=== PATIENT | female | born 1930 | race Caucasian/White ===

== ENCOUNTER 2016-08-23 10:21 | Inpatient (IN) | payer MEDICARE, MEDICAID ==
[~2016-08-23] VITALS: Ht 157.5 cm; Wt 49.5 kg
[~2016-08-23 10:21] MED LIST: AC325T PO; ACET-168 PO; ACHD5005 PO; ALBU2.5V52 INH; Acetaminophen PO; BISA5TAB20 PO; CEFTRIAXONE SOD IM; DCS100C PO; DONE10TA41 PO; DONE10TA5 PO; Diphenhydramine Hcl IV; FNT.05A2 IV; HYDR-3816 PO; HYDR118S10 PO; IPRA3AMP11 INH; LEVO125T6 PO; LEVO750T24 PO; LORA1TAB PO; LVT.088T PO; Levofloxacin PO; Lorazepam PO; MAGN-47 PO; MAGN400O7 PO; MUPI22OI2 TP; Metoclopramide Hcl IV; Multivitamins/Minerals Therap PO; Mupirocin TOP; Naloxone Hcl IV; Neomycin/Polymyxin/Bacitracin TOP; ONDA2VIA IV; PANT40TA PO; PEG250PW PO; PNT40TEC PO; SENN1TAB76 PO; Sodium Chloride IV; Tramadol Hcl PO; Warfarin Sod PO
--- OUTSIDE RECORDS SUMMARY | 2016-08-23 10:26 | XMS REPORT | Continuity of Care Document ---
Author Author [facility] Organization [facility] Address Unknown Phone Unavailable Care Team Providers Care Comic Book Writer Name Role Phone ZORA GUERRERO MD PCP Insurance Providers Payer Name Policy Number Subscriber Name Relationship [employer] Medicare [id number] Jesse Hernandez 19 Self / Same As Patient [facility] [id number] Jesse Hernandez 19 Self / Same As Patient [facility] [id number] Jesse Hernandez 19 Self / Same As Patient Advance Directives Directive Response Recorded Date/Time Advance Directives No 10/01/14 5:10pm Health Care Power of Life Skills Specialist Y Emy-daughter 10/01/14 5:10pm Organ Donor No 10/01/14 5:10pm Resuscitation Status DNR-Order Obtained 10/01/14 5:10pm Chief Complaint and Reason for Visit Chief Complaint LEUKOCYTOSIS Reason for Visit Bowel perforation Sepsis Problems Medical Problems Problem Onset Date Status Urinary tract infection Unknown Active Sepsis Unknown Active Bowel perforation Unknown Active Sepsis Unknown Active Medications Medication Dose Route Sig Days/Qty Instructions Order Date Discontinued Date Status Docusate Sodium 100 Mg PO TWICE A DAY 10/17/11 Active Donepezil Hcl 10 Mg PO BEDTIME 11/01/11 Active Acetaminophen/Hydrocodone Bitart 1 Each PO EVERY 6 HOURS PRN 12/20/11 Discontinued Levothyroxine Sodium (Levothroid) 1 Each PO DAILY 11/01/11 09/18/14 Discontinued Lorazepam (Ativan) 1 Each PO BEDTIME PRN 11/01/11 12/20/11 Discontinued Magnesium Hydroxide 30 Ml PO EVERY 6 HOURS PRN CONSTIPATION 11/01/11 Active Polyethylene Glycol 17 Gm PO BEDTIME 11/01/11 Active Levothyroxine Sodium 88 Mcg PO DAILY 09/18/14 Active Lorazepam 1 Mg PO BEDTIME PRN AGITATION 09/18/14 Active Acetaminophen 325 Mg PO EVERY 8HRS PRN PAIN 09/18/14 Active Hydrocodone Bit/Acetaminophen 1 Tab PO EVERY 6 HOURS PRN PAIN Active Albuterol Sulfate 2.5 Mg INH RT Q2HR FROM START TIME PRN SOA 10 Qty 10/01/14 Discontinued [Ceftriaxone Sod] 1,000 Mg IM DAILY 09/22/14 10/01/14 Discontinued [Levofloxacin] 750 Mg PO Q48H@11 10 Qty 09/22/14 10/01/14 Discontinued Albuterol Sulfate 2.5 Mg INH Q2H PRN SHORTNESS OF BREATH 10/01/14 Active Levofloxacin 750 Mg PO Every 48 Hours 10 DOSE THERAPY 10/01/14 Active Lorazepam 1 Mg PO BEDTIME PRN AGITATION 30 Qty 10/04/14 Active Social History Social History Problem Response Recorded Date/Time Alcohol Use Denies Use 10/01/2014 5:10pm Recreational Drug Use No 10/01/2014 5:10pm Recent Foreign Travel No 10/01/2014 5:10pm Recent Infectious Disease Exposure No 10/01/2014 5:10pm Smoking Status Former Smoker 10/01/2014 5:10pm Do you dip or chew tobacco? No 10/01/2014 5:10pm Query Response Start Date Stop Date Smoking Status Former Smoker Hospital Discharge Instructions No hospital discharge instructions. Plan of Care Discharge Date 10/18/14 5:25pm Disposition 30 STILL A PATIENT Instructions/Education Provided Acute Abdominal Pain (ED) Forms Provided PDI Surgical Prescriptions See Medications Section Referrals (Physical Medicine and Rehab) ZORA GUERRERO MD (Unspecified) 10/04/14 Address: [facility] [address] [place], [place] [id number] Reason(s) for Referral: 9:30 AM Additional Instructions/Education Follow up with Dr. Cain on October 26 at 3:00 pm Functional Status Query Response Date Recorded Patient Orientation Confused October 18, 2014 10:19am Comprehension Ability Unable to Comprehend October 18, 2014 7:57am Allergies, Adverse Reactions, Alerts Allergen Type Severity Reaction Status Last Updated No Known Drug Allergies Active 10/13/11 Immunizations Name Given Type Date of Pneumonia Vaccine 05/08/11 Historical Date of Influenza Vaccine 04/07/14 Historical Tetanus Booster (TDap) Unknown Historical influenza, split (incl. purified surface antigen) 09/22/14 Administered influenza, split (incl. purified surface antigen) 09/22/14 Administered Vital Signs Acute Vital Signs Vital Response Date/Time Temperature (Fahrenheit) 99.0 degrees F (97.6 - 99.5) Temperature (Calculated Celsius) 37.09145 degrees C (36.4 - 37.5) Temperature Source Temporal Pulse Rate (adult) 90 bpm (60 - 90) Respiratory Rate 24 bpm (12 - 24) O2 Sat by Pulse Oximetry 95 % (88 - 100) Blood Pressure 117/65 mm Hg Pain Pain Intensity 0 Height (Feet) 5 feet Height (Inches) 4.00 inches Height (Calculated Centimeters) 162.272929 cm Weight (Pounds) 108 pounds Weight (Ounces) 9.0 oz Weight (Calculated Grams) 80579.122 gm Weight (Calculated Kilograms) 49.429090 kilograms Calculated BMI 18.19 Results Laboratory Results Test Name Result Units Flags Reference Collection Date/Time Result Date/ Time Comments White Blood Count 9.0 10^3/uL 4.3-11.0 09/20/2014 4:20am 09/20/2014 4: 39am Red Blood Count 4.31 10^6/uL L 4.35-5.85 09/20/2014 4:20am 09/20/2014 4: 39am Hemoglobin 13.8 G/DL 11.5-16.0 09/20/2014 4:20am 09/20/2014 4:39am Hematocrit 42 % 35-52 09/20/2014 4:09/20/2014 4:39am Mean Corpuscular Volume 97 FL 80-99 09/20/2014 4:09/20/2014 4: 39am Mean Corpuscular Hemoglobin 32 PG 25-34 09/20/2014 4:09/20/2014 4: 39am Mean Corpuscular Hemoglobin Concent 33 G/DL 32-36 09/20/2014 4: 4:39am Red Cell Distribution Width 13.9 % 10.0-14.5 09/20/2014 4:2014 4:39am Platelet Count 204 10^3/uL 130-400 09/20/2014 4:09/20/2014 4:39am Mean Platelet Volume 9.4 FL 7.4-10.4 09/20/2014 4:09/20/2014 4: 39am Neutrophils (%) (Auto) 81 % H 42-75 09/20/2014 4:09/20/2014 4:39am Lymphocytes (%) (Auto) 8 % L 12-44 09/20/2014 4:09/20/2014 4:39am Monocytes (%) (Auto) 10 % 0-12 09/20/2014 4:09/20/2014 4:39am Eosinophils (%) (Auto) 0 % 0-10 09/20/2014 4:09/20/2014 4:39am Basophils (%) (Auto) 0 % 0-10 09/20/2014 4:09/20/2014 4:39am Neutrophils # (Auto) 7.3 X 10^3 1.8-7.8 09/20/2014 4:09/20/2014 4: 39am Lymphocytes # (Auto) 0.8 X 10^3 L 1.0-4.0 09/20/2014 4:09/20/2014 4: 39am Monocytes # (Auto) 0.9 X 10^3 0.0-1.0 09/20/2014 4:09/20/2014 4: 39am Eosinophils # (Auto) 0.0 10^3/uL 0.0-0.3 09/20/2014 4:09/20/2014 4 :39am Basophils # (Auto) 0.0 10^3/uL 0.0-0.1 09/20/2014 4:20am 09/20/2014 4: 39am Neutrophils % (Manual) 79 % 09/18/2014 12:20pm 09/18/2014 12:52pm Band Neutrophils 15 % 09/18/2014 12:20pm 09/18/2014 12:52pm Lymphocytes % (Manual) 1 % 09/18/2014 12:20pm 09/18/2014 12:52pm Monocytes % (Manual) 5 % 09/18/2014 12:20pm 09/18/2014 12:52pm Eosinophils % (Manual) 0 % 09/18/2014 12:20pm 09/18/2014 12:52pm Basophils % (Manual) 0 % 09/18/2014 12:20pm 09/18/2014 12:52pm Blood Morphology Comment NORMAL 09/18/2014 12:20pm 09/18/2014 12: 52pm Urine Color YELLOW 09/20/2014 1:03pm 09/20/2014 1:15pm Urine Clarity CLEAR 09/20/2014 1:03pm 09/20/2014 1:15pm Urine pH 7 5-9 09/20/2014 1:03pm 09/20/2014 1:15pm Urine Specific [place] 1.005 * 1.016-1.022 09/20/2014 1:03pm 2014 1:15pm Urine Protein NEGATIVE NEGATIVE 09/20/2014 1:03pm 09/20/2014 1:15pm Urine Glucose (UA) NEGATIVE NEGATIVE 09/20/2014 1:03pm 09/20/2014 1: 15pm Urine RBC (Auto) 3+ * NEGATIVE 09/20/2014 1:03pm 09/20/2014 1:15pm Urine Ketones NEGATIVE NEGATIVE 09/20/2014 1:03pm 09/20/2014 1:15pm Urine Nitrite NEGATIVE NEGATIVE 09/20/2014 1:03pm 09/20/2014 1:15pm Urine Bilirubin NEGATIVE NEGATIVE 09/20/2014 1:03pm 09/20/2014 1: 15pm Urine Urobilinogen NORMAL MG/DL NORMAL 09/20/2014 1:03pm 09/20/2014 1: 15pm Urine Leukocyte Esterase 1+ * NEGATIVE 09/20/2014 1:03pm 09/20/2014 1: 15pm Urine RBC 10-25 /HPF * 09/20/2014 1:03pm 09/20/2014 1:15pm Urine WBC 2-5 /HPF 09/20/2014 1:03pm 09/20/2014 1:15pm Urine Bacteria NONE /HPF 09/20/2014 1:03pm 09/20/2014 1:15pm Urine Squamous Epithelial Cells 0-2 /HPF 09/20/2014 1:03pm 2014 1:15pm Urine Crystals NONE /LPF 09/20/2014 1:03pm 09/20/2014 1:15pm Urine Casts NONE /LPF 09/20/2014 1:03pm 09/20/2014 1:15pm Urine Mucus NEGATIVE /LPF 09/20/2014 1:03pm 09/20/2014 1:15pm Urine Culture Indicated NO 09/20/2014 1:03pm 09/20/2014 1:15pm Sodium Level 143 MMOL/L 135-145 09/20/2014 4:20am 09/20/2014 5:15am Potassium Level 3.1 MMOL/L L 3.6-5.0 09/20/2014 4:20am 09/20/2014 5:15am Chloride Level 108 MMOL/L H 98-107 09/20/2014 4:20am 09/20/2014 5:15am Carbon Dioxide Level 25 MMOL/L 21-32 09/20/2014 4:20am 09/20/2014 5: 15am Blood Urea Nitrogen 15 MG/DL 7-18 09/20/2014 4:20am 09/20/2014 5:15am Creatinine 0.71 MG/DL 0.60-1.30 09/20/2014 4:20am 09/20/2014 5:15am BUN/Creatinine Ratio 21 09/20/2014 4:20am 09/20/2014 5:15am Estimat Glomerular Filtration Rate > 60 09/20/2014 4:20am 2014 5:15am GFR INTERPRETIVE DATA UNITS FOR ESTIMATED GFR (eGFR): mL/min/1.73 M2 REFERENCE RANGE FOR ESTIMATED GFR (eGFR) eGFR NORMAL eGFR >60 MODERATELY DECREASED eGFR 30-59 SEVERLY DECREASED eGFR 15-29 KIDNEY FAILURE <15 (OR DIALYSIS) Glucose Level 120 MG/DL H 70-105 09/20/2014 4:20am 09/20/2014 5:15am Glucometer 92 MG/DL 70-110 09/21/2014 3:43pm 09/21/2014 4:09pm Calcium Level 8.7 MG/DL 8.5-10.1 09/20/2014 4:20am 09/20/2014 5:15am Phosphorus Level 1.8 MG/DL L 2.3-4.7 09/19/2014 4:40am 09/19/2014 5:57am Magnesium Level 1.9 MG/DL 1.8-2.4 09/20/2014 4:20am 09/20/2014 6:15am Total Bilirubin 0.4 MG/DL 0.1-1.0 09/19/2014 1:16pm 09/19/2014 3:46pm Alkaline Phosphatase 64 U/L 40-136 09/19/2014 1:16pm 09/19/2014 3:46pm Aspartate Amino Transf (AST/SGOT) 23 U/L 5-34 09/19/2014 1:16pm 2014 3:46pm Alanine Aminotransferase (ALT/SGPT) 14 U/L 0-55 09/19/2014 1:16pm 09/19 3:46pm B-Type Natriuretic Peptide 130.9 PG/ML H <100.0 09/19/2014 3:22pm 2014 3:56pm Total Protein 6.0 G/DL L 6.4-8.2 09/19/2014 1:16pm 09/19/2014 3:46pm Albumin 3.4 G/DL 3.2-4.5 09/19/2014 1:16pm 09/19/2014 3:46pm Lactic Acid Level 1.8 MMOL/L 0.5-2.2 09/19/2014 4:40am 09/19/2014 5: 23am Thyroid Stimulating Hormone (TSH) 0.02 UIU/ML L 0.35-4.94 09/18/2014 12: 20pm 09/18/2014 1:09pm Free Thyroxine 1.48 NG/DL 0.70-1.48 09/18/2014 12:20pm 09/18/2014 2: 19pm Total Triiodothyronine 0.7 NG/ML 0.6-1.8 09/18/2014 12:20pm 09/21/2014 7:58am White Blood Count 7.4 10^3/uL 4.3-11.0 10/18/2014 4:54am 10/18/2014 5: 20am Red Blood Count 3.85 10^6/uL L 4.35-5.85 10/18/2014 4:54am 10/18/2014 5: 20am Hemoglobin 12.2 G/DL 11.5-16.0 10/18/2014 4:54am 10/18/2014 5:20am Hematocrit 36 % 35-52 10/18/2014 4:54am 10/18/2014 5:20am Mean Corpuscular Volume 93 FL 80-99 10/18/2014 4:54am 10/18/2014 5: 20am Mean Corpuscular Hemoglobin 32 PG 25-34 10/18/2014 4:54am 10/18/2014 5: 20am Mean Corpuscular Hemoglobin Concent 34 G/DL 32-36 10/18/2014 4:54am 5:20am Red Cell Distribution Width 15.7 % H 10.0-14.5 10/18/2014 4:54am 2014 5:20am Platelet Count 289 10^3/uL 130-400 10/18/2014 4:54am 10/18/2014 5:20am Mean Platelet Volume 8.7 FL 7.4-10.4 10/18/2014 4:54am 10/18/2014 5: 20am Neutrophils (%) (Auto) 82 % H 42-75 10/07/2014 10:00am 10/07/2014 10: 11am Lymphocytes (%) (Auto) 5 % L 12-44 10/07/2014 10:00am 10/07/2014 10:11am Monocytes (%) (Auto) 12 % 0-12 10/07/2014 10:00am 10/07/2014 10:11am Eosinophils (%) (Auto) 0 % 0-10 10/07/2014 10:00am 10/07/2014 10:11am Basophils (%) (Auto) 1 % 0-10 10/07/2014 10:00am 10/07/2014 10:11am Neutrophils # (Auto) 14.7 X 10^3 H 1.8-7.8 10/07/2014 10:00am 10/07/2014 10:11am Lymphocytes # (Auto) 0.9 X 10^3 L 1.0-4.0 10/07/2014 10:00am 10/07/2014 10:11am Monocytes # (Auto) 2.1 X 10^3 H 0.0-1.0 10/07/2014 10:00am 10/07/2014 10: 11am Eosinophils # (Auto) 0.1 10^3/uL 0.0-0.3 10/07/2014 10:00am 10/07/2014 10:11am Basophils # (Auto) 0.1 10^3/uL 0.0-0.1 10/07/2014 10:00am 10/07/2014 10 :11am Neutrophils % (Manual) 94 % 10/01/2014 2:40pm 10/01/2014 3:26pm Band Neutrophils 0 % 10/01/2014 2:40pm 10/01/2014 3:26pm Lymphocytes % (Manual) 3 % 10/01/2014 2:40pm 10/01/2014 3:26pm Monocytes % (Manual) 3 % 10/01/2014 2:40pm 10/01/2014 3:26pm Eosinophils % (Manual) 0 % 10/01/2014 2:40pm 10/01/2014 3:26pm Basophils % (Manual) 0 % 10/01/2014 2:40pm 10/01/2014 3:26pm Blood Morphology Comment NORMAL 10/01/2014 2:40pm 10/01/2014 3: 26pm Urine Color YELLOW 10/08/2014 5:10pm 10/08/2014 5:51pm Urine Clarity CLEAR 10/08/2014 5:10pm 10/08/2014 5:51pm Urine pH 6 5-9 10/08/2014 5:10pm 10/08/2014 5:51pm Urine Specific [place] 1.015 * 1.016-1.022 10/08/2014 5:10pm 2014 5:51pm Urine Protein NEGATIVE NEGATIVE 10/08/2014 5:10pm 10/08/2014 5:51pm Urine Glucose (UA) NEGATIVE NEGATIVE 10/08/2014 5:10pm 10/08/2014 5: 51pm Urine RBC (Auto) NEGATIVE NEGATIVE 10/08/2014 5:10pm 10/08/2014 5: 51pm Urine Ketones 3+ * NEGATIVE 10/08/2014 5:10pm 10/08/2014 5:51pm Urine Nitrite NEGATIVE NEGATIVE 10/08/2014 5:10pm 10/08/2014 5:51pm Urine Bilirubin NEGATIVE NEGATIVE 10/08/2014 5:10pm 10/08/2014 5: 51pm Urine Urobilinogen NORMAL MG/DL NORMAL 10/08/2014 5:10pm 10/08/2014 5: 51pm Urine Leukocyte Esterase 2+ * NEGATIVE 10/08/2014 5:10pm 10/08/2014 5: 51pm Urine RBC NONE /HPF 10/08/2014 5:10pm 10/08/2014 5:51pm Urine WBC 5-10 /HPF * 10/08/2014 5:10pm 10/08/2014 5:51pm Urine Bacteria NEGATIVE /HPF 10/08/2014 5:10pm 10/08/2014 5:51pm Urine Squamous Epithelial Cells 0-2 /HPF 10/08/2014 5:10pm 2014 5:51pm Urine Crystals NONE /LPF 10/08/2014 5:10pm 10/08/2014 5:51pm Urine Amorphous Sediment FEW ANNA URATES /LPF * 10/01/2014 5:30pm 10/01 5:52pm Urine Casts NONE /LPF 10/08/2014 5:10pm 10/08/2014 5:51pm Urine Coarse Granular Casts 2-5 /LPF * 10/01/2014 5:30pm 10/01/2014 5: 52pm Urine Mucus NEGATIVE /LPF 10/08/2014 5:10pm 10/08/2014 5:51pm Urine Yeast LARGE /HPF * 10/08/2014 5:10pm 10/08/2014 5:51pm Urine Culture Indicated YES 10/08/2014 5:10pm 10/08/2014 5:51pm Sodium Level 140 MMOL/L 135-145 10/18/2014 4:52am 10/18/2014 5:32am Potassium Level 3.7 MMOL/L 3.6-5.0 10/18/2014 4:52am 10/18/2014 5:32am Chloride Level 109 MMOL/L H 98-107 10/18/2014 4:52am 10/18/2014 5:32am Carbon Dioxide Level 20 MMOL/L L 21-32 10/18/2014 4:52am 10/18/2014 5: 32am Blood Urea Nitrogen 4 MG/DL L 7-18 10/18/2014 4:52am 10/18/2014 5:32am Creatinine 0.59 MG/DL L 0.60-1.30 10/18/2014 4:52am 10/18/2014 5:32am BUN/Creatinine Ratio 7 10/18/2014 4:52am 10/18/2014 5:32am Estimat Glomerular Filtration Rate > 60 10/18/2014 4:52am 2014 5:32am GFR INTERPRETIVE DATA UNITS FOR ESTIMATED GFR (eGFR): mL/min/1.73 M2 REFERENCE RANGE FOR ESTIMATED GFR (eGFR) eGFR NORMAL eGFR >60 MODERATELY DECREASED eGFR 30-59 SEVERLY DECREASED eGFR 15-29 KIDNEY FAILURE <15 (OR DIALYSIS) Glucose Level 86 MG/DL 70-105 10/18/2014 4:52am 10/18/2014 5:32am Glucometer 82 MG/DL 70-110 10/09/2014 4:53am 10/09/2014 5:00am Calcium Level 8.0 MG/DL L 8.5-10.1 10/18/2014 4:52am 10/18/2014 5:32am Total Bilirubin 0.3 MG/DL 0.1-1.0 10/12/2014 7:44am 10/12/2014 8:09am Alkaline Phosphatase 48 U/L 40-136 10/12/2014 7:44am 10/12/2014 8:09am Aspartate Amino Transf (AST/SGOT) 10 U/L 5-34 10/12/2014 7:44am 2014 8:09am Alanine Aminotransferase (ALT/SGPT) 6 U/L 0-55 10/12/2014 7:44am 2014 8:09am Total Protein 4.7 G/DL L 6.4-8.2 10/12/2014 7:44am 10/12/2014 8:09am Albumin 2.3 G/DL L 3.2-4.5 10/12/2014 7:44am 10/12/2014 8:09am Lactic Acid Level 1.3 MMOL/L 0.5-2.2 10/01/2014 4:33pm 10/01/2014 5: 00pm Microbiology Results Procedure Source Result Collection Date/Time Result Date/Time Blood Culture Peripheral, Not Otherwise Specified STAPH, COAG NEG ([employer]OTECTION SPECIALIST) 12:35pm 09/20/2014 3:46pm STAPH, COAG NEG (SOURCE [employer] PROTECTION SPECIALIST) 09/18/2014 12:35pm 09/20/2014 3:46pm Sputum Culture Sputum, Transtracheal Aspirate Normal dinesh 09/20/2014 1: 00am 09/21/2014 8:07am Normal dinesh 09/20/2014 1:00am 09/21/2014 8:07am Urine Culture Urine, Clean Catch YEAST SPECIES 10/08/2014 5:10pm 2014 10:31am ARACELI KEFYR 10/08/2014 5:10pm 10/11/2014 10:31am Procedures Procedure Status Date Provider(s) Diagnostic laparoscopy completed 10/01/14 CLINTON ARELLANO MD Tracing only of electrocardiogram completed 09/18/14 YANIV SIERRA MD Encounters Encounter Location Date/Time Discharged Inpatient Via [facility] 10/01/14 4:02pm Discharged Inpatient Via [facility] 09/18/14 2:00pm Recent Diagnosis Bowel perforation Sepsis
[2016-08-23] MEDS ORDERED: RT-ALBUTEROL/IPRATROPIUM 3 ML (DUONEB) VIAL ONE (10:52)
[2016-08-23] MEDS ORDERED: NS IV 1000 ML 1,000 ML IV ONE (10:53)
[2016-08-23] MEDS ORDERED: RT-ALBUTEROL/IPRATROPIUM 3 ML (DUONEB) VIAL INH ONE (11:00)
[2016-08-23 11:09] LABS: BASOPHILS % (AUTO) 0 % (0-10); EOSINOPHILS % (AUTO) 0 % (0-10); LYMPHOCYTES # (AUTO) 0.9 X 10^3 (1.0-4.0); LYMPHOCYTES % (AUTO) 3 % (12-44); MEAN CORPUSCULAR HEMOGLOBIN 33 PG (25-34); MEAN CORPUSCULAR HGB CONC 34 G/DL (32-36); MEAN CORPUSCULAR VOLUME 96 FL (80-99); MONOCYTES # (AUTO) 1.3 X 10^3 (0.0-1.0); MONOCYTES % (AUTO) 5 % (0-12); NEUTROPHILS % (AUTO) 91 % (42-75); PLATELET COUNT 405 10^3/uL (130-400); RED BLOOD COUNT 4.22 10^6/uL (4.35-5.85); RED CELL DISTRIBUTION WIDTH 14.4 % (10.0-14.5); WHITE BLOOD COUNT 26.3 10^3/uL (4.3-11.0)
[2016-08-23 11:28] LABS: INR 1.2 (0.8-1.4); PROTHROMBIN TIME PATIENT 14.5 SEC (12.2-14.7)
[2016-08-23 11:29] LABS: BAND NEUTROPHILS 8 %; BASOPHILS % (MANUAL) 0 %; EOSINOPHILS % (MANUAL) 0 %; LYMPHOCYTES % (MANUAL) 5 %; NEUTROPHILS % (MANUAL) 83 %
[2016-08-23 11:30] LABS: MYELOCYTES % 1 %
[2016-08-23 11:41] LABS: ALANINE AMINOTRANSFERASE 16 U/L (0-55); ALBUMIN 3.3 G/DL (3.2-4.5); ANION GAP 13 MMOL/L (5-14); ASPARTATE AMINO TRANSFERASE 16 U/L (5-34); BILIRUBIN,TOTAL 0.4 MG/DL (0.1-1.0); BLOOD UREA NITROGEN 23 MG/DL (7-18); BUN/CREATININE RATIO 28; CALCIUM 9.1 MG/DL (8.5-10.1); CARBON DIOXIDE 27 MMOL/L (21-32); CHLORIDE 102 MMOL/L (98-107); CREATININE SERUM 0.83 MG/DL (0.60-1.30); GFR ESTIMATED > 60; GLUCOSE 194 MG/DL (70-105); POTASSIUM 3.2 MMOL/L (3.6-5.0); SODIUM 142 MMOL/L (135-145); TOTAL PROTEIN 6.4 G/DL (6.4-8.2)
--- NOTE | 2016-08-23 12:03 | Diagnostic Imaging Report ---
INDICATION: Shortness of air. FINDINGS: Portable upright view of the chest demonstrates no change since 11/26/2014. A small nodule is again seen in the right lung base. Heart size and vascularity are normal. There are no pleural effusions. There is some calcification of the aorta. IMPRESSION: There are no acute findings. Dictated by: Dictated on workstation # [id number]
--- NOTE | 2016-08-23 12:05 | Diagnostic Imaging Report ---
PROCEDURE: CT head and CT cervical spine without contrast. TECHNIQUE: Multiple contiguous axial images were obtained through the brain and cervical spine without the use of intravenous contrast. Sagittal and coronal reformations through the cervical spine were then performed. INDICATION: Fell last night, now has altered level of consciousness, hematoma noted in the patient's right temporal region upon arrival. COMPARISON STUDY: CT scan from 11/26/2014. FINDINGS: Diffuse central and cortical atrophy appears stable. White matter disease within the maggie and periventricular regions has not appreciably changed. No mass effect, midline shift, hemorrhage, or extra-axial fluid collections are identified. There is a small air-fluid level in the right maxillary sinus. This measures about 15 Hounsfield units and is probably secondary to sinusitis. No fractures are present. The mastoid air cells are clear. Cervical spine: Diffuse degenerative changes of the cervical spine are again identified. 1-2 mm of retrolisthesis of C4 on C5, which is stable. The craniocervical junction appears normal. Mild emphysematous changes are present in the lung apices. The soft tissues demonstrate some calcification at the carotid bifurcations. Osteophytes are present at C4-5, C5-6, and C6-7. IMPRESSION: 1. 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 2. Right maxillary sinusitis. 3. Stable degenerative changes of the cervical spine with no acute findings. Dictated by: Dictated on workstation # [id number]
[2016-08-23] MEDS ORDERED: CATHETER FLUSH 10 ML SYR IV PRN ×2 (13:45→16:30)
[2016-08-23] MEDS ORDERED: IOHEXOL 350 MG/ML 100 ML (OMNIPAQUE 350) VIAL IV ONE (13:45)
[2016-08-23] MEDS ORDERED: NS 100 ML (IVPB) BAG IV ONE (13:45)
--- NOTE | 2016-08-23 13:59 | ED General ---
General Chief Complaint: Altered Mental Status Stated Complaint: BP/PULSE DROPPING Nursing Triage Note: Pt to ED via [facility] from [facility]. Facility reports pt fell last night and now has altered LOC and lost bowel and bladder function. Hematoma noted to pt's R mormon upon arrival. Pt A&O x3 but has delay in answering questions. Pt denies pain at this time. Moist cough also noted upon initial exam. Nursing Sepsis Screen: Possible Sepsis Risk Source of Information: Patient Exam Limitations: No Limitations History of Present Illness Time Seen by Provider: 10:25 Initial Comments This 86-year-old woman presents to the emergency room from the [facility] where she was found to have altered mental status, cough, and increased respirations. Lab work done yesterday noted a leukocytosis. She also had a fall last last night and has a contusion on her right forehead. She denies any pain or injury at time of presentation. She seems a little disoriented. There is notable cough and respiratory distress. She is afebrile. Allergies and Home Medications Allergies Coded Allergies: No Known Drug Allergies (Unverified , 10/13/11) Home Medications 1 EA TABLET 30Days 1 EA PO DAILY@0700 Prescribed by: VIN RAI on 12/01/14 0909 1 MG TAB 30Days 1 MG PO DAILY@1800 Prescribed by: VIN RAI on 12/01/14 0909 1 MG TAB #30 1 MG PO HS PRN PRN AGITATION Prescribed by: SHUN FELIX on 12/09/14 1553 15 GM OINT #1 0 GM TOP WEEK Prescribed by: SHUN FELIX on 12/09/14 1553 50 MG TAB #30 50 MG PO Q4H PRN PRN MILD PAIN Prescribed by: SHUN FELIX on 12/09/14 1553 Acetaminophen 500 Mg Tablet 500 MG PO Q8H (Reported) Docusate Sodium 100 Mg Cap 100 MG PO BID (Reported) Donepezil HCl 10 Mg Tablet 10 MG PO HS (Reported) Levothyroxine Sodium 88 Mcg Tab 88 MCG PO DAILY (Reported) Lorazepam 1 Mg Tab 1 MG PO HS PRN PRN AGITATION (Reported) Mupirocin 22 Gm Oint..gm. 22 GM TP DAILY (Reported) Pantoprazole Sodium 40 Mg Tablet.dr 40 MG PO DAILY (Reported) Constitutional: no symptoms reported EENTM: see HPI Respiratory: see HPI Cardiovascular: no symptoms reported Gastrointestinal: no symptoms reported Genitourinary: no symptoms reported Musculoskeletal: no symptoms reported Skin: see HPI Psychiatric/Neurological: See HPI Hematologic/Lymphatic: No Symptoms Reported Past Umpwnud-Belxpa-Vxwayw Hx Patient Social History Alcohol Use: Denies Use Recreational Drug Use: No Smoking Status: Unknown if Ever Smoked Recent Foreign Travel: No Contact w/Someone Who Travel: No Recent Infectious Disease Expo: No Recent Hopitalizations: Yes Immunizations Up To Date Tetanus Booster (TDap): Unknown Date of Pneumonia Vaccine: May 08, 2011 Date of Influenza Vaccine: Apr 07, 2014 Seasonal Allergies Seasonal Allergies: No Surgeries HX Surgeries: Yes (HIP) Surgeries: Abdominal, Hysterectomy, Orthopedic Respiratory Hx Respiratory Disorders: No Cardiovascular Hx Cardiac Disorders: No Neurological Hx Neurological Disorders: Yes Neurological Disorders: Dementia Reproductive System Hx Reproductive Disorders: No Genitourinary Hx Genitourinary Disorders: No Gastrointestinal Hx Gastrointestinal Disorders: Yes Gastrointestinal Disorders: Gastroesophageal Reflux, Chronic Constipation, Ulcer Musculoskeletal Hx Musculoskeletal Disorders: Yes (November 2014 left clavicle fracture) Musculoskeletal Disorders: Fractures Endocrine Hx Endocrine Disorders: Yes Endocrine Disorders: Hypothyroidsim HEENT HX ENT Disorders: No Cancer Hx Cancer: No Psychosocial Hx Psychiatric Problems: No Integumentary HX Skin/Integumentary Disorder: No Blood Transfusions Hx Blood Disorders: No Adverse Reaction to a Blood Tr: No Family Medical History Significant Family History: No Pertinent Family Hx Family Medial History: Hypertension 19 FATHER Myocardial infarction 19 FATHER Physical Exam-Suspected Sepsis Physical Exam Vital Signs Vital Sign - Last 12Hours 08/23/16 10:26 Temp 96.8 Pulse 105 Resp 26 B/P 131/69 Pulse Ox 93 O2 Delivery Room Air Capillary Refill : Less Than 3 Seconds Blood Pressure Mean: 89 General Appearance: WD/WN Mild Distress (respiratory) HEENT: PERRL/EOMI Normal ENT Inspection Pharynx Normal Other (ecchymosis/ contusion of the right forehead) Neck: Normal Inspection Non Tender Supple Respiratory: Lungs Clear Normal Breath Sounds No Accessory Muscle Use No Respiratory Distress Cardiovascular: No Edema No Murmur Tachycardia Gastrointestinal: Normal Bowel Sounds Non Tender Soft Extremity: Normal Inspection No Pedal Edema Neurologic/Psychiatric: Alert No Motor/Sensory Deficits Normal 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 Norm as Tested Other (disoriented, dementia at baseline) Skin: normal color warm/dry ecchymosis (contusion of the right forehead) Progress/Results/Core Measures Suspected Sepsis Recent Fever Within 48 Hours: No Infection Criteria Present: Suspected New Infection New/Unexplained Altered Menta: No Sepsis Screen: Possible Sepsis Risk Sepsis Diagnosis: SIRS Temperature:96.8 Pulse: 105 Respiratory Rate: 26 Laboratory Tests 08/23/16 10:55: White Blood Count 26.3H Blood Pressure 131 /69 Mean: 89 Laboratory Tests 08/23/16 10:55: Creatinine 0.83, INR Comment 1.2, Platelet Count 405H, Total Bilirubin 0.4 Results/Orders Lab Results Laboratory Tests Test 08/23/16 10:55 08/23/16 12:30 08/23/16 13:45 Range/Units Activated Partial Thromboplast Time 29 24-35 SEC Alanine Aminotransferase (ALT/SGPT) 16 0-55 U/L Albumin 3.3 3.2-4.5 G/DL Alkaline Phosphatase 115 40-136 U/L Anion Gap 13 5-14 MMOL/L Aspartate Amino Transf (AST/SGOT) 16 5-34 U/L BUN/Creatinine Ratio 28 Band Neutrophils 8 % Basophils # (Auto) 0.0 0.0-0.1 10^3/uL Basophils % (Manual) 0 % Basophils (%) (Auto) 0 0-10 % Blood Morphology Comment NORMAL Blood Urea Nitrogen 23 H 7-18 MG/DL Calcium Level 9.1 8.5-10.1 MG/DL Carbon Dioxide Level 27 21-32 MMOL/L Chloride Level 102 98-107 MMOL/L Clumped Platelets Creatinine 0.83 0.60-1.30 MG/DL D-Dimer 3.69 H 0.00-0.49 UG/ML Eosinophils # (Auto) 0.0 0.0-0.3 10^3/uL Eosinophils % (Manual) 0 % Eosinophils (%) (Auto) 0 0-10 % Estimat Glomerular Filtration Rate > 60 Glucose Level 194 H 70-105 MG/DL Hematocrit 41 35-52 % Hemoglobin 13.7 11.5-16.0 G/DL INR Comment 1.2 0.8-1.4 Lymphocytes # (Auto) 0.9 L 1.0-4.0 X 10^3 Lymphocytes % (Manual) 5 % Lymphocytes (%) (Auto) 3 L 12-44 % Mean Corpuscular Hemoglobin 33 25-34 PG Mean Corpuscular Hemoglobin Concent 34 32-36 G/DL Mean Corpuscular Volume 96 80-99 FL Mean Platelet Volume 9.0 7.4-10.4 FL Monocytes # (Auto) 1.3 H 0.0-1.0 X 10^3 Monocytes % (Manual) 3 % Monocytes (%) (Auto) 5 0-12 % Myelocytes % 1 % Neutrophils # (Auto) 24.0 H 1.8-7.8 X 10^3 Neutrophils % (Manual) 83 % Neutrophils (%) (Auto) 91 H 42-75 % Platelet Count 405 H 130-400 10^3/uL Potassium Level 3.2 L 3.6-5.0 MMOL/L Prothrombin Time 14.5 12.2-14.7 SEC Red Blood Count 4.22 L 4.35-5.85 10^6/uL Red Cell Distribution Width 14.4 10.0-14.5 % Sodium Level 142 135-145 MMOL/L Total Bilirubin 0.4 0.1-1.0 MG/DL Total Protein 6.4 6.4-8.2 G/DL White Blood Count 26.3 H 4.3-11.0 10^3/uL Lactic Acid Level 1.8 0.5-2.0 MMOL/L Urine Bacteria TRACE /HPF Urine Bilirubin NEGATIVE NEGATIVE Urine Casts NONE /LPF Urine Clarity CLEAR Urine Color YELLOW Urine Crystals NONE /LPF Urine Culture Indicated YES Urine Glucose (UA) NEGATIVE NEGATIVE Urine Ketones 1+ H NEGATIVE Urine Leukocyte Esterase 2+ H NEGATIVE Urine Mucus SMALL H /LPF Urine Nitrite NEGATIVE NEGATIVE Urine Protein 2+ H NEGATIVE Urine RBC RARE /HPF Urine RBC (Auto) 1+ H NEGATIVE Urine Specific [place] 1.020 1.016-1.022 Urine Squamous Epithelial Cells RARE /HPF Urine Urobilinogen 1 NORMAL MG/DL Urine WBC 10-25 H /HPF Urine Yeast MODERATE H /HPF Urine pH 5 5-9 Micro Results Microbiology 08/23/16 Influenza Types A,B Antigen (DWAYNE) - Final, Complete My Orders Orders-HELEN SOARES MD Ct Head/Cervical Spine Wo (08/23/16 10:52) Albuterol/Ipra Inhalation Soln (Duoneb I (08/23/16 11:00) Svn Sm Volume Nebulizer Rt-Rfs (08/23/16 10:52) Albuterol/Ipra Inhalation Soln (Duoneb I (08/23/16 10:52) Ns Iv 1000 Ml (Sodium Chloride 0.9%) (08/23/16 10:53) Lactic Acid Analyzer (08/23/16 10:53) Blood Culture (08/23/16 10:53) Sputum Culture (08/23/16 10:53) Protime With Inr (08/23/16 10:53) Partial Thromboplastin Time (08/23/16 10:53) O2 (08/23/16 10:53) Saline Lock/Iv-Start (08/23/16 10:53) Vital Signs Adult Sepsis Patie Q1HR (08/23/16 10:53) Remove Rings In Anticipation O (08/23/16 10:53) Influenza A And B Antigens (08/23/16 10:53) Fibrin Degradation Products (08/23/16 12:30) Ct Angio Chest W (08/23/16 13:31) Iohexol Injection (Omnipaque 350 Mg/Ml 1 (08/23/16 13:45) Sodium Chloride Flush (Catheter Flush Sy (08/23/16 13:45) Ns (Ivpb) (Sodium Chloride 0.9% Ivpb Bag (08/23/16 13:45) Ceftriaxone Injection (Rocephin Injectio (08/23/16 14:45) Lactated Ringers (Lr 1000 Ml Iv Solution (08/23/16 15:06) Medications Given in ED Current Medications Medications Dose Ordered Sig/Leticia Route Start Time Stop Time Status Last Admin Dose Admin Albuterol/ Ipratropium 3 ml 3 ml STK-MED ONCE .ROUTE 08/23/16 10:52 08/23/16 10:54 DC 08/23/16 10:56 3 ML Ceftriaxone Sodium/Sodium Chloride 50 ml @ 100 mls/hr ONCE ONCE IV 08/23/16 14:45 08/23/16 15:14 DC 08/23/16 15:07 100 MLS/HR Iohexol 100 ml ONCE ONCE IV 08/23/16 13:45 08/23/16 13:46 DC 08/23/16 14:05 100 ML Sodium Chloride 1,000 ml @ 0 mls/hr Q0M ONCE IV 08/23/16 10:53 08/23/16 10:55 DC 08/23/16 11:09 0 MLS/HR Sodium Chloride 100 ml 100 ml ONCE ONCE IV 08/23/16 13:45 08/23/16 13:46 DC 08/23/16 14:05 80 ML Vital Signs/I&O Vital Sign - Last 12Hours 08/23/16 10:26 Temp 96.8 Pulse 105 Resp 26 B/P 131/69 Pulse Ox 93 O2 Delivery Room Air Capillary Refill : Less Than 3 Seconds Blood Pressure Mean: 89 Progress Note #1: Time: 13:57 Progress Note Patient was initially suspected of having sepsis. However, no source of infection has been found. Chest x-ray was normal despite the respiratory distress. She became hypoxic despite DuoNeb treatment. Supplemental oxygen was applied. UA is still pending. Due to tachycardia, respiratory distress, and hypoxia, d-dimer was ordered. D-dimer was significantly elevated. CT angiogram of the chest was ordered and is pending. Progress Note #2: Time: 14:41 Progress Note Patient was found to have urinary tract infection after UA was obtained. Sepsis was no suspected. Rocephin was ordered. Progress Note #3: Time: 15:[address] angiogram was reviewed with Dr. Thomas. Motion artifact makes smaller vessels difficult to evaluate. Pulmonary embolism cannot be definitively ruled out. We elected to not treat with anticoagulation due to prior history of GI bleed and recent head trauma. His second liter of IV fluids has been ordered as she is still tachycardic. LR was selected due to the hypokalemia. Diagnostic Imaging Diagonstic Imaging: Xray Plain Films/CT/US/NM/MRI: chest Comments NAME: JESSE WILLIAMSON [facility] REC#: [id number] PT STATUS: REG ER : 1930 PHYSICIAN: MARY KAY SMITH [employer] SPECIALIST ADMIT DATE: 08/23/16/ER Draft Date of Exam:08/23/16 CHEST 1 VIEW, AP/PA ONLY INDICATION: Shortness of air. FINDINGS: Portable upright view of the chest demonstrates no change since 11/26/2014. A small nodule is again seen in the right lung base. Heart size and vascularity are normal. There are no pleural effusions. There is some calcification of the aorta. IMPRESSION: There are no acute findings. Dictated on workstation # [id number] Dict: 08/23/16 1152 Trans: 08/23/16 1202 [id number] Interpreted by: KIRBY ARANDA MD Diagonstic Imaging: CT Plain Films/CT/US/NM/MRI: c-spine, head Comments CT head and C-spine viewed by me. Report reviewed. See report below: NAME: JESSE WILLIAMSON [facility] REC#: [id number] PT STATUS: REG ER : 1930 PHYSICIAN: HELEN SOARES MD ADMIT DATE: 08/23/16/ER Draft Date of Exam:08/23/16 CT HEAD/CERVICAL SPINE WO PROCEDURE: CT head and CT cervical spine without contrast. TECHNIQUE: Multiple contiguous axial images were obtained through the brain and cervical spine without the use of intravenous contrast. Sagittal and coronal reformations through the cervical spine were then performed. INDICATION: Fell last night, now has altered level of consciousness, hematoma noted in the patient's right temporal region upon arrival. COMPARISON STUDY: CT scan from 11/26/2014. FINDINGS: Diffuse central and cortical atrophy appears stable. White matter disease within the maggie and periventricular regions has not appreciably changed. No mass effect, midline shift, hemorrhage, or extra-axial fluid collections are identified. There is a small air-fluid level in the right maxillary sinus. This measures about 15 Hounsfield units and is probably secondary to sinusitis. No fractures are present. The mastoid air cells are clear. Cervical spine: Diffuse degenerative changes of the cervical spine are again identified. 1-2 mm of retrolisthesis of C4 on C5, which is stable. The craniocervical junction appears normal. Mild emphysematous changes are present in the lung apices. The soft tissues demonstrate some calcification at the carotid bifurcations. Osteophytes are present at C4-5, C5-6, and C6-7. IMPRESSION: 1. 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 2. Right maxillary sinusitis. 3. Stable degenerative changes of the cervical spine with no acute findings. Dictated on workstation # [id number] Dict: 08/23/16 1152 Trans: 08/23/16 1204 [id number] Interpreted by: KIRBY ARANDA MD Electronically signed by: [facility] Imaging: CT Plain Films/CT/US/NM/MRI: chest Comments CT angiogram chest viewed by me and report reviewed. See report below: NAME: JESSE WILLIAMSON REC#: [id number] PT STATUS: REG ER : 1930 PHYSICIAN: HELEN SOARES MD ADMIT DATE: 08/23/16/ER Draft Date of Exam:08/23/16 CT ANGIO CHEST W PROCEDURE: CT angiography of the chest with contrast. TECHNIQUE: Multiple contiguous axial images were obtained through the chest after uneventful bolus administration of intravenous contrast. Reconstructed CTA MIP acquisitions were also performed. When compared to CT of 10/14/2014, multiple liver cysts were seen. FINDINGS: Please note that the patient could not follow instructions to hold her breath adequately during this exam resulting in respiratory motion artifact on this study. This could obscure a subtle abnormality particularly within a smaller segmental or subsegmental branch of the pulmonary arteries. The pulmonary arteries are well opacified with contrast. There is no filling defect within the central pulmonary arteries or the lobar arteries bilaterally. The visualized larger segmental branches appear patent. The thoracic aorta is normal in caliber. There is no mediastinal mass or significantly enlarged lymph node. The heart size is normal. No pericardial or pleural effusion. The lungs demonstrate emphysema changes. Minimal dependent groundglass opacities are probably related to atelectasis. Sections of the upper abdomen demonstrate hypodense lesions compatible with cysts in the liver up to 1.8 cm on 10/14/2014 exam. IMPRESSION: 1. The patient could not hold her breath adequately for the exam resulting in respiratory motion artifact. No central pulmonary embolism. The smaller segmental and the subsegmental branches are not well evaluated due to this artifact. 2. Emphysema and suggestion of mild pulmonary atelectasis. Dictated on workstation # [id number] Dict: 08/23/16 1427 Trans: 08/23/16 1441 [id number] Interpreted by: SANDRA THOMAS MD Departure Communication Time/Spoke to Admitting Phy: 15:11 Communication Case reviewed with Dr. Montesinos who agrees with admission for treatment of sepsis and urinary tract infection. We discussed the abnormal findings on the CT angiogram of the chest in conjunction with the elevated d-dimer. While there could possibly be a pulmonary embolism missed due to motion artifact, there would also be risk in anticoagulating due to prior history of GI bleed and recent head trauma. It was decided that anticoagulation should be avoided at this time. Patient's daughter who is the DPOA is in agreement with that. Impression Impression: Primary Impression: Sepsis Qualified Code: A41.9 - Sepsis, unspecified organism Additional Impressions: Urinary tract infection Qualified Code: N39.0 - Urinary tract infection, site not specified Respiratory distress Hypokalemia Disposition: ADMITTED INPATIENT Condition: Improved Decision to Admit Reason: Admit from ER (General) Decision to Admit/Date: Aug 23, 2016 Time/Decision to Admit Time: 15:00 Departure-Patient Inst. Referrals: ZORA GUERRERO MD (PCP/Family) Primary Care Physician HELEN SOARES MD Aug 23, 2016 13:59
[2016-08-23 14:01] LABS: BILIRUBIN,URINE NEGATIVE (NEGATIVE); KETONES,URINE 1+ (NEGATIVE); LEUKOCYTE ESTERASE ,URINE 2+ (NEGATIVE); NITRITE,URINE NEGATIVE (NEGATIVE); PH,URINE 5 (5-9); PROTEIN,URINE 2+ (NEGATIVE); UROBILINOGEN,URINE 1 MG/DL (NORMAL)
[2016-08-23 14:15] LABS: SQUAMOUS EPITHELIAL CELL,UR RARE /HPF; YEAST,URINE MODERATE /HPF
--- NOTE | 2016-08-23 14:42 | Diagnostic Imaging Report ---
PROCEDURE: CT angiography of the chest with contrast. TECHNIQUE: Multiple contiguous axial images were obtained through the chest after uneventful bolus administration of intravenous contrast. Reconstructed CTA MIP acquisitions were also performed. When compared to CT of 10/14/2014, multiple liver cysts were seen. FINDINGS: Please note that the patient could not follow instructions to hold her breath adequately during this exam resulting in respiratory motion artifact on this study. This could obscure a subtle abnormality particularly within a smaller segmental or subsegmental branch of the pulmonary arteries. The pulmonary arteries are well opacified with contrast. There is no filling defect within the central pulmonary arteries or the lobar arteries bilaterally. The visualized larger segmental branches appear patent. The thoracic aorta is normal in caliber. There is no mediastinal mass or significantly enlarged lymph node. The heart size is normal. No pericardial or pleural effusion. The lungs demonstrate emphysema changes. Minimal dependent groundglass opacities are probably related to atelectasis. Sections of the upper abdomen demonstrate hypodense lesions compatible with cysts in the liver up to 1.8 cm on 10/14/2014 exam. IMPRESSION: 1. The patient could not hold her breath adequately for the exam resulting in respiratory motion artifact. No central pulmonary embolism. The smaller segmental and the subsegmental branches are not well evaluated due to this artifact. 2. Emphysema and suggestion of mild pulmonary atelectasis. Dictated by: Dictated on workstation # [id number]
[2016-08-23] MEDS ORDERED: cefTRIAXone INJECTION 1,000 MG in NS (IVPB) 50 ML IV ONE (14:45)
[2016-08-23] MEDS ORDERED: LACTATED RINGERS 1,000 ML IV ONE (15:06)
[2016-08-23 16:30] VITALS: BP 140/97
[2016-08-23] MEDS ORDERED: NS W/KCL 20 MEQ/L 1,000 ML IV SCH (16:30)
[2016-08-23] MEDS ORDERED: LEVO88TA54 PO (16:39)
[2016-08-23] MEDS ORDERED: MULT1TAB69 PO (16:39)
[2016-08-23] MEDS ORDERED: ALBU2.5V4 IH (16:39)
[2016-08-23] MEDS ORDERED: OMEP20CA12 PO (16:39)
[2016-08-23] MEDS ORDERED: DONE10TA41 PO (16:39)
[2016-08-23] MEDS ORDERED: NYST15CR TP (16:41)
[2016-08-23] MEDS ORDERED: NYSTATIN CREAM (MYCOSTATIN) 30 GM TUBE TP PRN (17:15)
[2016-08-23] MEDS ORDERED: RT-ALBUTEROL SULF 2.5 MG/3 ML PRE-MIX VIAL IH PRN (17:15)
[2016-08-23 17:30] VITALS: BP 148/86
[2016-08-23] MEDS ORDERED: ACETAMINOPHEN 500 MG TAB (TYLENOL) PO PRN (17:30)
[2016-08-23] MEDS ORDERED: ONDANSETRON 4 MG/2 ML (SDV) Z0FRAN IVP PRN (17:30)
[2016-08-23] MEDS ORDERED: fentaNYL INJECTION 100 MCG/2 ML AMP IVP PRN (17:30)
[2016-08-23] MEDS: NS W/KCL 20 MEQ/L 1,000 ML IV SCH (18:03)
[2016-08-23] MEDS: ACETAMINOPHEN 500 MG TAB (TYLENOL) PO SCH (18:19)
[2016-08-23 18:20] VITALS: BP 140/97
[2016-08-23 18:30] VITALS: BP 154/73
[2016-08-23 19:30] VITALS: BP 143/69
[2016-08-23] MEDS ORDERED: RT-ALBUTEROL SULF 2.5 MG/3 ML PRE-MIX VIAL INH PRN (20:15)
[2016-08-23] MEDS: DOCUSATE SODIUM 100 MG (COLACE) CAP PO SCH (21:28)
[2016-08-23] MEDS: DONEPEZIL 10 MG (ARICEPT) TAB PO SCH (21:28)
[2016-08-23] MEDS ORDERED: LORazepam INJ 2 MG/ML (ATIVAN) VIAL IVP PRN (22:00)
[2016-08-24 00:50] VITALS: BP 159/80
[2016-08-24] MEDS: ACETAMINOPHEN 500 MG TAB (TYLENOL) PO SCH ×3 (01:49→17:22)
[2016-08-24] MEDS: NS W/KCL 20 MEQ/L 1,000 ML IV SCH ×3 (04:00→16:41)
[2016-08-24 06:33] LABS: BASOPHILS % (AUTO) 0 % (0-10); EOSINOPHILS % (AUTO) 0 % (0-10); LYMPHOCYTES # (AUTO) 1.4 X 10^3 (1.0-4.0); LYMPHOCYTES % (AUTO) 5 % (12-44); MEAN CORPUSCULAR HEMOGLOBIN 33 PG (25-34); MEAN CORPUSCULAR HGB CONC 34 G/DL (32-36); MEAN CORPUSCULAR VOLUME 97 FL (80-99); MEAN PLATELET VOLUME 9.4 FL (7.4-10.4); MONOCYTES # (AUTO) 2.3 X 10^3 (0.0-1.0); MONOCYTES % (AUTO) 7 % (0-12); NEUTROPHILS # (AUTO) 27.5 X 10^3 (1.8-7.8); NEUTROPHILS % (AUTO) 88 % (42-75); PLATELET COUNT 362 10^3/uL (130-400); RED BLOOD COUNT 3.57 10^6/uL (4.35-5.85); RED CELL DISTRIBUTION WIDTH 14.6 % (10.0-14.5)
[2016-08-24] MEDS: MULTIVIT W/MINERALS TAB (THERAGRAN M) PO SCH (06:42)
[2016-08-24] MEDS: PANTOPRAZOLE 20 MG TABLET (PROTONIX) PO SCH (06:42)
[2016-08-24 06:47] LABS: WHITE BLOOD COUNT 31.2 10^3/uL (4.3-11.0)
[2016-08-24 07:10] LABS: BAND NEUTROPHILS 12 %; BASOPHILS % (MANUAL) 0 %; EOSINOPHILS % (MANUAL) 0 %; LYMPHOCYTES % (MANUAL) 9 %; NEUTROPHILS % (MANUAL) 73 %
[2016-08-24 07:16] LABS: ALANINE AMINOTRANSFERASE 14 U/L (0-55); ALBUMIN 2.5 G/DL (3.2-4.5); ANION GAP 11 MMOL/L (5-14); ASPARTATE AMINO TRANSFERASE 14 U/L (5-34); BILIRUBIN,TOTAL 0.4 MG/DL (0.1-1.0); BLOOD UREA NITROGEN 13 MG/DL (7-18); BUN/CREATININE RATIO 23; CALCIUM 7.7 MG/DL (8.5-10.1); CARBON DIOXIDE 21 MMOL/L (21-32); CHLORIDE 110 MMOL/L (98-107); CREATININE SERUM 0.57 MG/DL (0.60-1.30); GFR ESTIMATED > 60; GLUCOSE 88 MG/DL (70-105); POTASSIUM 3.4 MMOL/L (3.6-5.0); SODIUM 142 MMOL/L (135-145); TOTAL PROTEIN 4.9 G/DL (6.4-8.2)
[2016-08-24 07:56] VITALS: BP 157/69
[2016-08-24] MEDS: cefTRIAXone INJECTION 1,000 MG in NS (IVPB) 50 ML IV SCH (08:39)
[2016-08-24] MEDS: LEVOTHYROXINE 88 MCG (LEVOTHORID) TAB PO SCH (08:51)
[2016-08-24] MEDS: DOCUSATE SODIUM 100 MG (COLACE) CAP PO SCH ×2 (08:52→20:13)
[2016-08-24] MEDS ORDERED: OMEPRAZOLE 20 MG (PriLOSEC) CAP NON-FORMULARY PO SCH (09:00)
--- NOTE | 2016-08-24 09:31 | History & Physical-Hospitalist ---
HPI History of Present Illness: HPI/Chief Complaint this is a 86-year-old white female resident of [facility]. Evidently she had recently been well but then had an episode of syncope where she fell striking her right head.she was brought to the emergency room where she was found to have a urinary tract infection and a leukocytosis. In addition she had an elevated d-dimer but CT chest showed no evidence of a large pulmonary embolus. It was an inadequate study however for small vessel disease. At the time of my interview this morning the patient is without complaint and says nothing hurts. On exam however it does appear that she has some left lower quadrant tenderness her white count has gone up to 31,000 with bands Source: penitentiary records, old records Exam Limitations: clinical condition Date Seen 08/24/16 Attending Physician Tsering Montesinos Floyd R MD Referring Physician Date of Admission Aug 23, 2016 at 3:25 pm Home Medications & Allergies Home Medications Reviewed patient Home Medication Reconciliation Form Allergies Coded Allergies: No Known Drug Allergies (Unverified , 10/13/11) Past Wzekzin-Vxvwoi-Cpmcyz Hx Patient Social History Marrital Status: single Employed/Student: retired Alcohol Use: Denies Use Recreational Drug Use: No Smoking Status: Unknown if Ever Smoked Physical Abuse Screen: No Sexual Abuse: No Recent Foreign Travel: No Contact w/other who traveled: No Recent Hopitalizations: Yes Recent Infectious Disease Expo: No Immunizations Up To Date Tetanus Booster (TDap): Unknown Date of Pneumonia Vaccine: May 08, 2011 Date of Influenza Vaccine: Jul 25, 2016 Seasonal Allergies Seasonal Allergies: No Surgeries HX Surgeries: Yes (HIP) Surgeries: Abdominal, Hysterectomy, Orthopedic (left hip fracture) Respiratory Hx Respiratory Disorders: Yes Respiratory Disorders: Emphysema Cardiovascular Hx Cardiovascular Disorders: No Neurological Hx Neurological Disorders: Yes Neurological Disorders: Dementia Reproductive System Hx Reproductive Disorders: No Genitourinary Hx Genitourinary Disorders: No Gastrointestinal Hx Gastrointestinal Disorders: Yes Gastrointestinal Disorders: Gastroesophageal Reflux, Chronic Constipation, Ulcer Musculoskeletal Hx Musculoskeletal Disorders: Yes (November 2014 left clavicle fracture) Musculoskeletal Disorders: Fractures Endocrine Hx Endocrine Disorders: Yes Endocrine Disorders: Hypothyroidsim HEENT HX ENT Disorders: No Cancer Hx Cancer: No Psychosocial Hx Psychiatric Problems: No Integumentary HX Skin/Integumentary Disorder: No Blood Transfusions Hx Blood Disorders: No Adverse Reaction to a Blood Tr: No Family Medical History Significant Family History: No Pertinent Family Hx Family Hx: Hypertension 19 FATHER Myocardial infarction 19 FATHER Review of Systems Constitutional: see HPI Physical Exam Physical Exam Vital Signs Vital Sign - Last 12Hours 08/23/16 08/23/16 10:26 11:15 Temp 96.8 Pulse 105 Resp 26 B/P 131/69 Pulse Ox 93 O2 Delivery Room Air O2 Flow Rate 3 Capillary Refill : Less Than 3 Seconds General Appearance: No Apparent Distress Thin HEENT: Other (ecchymosis right confucianism area) Neck: Supple Respiratory: Lungs Clear Normal Breath Sounds Cardiovascular: Regular Rate, Rhythm No Gallop Systolic Murmur Gastrointestinal: Normal Bowel Sounds Soft Tenderness (left lower quadrant) Extremity: Non Tender No Calf Tenderness No Pedal Edema Neurologic/Psychiatric: Alert Disoriented x3 Skin: Normal Color Warm/Dry Results Results/Procedures Lab Laboratory Tests 08/23/16 10:55 08/24/16 05:24 Assessment/Plan Admission Diagnosis 1. sepsis- with leukocytosis tachycardia and low-grade fever-has received 2 L of IV fluids in the emergency room 2. Urinary tract infection as possible source-culture is negative however-on Rocephin 3. Left lower quadrant pain. We'll obtain a CT abdomen pelvis for further evaluation 4. hypothyroidism replaced-check a TSH 5. Elevated d-dimer CT chest negative, hip fracture-within the last year, will obtain venous Doppler. 6. Dementia-patient is a DO NOT RESUSCITATE 7. Syncope possibly secondary to sepsis 8. Clinical Quality Measures DVT/VTE Risk/Contraindication: Risk Factor Score Per Nursin RFS Level Per Nursing on Admit: 4+=Very High DENNYS COLLAZO MD Aug 24, 2016 9:31 am
[2016-08-24] MEDS ORDERED: metroNIDAZOLE 500 MG (FLAGYL) TAB PO SCH (11:00)
[2016-08-24 12:00] VITALS: BP 134/80
--- NOTE | 2016-08-24 12:17 | Diagnostic Imaging Report ---
INDICATION: Dyspnea, elevated d-dimer, recent hip fracture. COMPARISON: None. TECHNIQUE: The bilateral lower extremity deep venous system was interrogated from the common femoral vein through the popliteal vein. These images were assessed for grayscale appearance, color and spectral Doppler blood flow, compression, and augmentation. FINDINGS: There is no evidence of intraluminal filling defect. Normal compression and augmentation is noted throughout. Soft tissues are unremarkable. IMPRESSION: 1. No sonographic evidence of deep venous thrombosis in the bilateral lower extremities. Dictated by: Dictated on workstation # [id number]
[2016-08-24] MEDS ORDERED: IOHEXOL 350 MG/ML 100 ML (OMNIPAQUE 350) VIAL IV ONE (12:45)
[2016-08-24] MEDS ORDERED: NS 100 ML (IVPB) BAG IV ONE (12:45)
[2016-08-24] MEDS: CHOLESTYRAMINE 4 GM (QUESTRAN LITE, PREVALITE) PKT PO SCH ×2 (12:47→20:13)
[2016-08-24] MEDS: metroNIDAZOLE 500 MG (FLAGYL) TAB PO SCH ×2 (12:47→20:13)
--- NOTE | 2016-08-24 14:38 | Diagnostic Imaging Report ---
PROCEDURE: CT abdomen and pelvis with and without contrast. TECHNIQUE: Precontrast acquisitions were acquired through the abdomen and pelvis. Multiple contiguous axial images were obtained through the abdomen and pelvis after the administration of intravenous contrast. INDICATION: Left lower quadrant pain, leukocytosis. FINDINGS: There is a large rim-enhancing complex pelvic fluid collection, slightly eccentric to the right, presumptively abscess. Its maximal anteroposterior dimension is 11.6 cm with maximal transverse thickness of 6.7 cm. It is at least 8 cm cephalocaudal. Caudally, it is just to the right of the rectosigmoidal junction and superiorly is slightly right of midline at the level of the anterosuperior iliac spine. Some increased density and infiltration throughout the abdominopelvic mesentery and peritonitis could not be excluded. The small and large bowel fonseca show some mucosal hyperemia with hyperenhancement and mild wall thickening. There is trace free intraperitoneal fluid. A left adnexal cyst, thin-walled, is stable from prior. Previous right adnexal cyst cannot be identified. Structure believed to be the normal appendix is visualized and unremarkable. There is no evidence of free air at this exam. Kidneys are unobstructed. The adrenals are negative. Subcentimeter low-density foci scattered throughout the spleen are unchanged, too small to be characterized. Multiple hepatic cysts appeared unchanged. Pancreas is nonfocal and nonacute. The celiac, superior mesenteric, and inferior mesenteric arteries as well as those vessels' primary branches are all widely patent. There are tiny dependent pleural effusions showing no evidence for loculation. The osseous structures are nonacute. IMPRESSION: 1. Rim-enhancing complex gas-fluid collection in the pelvis, presumed abscess. Peritoneal infiltration and omental density raise the question of diffuse peritonitis, correlate clinically. No other loculated collection. No free air. Abnormal appearance of the hyperenhancing mucosa throughout the small and large bowel with mild wall thickening. This is a diffuse inflammatory process without obvious focal abnormality. No air within the urinary bladder lumen. Unobstructed urinary tracts. No biliary dilatation. Hepatic cysts are stable. Low-density micronodules in the spleen are unchanged, etiology indeterminate. 2. The pelvic collection would be accessible to CT-guided percutaneous drainage but would likely require a transgluteal approach. Dictated by: Dictated on workstation # [id number]
[2016-08-24 16:00] VITALS: BP 153/82
[2016-08-24 20:00] VITALS: BP 146/74
[2016-08-24] MEDS: DONEPEZIL 10 MG (ARICEPT) TAB PO SCH (20:13)
[2016-08-25] VITALS: BP 176/95
[2016-08-25] MEDS: ACETAMINOPHEN 500 MG TAB (TYLENOL) PO SCH ×3 (00:55→17:27)
[2016-08-25] MEDS: NS W/KCL 20 MEQ/L 1,000 ML IV SCH ×2 (02:42→14:23)
[2016-08-25 04:00] VITALS: BP 127/64
[2016-08-25 04:39] LABS: BASOPHILS # (AUTO) 0.1 10^3/uL (0.0-0.1); BASOPHILS % (AUTO) 0 % (0-10); EOSINOPHILS % (AUTO) 0 % (0-10); LYMPHOCYTES # (AUTO) 1.5 X 10^3 (1.0-4.0); LYMPHOCYTES % (AUTO) 6 % (12-44); MEAN CORPUSCULAR HEMOGLOBIN 32 PG (25-34); MEAN CORPUSCULAR HGB CONC 33 G/DL (32-36); MEAN CORPUSCULAR VOLUME 98 FL (80-99); MEAN PLATELET VOLUME 8.7 FL (7.4-10.4); MONOCYTES # (AUTO) 1.6 X 10^3 (0.0-1.0); MONOCYTES % (AUTO) 6 % (0-12); NEUTROPHILS % (AUTO) 88 % (42-75); PLATELET COUNT 389 10^3/uL (130-400); RED BLOOD COUNT 3.69 10^6/uL (4.35-5.85); RED CELL DISTRIBUTION WIDTH 14.7 % (10.0-14.5); WHITE BLOOD COUNT 26.1 10^3/uL (4.3-11.0)
[2016-08-25 05:02] LABS: ALANINE AMINOTRANSFERASE 13 U/L (0-55); ALBUMIN 2.7 G/DL (3.2-4.5); ANION GAP 12 MMOL/L (5-14); ASPARTATE AMINO TRANSFERASE 10 U/L (5-34); BILIRUBIN,TOTAL 0.4 MG/DL (0.1-1.0); BLOOD UREA NITROGEN 13 MG/DL (7-18); BUN/CREATININE RATIO 22; CALCIUM 7.9 MG/DL (8.5-10.1); CARBON DIOXIDE 17 MMOL/L (21-32); CHLORIDE 114 MMOL/L (98-107); CREATININE SERUM 0.58 MG/DL (0.60-1.30); GFR ESTIMATED > 60; GLUCOSE 79 MG/DL (70-105); POTASSIUM 3.9 MMOL/L (3.6-5.0); SODIUM 143 MMOL/L (135-145); TOTAL PROTEIN 4.9 G/DL (6.4-8.2)
[2016-08-25] MEDS: MULTIVIT W/MINERALS TAB (THERAGRAN M) PO SCH (06:03)
[2016-08-25] MEDS: PANTOPRAZOLE 20 MG TABLET (PROTONIX) PO SCH (06:03)
[2016-08-25 08:00] VITALS: BP 188/78
[2016-08-25] MEDS: DOCUSATE SODIUM 100 MG (COLACE) CAP PO SCH ×2 (08:37→20:03)
[2016-08-25] MEDS: cefTRIAXone INJECTION 1,000 MG in NS (IVPB) 50 ML IV SCH (08:37)
[2016-08-25] MEDS: metroNIDAZOLE 500 MG (FLAGYL) TAB PO SCH ×3 (08:37→20:03)
[2016-08-25] MEDS: LEVOTHYROXINE 88 MCG (LEVOTHORID) TAB PO SCH (08:37)
[2016-08-25] MEDS ORDERED: cefTRIAXone INJECTION 1,000 MG in NS (IVPB) 50 ML IV SCH (09:00)
[2016-08-25] MEDS: CHOLESTYRAMINE 4 GM (QUESTRAN LITE, PREVALITE) PKT PO SCH ×3 (11:07→20:03)
--- NOTE | 2016-08-25 11:08 | Progress Note-Hospitalist ---
Subjective HPI/CC On Admission this is a 86-year-old white female resident of [facility]. Evidently she had recently been well but then had an episode of syncope where she fell striking her right head.she was brought to the emergency room where she was found to have a urinary tract infection and a leukocytosis. In addition she had an elevated d-dimer but CT chest showed no evidence of a large pulmonary embolus. It was an inadequate study however for small vessel disease. At the time of my interview this morning the patient is without complaint and says nothing hurts. On exam however it does appear that she has some left lower quadrant tenderness her white count has gone up to 31,000 with bands Date Seen 08/25/16 Subjective/Events-last exam patient has a low-grade temperature. She is awake and alert but denies having any complaints, CT reveals a right enhancing pelvic mass suspicious for an abscess. White count remains elevated without any other source of infection Review of Systems Pulmonary: Cough (is noted this morning) Objective Exam Vital Signs Vital Sign - Last 12Hours 08/23/16 08/23/16 10:26 11:15 Temp 96.8 Pulse 105 Resp 26 B/P 131/69 Pulse Ox 93 O2 Delivery Room Air O2 Flow Rate 3 Capillary Refill : Less Than 3 Seconds General Appearance: Chronically ill HEENT: Normal ENT Inspection Neck: Supple Respiratory: No Accessory Muscle Use Decreased Breath Sounds Cardiovascular: Regular Rate, Rhythm Systolic Murmur Tachycardia Gastrointestinal: Tenderness (hypogastric area) Results/Procedures Lab Laboratory Tests 08/25/16 04:25 Assessment/Plan Assessment and Plan Assess & Plan/Chief Complaint 1. sepsis- with leukocytosis tachycardia and low-grade fever-has received 2 L of IV fluids in the emergency room-etiology most likely pelvic abscess-on Rocephin and Flagyl 2. Urinary tract infection as possible source-culture is negative however-on Rocephin 3. hypogastric abdominal pain. CT shows possible abscess-surgical consultation 4. hypothyroidism replaced-check a TSH 5. Elevated d-dimer CT chest negative, hip fracture-within the last year, venous Doppler is negative 6. Dementia-patient is a DO NOT RESUSCITATE 7. Syncope possibly secondary to sepsis 8. possible fluid overload-Will recheck chest x-ray and decrease IV fluids DENNYS COLLAZO MD Aug 25, 2016 11:08
[2016-08-25 12:00] VITALS: BP 175/90
--- NOTE | 2016-08-25 14:42 | Consultation ---
History of Present Illness History of Present Illness Patient Consulted On(kelsy/time) 08/25/16 14:35 Date of Admission History of Present Illness Surgery is asked to consult regarding abdominal abscess. HPI per medicine: this is a 86-year-old white female resident of [facility]. Evidently she had recently been well but then had an episode of syncope where she fell striking her right head.she was brought to the emergency room where she was found to have a urinary tract infection and a leukocytosis. In addition she had an elevated d-dimer but CT chest showed no evidence of a large pulmonary embolus. It was an inadequate study however for small vessel disease. At the time of my interview this morning the patient is without complaint and says nothing hurts. On exam however it does appear that she has some left lower quadrant tenderness her white count has gone up to 31,000 with bands Today pt denies abdominal pain, she denies nausea or vomiting. Allergies and Home Medications Allergies Coded Allergies: No Known Drug Allergies (Unverified , 10/13/11) Home Medications Acetaminophen 500 Mg Tablet 500 MG PO Q8H (Reported) Albuterol Sulfate 2.5 Mg/3 Ml Vial.neb 3 ML IH Q8H PRN PRN SHORTNESS OF BREATH ( Reported) Docusate Sodium 100 Mg Cap 100 MG PO BID (Reported) Donepezil HCl 10 Mg Tablet 10 MG PO HS (Reported) Levothyroxine Sodium 88 Mcg Tablet 88 MCG PO DAILY@1000 (Reported) Multivitamin 1 Each Tablet 1 TAB PO DAILY (Reported) Nystatin 15 Gm Cream..g. TP TID PRN PRN RASH (Reported) Omeprazole 20 Mg Capsule.dr 20 MG PO DAILY (Reported) Past Cztvzvp-Ceodpi-Guxuvs Hx Patient Social History Alcohol Use: Denies Use Recreational Drug Use: No Smoking Status: Unknown if Ever Smoked Recent Foreign Travel: No Contact w/Someone Who Travel: No Recent Infectious Disease Expo: No Recent Hopitalizations: Yes Physical Abuse Screen: No Sexual Abuse: No Immunizations Up To Date Tetanus Booster (TDap): Unknown Date of Pneumonia Vaccine: May 08, 2011 Date of Influenza Vaccine: Jul 25, 2016 Seasonal Allergies Seasonal Allergies: No Surgeries HX Surgeries: Yes (HIP) Surgeries: Abdominal, Hysterectomy, Orthopedic (left hip fracture) Respiratory Hx Respiratory Disorders: Yes Cardiovascular Hx Cardiac Disorders: No Neurological Hx Neurological Disorders: Yes Neurological Disorders: Dementia Reproductive System Hx Reproductive Disorders: No Genitourinary Hx Genitourinary Disorders: No Gastrointestinal Hx Gastrointestinal Disorders: Yes Gastrointestinal Disorders: Gastroesophageal Reflux, Chronic Constipation, Ulcer Musculoskeletal Hx Musculoskeletal Disorders: Yes (November 2014 left clavicle fracture) Musculoskeletal Disorders: Fractures Endocrine Hx Endocrine Disorders: Yes Endocrine Disorders: Hypothyroidsim HEENT HX ENT Disorders: No Cancer Hx Cancer: No Psychosocial Hx Psychiatric Problems: No Integumentary HX Skin/Integumentary Disorder: No Blood Transfusions Hx Blood Disorders: No Adverse Reaction to a Blood Tr: No Family Medical History Significant Family History: No Pertinent Family Hx, Hypertension Family Medial History: Hypertension 19 FATHER Myocardial infarction 19 FATHER Review of Systems-General ROS-Unable to Obtain: pt unable to answer, secondary to dementia Physical Exam-General Problems Physical Exam Vital Signs Vital Sign - Last 12Hours 08/23/16 08/23/16 10:26 11:15 Temp 96.8 Pulse 105 Resp 26 B/P 131/69 Pulse Ox 93 O2 Delivery Room Air O2 Flow Rate 3 Capillary Refill : Less Than 3 Seconds General Appearance: no apparent distress thin Eyes: Bilateral Eye EOMI, Bilateral Eye PERRL HEENT: pharynx normalNo scleral icterus (R), No scleral icterus (L) Neck: non-tender supple Respiratory: normal breath sounds no respiratory distress accessory muscle use Cardiovascular: no edema tachycardia Gastrointestinal: no organomegaly abnormal bowel sounds (hypoactive) distended Back: no CVA tenderness no vertebral tenderness Extremities: no pedal edema no calf tenderness Skin: normal color warm/dry Lymphatic: no adenopathy (neck, axilla or groin) Data Review Labs Laboratory Tests 08/25/16 04:25: Alanine Aminotransferase (ALT/SGPT) 13, Albumin 2.7L, Alkaline Phosphatase 90, Anion Gap 12, Aspartate Amino Transf (AST/SGOT) 10, BUN/Creatinine Ratio 22, Basophils # (Auto) 0.1, Basophils (%) (Auto) 0, Blood Urea Nitrogen 13, Calcium Level 7.9L, Carbon Dioxide Level 17L, Chloride Level 114H, Creatinine 0.58L, Eosinophils # (Auto) 0.0, Eosinophils (%) (Auto) 0, Estimat Glomerular Filtration Rate > 60, Glucose Level 79, Hematocrit 36, Hemoglobin 11.8, Lymphocytes # (Auto) 1.5, Lymphocytes (%) (Auto) 6L, Mean Corpuscular Hemoglobin 32, Mean Corpuscular Hemoglobin Concent 33, Mean Corpuscular Volume 98, Mean Platelet Volume 8.7, Monocytes # (Auto) 1.6H, Monocytes (%) (Auto) 6, Neutrophils # (Auto) 23.0H, Neutrophils (%) (Auto) 88H, Platelet Count 389, Potassium Level 3.9, Red Blood Count 3.69L, Red Cell Distribution Width 14.7H, Sodium Level 143, Total Bilirubin 0.4, Total Protein 4.9L, White Blood Count 26.1H Microbiology 08/23/16 Blood Culture - Preliminary, Resulted No growth 08/24/16 C. difficile GDH Antigen & Toxins - Final, Complete 08/23/16 Influenza Types A,B Antigen (DWAYNE) - Final, Complete 08/23/16 Urine Culture - Final, Complete Yeast Species Assessment/Plan Assessment/Plan Assessment/Plan Abd/Pelvic abscess - unknown etiology, per radiology it appears contained, no free air. Pt is a very fragile 86 and not a good surgical candidate; therefore , will try to get IR to place a drain. It should be accessible through gluteal approach. Pt doesn't really want a major surgery. Continue IV ABX, pain control. UTI - on abx Hypothyroid - levothroid Dementia Clinical Quality Measures DVT/VTE Risk/Contraindication: Risk Factor Score Per Nursin RFS Level Per Nursing on Admit: 4+=Very High SHUN GARCIA DO Aug 25, 2016 14:42
--- NOTE | 2016-08-25 15:45 | Diagnostic Imaging Report ---
INDICATION: Cough. Shortness of breath. Comparison with 08/23/2016. FINDINGS: Bilateral apical interstitial lung disease is demonstrated. No consolidated infiltrates have developed. Lower lungs are clear. No evidence of pleural effusions or pericardial effusions. The heart is not enlarged. No evidence of pulmonary edema. IMPRESSION: Bilateral apical interstitial lung disease with no significant change when compared with previous exam. Dictated by: Dictated on workstation # [id number]
[2016-08-25 16:00] VITALS: BP 185/91
[2016-08-25 20:00] VITALS: BP 136/83
[2016-08-25] MEDS: DONEPEZIL 10 MG (ARICEPT) TAB PO SCH (20:02)
[2016-08-26] VITALS: BP 170/94
[2016-08-26] MEDS: ACETAMINOPHEN 500 MG TAB (TYLENOL) PO SCH ×3 (01:47→16:29)
[2016-08-26 04:00] VITALS: BP 165/75
[2016-08-26 05:07] LABS: INR 1.4 (0.8-1.4); PROTHROMBIN TIME PATIENT 16.9 SEC (12.2-14.7)
[2016-08-26] MEDS: MULTIVIT W/MINERALS TAB (THERAGRAN M) PO SCH (05:36)
[2016-08-26] MEDS: PANTOPRAZOLE 20 MG TABLET (PROTONIX) PO SCH (05:36)
[2016-08-26] MEDS: NS W/KCL 20 MEQ/L 1,000 ML IV SCH (05:36)
[2016-08-26 05:51] LABS: BASOPHILS # (AUTO) 0.1 10^3/uL (0.0-0.1); BASOPHILS % (AUTO) 0 % (0-10); EOSINOPHILS # (AUTO) 0.1 10^3/uL (0.0-0.3); EOSINOPHILS % (AUTO) 0 % (0-10); LYMPHOCYTES # (AUTO) 0.8 X 10^3 (1.0-4.0); LYMPHOCYTES % (AUTO) 4 % (12-44); MEAN CORPUSCULAR HEMOGLOBIN 33 PG (25-34); MEAN CORPUSCULAR HGB CONC 34 G/DL (32-36); MEAN CORPUSCULAR VOLUME 97 FL (80-99); MEAN PLATELET VOLUME 9.2 FL (7.4-10.4); MONOCYTES # (AUTO) 1.6 X 10^3 (0.0-1.0); MONOCYTES % (AUTO) 7 % (0-12); NEUTROPHILS # (AUTO) 19.1 X 10^3 (1.8-7.8); NEUTROPHILS % (AUTO) 88 % (42-75); PLATELET COUNT 407 10^3/uL (130-400); RED BLOOD COUNT 3.59 10^6/uL (4.35-5.85); RED CELL DISTRIBUTION WIDTH 14.7 % (10.0-14.5); WHITE BLOOD COUNT 21.7 10^3/uL (4.3-11.0)
[2016-08-26 06:08] LABS: ALANINE AMINOTRANSFERASE 13 U/L (0-55); ALBUMIN 2.5 G/DL (3.2-4.5); ANION GAP 12 MMOL/L (5-14); ASPARTATE AMINO TRANSFERASE 16 U/L (5-34); BILIRUBIN,TOTAL 0.4 MG/DL (0.1-1.0); BLOOD UREA NITROGEN 10 MG/DL (7-18); BUN/CREATININE RATIO 18; CARBON DIOXIDE 18 MMOL/L (21-32); CHLORIDE 110 MMOL/L (98-107); CREATININE SERUM 0.55 MG/DL (0.60-1.30); GFR ESTIMATED > 60; GLUCOSE 85 MG/DL (70-105); POTASSIUM 3.6 MMOL/L (3.6-5.0); SODIUM 140 MMOL/L (135-145); TOTAL PROTEIN 5.1 G/DL (6.4-8.2)
[2016-08-26 08:18] VITALS: BP 157/73
[2016-08-26] MEDS: metroNIDAZOLE 500 MG (FLAGYL) TAB PO SCH ×3 (09:21→20:21)
[2016-08-26] MEDS: cefTRIAXone INJECTION 1,000 MG in NS (IVPB) 50 ML IV SCH (09:21)
[2016-08-26] MEDS: DOCUSATE SODIUM 100 MG (COLACE) CAP PO SCH ×2 (09:21→20:21)
[2016-08-26] MEDS: LEVOTHYROXINE 88 MCG (LEVOTHORID) TAB PO SCH (09:21)
[2016-08-26] MEDS: CHOLESTYRAMINE 4 GM (QUESTRAN LITE, PREVALITE) PKT PO SCH (09:22)
--- NOTE | 2016-08-26 11:36 | Progress Note-Hospitalist ---
Subjective HPI/CC On Admission this is a 86-year-old white female resident of [facility]. Evidently she had recently been well but then had an episode of syncope where she fell striking her right head.she was brought to the emergency room where she was found to have a urinary tract infection and a leukocytosis. In addition she had an elevated d-dimer but CT chest showed no evidence of a large pulmonary embolus. It was an inadequate study however for small vessel disease. At the time of my interview this morning the patient is without complaint and says nothing hurts. On exam however it does appear that she has some left lower quadrant tenderness her white count has gone up to 31,000 with bands Date Seen 08/26/16 Subjective/Events-last exam patient is without complaint. CT has shown a right pelvic mass. Dr. Alvarado is seen the patient in consultation. Since his most likely secondary to an abscess. It is accessible by CT-guided needle biopsy and drainage. Dr. Govea called today and said that this would be accomplished tomorrow Review of Systems Pulmonary: Dyspnea Objective Exam Vital Signs Vital Sign - Last 12Hours 08/23/16 08/23/16 10:26 11:15 Temp 96.8 Pulse 105 Resp 26 B/P 131/69 Pulse Ox 93 O2 Delivery Room Air O2 Flow Rate 3 Capillary Refill : Less Than 3 Seconds General Appearance: Chronically ill HEENT: Normal ENT Inspection Other (poor dentition) Neck: Supple Respiratory: Lungs Clear No Accessory Muscle Use Decreased Breath Sounds Cardiovascular: Regular Rate, Rhythm No Gallop Systolic Murmur Gastrointestinal: Non Tender Soft Results/Procedures Lab Laboratory Tests 08/26/16 04:30 Assessment/Plan Assessment and Plan Assess & Plan/Chief Complaint 1. sepsis- with leukocytosis tachycardia and low-grade fever-has received 2 L of IV fluids in the emergency room-etiology most likely pelvic abscess-on Rocephin and Snsych-OB-evyxwg drainage scheduled for tomorrow 2. Urinary tract infection as possible source-culture is negative however-on Rocephin 3. hypogastric abdominal pain. CT shows possible abscess-surgical consultation 4. hypothyroidism replaced-check a TSH 5. Elevated d-dimer CT chest negative, hip fracture-within the last year, venous Doppler is [id number] is most likely some reactive secondary to abscess 6. Dementia-patient is a DO NOT RESUSCITATE 7. Syncope possibly secondary to sepsis 8. possible fluid overload- chest x-ray shows no acute process DENNYS COLLAZO MD Aug 26, 2016 11:36
[2016-08-26 12:00] VITALS: BP 166/81
[2016-08-26 16:52] VITALS: BP 179/85
--- NOTE | 2016-08-26 18:11 | Progress Note ---
Subjective Subjective/Events-last exam Pt seen and examined, no significant changes from yesterday. No abdominal pain , no N/V. Review of Systems General: Chills Fatigue Pulmonary: No Dyspnea, No Cough Cardiovascular: No: Chest Pain, Palpitations Gastrointestinal: No: Abdominal Pain, Nausea, Vomiting Objective Exam Vital Signs Date Time Temp Pulse Resp B/P Pulse Ox O2 Delivery O2 Flow Rate FiO2 08/26/16 16:52 99.8 95 18 179/85 95 Nasal Cannula 3.00 08/26/16 12:00 98.2 109 18 166/81 94 Nasal Cannula 3.00 08/26/16 09:00 Nasal Cannula 3.00 08/26/16 08:18 98.3 102 16 157/73 94 Nasal Cannula 3.00 08/26/16 08:16 93 3.00 08/26/16 08:13 93 08/26/16 04:00 97.8 87 18 165/75 95 Nasal Cannula 3.00 08/26/16 00:00 97.7 99 20 170/94 94 Nasal Cannula 3.00 08/25/16 21:00 Nasal Cannula 3.00 08/25/16 20:00 99.0 105 20 136/83 94 Nasal Cannula 3.00 I & O 08/26/16 07:00 Intake Total 2420 ml Balance 2420 ml Capillary Refill : Less Than 3 Seconds General Appearance: Chronically ill Mild Distress HEENT: PERRL/EOMI Pharynx Normal Other (poor dentition) Neck: Non Tender Supple Respiratory: Lungs Clear No Accessory Muscle Use Decreased Breath Sounds Cardiovascular: Regular Rate, Rhythm No Gallop Systolic Murmur Gastrointestinal: no organomegaly abnormal bowel sounds (hypoactive) distended Extremity: Non Tender No Calf Tenderness No Pedal Edema Neurologic/Psychiatric: Alert Disoriented x3 Skin: Normal Color Warm/Dry Results Lab Laboratory Tests 08/26/16 04:30: Alanine Aminotransferase (ALT/SGPT) 13, Albumin 2.5L, Alkaline Phosphatase 94, Anion Gap 12, Aspartate Amino Transf (AST/SGOT) 16, BUN/Creatinine Ratio 18, Basophils # (Auto) 0.1, Basophils (%) (Auto) 0, Blood Urea Nitrogen 10, Calcium Level 8.0L, Carbon Dioxide Level 18L, Chloride Level 110H, Creatinine 0.55L, Eosinophils # (Auto) 0.1, Eosinophils (%) (Auto) 0, Estimat Glomerular Filtration Rate > 60, Glucose Level 85, Hematocrit 35, Hemoglobin 11.7, INR Comment 1.4, Lymphocytes # (Auto) 0.8L, Lymphocytes (%) (Auto) 4L, Mean Corpuscular Hemoglobin 33, Mean Corpuscular Hemoglobin Concent 34, Mean Corpuscular Volume 97, Mean Platelet Volume 9.2, Monocytes # (Auto) 1.6H, Monocytes (%) (Auto) 7, Neutrophils # (Auto) 19.1H, Neutrophils (%) (Auto) 88H, Platelet Count 407H, Potassium Level 3.6, Prothrombin Time 16.9H, Red Blood Count 3.59L, Red Cell Distribution Width 14.7H, Sodium Level 140, Total Bilirubin 0.4, Total Protein 5.1L, White Blood Count 21.7H Microbiology 08/23/16 Blood Culture - Preliminary, Resulted No growth 08/24/16 C. difficile GDH Antigen & Toxins - Final, Complete 08/23/16 Influenza Types A,B Antigen (DWAYNE) - Final, Complete 08/23/16 Urine Culture - Final, Complete Yeast Species Assessment/Plan Assessment/Plan Assessment/Plan Abd/Pelvic abscess - unknown etiology, per radiology it appears contained, no free air. Pt is a very fragile 86 and not a good surgical candidate. Spoke with IR; plan is to try and place a drain tomorrow. It should be accessible through gluteal approach. Pt and family don't really want a major surgery. Continue IV ABX, pain control. UTI - on abx Hypothyroid - levothroid Dementia Clinical Quality Measures DVT/VTE Risk/Contraindication: Risk Factor Score Per Nursin RFS Level Per Nursing on Admit: 4+=Very High SHUN GARCIA DO Aug 26, 2016 18:11
[2016-08-26 19:55] VITALS: BP 164/80
[2016-08-26] MEDS: DONEPEZIL 10 MG (ARICEPT) TAB PO SCH (20:21)
[2016-08-27 00:46] VITALS: BP 162/80
[2016-08-27] MEDS: ACETAMINOPHEN 500 MG TAB (TYLENOL) PO SCH ×4 (00:57→19:29)
[2016-08-27 04:19] VITALS: BP 157/74
[2016-08-27] MEDS: MULTIVIT W/MINERALS TAB (THERAGRAN M) PO SCH (06:40)
[2016-08-27] MEDS: PANTOPRAZOLE 20 MG TABLET (PROTONIX) PO SCH (06:40)
[2016-08-27 07:50] VITALS: BP 163/74
[2016-08-27] MEDS: metroNIDAZOLE 500 MG (FLAGYL) TAB PO SCH ×3 (08:00→19:53)
[2016-08-27] MEDS: cefTRIAXone INJECTION 1,000 MG in NS (IVPB) 50 ML IV SCH (08:21)
[2016-08-27] MEDS: DOCUSATE SODIUM 100 MG (COLACE) CAP PO SCH ×2 (08:22→21:16)
[2016-08-27] MEDS ORDERED: LIDOCAINE 1% INJ 20 ML (XYLOCAINE) VIAL ONE (08:32)
[2016-08-27] MEDS ORDERED: MIDAZOLAM 2 MG/2 ML (VERSED) VIAL ONE (08:50)
--- NOTE | 2016-08-27 09:47 | Progress Note-Hospitalist ---
Subjective HPI/CC On Admission this is a 86-year-old white female resident of [facility]. Evidently she had recently been well but then had an episode of syncope where she fell striking her right head.she was brought to the emergency room where she was found to have a urinary tract infection and a leukocytosis. In addition she had an elevated d-dimer but CT chest showed no evidence of a large pulmonary embolus. It was an inadequate study however for small vessel disease. At the time of my interview this morning the patient is without complaint and says nothing hurts. On exam however it does appear that she has some left lower quadrant tenderness her white count has gone up to 31,000 with bands Date Seen 08/27/16 Subjective/Events-last exam patient doing well going to have a CT-guided drain placed today for pelvic abscess. Review of Systems Gastrointestinal: : Diarrhea Objective Exam Vital Signs Vital Sign - Last 12Hours 08/23/16 08/23/16 10:26 11:15 Temp 96.8 Pulse 105 Resp 26 B/P 131/69 Pulse Ox 93 O2 Delivery Room Air O2 Flow Rate 3 Capillary Refill : Less Than 3 Seconds General Appearance: WD/WN Respiratory: Lungs Clear Cardiovascular: Regular Rate, Rhythm Gastrointestinal: Non Tender Soft Assessment/Plan Assessment and Plan Assess & Plan/Chief Complaint 1. sepsis- with leukocytosis tachycardia and low-grade fever-has received 2 L of IV fluids in the emergency room-etiology most likely pelvic abscess-on Rocephin and [id number]-[id number] drainage scheduled for today 2. Urinary tract infection as possible source-culture is negative however-on Rocephin 3. hypogastric abdominal pain. CT shows possible abscess-surgical consultation 4. hypothyroidism replaced-check a TSH 5. Elevated d-dimer CT chest negative, hip fracture-within the last year, venous Doppler is [id number] is most likely some reactive secondary to abscess 6. Dementia-patient is a DO NOT RESUSCITATE 7. Syncope possibly secondary to sepsis 8. possible fluid overload- chest x-ray shows no acute process Will need swing bed evaluation probably tomorrow for continued IV antibiotics DENNYS COLLAZO MD Aug 27, 2016 9:47 am
[2016-08-27] MEDS: LEVOTHYROXINE 88 MCG (LEVOTHORID) TAB PO SCH (10:32)
--- NOTE | 2016-08-27 10:49 | Diagnostic Imaging Report ---
INDICATION: Pelvic abscess. Technique and findings: Patient is placed on the table in the prone position. Conscious sedation was performed with fentanyl under constant nursing supervision from approximately 10:00 until 10:30. A preliminary CT scan was obtained for localization purposes. The patents skin was prepped and draped utilizing maximal sterile barrier technique. Using an AccuStick introducer system a needle was advanced into the abscess under CT guidance. An 018 wire was advanced into the collection. This was exchanged for the AccuStick introducer and subsequently an 035 wire. An 8 Slovak drainage catheter was then advanced over the wire in the pelvis. Approximately 150 cc of purulent fluid was evacuated and sent to laboratory for culture and sensitivity. The catheter was left to suction drainage. Patient tolerated the procedure well and left the department in stable condition. IMPRESSION: Successful CT-guided abscess drainage as described. Dictated by: Dictated on workstation # [id number]
[2016-08-27] MEDS ORDERED: LIDOCAINE 1% INJ 20 ML (XYLOCAINE) VIAL INJ ONE (11:45)
[2016-08-27] MEDS ORDERED: fentaNYL INJECTION 100 MCG/2 ML AMP IVP PRN (11:45)
[2016-08-27 12:40] VITALS: BP 133/73
--- NOTE | 2016-08-27 13:17 | Progress Note ---
Subjective Subjective/Events-last exam Pt seen and examined, pt looks about the same. She had drain placed by IR. She has no new complaints. Review of Systems General: Chills Fatigue Pulmonary: No Dyspnea, No Cough Cardiovascular: No: Chest Pain Gastrointestinal: No: Abdominal Pain, Nausea, Vomiting Objective Exam Vital Signs Date Time Temp Pulse Resp B/P Pulse Ox O2 Delivery O2 Flow Rate FiO2 08/27/16 09:00 Nasal Cannula 2.00 08/27/16 08:23 96 2.50 08/27/16 07:50 99.0 81 22 163/74 96 Nasal Cannula 3.00 08/27/16 04:19 99.3 101 18 157/74 98 Nasal Cannula 3.00 08/27/16 00:46 97.9 101 18 162/80 96 Nasal Cannula 3.00 08/26/16 21:00 Nasal Cannula 3.00 08/26/16 19:55 98.8 97 18 164/80 98 Nasal Cannula 3.00 08/26/16 19:00 96 3.00 08/26/16 16:52 99.8 95 18 179/85 95 Nasal Cannula 3.00 I & O 08/27/16 06:59 Intake Total 930 ml Output Total 300 ml Balance 630 ml Capillary Refill : Less Than 3 Seconds General Appearance: WD/WN HEENT: PERRL/EOMI Pharynx Normal Other (poor dentition) Neck: Non Tender Supple Respiratory: Lungs Clear Cardiovascular: Regular Rate, Rhythm Gastrointestinal: no organomegaly abnormal bowel sounds (hypoactive) distended Extremity: Non Tender No Calf Tenderness No Pedal Edema Neurologic/Psychiatric: Alert Disoriented x3 Skin: Normal Color Warm/Dry Results Lab Microbiology 08/23/16 Blood Culture - Preliminary, Resulted No growth 08/24/16 C. difficile GDH Antigen & Toxins - Final, Complete 08/23/16 Influenza Types A,B Antigen (DWAYNE) - Final, Complete 08/23/16 Urine Culture - Final, Complete Yeast Species Assessment/Plan Assessment/Plan Assessment/Plan Abd/Pelvic abscess - S/P IR drainage. Pt is a very fragile 86 and not a good surgical candidate. Continue IV ABX, pain control. UTI - on abx Hypothyroid - levothroid Dementia Plan is to send pt to swing bed, avoid surgery; pt and family don't want it. I will sign off and reconsult if needed. Clinical Quality Measures DVT/VTE Risk/Contraindication: Risk Factor Score Per Nursin RFS Level Per Nursing on Admit: 4+=Very High SHUN GARCIA DO Aug 27, 2016 13:17
[2016-08-27 16:43] VITALS: BP 156/86
[2016-08-27 20:07] VITALS: BP 159/78
[2016-08-27] MEDS: DONEPEZIL 10 MG (ARICEPT) TAB PO SCH (21:16)
[2016-08-28] VITALS: BP 164/82
[2016-08-28] MEDS: ACETAMINOPHEN 500 MG TAB (TYLENOL) PO SCH ×2 (02:00→09:13)
[2016-08-28 04:25] VITALS: BP 143/73
[2016-08-28] MEDS: MULTIVIT W/MINERALS TAB (THERAGRAN M) PO SCH (06:28)
[2016-08-28] MEDS: PANTOPRAZOLE 20 MG TABLET (PROTONIX) PO SCH (06:28)
[2016-08-28 08:00] VITALS: BP 186/85
[2016-08-28] MEDS: DOCUSATE SODIUM 100 MG (COLACE) CAP PO SCH (09:00)
[2016-08-28] MEDS: metroNIDAZOLE 500 MG (FLAGYL) TAB PO SCH (09:12)
[2016-08-28] MEDS: cefTRIAXone INJECTION 1,000 MG in NS (IVPB) 50 ML IV SCH (09:12)
[2016-08-28] MEDS: LEVOTHYROXINE 88 MCG (LEVOTHORID) TAB PO SCH (09:14)
--- NOTE | 2016-08-28 20:25 | Discharge Summary-Hospitalist ---
Diagnosis/Chief Complaint Date of Admission Aug 23, 2016 at 15:25 Date of Discharge Aug 28, 2016 at 10:14 Discharge Date: Aug 28, 2016 Admission Diagnosis 1. sepsis- with leukocytosis tachycardia and low-grade fever-has received 2 L of IV fluids in the emergency room 2. Urinary tract infection as possible source-culture is negative however-on Rocephin 3. Left lower quadrant pain. We'll obtain a CT abdomen pelvis for further evaluation 4. hypothyroidism replaced-check a TSH 5. Elevated d-dimer CT chest negative, hip fracture-within the last year, will obtain venous Doppler. 6. Dementia-patient is a DO NOT RESUSCITATE 7. Syncope possibly secondary to sepsis 8. Discharge Diagnosis 1. Pelvic abscess secondary to Klebsiella pneumonia with secondary sepsis severe. 2. List additional diagnosis aspirate admission diagnosis Reason Hospital Visit/Course this is a 86-year-old white female resident of [facility]. Evidently she had recently been well but then had an episode of syncope where she fell striking her right head.she was brought to the emergency room where she was found to have a urinary tract infection and a leukocytosis. In addition she had an elevated d-dimer but CT chest showed no evidence of a large pulmonary embolus. It was an inadequate study however for small vessel disease. At the time of my interview this morning the patient is without complaint and says nothing hurts. On exam however it does appear that she has some left lower quadrant tenderness her white count has gone up to 31,000 with bands. she was admitted to the hospital and started on broad-spectrum antibiotics. CT scan of the abdomen and pelvis did reveal a pelvic abscess. This was drained via interventional radiology. She was too frail to be deemed a surgical candidate but did respond favorably to drainage and antibiotics. She was discharged to swing bed status to continue antibiotic therapy with plans to discharge back to detention care after a minimum of 7 days of adequate IV antibiotic coverage. Aerobic organisms were recovered as well as Klebsiella pneumonia noted in greatest numbers which was pansensitive to all the usual antibiotics. Discharge Summary Discharge Physical Examination Allergies: Coded Allergies: No Known Drug Allergies (Unverified , 10/13/11) Vitals & I&Os Vital Signs Date Time Temp Pulse Resp B/P Pulse Ox O2 Delivery O2 Flow Rate FiO2 08/28/16 08:00 98.1 87 20 186/85 94 Nasal Cannula 1.00 Hospital Course Labs (last 24 hrs) Microbiology 08/23/16 Blood Culture - Final, Complete No growth 08/24/16 C. difficile GDH Antigen & Toxins - Final, Complete 08/23/16 Influenza Types A,B Antigen (DWAYNE) - Final, Complete 08/23/16 Urine Culture - Final, Complete Yeast Species 08/27/16 Gram Stain - Final, Resulted 08/27/16 Anaerobic Culture - Preliminary, Resulted Prob Anaerobic Gram Neg Yaw 08/27/16 Surgical Culture - Preliminary, Resulted Strep Anginosus Klebsiella Pneumoniae 08/27/16 Fungal Culture, Resulted Pending Discharge Home Medications: Active Scripts Active Reported Nystatin 15 Gm Cream..g. TP TID PRN Multivitamins (Multivitamin) 1 Each Tablet 1 Tab PO DAILY Donepezil HCl 10 Mg Tablet 10 Mg PO HS Levothyroxine Sodium 88 Mcg Tablet 88 Mcg PO DAILY@1000 Albuterol Sulfate 2.5 Mg/3 Ml Vial.neb 3 Ml IH Q8H PRN Omeprazole 20 Mg Capsule.dr 20 Mg PO DAILY Acetaminophen Extra Strength (Acetaminophen) 500 Mg Tablet 500 Mg PO Q8H Colace Capsule (Docusate Sodium) 100 Mg Cap 100 Mg PO BID Instructions to patient/family Please see electonic discharge instructions given to patient. Clinical Quality Measures DVT/VTE Risk/Contraindication: Risk Factor Score Per Nursin RFS Level Per Nursing on Admit: 4+=Very High MACK LEAL MD Aug 28, 2016 20:25
--- NOTE | 2016-08-30 13:41 | Physician Query-General Query ---
Physician Query-General Query to Physician: [facility] SOP Coding Query [facility] Exhibit D1 Introducing New Diagnosis Template The medical record reflects the following clinical scenario: History/Risk factors: Sepsis with pelvic abscess Clinical Findings: Per CT abd/pelvis-Peritoneal infiltration and omental density raise the question of diffuse peritonitis. WBCs-26.3, Bands 8, pulse 105 and resp 26. Treatment: Drainage of pelvic abscess by interventional radiology and IV Ceftriaxone Sodium/Sodium Chloride 50ml@100mls/hr Q24 hrs. Question: What condition best reflects the above clinical scenario? Please document a response in the Progress notes or Discharge Sum 1. Sepsis, pelvic abscess with female acute pelvic peritonitis. 2. Sepsis with pelvic abscess without female acute pelvic peritonitis. 3. Other , with explanation of the clinical findings 4. Clinically undetermined, no explanation for the clinical findings In responding to this query, please exercise your independent professional judgment. The purpose of this communication is to more accurately reflect the complexity of your patients condition. The fact that a question is asked does not imply that any particular answer is desired or expected. Thank you for your timely response to this clarification. THIS PHYSICIAN QUERY FORM IS A PERMANENT PART OF THE MEDICAL RECORD PHYSICIAN RESPONSE: Based on the clinical findings in the record, please respond to the query above on this document as an addendum. Possible, probable, or questionable diagnosis can be coded for INPATIENTS ONLY. Physician Response: Physician Response would code #1. If you have questions please contact: Manager Money:Therese Wilson [facility],CCDS Ext:[phone] Thank you for your time and cooperation. Clinical Energy Derivatives Trader/Manager Money This is a permanent part of the medical record THERESE WILSON Aug 30, 2016 13:41 MACK LEAL MD Aug 31, 2016 09:26
== END 2016-08-28 10:14 | disposition swing bed (61) | DRG 871 ==
LOC: EDUNIT# 10:21 → ER 10:22 → 4TH 15:25
PROVIDERS: ADMIT Internal Medicine; ATTEND Internal Medicine
PROC: 0W9J30Z Drainage of Pelvic Cavity with Drainage Device, Percutaneous Approach (ICD-10-PCS; principal; 2016-08-27)
DX: A41.89 Other specified sepsis (principal); N73.3 Female acute pelvic peritonitis; B96.1 Klebsiella pneumoniae [K. pneumoniae] as the cause of diseases classified elsewhere; N39.0 Urinary tract infection, site not specified; S00.83XA Contusion of other part of head, initial encounter; E03.9 Hypothyroidism, unspecified; J43.9 Emphysema, unspecified; Z66 Do not resuscitate; F03.90 Unspecified dementia, unspecified severity, without behavioral disturbance, psychotic disturbance, mood disturbance, and anxiety; I73.9 Peripheral vascular disease, unspecified; E87.70 Fluid overload, unspecified; R09.02 Hypoxemia; E87.6 Hypokalemia; R79.1 Abnormal coagulation profile; K21.9 Gastro-esophageal reflux disease without esophagitis; Z87.11 Personal history of peptic ulcer disease; W19.XXXA Unspecified fall, initial encounter; Y92.129 Unspecified place in nursing home as the place of occurrence of the external cause
CPT/HCPCS: 36415; 51701; 70450; 71010; 71275; 72125; 74178; 80053; 81000; 83605; 84443; 85007; 85025; 85027; 85379; 85610; 85730; 87040; 87070; 87075; 87077; 87088; 87101; 87186; 87205; 87324; 87449; 87804; 93970; 94640; 94664; 94760; 96361; 96365

== ENCOUNTER 2016-08-27 09:10 | Inpatient (IN) | payer MEDICARE, MEDICAID ==
[~2016-08-27] VITALS: Ht 157.5 cm; Wt 49.5 kg
[~2016-08-27 09:10] MED LIST changes: +ALBU2.5V4 IH; +LEVO88TA54 PO; +MULT1TAB69 PO; +NYST15CR TP; +OMEP20CA12 PO
[2016-08-28] MEDS ORDERED: ONDANSETRON 4 MG/2 ML (SDV) Z0FRAN IVP PRN (10:30)
[2016-08-28] MEDS ORDERED: LORazepam INJ 2 MG/ML (ATIVAN) VIAL IVP PRN (10:30)
[2016-08-28] MEDS ORDERED: ACETAMINOPHEN 500 MG TAB (TYLENOL) PO PRN (10:30)
[2016-08-28] MEDS ORDERED: fentaNYL INJECTION 100 MCG/2 ML AMP IVP PRN (10:30)
[2016-08-28] MEDS ORDERED: NYSTATIN CREAM (MYCOSTATIN) 30 GM TUBE TP PRN (10:30)
[2016-08-28] MEDS ORDERED: RT-ALBUTEROL SULF 2.5 MG/3 ML PRE-MIX VIAL INH PRN (10:30)
[2016-08-28] MEDS ORDERED: ACETAMINOPHEN 500 MG TAB (TYLENOL) PO SCH (11:04)
[2016-08-28 12:00] VITALS: BP 169/79
[2016-08-28] MEDS: metroNIDAZOLE 500 MG (FLAGYL) TAB PO SCH ×2 (12:25→19:57)
--- OUTSIDE RECORDS SUMMARY | 2016-08-28 13:30 | XMS REPORT | Continuity of Care Document ---
Author Author [facility] Organization [facility] Address Unknown Phone Unavailable Care Team Providers Care Steel Loader Name Role Phone ZORA GUERRERO MD PCP Insurance Providers Payer Name Policy Number Subscriber Name Relationship [employer] [id number] Jesse Hernandez 18 Self / Same As Patient [facility] [id number] Jesse Hernandez 18 Self / Same As Patient [facility] [id number] Jesse Hernandez 18 Self / Same As Patient Advance Directives Directive Response Recorded Date/Time Advance Directives No 10/01/14 5:10pm Health Care Power of Staff [employer] Officer Y Emy-daughter 10/01/14 5:10pm Organ Donor No [...] Rehab) ZORA GUERRERO MD (Unspecified) 10/04/14 Address: [facility] [address] [place], [place] [id number] Reason(s) for Referral: 9:30 AM Additional Instructions/Education [...] F (97.6 - 99.5) Temperature (Calculated Celsius) 37.68242 degrees C (36.4 - 37.5) Temperature Source Temporal Pulse Rate (adult) 90 bpm (60 - 90) Respiratory Rate 24 bpm (12 - 24) O2 Sat by Pulse Oximetry 95 % (88 - 100) Blood Pressure 117/65 mm Hg Pain Pain Intensity 0 Height (Feet) 5 feet Height (Inches) 4.00 inches Height (Calculated Centimeters) 162.235992 cm Weight (Pounds) 108 pounds Weight (Ounces) 9.0 oz Weight (Calculated Grams) 37913.122 gm Weight (Calculated Kilograms) 49.539471 kilograms Calculated BMI 18.19 Results Laboratory Results [...] 5-9 09/20/2014 1:03pm 09/20/2014 1:15pm Urine Specific Clarence 1.005 * 1.016-1.022 09/20/2014 1:03pm 2014 1:15pm [...] 5-9 10/08/2014 5:10pm 10/08/2014 5:51pm Urine Specific Clarence 1.015 * 1.016-1.022 10/08/2014 5:10pm 2014 5:51pm [...] Peripheral, Not Otherwise Specified STAPH, COAG NEG (CAR VARNISHER) 12:35pm 09/20/2014 3:46pm STAPH, COAG NEG (CAR VARNISHER) 09/18/2014 12:35pm 09/20/2014 3:46pm Sputum Culture Sputum, [...] Encounters Encounter Location Date/Time Discharged Inpatient Via [facility] 10/01/14 4:02pm Discharged Inpatient [facility] 09/18/14 2:00pm Recent Diagnosis Bowel perforation Sepsis
[2016-08-28] MEDS: ACETAMINOPHEN 500 MG TAB (TYLENOL) PO SCH (16:24)
[2016-08-28 18:12] VITALS: BP 161/82
[2016-08-28] MEDS: DONEPEZIL 10 MG (ARICEPT) TAB PO SCH (21:30)
[2016-08-28] MEDS: DOCUSATE SODIUM 100 MG (COLACE) CAP PO SCH (21:30)
[2016-08-29] MEDS: ACETAMINOPHEN 500 MG TAB (TYLENOL) PO SCH ×3 (01:05→16:56)
[2016-08-29 06:00] VITALS: BP 164/80
[2016-08-29] MEDS: MULTIVIT W/MINERALS TAB (THERAGRAN M) PO SCH (06:06)
[2016-08-29] MEDS: PANTOPRAZOLE 20 MG TABLET (PROTONIX) PO SCH (06:07)
[2016-08-29 08:10] VITALS: BP 166/83
[2016-08-29] MEDS: DOCUSATE SODIUM 100 MG (COLACE) CAP PO SCH ×2 (08:43→20:07)
[2016-08-29] MEDS: metroNIDAZOLE 500 MG (FLAGYL) TAB PO SCH ×3 (08:43→20:07)
[2016-08-29] MEDS: cefTRIAXone INJECTION 1,000 MG in NS (IVPB) 50 ML IV SCH (08:44)
[2016-08-29] MEDS: LEVOTHYROXINE 88 MCG (LEVOTHORID) TAB PO SCH (10:08)
[2016-08-29 12:00] VITALS: BP 168/81
[2016-08-29 17:45] VITALS: BP 167/95
[2016-08-29] MEDS: DONEPEZIL 10 MG (ARICEPT) TAB PO SCH (20:07)
[2016-08-30] MEDS: ACETAMINOPHEN 500 MG TAB (TYLENOL) PO SCH ×3 (01:00→17:25)
[2016-08-30 06:00] VITALS: BP 169/90
[2016-08-30] MEDS: MULTIVIT W/MINERALS TAB (THERAGRAN M) PO SCH (06:03)
[2016-08-30] MEDS: PANTOPRAZOLE 20 MG TABLET (PROTONIX) PO SCH (06:03)
[2016-08-30] MEDS: cefTRIAXone INJECTION 1,000 MG in NS (IVPB) 50 ML IV SCH (09:04)
[2016-08-30] MEDS: metroNIDAZOLE 500 MG (FLAGYL) TAB PO SCH ×3 (09:04→20:11)
[2016-08-30] MEDS: DOCUSATE SODIUM 100 MG (COLACE) CAP PO SCH ×2 (09:04→20:11)
[2016-08-30] MEDS: LEVOTHYROXINE 88 MCG (LEVOTHORID) TAB PO SCH (12:01)
--- NOTE | 2016-08-30 14:39 | Physical Therapy Evaluation ---
PT Evaluation-General Medical Diagnosis Admission Date Aug 28, 2016 at 10:45 Medical Diagnosis: UTI Onset Date: Aug 24, 2016 Therapy Diagnosis Therapy Diagnosis: debility/weakness Height/Weight Height (Feet): 5 Height (Inches): 2.00 Weight (Pounds): 109 Weight (Ounces): 0.8 Precautions Precautions/Isolations: Fall Prevention, Standard Precautions Referral Physician: Yamel Reason for Referral: Evaluation/Treatment Medical History Pertinent Medical History: Dementia, GERD, Hypothroidism Additional Medical History syncope with fall Current History SWB Reviewed History: Yes Social History Home: Jail Prior/Core FIM Prior Level of Function Functional [place] Measure 0=Not Assessed/NA 4=Minimal Assistance 1=Total Assistance 5=Supervision or Setup 2=Maximal Assistance 6=Modified [place] 3=Moderate Assistance 7=Complete Trinity Bed Mobility: 6 Transfers (B,C,W/C) (FIM): 6 Gait: 6 PT Evaluation-Current Subjective Agrees to PT. Pain Numeric Pain Scale: 0-No Pain Location: No Pain Reported Objective Patient Orientation: Confused Problem Solving: Poor Attachments: Drains ROM/Strength ROM Lower Extremities bilateral LE WFL Strenght Lower Extremities bilateral LE WFL Integumentary/Posture Integumentary refer to nursing notes Bowel Incontinence: No Bladder Incontinence: No Posture slightly kyphotic Neuromuscular (Tone, Coordination, Reflexes) slightly diminished coordination Sensory Vision: Functional Hearing: Functional Sensation Right Lower Extremit: Intact Sensation Left Lower Extremity: Intact Transfers Functional [place] Measure 0=Not Assessed/NA 4=Minimal Assistance 1=Total Assistance 5=Supervision or Setup 2=Maximal Assistance 6=Modified [place] 3=Moderate Assistance 7=Complete Trinity Transfers (B, C, W/C) (FIM): 4 Scootin Rollin Supine to/from Sit: 4 Sit to/from Stand: 5 Sit to Lying (QC): 4 Lying to Sitting/Side of Bed(Q: 4 Sit to Stand (QC): 5 Chair/Nrl-yv-Iyeum Xfer(QC): 5 Gait Does the Patient Walk?: Yes Mode of Locomotion: Walk Anticipated Mode of Locomotion: Walk Gait (FIM): 4 Distance (FIM): 3=150 ft Distance: 350' Walk 50 ft with 2 Turns(QC): 4 Walk 150 ft (QC): 4 Gait Level of Assist: 4 Gait Persons Needed: 1 Gait Assistive Device: FWW Comments/Gait Description CGA for safety Balance Sitting Static: Normal Sitting Dynamic: Normal Standing Static: Fair Standing Dynamic: Fair Treatment Gait training with FWW CGA x 350'. Patient ambulates independently PLOF at [place]. Patient required skilled verbal instruction for FWW use and proper body alignment. Assessment/Needs 86 y.o. female, will benefit from short term skilled PT to address functional mobility to return safely to [place] at maximum LOF. Rehab Potential: Good PT Longterm Goals Longterm Goals PT Longterm Goals Time Frame: Sep 07, 2016 Transfers (B,C,W/C) (FIM): 5 Sit to Lying (QC): 5 Lying-Sitting on Side/Bed(QC): 5 Sit to Stand (QC): 5 Rollin Chair/Xbz-vw-Ivrrj Xfer(QC): 5 Does the Patient Walk: Yes Gait (FIM): 5 Gait distance (FIM): 3=150 ft Walk 50ft with 2 Turns (QC): 5 Walk 150 ft (QC): 5 Gait Level of Assist: 5 Gait Assistive Device: FWW PT Plan Problem List Problem List: Activity Tolerance Treatment/Plan Treatment Plan: Continue Plan of Care Treatment Plan: Bed Mobility, Education, Functional Activity Jolie, Functional Strength, Gait, Safety, Therapeutic Exercise, Transfers Treatment Duration: Sep 07, 2016 # of days/week 6 Visits Per Week: 6 Minutes/Day (M-F): 15-30 Minutes/Day (Sat/[place]): PRN Safety Risks/Education Patient Education: Gait Training Teaching Recipient: Patient Teaching Methods: Demonstration, Discussion Response to Teaching: Verbalize Understanding, Return Demonstration, Reinforcement Needed Discharge Recommendations Therapy D/C Recommendations: Jail Placement, Assisted (TCU/NH) Time/GCodes Time In: 1300 Time Out: 1325 Total Billed Treatment Time: 25 Total Billed Treatment 1 visit EVLowC 10 min GT 15 min FRANCIS SHERMAN PT Aug 30, 2016 14:39
--- NOTE | 2016-08-30 15:21 | Occupational Therapy Eval ---
OT Evaluation-General/PLF Medical Diagnosis Admission Date Aug 28, 2016 at 10:45 Medical Diagnosis: UTI, sepsis Onset Date: Aug 24, 2016 Therapy Diagnosis Therapy Diagnosis: weakness, decr self care Height/Weight Height (Feet): 5 Height (Inches): 2.00 Weight (Pounds): 109 Weight (Ounces): 0.8 Precautions Precautions/Isolations: Fall Prevention, Standard Precautions Safety Interventions: Bed Exit Alarm Referral Physician: Yamel Referral Reason: Evaluation/Treatment Medical History Pertinent Medical History: Dementia, GERD, Hypothroidism Additional Medical History Chronic constipation, ulcer, L clavicular fx 2014, emphysema, L hip fx (was on IRF) Current History Fell at [place], contusion on forehead. Had abscess drained R pelvic area Reviewed History: Yes Social History Home: Alf ([facility] side) ADL-Prior Level of Function ADL PLOF Comments Pt reported that she was able to manage all of her basic ADLs prior to fall. PT eval indicated that she ambulated independently at facility. OT Current Status Subjective Pt seen in room, up in recliner, asleep but easily awakened. Very lethargic. reported no pain Appearance Awake but lethargic Mental Status/Objective Attachments: Drains, IV Current Hand Dominance: Right Upper Extremity ROM Grossly WFL Upper Extremity Strength Grossly 3+/5 bilat ADL-Treatment ADL-Current Pt was able to get a drink of water but unable to tell OT about other ADL activities. Functional [place] Measure 0=Not Assessed/NA 4=Minimal Assistance 1=Total Assistance 5=Supervision or Setup 2=Maximal Assistance 6=Modified [place] 3=Moderate Assistance 7=Complete IndependenceIRFPAI Quality Coding Scale 6 Independent with activity with or without an assistive device 5 Patient requires set up or clean up by helper. Patient completes activity by themselves 4 Supervision or touching assist (CGA). [place] provide cues , steadying assist 3 The helper provides less than half the effort to complete the activity 2 The helper provides more than half the effort to complete the activity 1 Dependent. The helper does all the effort to complete an activity 7 Patient refused to complete or attempt activity 9 The patient did not perform the activity before the current illness or injury 88 Not attempted due to Medical conditions or safety concerns Education OT Patient Education: Rehab process Teaching Recipient: Patient Teaching Methods: Discussion Response to Teaching: Verbalize Understanding OT Short Term Goals Short Term Goals Time Frame: Sep 06, 2016 Toileting(FIM): 5 Toilet/Commode Transfer(FIM): 5 1=Demonstrate adherence to instructed precautions during ADL tasks. 2=Patient will verbalize/demonstrate understanding of assistive devices/ modifications for ADL. 3=Patient will improve strength/tolerance for activity to enable patient to perform ADL's. OT Long-Term Goals Long-Term Goals Time Frame: Sep 13, 2016 Eating (FIM): 6 Eating (QC): 6 Groomin Oral Hygiene (QC): 6 Bathing(FIM): 5 Upper Body Dressing(FIM): 5 Lower Body Dressing(FIM): 5 Toileting(FIM): 5 Toileting Hygiene (QC): 5 Toilet/Commode Transfer(FIM): 6 Toilet/Commode Transfer (QC): 6 Shower Transfer(FIM): 5 Additional Goals: 2-Verbalize Understanding, 3-ImproveStrength/Jolie 1=Demonstrate adherence to instructed precautions during ADL tasks. 2=Patient will verbalize/demonstrate understanding of assistive devices/ modifications for ADL. 3=Patient will improve strength/tolerance for activity to enable patient to perform ADL's. OT Education/Plan Problem List/Assessment Assessment: Decreased Activ Tolerance, Decreased Safety Aware, Decreased UE Strength, Dependent Transfers, Impaired Funct Balance, Impaired Self-Care Skills Pt would benefit from skilled OT to increase her independence in basic self care to allow her to safely return to her home at [facility] after fall and hospitalization Discharge Recommendations Plan/Recommendations: Continue POC Treatment Plan/Plan of Care Treatment,Training & Education: Yes Patient would benefit from OT for education, treatment and training to promote independence in ADL's, mobility, safety and/or upper extremity function for ADL' s. Plan of Care: ADL Retraining, Functional Mobility, UE Funct Exercise/Act, UE Neuromus Re-Ed/Coord Treatment Duration: Sep 13, 2016 # of days/week 5 Visits Per Week: 5 Agreement: Yes Rehab Potential: Good Time/GCodes Start Time: 15:00 Stop Time: 15:15 Total Time Billed (hr/min): 15 Billed Treatment Time visit, eval moderate complexity 15 minutes KATIE SOLIMAN OT Aug 30, 2016 15:21
[2016-08-30 18:00] VITALS: BP 162/76
[2016-08-30] MEDS: DONEPEZIL 10 MG (ARICEPT) TAB PO SCH (20:11)
[2016-08-31] MEDS: ACETAMINOPHEN 500 MG TAB (TYLENOL) PO SCH ×2 (02:20→07:19)
[2016-08-31] MEDS: PANTOPRAZOLE 20 MG TABLET (PROTONIX) PO SCH (05:51)
[2016-08-31] MEDS: MULTIVIT W/MINERALS TAB (THERAGRAN M) PO SCH (05:51)
[2016-08-31 05:56] VITALS: BP 173/90
[2016-08-31] MEDS: metroNIDAZOLE 500 MG (FLAGYL) TAB PO SCH (07:19)
[2016-08-31] MEDS: DOCUSATE SODIUM 100 MG (COLACE) CAP PO SCH (07:19)
[2016-08-31] MEDS: LEVOTHYROXINE 88 MCG (LEVOTHORID) TAB PO SCH (07:19)
[2016-08-31] MEDS: cefTRIAXone INJECTION 1,000 MG in NS (IVPB) 50 ML IV SCH (07:20)
[2016-08-31 07:38] VITALS: BP 145/75
--- NOTE | 2016-08-31 09:17 | Physical Therapy Daily Note ---
PT Daily Note-Current Subjective Patient agrees to PT. Pain Numeric Pain Scale: 0-No Pain Location: No Pain Reported Appearance incontinent BM requiring dependent assist to cleanse and change clothing. Mental Status Patient Orientation: Confused Attachments: Oxygen Transfers Functional [place] Measure 0=Not Assessed/NA 4=Minimal Assistance 1=Total Assistance 5=Supervision or Setup 2=Maximal Assistance 6=Modified [place] 3=Moderate Assistance 7=Complete IndependenceIRFPAI Quality Coding Scale 6 Independent with activity with or without an assistive device 5 Patient requires set up or clean up by helper. Patient completes activity by themselves 4 Supervision or touching assist (CGA). [place] provide cues , steadying assist 3 The helper provides less than half the effort to complete the activity 2 The helper provides more than half the effort to complete the activity 1 Dependent. The helper does all the effort to complete an activity 7 Patient refused to complete or attempt activity 9 The patient did not perform the activity before the current illness or injury 88 Not attempted due to Medical conditions or safety concerns Transfers (B, C, W/C) (FIM): 5 Scootin Sit to/from Stand: 5 Sit to Stand (QC): 5 Gait Training Does the Patient Walk?: Yes Gait (FIM): 5 Distance (FIM): 3=150 ft Distance: 275' Walk 50 ft with 2 Turns(QC): 5 Walk 150 ft (QC): 5 Gait Level of Assist: 5 Gait Persons Needed: 1 Gait Assistive Device: FWW kyphotic posture; skilled verbal instruction for body placement in FWW Exercises Seated Therapy Exercises: Ankle pumps, Long arc quads Seated Reps: 25 (x 2 sets) Assessment Patient tolerated treatment well and is up in recliner with chair alarm activated and call light in hand. PT Supervisor Coffee Goals Fdc Goals PT Fdc Goals Time Frame: Sep 07, 2016 Transfers (B,C,W/C) (FIM): 5 Sit to Lying (QC): 5 Lying-Sitting on Side/Bed(QC): 5 Sit to Stand (QC): 5 Rollin Chair/Fei-gn-Iyooy Xfer(QC): 5 Does the Patient Walk: Yes Gait (FIM): 5 Gait distance (FIM): 3=150 ft Walk 50ft with 2 Turns (QC): 5 Walk 150 ft (QC): 5 Gait Level of Assist: 5 Gait Assistive Device: FWW PT Plan Treatment/Plan Treatment Plan: Continue Plan of Care Treatment Plan: Bed Mobility, Education, Functional Activity Jolie, Functional Strength, Gait, Safety, Therapeutic Exercise, Transfers Treatment Duration: Sep 07, 2016 Visits Per Week: 6 Minutes/Day (M-F): 15-30 Minutes/Day (Sat/[place]): PRN Time/GCodes Time In: 846 Time Out: 909 Total Billed Treatment Time: 23 Total Billed Treatment 1 visit FA 15 min GT 8 min FRANCIS SHERMAN PT Aug 31, 2016 09:17
--- NOTE | 2016-08-31 10:50 | Discharge Summary-Hospitalist ---
Diagnosis/Chief Complaint Date of Admission Aug 28, 2016 at 10:45 Date of Discharge Admission Diagnosis 1. sepsis- with leukocytosis tachycardia and low-grade fever-has received 2 L of IV fluids in the emergency room-etiology due to pelvic abscess-s/p Rocephin and Flagyl- s/p CT-guided drainage 2. Urinary tract infection as possible source-culture is negative however-on Rocephin 3. hypogastric abdominal pain. CT shows possible abscess-surgical consultation 4. hypothyroidism replaced-check a TSH 5. Elevated d-dimer CT chest negative, hip fracture-within the last year, venous Doppler is [id number] is most likely some reactive secondary to abscess 6. Dementia-patient is a DO NOT RESUSCITATE 7. Syncope possibly secondary to sepsis Discharge Diagnosis 1. sepsis- with leukocytosis tachycardia and low-grade fever-has received 2 L of IV fluids in the emergency room-etiology due to pelvic abscess-s/p Rocephin and Flagyl- s/p CT-guided drainage 2. Urinary tract infection as possible source-culture is negative however-on Rocephin 3. hypogastric abdominal pain. CT shows possible abscess-surgical consultation 4. hypothyroidism replaced-check a TSH 5. Elevated d-dimer CT chest negative, hip fracture-within the last year, venous Doppler is [id number] is most likely some reactive secondary to abscess 6. Dementia-patient is a DO NOT RESUSCITATE 7. Syncope possibly secondary to sepsis Reason Hospital Visit/Course Notes fro 08/31/2016: Patient interview: Pt feels better and is ready for DC. Physical exam stable. no fever vital signs stable, pleasant, oriented times around 1 but poor recall due to dementia Regular rate and rhythm, clear to auscultation bilaterally Plan: DC to NH on skilled. Scribed by Carlos Taylor under the direct supervision of Dr. Montesinos. Discharge Summary Discharge Physical Examination Allergies: Coded Allergies: No Known Drug Allergies (Unverified , 10/13/11) Vitals & I&Os Vital Signs Date Time Temp Pulse Resp B/P Pulse Ox O2 Delivery O2 Flow Rate FiO2 08/31/16 07:46 95 1.00 08/31/16 05:56 98.2 87 18 173/90 Nasal Cannula Discharge Home Medications: Active Scripts Active Hydrocodon -Acetaminophen 5-325 (Hydrocodone/Acetaminophen) 1 Each Tablet 1 Each PO Q4H PRN Reported Nystatin 15 Gm Cream..g. TP TID PRN Multivitamins (Multivitamin) 1 Each Tablet 1 Tab PO DAILY Donepezil HCl 10 Mg Tablet 10 Mg PO HS Levothyroxine Sodium 88 Mcg Tablet 88 Mcg PO DAILY@1000 Albuterol Sulfate 2.5 Mg/3 Ml Vial.neb 3 Ml IH Q8H PRN Omeprazole 20 Mg Capsule.dr 20 Mg PO DAILY Acetaminophen Extra Strength (Acetaminophen) 500 Mg Tablet 500 Mg PO Q8H Colace Capsule (Docusate Sodium) 100 Mg Cap 100 Mg PO BID Instructions to patient/family Please see electonic discharge instructions given to patient. HINA MONTESINOS DO Aug 31, 2016 10:50
--- NOTE | 2016-08-31 11:37 | Occupational Ther Daily Note ---
OT Current Status-Daily Note Subjective Pt seen in room, up in recliner, agreeable to OT. No pain mentioned Appearance Alert, cooperative Mental Status/Objective Functional [place] Measure 0=Not Assessed/NA 4=Minimal Assistance 1=Total Assistance 5=Supervision or Setup 2=Maximal Assistance 6=Modified [place] 3=Moderate Assistance 7=Complete [place] Attachments: Drains, Oxygen ADL-Treatment Functional [place] Measure 0=Not Assessed/NA 4=Minimal Assistance 1=Total Assistance 5=Supervision or Setup 2=Maximal Assistance 6=Modified [place] 3=Moderate Assistance 7=Complete IndependenceIRFPAI Quality Coding Scale 6 Independent with activity with or without an assistive device 5 Patient requires set up or clean up by helper. Patient completes activity by themselves 4 Supervision or touching assist (CGA). [place] provide cues , steadying assist 3 The helper provides less than half the effort to complete the activity 2 The helper provides more than half the effort to complete the activity 1 Dependent. The helper does all the effort to complete an activity 7 Patient refused to complete or attempt activity 9 The patient did not perform the activity before the current illness or injury 88 Not attempted due to Medical conditions or safety concerns Eating (FIM): 5 (Pt was able to get a drink by herself. per nursing, she feeds herself with setup but doesn't eat much) Eating (QC): 5 (setup) Grooming (FIM): 5 (Brushed teeth, combed hair with setup, initiation cues) Oral Hygiene (QC): 5 (Brushed teeth, combed hair with setup, initiation cues) Upper Body (FIM): 5 (Pt donned shirt with setup.) Lower Body Dressing (FIM): 3 (Pt needed help getting pants over R foot and pulling pants up over hips. She could pull them up to thighs. Stood SBA, FWW to pull pants up.) Toileting (FIM): 1 (Per PT, pt was incontinent of stool and required total care to clean up. She is not able to get pants up over her hips or manage hygiene. She usually needs initiation cues from nursing) Toileting Hygiene (QC): 1 (Per PT, pt was incontinent of stool and required total care to clean up. She is not able to get pants up over her hips or manage hygiene. She usually needs initiation cues from nursing) Transfers (B, C, W/C) (FIM): 4 (SBA/CGA, cues for hand placement for safety. FWW) Toilet/Commode Transfer (FIM): 4 (Per PT, SBA/CGA with FWW to transfer on/off BSC) Toilet Transfer (QC): 4 (Per PT, SBA/CGA with FWW to transfer on/off BSC) Pt left up in recliner, all needs met. Education OT Patient Education: Modified ADL techniques, Purpose of tx/functional activities, Safety issues OT Short Term Goals Short Term Goals Time Frame: Sep 06, 2016 Toileting(FIM): 5 Toilet/Commode Transfer(FIM): 5 1=Demonstrate adherence to instructed precautions during ADL tasks. 2=Patient will verbalize/demonstrate understanding of assistive devices/ modifications for ADL. 3=Patient will improve strength/tolerance for activity to enable patient to perform ADL's. OT Master Dyer Goals Master Dyer Goals Time Frame: Sep 13, 2016 Eating (FIM): 6 Eating (QC): 6 Groomin Oral Hygiene (QC): 6 Bathing(FIM): 5 Upper Body Dressing(FIM): 5 Lower Body Dressing(FIM): 5 Toileting(FIM): 5 Toileting Hygiene (QC): 5 Toilet/Commode Transfer(FIM): 6 Toilet/Commode Transfer (QC): 6 Shower Transfer(FIM): 5 Additional Goals: 2-Verbalize Understanding, 3-ImproveStrength/Jolie 1=Demonstrate adherence to instructed precautions during ADL tasks. 2=Patient will verbalize/demonstrate understanding of assistive devices/ modifications for ADL. 3=Patient will improve strength/tolerance for activity to enable patient to perform ADL's. OT Education/Plan Problem List/Assessment Pt would benefit from skilled OT to increase her independence in basic self care to allow her to safely return to her home at [facility] after fall and hospitalization Discharge Recommendations Plan/Recommendations: Continue POC (may DC to skilled today) Treatment Plan/Plan of Care Patient would benefit from OT for education, treatment and training to promote independence in ADL's, mobility, safety and/or upper extremity function for ADL' s. Plan of Care: ADL Retraining, Functional Mobility, UE Funct Exercise/Act, UE Neuromus Re-Ed/Coord Treatment Duration: Sep 13, 2016 Visits Per Week: 5 Agreement: Yes Rehab Potential: Good Time/GCodes Start Time: 09:35 Stop Time: 10:00 Total Time Billed (hr/min): 25 Billed Treatment Time visit, 25 minutes ADL KATIE SOLIMAN OT Aug 31, 2016 11:37
--- NOTE | 2016-08-31 11:40 | Therapy Team Discharge Summary ---
Therapy Discharge Summary Discharge Recommendations Date of Discharge Therapy D/C Recommendations: Intermediate Placement, Detention (TCU/[place]) Physical Therapy Patient seen x 2 sessions to address functional mobility. Gait training with FWW CGA x 350'. Patient ambulates independently PLOF at [place]. Patient required skilled verbal instruction for FWW use and proper body alignment. Patient is CGA with transfers and ambulation for safety concerns. Patient continues to be confused secondary to dementia and is unaware of safety concerns. PT to follow at [place]. PT Home Support Worker Goals Mcfp Goals PT Mcfp Goals Time Frame: Sep 07, 2016 Transfers (B,C,W/C) (FIM): 5 Sit to Lying (QC): 5 Lying-Sitting on Side/Bed(QC): 5 Sit to Stand (QC): 5 Rollin Chair/Kwx-bg-Ilwvo Xfer(QC): 5 Does the Patient Walk: Yes Gait (FIM): 5 Gait distance (FIM): 3=150 ft Walk 50ft with 2 Turns (QC): 5 Walk 150 ft (QC): 5 Gait Level of Assist: 5 Gait Assistive Device: FWW OT Home Support Worker Goals Home Support Worker Goals Time Frame: Sep 13, 2016 Eating (FIM): 6 Eating (QC): 6 Groomin Oral Hygiene (QC): 6 Bathing(FIM): 5 Upper Body Dressing(FIM): 5 Lower Body Dressing(FIM): 5 Toileting(FIM): 5 Toileting Hygiene (QC): 5 Toilet/Commode Transfer(FIM): 6 Toilet/Commode Transfer (QC): 6 Shower Transfer(FIM): 5 Additional Goals: 2-Verbalize Understanding, 3-ImproveStrength/Jolie 1=Demonstrate adherence to instructed precautions during ADL tasks. 2=Patient will verbalize/demonstrate understanding of assistive devices/ modifications for ADL. 3=Patient will improve strength/tolerance for activity to enable patient to perform ADL's. FRANCIS SHERMAN PT Aug 31, 2016 11:40
[2016-08-31] MEDS ORDERED: HYDR-3812 PO (11:42)
--- NOTE | 2016-08-31 11:44 | Discharge Inst-Skilled Nursing ---
Discharge Inst-Skilled NF Chief Complaint Notes fro 08/31/2016: Patient interview: Pt feels better and is ready for DC. Physical exam stable. Plan: DC to NH on skilled. Scribed by Carlos Taylor under the direct supervision of Dr. Montesinos. Patient Instructions Patient Problems: intra-abdominal abscess status post drainage by interventional radiology with drain placement and discontinuation Dementia COPD oxygen dependent Goal: regain independent ADLs Consult/Follow Up/Orders Follow Up Appt.: Dr. Cespedes in 2 weeks Skilled NF Admit to: Via [facility] ([facility]) I certify that [facility] services are required to be given on an inpatient basis because of the above named patient's need for senior living care on a continuing basis for the conditions(s) for which he/she was receiving inpatient hospital services prior to his/her transfer to the [facility]. Snf Facility Order: Nursing Services, [place] Installation Helper-Evaluate & Treat, Physical Therapy-Evaluate & Treat Discharge Diet: No Restrictions Daily Activity as Tolerated: Yes New & Resume Previous Orders New Medications: Hydrocodone/Acetaminophen (Hydrocodon -Acetaminophen 5-325) 1 Each Tablet 1 EACH PO Q4H PRN PAIN #10 TAB Continued Medications: Acetaminophen (Acetaminophen Extra Strength) 500 Mg Tablet 500 MG PO Q8H TAB Albuterol Sulfate (Albuterol Sulfate) 2.5 Mg/3 Ml Vial.neb 3 ML IH Q8H PRN SHORTNESS OF BREATH Docusate Sodium (Colace Capsule) 100 Mg Cap 100 MG PO BID Donepezil HCl (Donepezil HCl) 10 Mg Tablet 10 MG PO HS Levothyroxine Sodium (Levothyroxine Sodium) 88 Mcg Tablet 88 MCG PO DAILY@1000 Multivitamin (Multivitamins) 1 Each Tablet 1 TAB PO DAILY TAB Nystatin (Nystatin) 15 Gm Cream..g. TP TID PRN RASH Omeprazole (Omeprazole) 20 Mg Capsule. 20 MG PO DAILY Tsering Montesinos Aug 31, 2016 11:42 TSERING MONTESINOS DO Aug 31, 2016 11:44
--- NOTE | 2016-08-31 13:41 | Therapy Team Discharge Summary ---
Therapy Discharge Summary Discharge Recommendations Date of Discharge August 31, 2016 Therapy D/C Recommendations: Longterm Placement, Shelter (TCU/NH) Occupational Therapy Pt was seen for skilled OT to increase her independence in basic self care to allow her to safely return to her home at [facility]. Pt required setup for eating, grooming, upper body dressing, CGA for toilet transfers, mod assist lower body dressing and was dependant for toileting including pants up and down and hygiene. Pt used FWW for balance. pt seen only one time for tx so admission and discharge status same. See tx plan for goals met. DC OT. PT Flat Folder Goals Half-Way Goals PT Half-Way Goals Time Frame: Sep 07, 2016 Transfers (B,C,W/C) (FIM): 5 Sit to Lying (QC): 5 Lying-Sitting on Side/Bed(QC): 5 Sit to Stand (QC): 5 Rollin Chair/Hdz-of-Gaibh Xfer(QC): 5 Does the Patient Walk: Yes Gait (FIM): 5 Gait distance (FIM): 3=150 ft Walk 50ft with 2 Turns (QC): 5 Walk 150 ft (QC): 5 Gait Level of Assist: 5 Gait Assistive Device: FWW OT Half-Way Goals Half-Way Goals Time Frame: Sep 13, 2016 Eating (FIM): 6 (not met 2-24-17) Eating (QC): 6 (not met 2-24-17) Groomin (not met 2-24-17) Oral Hygiene (QC): 6 (not met 2-24-17) Bathing(FIM): 5 (not met 2-24-17) Upper Body Dressing(FIM): 5 (met 2-24-17) Lower Body Dressing(FIM): 5 (not met 2-24-17) Toileting(FIM): 5 (not met 2-24-17) Toileting Hygiene (QC): 5 (not met 2-24-17) Toilet/Commode Transfer(FIM): 6 (not met 2-24-17) Toilet/Commode Transfer (QC): 6 (not met 2-24-17) Shower Transfer(FIM): 5 (not met 2-24-17) Additional Goals: 2-Verbalize Understanding, 3-ImproveStrength/Jolie 1=Demonstrate adherence to instructed precautions during ADL tasks. 2=Patient will verbalize/demonstrate understanding of assistive devices/ modifications for ADL. 3=Patient will improve strength/tolerance for activity to enable patient to perform ADL's. KATIE SOLIMAN OT Aug 31, 2016 13:41
[2016-08-31 14:00] VITALS: BP 158/88
== END 2016-08-31 14:00 | DRG 871 ==
LOC: 4TH 08-28 10:45
PROVIDERS: ADMIT Internal Medicine; ATTEND Internal Medicine
DX: A41.9 Sepsis, unspecified organism (principal); N73.3 Female acute pelvic peritonitis; N39.0 Urinary tract infection, site not specified; E03.9 Hypothyroidism, unspecified; J43.9 Emphysema, unspecified; Z66 Do not resuscitate; F03.90 Unspecified dementia, unspecified severity, without behavioral disturbance, psychotic disturbance, mood disturbance, and anxiety; I73.9 Peripheral vascular disease, unspecified; K21.9 Gastro-esophageal reflux disease without esophagitis; Z87.11 Personal history of peptic ulcer disease
CPT/HCPCS: 94760

== ENCOUNTER → 2017-04-21 | Outpatient (CLI) | payer MEDICARE, MEDICAID ==
[~2017-04-21] MED LIST changes: +HYDR-3812 PO
[2017-04-22 08:48] LABS: BILIRUBIN,URINE NEGATIVE (NEGATIVE); KETONES,URINE NEGATIVE (NEGATIVE); LEUKOCYTE ESTERASE ,URINE 3+ (NEGATIVE); NITRITE,URINE NEGATIVE (NEGATIVE); PH,URINE 5 (5-9); PROTEIN,URINE 2+ (NEGATIVE); UROBILINOGEN,URINE NORMAL (NORMAL)
[2017-04-22 08:58] LABS: CALCIUM OXALATE CRYSTALS,UR MODERATE /LPF; WBC,URINE 50-100 /HPF
== END ==
LOC: CVS 18:40
PROVIDERS: ATTEND Family Medicine
DX: R32 Unspecified urinary incontinence (principal); R82.99 Other abnormal findings in urine
CPT/HCPCS: 87088

== ENCOUNTER 2017-04-30 20:43 | Emergency (ER) | payer MEDICARE, MEDICAID ==
[~2017-04-30] VITALS: Ht 157.5 cm; Wt 49.5 kg
--- NOTE | 2017-04-30 21:00 | ED Head Injury ---
General Chief Complaint: Trauma-Non Activation Stated Complaint: FELL/HIT HEAD Source: patient Exam Limitations: no limitations History of Present Illness Time seen by provider: 20:58 Initial Comments Brought to ER by her daughter with reports of fall and head injury. Patient fell while going to the bathroom without using her walker as she is supposed to do. She struck the left side of her forehead where there is a hematoma. Uncertain as to whether or not there was a loss of consciousness. She is acting her normal now. She is demented per baseline. Occurred: just prior to arrival Severity: mild Location: frontal Loss of Consciousness: unsure Allergies and Home Medications Allergies Coded Allergies: No Known Drug Allergies (Unverified , 10/13/11) Home Medications Acetaminophen 500 Mg Tablet, 500 MG PO Q8H, (Reported) Albuterol Sulfate 2.5 Mg/3 Ml Vial.neb, 3 ML IH Q8H PRN for SHORTNESS OF BREATH, (Reported) Docusate Sodium 100 Mg Cap, 100 MG PO BID, (Reported) Donepezil HCl 10 Mg Tablet, 10 MG PO HS, (Reported) Hydrocodone/Acetaminophen 1 Each Tablet, 1 EACH PO Q4H PRN for PAIN, #10 Prescribed by: HINA LEE on 08/31/16 1142 Levothyroxine Sodium 88 Mcg Tablet, 88 MCG PO DAILY@1000, (Reported) Multivitamin 1 Each Tablet, 1 TAB PO DAILY, (Reported) Nystatin 15 Gm Cream..g., TP TID PRN for RASH, (Reported) Omeprazole 20 Mg Capsule.dr, 20 MG PO DAILY, (Reported) Constitutional: see HPI Eyes: No Symptoms Reported Ears, Nose, Mouth, Throat: no symptoms reported Respiratory: no symptoms reported Cardiovascular: no symptoms reported Genitourinary: no symptoms reported Musculoskeletal: no symptoms reported Skin: no symptoms reported Past Nsivhxb-Spdlku-Naxsye Hx Patient Social History Recent Foreign Travel: No Contact w/Someone Who Travel: No Recent Hopitalizations: Yes Immunizations Up To Date Tetanus Booster (TDap): Unknown Date of Pneumonia Vaccine: May 08, 2011 Date of Influenza Vaccine: Jul 25, 2016 Seasonal Allergies Seasonal Allergies: No Surgeries History of Surgeries: Yes (HIP) Surgeries: Abdominal, Hysterectomy, Orthopedic Respiratory History of Respiratory Disorde: No Cardiovascular History of Cardiac Disorders: No Neurological History of Neurological Disord: Yes Neurological Disorders: Dementia Reproductive System Hx Reproductive Disorders: No Gastrointestinal History of Gastrointestinal Di: Yes Gastrointestinal Disorders: Gastroesophageal Reflux, Chronic Constipation, Ulcer Musculoskeletal History of Musculoskeletal Dis: Yes (November 2014 left clavicle fracture) Musculoskeletal Disorders: Fractures Endocrine History of Endocrine Disorders: Yes Endocrine Disorders: Hypothyroidsim Cancer History of Cancer: No Psychosocial History of Psychiatric Problem: No Integumentary History of Skin or Integumenta: No Blood Transfusions History of Blood Disorders: No Adverse Reaction to a Blood Tr: No Family Medical History Significant Family History: No Pertinent Family Hx, Hypertension Family Medial History: Hypertension 19 FATHER Myocardial infarction 19 FATHER Physical Exam Vital Signs Vital Sign - Last 12Hours 04/30/17 20:45 Temp 97.8 Pulse 93 Resp 20 B/P (MAP) 128/69 Pulse Ox 93 O2 Delivery Room Air Capillary Refill : General Appearance: WD/WN, no apparent distress HEENT: PERRL/EOMI, normal ENT inspection Neck: non-tender, full range of motion Respiratory: no respiratory distress, no accessory muscle use Gastrointestinal: non tender, soft Psychiatric: alert, oriented x 3 Crainal Nerves: normal hearing, normal speech Skin: normal color, warm/dry Paloma Coma Score Best Eye Response: (4) Open Spontaneously Best Verbal Response: (5) Oriented Best Motor Response: (6) Obeys Commands [place] Total: 15 Progress/Results/Core Measures Results/Orders My Orders Orders - MARY KAY SMITH APRN Ct Head/Cervical Spine Wo (04/30/17 20:57) Vital Signs/I&O Vital Sign - Last 12Hours 04/30/17 20:45 Temp 97.8 Pulse 93 Resp 20 B/P (MAP) 128/69 Pulse Ox 93 O2 Delivery Room Air Departure Communication (Admissions) Progress Notes NAME: JESSE WILLIAMSON [facility] REC#: [id number] PT STATUS: REG ER : 1930 PHYSICIAN: MARY KAY SMITH APRN ADMIT DATE: 04/30/17/ER Draft Date of Exam:04/30/17 CT HEAD/CERVICAL SPINE WO PROCEDURE: CT head and CT cervical spine without contrast. TECHNIQUE: Multiple contiguous axial images were obtained through the brain and cervical spine without the use of intravenous contrast. Sagittal and coronal reformations through the cervical spine were then performed. INDICATION: Fell, hit side of the forehead on sink EXAMINATION: CT of the brain and cervical spine from 04/30/17 COMPARISONS: 08/23/16 FINDINGS: Brain: There is no hemorrhage or infarct. No mass, mass effect or midline shift is seen there is no hydrocephalus. Chronic ischemic changes seen in a periventricular distribution similar to previous imaging. Atrophy also noted. The osseous structures appear stable from previous imaging. No acute sinus disease appreciated. There appears to be a hematoma along the scalp in the left frontal region with no underlying acute fracture appreciated. IMPRESSION: 1. Chronic changes described with no acute intracranial process noted. CT cervical spine: Within the lung apices scarring is noted with calcifications on the left also seen chronic in appearance. There is motion artifact which somewhat limits evaluation for small nondisplaced fractures. No significant fractures are appreciated. Diffuse multilevel facet hypertrophy is seen. No significant subluxations appreciated. Multilevel intervertebral disc space narrowing is noted. The prevertebral soft tissues demonstrate no evidence for acute abnormalities. IMPRESSION: 1. Degenerative findings throughout the cervical spine with no acute fractures appreciated, however, examination is limited due to motion artifact. Dictated on workstation # [id number] Dict: 04/30/174 Trans: 04/30/17 2153 MAURY [id number] Interpreted by: DEBI PINEDO MD Electronically signed by: Impression Impression: Primary Impression: Closed head injury Disposition: 01 HOME, SELF-CARE Condition: Stable Departure-Patient Inst. Decision time for Depature: 21:55 Referrals: ZORA GUERRERO MD (PCP/Family) Primary Care Physician Patient Instructions: Contusion (DC) Add. Discharge Instructions: 1. Return to ER for any confusion, complaints of severe headaches, other concerns 2. Follow-up with her doctor as needed All discharge instructions reviewed with patient and/or family. Voiced understanding. MARY KAY SMITH APRN Apr 30, 2017 21:00
--- NOTE | 2017-04-30 21:53 | Diagnostic Imaging Report ---
PROCEDURE: CT head and CT cervical spine without contrast. TECHNIQUE: Multiple contiguous axial images were obtained through the brain and cervical spine without the use of intravenous contrast. Sagittal and coronal reformations through the cervical spine were then performed. INDICATION: Fell, hit side of the forehead on sink EXAMINATION: CT of the brain and cervical spine from 04/30/17 COMPARISONS: 08/23/16 FINDINGS: Brain: There is no hemorrhage or infarct. No mass, mass effect or midline shift is seen there is no hydrocephalus. Chronic ischemic changes seen in a periventricular distribution similar to previous imaging. Atrophy also noted. The osseous structures appear stable from previous imaging. No acute sinus disease appreciated. There appears to be a hematoma along the scalp in the left frontal region with no underlying acute fracture appreciated. IMPRESSION: 1. Chronic changes described with no acute intracranial process noted. CT cervical spine: Within the lung apices scarring is noted with calcifications on the left also seen chronic in appearance. There is motion artifact which somewhat limits evaluation for small nondisplaced fractures. No significant fractures are appreciated. Diffuse multilevel facet hypertrophy is seen. No significant subluxations appreciated. Multilevel intervertebral disc space narrowing is noted. The prevertebral soft tissues demonstrate no evidence for acute abnormalities. IMPRESSION: 1. Degenerative findings throughout the cervical spine with no acute fractures appreciated, however, examination is limited due to motion artifact. Dictated by: Dictated on workstation # [id number]
[2017-04-30 21:56] VITALS: BP 128/69
[2017-05-01] MEDS ORDERED: ALB0.5V IH ×4 (12:43→15:05)
[2017-05-01] MEDS ORDERED: PRD20T PO (12:43)
[2017-05-01] MEDS ORDERED: SULF1TAB35 PO (12:43)
== END 2017-04-30 21:56 | disposition home or self-care (01) ==
LOC: EDUNIT# 20:43 → ER 20:46
DX: S09.90XA Unspecified injury of head, initial encounter (principal); F03.90 Unspecified dementia, unspecified severity, without behavioral disturbance, psychotic disturbance, mood disturbance, and anxiety; E03.9 Hypothyroidism, unspecified; K21.9 Gastro-esophageal reflux disease without esophagitis; Z87.19 Personal history of other diseases of the digestive system; Z82.49 Family history of ischemic heart disease and other diseases of the circulatory system; Z90.710 Acquired absence of both cervix and uterus; W01.10XA Fall on same level from slipping, tripping and stumbling with subsequent striking against unspecified object, initial encounter; Y92.002 Bathroom of unspecified non-institutional (private) residence as the place of occurrence of the external cause
CPT/HCPCS: 70450; 72125; 99282

== ENCOUNTER 2017-05-01 09:49 | Emergency (ER) | payer MEDICARE, MEDICAID ==
[~2017-05-01] VITALS: Ht 167.6 cm; Wt 68.0 kg
[2017-05-01] MEDS ORDERED: NS IV 500 ML 500 ML IV ONE (10:12)
[2017-05-01] MEDS ORDERED: RT-ALBUTEROL SULF 2.5 MG/3 ML PRE-MIX VIAL INH STA (10:12)
[2017-05-01] MEDS ORDERED: RT-ALBUTEROL/IPRATROPIUM 3 ML (DUONEB) VIAL INH ONE (10:15)
--- NOTE | 2017-05-01 10:19 | ED Respiratory ---
General Chief Complaint: Respiratory Problems Stated Complaint: WHEEZING Source: patient, caregiver Exam Limitations: clinical condition (dementia) History of Present Illness Time seen by provider: 10:06 Initial Comments Patient is a poor historian given her dementia but is comfortable by caregiver from the shelter who reports that yesterday she had a fall and was brought to the ER and worked up but then today was having audible wheezing which is new but she's not sure exactly when it started. The caregivers unaware of any past medical history but says the daughter/power of packaging tech has been called by the shelter. She is not sure if the daughter will be coming to the ER or not. Says the patient does not smoke but is largely independent walks around on her own and does not require much help from the caregivers. Patient denies pain but says she is short of breath. She does not use oxygen at home. She denies nausea fevers or chills. Spoke with the daughter, DP away after she showed up and she says that the patient has been like this for the last 3 or 4 days and she has been stressing to staff at the shelter that she needs more breathing treatments but does not feel that the breathing treatments are being given since there were only written as when necessary. Patient does not seem to have a history of COPD per the daughter however she does have an order for albuterol updrafts. The daughter denies any history of smoking. Allergies and Home Medications Allergies Coded Allergies: No Known Drug Allergies (Unverified , 10/13/11) Home Medications Acetaminophen 500 Mg Tablet, 500 MG PO Q8H, (Reported) Albuterol Sulfate 2.5 Mg/3 Ml Vial.neb, 3 ML IH Q8H PRN for SHORTNESS OF BREATH, (Reported) Docusate Sodium 100 Mg Cap, 100 MG PO BID, (Reported) Donepezil HCl 10 Mg Tablet, 10 MG PO HS, (Reported) Hydrocodone/Acetaminophen 1 Each Tablet, 1 EACH PO Q4H PRN for PAIN, #10 Prescribed by: HINA LEE on 08/31/16 1142 Levothyroxine Sodium 88 Mcg Tablet, 88 MCG PO DAILY@1000, (Reported) Multivitamin 1 Each Tablet, 1 TAB PO DAILY, (Reported) Nystatin 15 Gm Cream..g., TP TID PRN for RASH, (Reported) Omeprazole 20 Mg Capsule.dr, 20 MG PO DAILY, (Reported) Constitutional: see HPI (patient unable to give a meaningful review of systems due to her dementia.) Past Wtkxlzx-Apipbf-Tyyemo Hx Patient Social History Alcohol Use: Denies Use Recreational Drug Use: No Smoking Status: Never a Smoker 2nd Hand Smoke Exposure: No Recent Foreign Travel: No Contact w/Someone Who Travel: No Recent Hopitalizations: No Physical Abuse: No Sexual Abuse: No Immunizations Up To Date Tetanus Booster (TDap): Unknown Date of Pneumonia Vaccine: May 08, 2011 Date of Influenza Vaccine: Jul 25, 2016 Seasonal Allergies Seasonal Allergies: No Surgeries History of Surgeries: Yes (HIP) Surgeries: Abdominal, Hysterectomy, Orthopedic Respiratory History of Respiratory Disorde: No Cardiovascular History of Cardiac Disorders: No Neurological History of Neurological Disord: Yes Neurological Disorders: Dementia Reproductive System Hx Reproductive Disorders: No Genitourinary History of Genitourinary Disor: No Gastrointestinal History of Gastrointestinal Di: Yes Gastrointestinal Disorders: Gastroesophageal Reflux, Chronic Constipation, Ulcer Musculoskeletal History of Musculoskeletal Dis: Yes (November 2014 left clavicle fracture) Musculoskeletal Disorders: Fractures Endocrine History of Endocrine Disorders: Yes Endocrine Disorders: Hypothyroidsim HEENT History of HEENT Disorders: No Cancer History of Cancer: No Psychosocial History of Psychiatric Problem: No Suicide Risk Score: 0 Integumentary History of Skin or Integumenta: No Blood Transfusions History of Blood Disorders: No Adverse Reaction to a Blood Tr: No Family Medical History Significant Family History: No Pertinent Family Hx, Hypertension Family Medial History: Hypertension 19 FATHER Myocardial infarction 19 FATHER Physical Exam Vital Signs Vital Sign - Last 12Hours 05/01/17 10:05 Temp 99.5 Pulse 88 Resp 18 B/P (MAP) 154/81 Pulse Ox 99 O2 Delivery Nasal Cannula O2 Flow Rate 2.00 Capillary Refill : General Appearance: WD/WN, no apparent distress Eyes: Right Eye Normal Inspection, Bilateral Eye PERRL, Bilateral Eye EOMI, Bilateral Eye Other (large ecchymosis surrounding the orbit of the left eye) HEENT: PERRL/EOMI, TMs normal, pharynx normal Neck: non-tender, normal inspection Respiratory: chest non-tender, no accessory muscle use, wheezing (audible without stethoscope bilateral) Cardiovascular: normal peripheral pulses, regular rate, rhythm, no edema, other (trace bilateral lower extremity edema) Gastrointestinal: normal bowel sounds, non tender, soft Extremities: normal range of motion, normal capillary refill Neurologic/Psychiatric: alert, normal mood/affect, other (oriented to self) Skin: normal color, warm/dry, other (ecchymosis on left forehead) Focused Exam Evaluation Lactate Level Laboratory Tests 05/01/17 10:30: Lactic Acid Level 0.92 Lactic Acid Level Laboratory Tests Test 05/01/17 10:30 Lactic Acid Level 0.92 MMOL/L (0.50-2.00) Progress/Results/Core Measures Results/Orders Lab Results Laboratory Tests Test 05/01/17 10:30 05/01/17 12:15 Range/Units White Blood Count 9.0 4.3-11.0 10^3/uL Red Blood Count 4.11 L 4.35-5.85 10^6/uL Hemoglobin 13.4 11.5-16.0 G/DL Hematocrit 40 35-52 % Mean Corpuscular Volume 98 80-99 FL Mean Corpuscular Hemoglobin 33 25-34 PG Mean Corpuscular Hemoglobin Concent 33 32-36 G/DL Red Cell Distribution Width 14.4 10.0-14.5 % Platelet Count 249 130-400 10^3/uL Mean Platelet Volume 9.2 7.4-10.4 FL Neutrophils (%) (Auto) 72 42-75 % Lymphocytes (%) (Auto) 8 L 12-44 % Monocytes (%) (Auto) 17 H 0-12 % Eosinophils (%) (Auto) 2 0-10 % Basophils (%) (Auto) 0 0-10 % Neutrophils # (Auto) 6.5 1.8-7.8 X 10^3 Lymphocytes # (Auto) 0.7 L 1.0-4.0 X 10^3 Monocytes # (Auto) 1.6 H 0.0-1.0 X 10^3 Eosinophils # (Auto) 0.2 0.0-0.3 10^3/uL Basophils # (Auto) 0.0 0.0-0.1 10^3/uL Neutrophils % (Manual) 77 % Lymphocytes % (Manual) 4 % Monocytes % (Manual) 19 % Blood Morphology Comment NORMAL Prothrombin Time 13.8 12.2-14.7 SEC INR Comment 1.1 0.8-1.4 Activated Partial Thromboplast Time 28 24-35 SEC Sodium Level 138 135-145 MMOL/L Potassium Level 4.5 3.6-5.0 MMOL/L Chloride Level 103 98-107 MMOL/L Carbon Dioxide Level 27 21-32 MMOL/L Anion Gap 8 5-14 MMOL/L Blood Urea Nitrogen 16 7-18 MG/DL Creatinine 0.89 0.60-1.30 MG/DL Estimat Glomerular Filtration Rate 60 BUN/Creatinine Ratio 18 Glucose Level 81 70-105 MG/DL Lactic Acid Level 0.92 0.50-2.00 MMOL/L Calcium Level 9.1 8.5-10.1 MG/DL Magnesium Level 2.1 1.8-2.4 MG/DL Total Bilirubin 0.4 0.1-1.0 MG/DL Aspartate Amino Transf (AST/SGOT) 24 5-34 U/L Alanine Aminotransferase (ALT/SGPT) 16 0-55 U/L Alkaline Phosphatase 91 40-136 U/L C-Reactive Protein High Sensitivity 4.72 H 0.00-0.50 MG/DL B-Type Natriuretic Peptide 99.8 <100.0 PG/ML Total Protein 6.9 6.4-8.2 GM/DL Albumin 3.7 3.2-4.5 GM/DL My Orders Orders - EUGENE BARDALES BNP (05/01/17 10:12) Hs C Reactive Protein (05/01/17 10:12) Magnesium (05/01/17 10:12) Chest Pa/Lat (2 View) (05/01/17 10:12) Albuterol Pre-Mix Nebs (Rt) (Proventil P (05/01/17 10:12) Albuterol/Ipra Inhalation Soln (Duoneb I (05/01/17 10:15) Cbc With Automated Diff (05/01/17 10:12) Comprehensive Metabolic Panel (05/01/17 10:12) Lactic Acid Analyzer (05/01/17 10:12) Blood Culture (05/01/17 10:12) Sputum Culture (05/01/17 10:12) Ua Culture If Indicated (05/01/17 10:12) Protime With Inr (05/01/17 10:12) Partial Thromboplastin Time (05/01/17 10:12) O2 (05/01/17 10:12) Saline Lock/Iv-Start (05/01/17 10:12) Vital Signs Adult Sepsis Patie Q1HR (05/01/17 10:12) Remove Rings In Anticipation O (05/01/17 10:12) Saline Lock/Iv-Start (05/01/17 10:12) Ns Iv 500 Ml (Sodium Chloride 0.9%) (05/01/17 10:12) Svn Sm Volume Nebulizer Rt-Rfs (05/01/17 10:12) Manual Differential (05/01/17 10:30) Medications Given in ED Current Medications Medications Dose Ordered Sig/Leticia Route Start Time Stop Time Status Last Admin Dose Admin Albuterol/ Ipratropium 3 ml ONCE ONCE INH 05/01/17 10:15 05/01/17 10:17 DC 05/01/17 10:24 3 ML Sodium Chloride 500 ml @ 0 mls/hr Q0M ONCE IV 05/01/17 10:12 05/01/17 10:17 DC 05/01/17 10:45 500 MLS/HR Vital Signs/I&O Vital Sign - Last 12Hours 05/01/17 05/01/17 05/01/17 10:05 10:05 10:27 Temp 99.5 Pulse 88 Resp 18 B/P (MAP) 154/81 Pulse Ox 99 99 100 O2 Delivery Nasal Cannula Nasal Cannula Nasal Cannula O2 Flow Rate 2.00 2.00 2.00 Progress Note : Time: 12:46 Progress Note Patient's wheezing is now much improved after treatment with albuterol. Audible bilateral but mild and on expiration. Still exhibiting no evidence of acute process per distress or bilateral admissions recruiter he muscle use. Diagnostic Imaging Diagonstic Imaging: Xray Plain Films/CT/US/NM/MRI: chest (2v) [facility] [place] [place] NAME: JESSE WILLIAMSON [facility] REC#: [id number] PT STATUS: REG ER : 1930 PHYSICIAN: EUGENE BARDALES MD ADMIT DATE: 05/01/17/ER Draft Date of Exam:05/01/17 CHEST PA/LAT (2 VIEW) PA and lateral views of the chest. INDICATION: Wheezing. Fall. FINDINGS: The lungs are hyperinflated. The interstitial markings appear prominent on chronic basis with no focal airspace consolidation. The heart size is at the upper limits of normal. No effusion or pneumothorax. The mediastinum and niraj appear unremarkable. IMPRESSION: COPD. Dictated on workstation # [id number] Dict: 05/01/17 1106 Trans: 05/01/17 1110 [facility] [id number] Interpreted by: SANDRA ADAMS MD Electronically signed by: Reviewed: Reviewed by Me Departure Impression Impression: Primary Impression: Bronchitis Additional Impression: UTI (urinary tract infection) Qualified Codes: N30.01 - Acute cystitis with hematuria Disposition: HOME, SELF-CARE Condition: Improved Departure-Patient Inst. Referrals: ZORA GUERRERO MD (PCP/Family) Primary Care Physician Patient Instructions: Acute Bronchitis, Adult (DC) Add. Discharge Instructions: Start the prednisone one tablet by mouth twice a day for the next 5 days. Use the albuterol [id number] for the next week every 6 hours and every 4 hours if needed for shortness of breath or wheezing. If you have worsening symptoms such as fever nausea and vomiting or inability to tolerate medications you should return to your primary care physician for further evaluation and management. All discharge instructions reviewed with patient and/or family. Voiced understanding. Scripts Sulfamethoxazole/Trimethoprim (Bactrim Ds Tablet) 1 Each Tablet 1 EACH PO BID for 5 Days, #10 TAB 0 Refills Prov: EUGENE BARDALES 05/01/17 Albuterol Sulfate (Albuterol Sulfate) 2.5 Mg/0.5 Ml Vial.neb 2.5 MG IH Q6H for 7 Days, #28 EACH 0 Refills Prov: EUGENE BARDALES 05/01/17 Albuterol Sulfate (Albuterol Sulfate) 2.5 Mg/0.5 Ml Vial.neb 2.5 MG IH Q4H Y for SHORTNESS OF BREATH for 14 Days, #20 EACH 0 Refills Prov: EUGENE BARDALES 05/01/17 Prednisone (Prednisone) 20 Mg Tab 20 MG PO BID for 5 Days, #10 TAB 0 Refills Prov: EUGENE BARDALES 05/01/17 Copy Copies To 1: ZORA GUERRERO MD, TITUS J May 01, 2017 10:19
[2017-05-01 10:44] LABS: BASOPHILS % (AUTO) 0 % (0-10); EOSINOPHILS # (AUTO) 0.2 10^3/uL (0.0-0.3); EOSINOPHILS % (AUTO) 2 % (0-10); LYMPHOCYTES # (AUTO) 0.7 X 10^3 (1.0-4.0); LYMPHOCYTES % (AUTO) 8 % (12-44); MEAN CORPUSCULAR HEMOGLOBIN 33 PG (25-34); MEAN CORPUSCULAR HGB CONC 33 G/DL (32-36); MEAN CORPUSCULAR VOLUME 98 FL (80-99); MEAN PLATELET VOLUME 9.2 FL (7.4-10.4); MONOCYTES # (AUTO) 1.6 X 10^3 (0.0-1.0); MONOCYTES % (AUTO) 17 % (0-12); NEUTROPHILS # (AUTO) 6.5 X 10^3 (1.8-7.8); NEUTROPHILS % (AUTO) 72 % (42-75); PLATELET COUNT 249 10^3/uL (130-400); RED BLOOD COUNT 4.11 10^6/uL (4.35-5.85); RED CELL DISTRIBUTION WIDTH 14.4 % (10.0-14.5)
[2017-05-01 10:58] LABS: INR 1.1 (0.8-1.4); PROTHROMBIN TIME PATIENT 13.8 SEC (12.2-14.7)
[2017-05-01 10:59] LABS: LYMPHOCYTES % (MANUAL) 4 %; NEUTROPHILS % (MANUAL) 77 %
[2017-05-01 11:05] LABS: ALBUMIN 3.7 GM/DL (3.2-4.5); BILIRUBIN,TOTAL 0.4 MG/DL (0.1-1.0); CALCIUM 9.1 MG/DL (8.5-10.1); CREATININE SERUM 0.89 MG/DL (0.60-1.30); MAGNESIUM 2.1 MG/DL (1.8-2.4); POTASSIUM 4.5 MMOL/L (3.6-5.0); TOTAL PROTEIN 6.9 GM/DL (6.4-8.2); hs C REACTIVE PROTEIN 4.72 MG/DL (0.00-0.50)
--- NOTE | 2017-05-01 11:11 | Diagnostic Imaging Report ---
PA and lateral views of the chest. INDICATION: Wheezing. Fall. FINDINGS: The lungs are hyperinflated. The interstitial markings appear prominent on chronic basis with no focal airspace consolidation. The heart size is at the upper limits of normal. No effusion or pneumothorax. The mediastinum and niraj appear unremarkable. IMPRESSION: COPD. Dictated by: Dictated on workstation # [id number]
[2017-05-01 12:28] LABS: BILIRUBIN,URINE NEGATIVE (NEGATIVE); KETONES,URINE 2+ (NEGATIVE); LEUKOCYTE ESTERASE ,URINE 3+ (NEGATIVE); NITRITE,URINE NEGATIVE (NEGATIVE); PH,URINE 6 (5-9); PROTEIN,URINE 1+ (NEGATIVE); UROBILINOGEN,URINE NORMAL (NORMAL)
[2017-05-01 12:37] LABS: SQUAMOUS EPITHELIAL CELL,UR 0-2 /HPF; WBC,URINE >100 /HPF
[2017-05-01] MEDS ORDERED: PRD20T PO (12:43)
[2017-05-01] MEDS ORDERED: ALB0.5V IH ×4 (12:43→15:05)
[2017-05-01] MEDS ORDERED: SULF1TAB35 PO (12:43)
[2017-05-01] MEDS ORDERED: TRIM/SULFAMETH 160/800 (SEPTRA DS) TAB PO ONE (13:00)
[2017-05-01 13:01] VITALS: BP 164/84
== END 2017-05-01 13:00 | disposition home or self-care (01) ==
LOC: EDUNIT# 09:49 → ER 09:50
DX: J42 Unspecified chronic bronchitis (principal); N39.0 Urinary tract infection, site not specified; F03.90 Unspecified dementia, unspecified severity, without behavioral disturbance, psychotic disturbance, mood disturbance, and anxiety; K21.9 Gastro-esophageal reflux disease without esophagitis; E03.9 Hypothyroidism, unspecified; Z82.49 Family history of ischemic heart disease and other diseases of the circulatory system; Z87.19 Personal history of other diseases of the digestive system; Z90.710 Acquired absence of both cervix and uterus
CPT/HCPCS: 36415; 71020; 80053; 81000; 83605; 83735; 83880; 85007; 85027; 85610; 85730; 86141; 87040; 87088; 94640; 96360

== ENCOUNTER 2017-05-08 09:09 | Emergency (ER) | payer MEDICARE, MEDICAID ==
[~2017-05-08] VITALS: Ht 167.6 cm; Wt 68.1 kg
[~2017-05-08 09:09] MED LIST changes: +ALB0.5V IH; +PRD20T PO; +SULF1TAB35 PO
--- NOTE | 2017-05-08 12:25 | Diagnostic Imaging Report ---
AP view of the pelvis and 2 views of the left hip. INDICATION: Fall. FINDINGS: Bilateral hip replacement is seen in good alignment. No acute fracture is seen. There is osteopenia. The SI joints demonstrate minimal degenerative change. IMPRESSION: Osteopenia. Bilateral hip replacement in good alignment. Dictated by: Dictated on workstation # [id number]
--- NOTE | 2017-05-08 13:36 | ED Fall/Injury ---
General Chief Complaint: Trauma-Non Activation Stated Complaint: FALL Nursing Triage Note: Pt to ED via wheelchair from [facility]. Facility staff report that pt fell last night around 1800. Pt has been c/o L hip and L hand pain today. Bruising noted to L hand. Staff reports pt can usually assist w/ transfers and is fairly independent but reports pt has been unable to bear weight on hip today. Bruising noted to L side of face that staff reports is from a fall on 05/01. Staff reports mental status is normal for pt. Source: patient Exam Limitations: no limitations History of Present Illness Time seen by provider: 11:47 Initial Comments This 87-year-old resident of [facility] presents with staff for evaluation of left hip pain after having a fall today. She has older bruising on the left hand and face from a prior fall. Patient is rather happy and denies any pain on interview but does state tenderness over the left hip when examined. Neither she nor the staff member with her are good historians. Staff reports that her mental status today is at baseline. Location Injury Occurred: [facility] Occurred: this morning Allergies and Home Medications Allergies Coded Allergies: No Known Drug Allergies (Unverified , 10/13/11) Home Medications Acetaminophen 500 Mg Tablet, 500 MG PO Q8H, (Reported) Albuterol Sulfate 2.5 Mg/3 Ml Vial.neb, 3 ML IH Q8H PRN for SHORTNESS OF BREATH, (Reported) Albuterol Sulfate 2.5 Mg/0.5 Ml Vial.neb, 2.5 MG IH Q4H PRN for SHORTNESS OF BREATH for 14 Days, #20 Ref 0 Prescribed by: EUGENE BARDALES on 05/01/17 1505 Albuterol Sulfate 2.5 Mg/0.5 Ml Vial.neb, 2.5 MG IH Q6H for 7 Days, #28 Ref 0 Prescribed by: EUGENE BARDALES on 05/01/17 1505 Docusate Sodium 100 Mg Cap, 100 MG PO BID, (Reported) Donepezil HCl 10 Mg Tablet, 10 MG PO HS, (Reported) Levothyroxine Sodium 88 Mcg Tablet, 88 MCG PO DAILY@1000, (Reported) Multivitamin 1 Each Tablet, 1 TAB PO DAILY, (Reported) Nystatin 15 Gm Cream..g., TP TID PRN for RASH, (Reported) Omeprazole 20 Mg Capsule.dr 20 MG PO DAILY, (Reported) Prednisone 20 Mg Tab, 20 MG PO BID for 5 Days, #10 Ref 0 Prescribed by: EUGENE BARDALES on 05/01/17 1243 Sulfamethoxazole/Trimethoprim 1 Each Tablet, 1 EACH PO BID for 5 Days, #10 Ref 0 Prescribed by: EUGENE BARDALES on 05/01/17 1243 Constitutional: no symptoms reported Eyes: No Symptoms Reported Ears, Nose, Mouth, Throat: no symptoms reported Respiratory: no symptoms reported Cardiovascular: no symptoms reported Gastrointestinal: no symptoms reported Genitourinary: no symptoms reported Musculoskeletal: see HPI Skin: see HPI Psychiatric/Neurological: Other (Dementia) Past Rijmjfb-Jitwfz-Rpicdu Hx Patient Social History 2nd Hand Smoke Exposure: No Recent Foreign Travel: No Contact w/Someone Who Travel: No Recent Infectious Disease Expo: No Recent Hopitalizations: No Immunizations Up To Date Tetanus Booster (TDap): Unknown Date of Pneumonia Vaccine: May 08, 2011 Date of Influenza Vaccine: Jul 25, 2016 Seasonal Allergies Seasonal Allergies: No Surgeries History of Surgeries: Yes (HIP) Surgeries: Abdominal, Hysterectomy, Joint Replacement, Orthopedic Respiratory History of Respiratory Disorde: No Cardiovascular History of Cardiac Disorders: No Neurological History of Neurological Disord: Yes Neurological Disorders: Dementia Reproductive System Hx Reproductive Disorders: No Genitourinary History of Genitourinary Disor: No Gastrointestinal History of Gastrointestinal Di: Yes Gastrointestinal Disorders: Gastroesophageal Reflux, Chronic Constipation, Ulcer Musculoskeletal History of Musculoskeletal Dis: Yes (November 2014 left clavicle fracture) Musculoskeletal Disorders: Fractures Endocrine History of Endocrine Disorders: Yes Endocrine Disorders: Hypothyroidsim HEENT History of HEENT Disorders: No Cancer History of Cancer: No Psychosocial History of Psychiatric Problem: No Integumentary History of Skin or Integumenta: No Blood Transfusions History of Blood Disorders: No Adverse Reaction to a Blood Tr: No Family Medical History Significant Family History: No Pertinent Family Hx, Hypertension Family Medial History: Hypertension 19 FATHER Myocardial infarction 19 FATHER Physical Exam Vital Signs Vital Sign - Last 12Hours 05/08/17 09:26 Temp 98.3 Pulse 102 Resp 20 B/P (MAP) 121/61 Pulse Ox 92 O2 Delivery Room Air Capillary Refill : Less Than 3 Seconds General Appearance: WD/WN, no apparent distress HEENT: PERRL/EOMI, normal ENT inspection, other (Ecchymosis over the left side of the face) Neck: non-tender, supple, normal inspection Cardiovascular: regular rate, rhythm, no edema, no murmur Respiratory: lungs clear, normal breath sounds, no respiratory distress, no accessory muscle use Gastrointestinal: normal bowel sounds, non tender, soft Extremities: normal range of motion, non-tender, normal inspection, no pedal edema, other (No pain with rotation, flexion, or extension of the hips bilaterally. Tenderness over the left lateral hip with palpation. 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, no motor/sensory deficits, alert, normal mood/affect, other (Dementia is stated at baseline) Skin: normal color, warm/dry, ecchymosis (Left face and left hand) Paloma Coma Score Best Eye Response: (4) Open Spontaneously Best Verbal Response: (5) Oriented Best Motor Response: (6) Obeys Commands [place] Total: 15 Progress/Results/Core Measures Results/Orders My Orders Orders - HELEN SOARES MD Pelvis With Left Hip 2-3 Views (05/08/17 11:51) Vital Signs/I&O Vital Sign - Last 12Hours 05/08/17 05/08/17 09:26 13:42 Temp 98.3 Pulse 102 72 Resp 20 18 B/P (MAP) 121/61 Pulse Ox 92 98 O2 Delivery Room Air Blood Pressure Mean: 81 Progress Note : Progress Note No fracture was found on pelvis and hip x-ray. Patient's urine specimen was terminated with stool. I advised that she have a specimen collected at the longterm because she has had multiple falls recently. Diagnostic Imaging Diagonstic Imaging: Xray Plain Films/CT/US/NM/MRI: pelvis, hip Comments NAME: JESSE WILLIAMSON [facility] REC#: [id number] PT STATUS: DEP ER : 1930 PHYSICIAN: HELEN SOARES MD ADMIT DATE: 05/08/17/ER Signed Date of Exam: 05/08/17 PELVIS WITH LEFT HIP 2-3 VIEWS AP view of the pelvis and 2 views of the left hip. INDICATION: Fall. FINDINGS: Bilateral hip replacement is seen in good alignment. No acute fracture is seen. There is osteopenia. The SI joints demonstrate minimal degenerative change. IMPRESSION: Osteopenia. Bilateral hip replacement in good alignment. Dictated by: Dictated on workstation # [id number] Dict: 05/08/17 1218 Trans: 05/08/17 1350 Interpreted by: SANDRA ADAMS MD Electronically signed by: SANDRA ADAMS MD 05/08/17 1350 Departure Impression Impression: Primary Impression: Left hip pain Additional Impression: Fall on same level Qualified Codes: W18.30XA - Fall on same level, unspecified, initial encounter Disposition: HOME, SELF-CARE Condition: Stable Departure-Patient Inst. Decision time for Depature: 13:35 Referrals: ZORA GUERRERO MD (PCP/Family) Primary Care Physician Patient Instructions: Hip Pain Add. Discharge Instructions: You may give Tylenol and/or ibuprofen for pain. Please have a clean catch urine obtained at the longterm. Contact primary care provider within any further problems or concerns. All discharge instructions reviewed with patient and/or family. Voiced understanding. HELEN SOARES MD May 08, 2017 13:36
[2017-05-08 13:42] VITALS: BP 120/71
== END 2017-05-08 13:42 | disposition home or self-care (01) ==
LOC: EDUNIT# 09:09 → ER 09:11
DX: M25.552 Pain in left hip (principal); K21.9 Gastro-esophageal reflux disease without esophagitis; F03.90 Unspecified dementia, unspecified severity, without behavioral disturbance, psychotic disturbance, mood disturbance, and anxiety; E03.9 Hypothyroidism, unspecified; Z82.49 Family history of ischemic heart disease and other diseases of the circulatory system; Z87.19 Personal history of other diseases of the digestive system; Z90.710 Acquired absence of both cervix and uterus; W19.XXXA Unspecified fall, initial encounter
CPT/HCPCS: 99282

== ENCOUNTER 2017-07-26 19:32 | Inpatient (IN) | payer MEDICARE, MEDICAID ==
[~2017-07-26] VITALS: Ht 154.9 cm; Wt 51.3 kg
[~2017-07-26 19:32] MED LIST changes: -HYDR-3812 PO
[2017-07-26] MEDS ORDERED: NS IV 1000 ML 1,000 ML IV ONE (19:49)
[2017-07-26] MEDS ORDERED: MULT-19 PO (19:52)
[2017-07-26] MEDS ORDERED: FAMO20TA5 PO (19:52)
[2017-07-26 19:56] LABS: BASOPHILS % (AUTO) 0 % (0-10); EOSINOPHILS % (AUTO) 0 % (0-10); HEMATOCRIT 43 % (35-52); HEMOGLOBIN 14.4 G/DL (11.5-16.0); LYMPHOCYTES # (AUTO) 0.6 X 10^3 (1.0-4.0); LYMPHOCYTES % (AUTO) 4 % (12-44); MEAN CORPUSCULAR HEMOGLOBIN 32 PG (25-34); MEAN CORPUSCULAR HGB CONC 34 G/DL (32-36); MEAN CORPUSCULAR VOLUME 95 FL (80-99); MEAN PLATELET VOLUME 9.2 FL (7.4-10.4); MONOCYTES # (AUTO) 1.6 X 10^3 (0.0-1.0); MONOCYTES % (AUTO) 12 % (0-12); NEUTROPHILS # (AUTO) 10.8 X 10^3 (1.8-7.8); NEUTROPHILS % (AUTO) 83 % (42-75); PLATELET COUNT 284 10^3/uL (130-400); RED BLOOD COUNT 4.47 10^6/uL (4.35-5.85)
--- NOTE | 2017-07-26 19:58 | ED General ---
General Chief Complaint: Cough/Cold/Flu Symptoms Stated Complaint: RESPIRATORY DISTRESS Nursing Triage Note: fever, cough, weakness. low spo2 Nursing Sepsis Screen: Possible Sepsis Risk Source of Information: Patient Exam Limitations: No Limitations History of Present Illness Date Seen by Provider: Jul 26, 2017 Time Seen by Provider: 19:40 Initial Comments Here with report of fever, cough, weakness, breathing problems and O2 saturations that were lower at the residential. Apparently fever was up to 102 at the residential and she did receive Tylenol 650 mg by mouth. Sent over for evaluation. Recently had influenza B and just completed Tamiflu treatment. Patient doesn't talk very much but does follow commands well. Arrives on 4 L via nasal cannula with O2 sat of 98 percent. Timing/Duration: 4-6 Hours Severity: Moderate Associated Systoms: Cough, Fever/Chills, No Nausea/Vomiting, Shortness of Air, Weakness Allergies and Home Medications Allergies Coded Allergies: No Known Drug Allergies (Unverified , 10/13/11) Home Medications Acetaminophen 500 Mg Tablet, 500 MG PO Q8H, (Reported) Albuterol Sulfate 2.5 Mg/3 Ml Vial.neb, 3 ML IH Q8H PRN for SHORTNESS OF BREATH, (Reported) Albuterol Sulfate 2.5 Mg/0.5 Ml Vial.neb, 2.5 MG IH Q4H PRN for SHORTNESS OF BREATH for 14 Days, #20 Ref 0 Prescribed by: EUGENE BARDALES on 05/01/17 1505 Albuterol Sulfate 2.5 Mg/0.5 Ml Vial.neb, 2.5 MG IH Q6H for 7 Days, #28 Ref 0 Prescribed by: EUGENE BARDALES on 05/01/17 1505 Docusate Sodium 100 Mg Cap, 100 MG PO BID, (Reported) Donepezil HCl 10 Mg Tablet, 10 MG PO HS, (Reported) Famotidine 20 Mg Tablet, (Reported) Levothyroxine Sodium 88 Mcg Tablet, 88 MCG PO DAILY@1000, (Reported) Multivitamin with Folic Acid 400 Mcg Tablet, (Reported) Constitutional: see HPI, chills, fever Respiratory: cough, short of breath Other Unable to complete review of systems as patient is not answering questions. She does follow commands. Past Epkbzdw-Ccykrp-Juefwu Hx Patient Social History Alcohol Use: Denies Use Recreational Drug Use: No Smoking Status: Never a Smoker 2nd Hand Smoke Exposure: No Recent Foreign Travel: No Contact w/Someone Who Travel: No Recent Infectious Disease Expo: No Recent Hopitalizations: No Immunizations Up To Date Tetanus Booster (TDap): Unknown Date of Pneumonia Vaccine: May 08, 2011 Date of Influenza Vaccine: Jul 25, 2016 Seasonal Allergies Seasonal Allergies: No Surgeries History of Surgeries: Yes (HIP) Surgeries: Abdominal, Hysterectomy, Joint Replacement, Orthopedic Respiratory History of Respiratory Disorde: No Cardiovascular History of Cardiac Disorders: No Neurological History of Neurological Disord: Yes Neurological Disorders: Dementia Reproductive System Hx Reproductive Disorders: No Genitourinary History of Genitourinary Disor: No Gastrointestinal History of Gastrointestinal Di: Yes Gastrointestinal Disorders: Gastroesophageal Reflux, Chronic Constipation, Ulcer Musculoskeletal History of Musculoskeletal Dis: Yes (November 2014 left clavicle fracture) Musculoskeletal Disorders: Fractures Endocrine History of Endocrine Disorders: Yes Endocrine Disorders: Hypothyroidsim HEENT History of HEENT Disorders: No Cancer History of Cancer: No Psychosocial History of Psychiatric Problem: No Integumentary History of Skin or Integumenta: No Blood Transfusions History of Blood Disorders: No Adverse Reaction to a Blood Tr: No Reviewed Nursing Assessment Reviewed/Agree w Nursing PMH: Yes Family Medical History Significant Family History: No Pertinent Family Hx, Hypertension Family Medial History: Hypertension 19 FATHER Myocardial infarction 19 FATHER Physical Exam-Suspected Sepsis Physical Exam Vital Signs Vital Sign - Last 12Hours Capillary Refill : Less Than 3 Seconds Blood Pressure Mean: 123 General Appearance: No Apparent Distress, WD/WN HEENT: PERRL/EOMI, TMs Normal Neck: Non Tender, Supple Respiratory: No Respiratory Distress, Crackles (few bi-basilar), Wheezing (few trace) Cardiovascular: No Murmur, Tachycardia Gastrointestinal: Non Tender, Soft Back: Normal Inspection, No CVA Tenderness, No Vertebral Tenderness Extremity: Normal Range of Motion, Non Tender, No Calf Tenderness Neurologic/Psychiatric: Alert, Other (weak-appearing but does follow commands. Does not really answer questions.) Skin: normal color, warm/dry Focused Exam Evaluation Lactate Level Laboratory Tests 07/26/17 19:40: Lactic Acid Level 1.17 Lactic Acid Level Progress/Results/Core Measures Suspected Sepsis Recent Fever Within 48 Hours: Yes Infection Criteria Present: Documented Infection New/Unexplained Altered Menta: No Sepsis Screen: Possible Sepsis Risk Sepsis Diagnosis: SIRS Temperature:100.9 Pulse: 108 Respiratory Rate: 22 Laboratory Tests 07/26/17 19:40: White Blood Count 13.0H 07/27/17 05:39: White Blood Count 10.2 Blood Pressure 177 /97 Mean: 123 Laboratory Tests 07/26/17 19:40: Lactic Acid Level 1.17 Laboratory Tests 07/26/17 19:40: Creatinine 0.70, INR Comment 1.0, Platelet Count 284, Total Bilirubin 0.6 07/27/17 05:39: Creatinine 0.70, Platelet Count 258, Total Bilirubin 0.6 Results/Orders Lab Results Laboratory Tests Test 07/26/17 19:40 07/27/17 05:39 Range/Units White Blood Count 13.0 H 10.2 4.3-11.0 10^3/uL Red Blood Count 4.47 3.88 L 4.35-5.85 10^6/uL Hemoglobin 14.4 12.6 11.5-16.0 G/DL Hematocrit 43 38 35-52 % Mean Corpuscular Volume 95 97 80-99 FL Mean Corpuscular Hemoglobin 32 33 25-34 PG Mean Corpuscular Hemoglobin Concent 34 34 32-36 G/DL Red Cell Distribution Width 14.0 14.0 10.0-14.5 % Platelet Count 284 258 130-400 10^3/uL Mean Platelet Volume 9.2 9.4 7.4-10.4 FL Neutrophils (%) (Auto) 83 H 76 H 42-75 % Lymphocytes (%) (Auto) 4 L 11 L 12-44 % Monocytes (%) (Auto) 12 13 H 0-12 % Eosinophils (%) (Auto) 0 0 0-10 % Basophils (%) (Auto) 0 0 0-10 % Neutrophils # (Auto) 10.8 H 7.7 1.8-7.8 X 10^3 Lymphocytes # (Auto) 0.6 L 1.1 1.0-4.0 X 10^3 Monocytes # (Auto) 1.6 H 1.4 H 0.0-1.0 X 10^3 Eosinophils # (Auto) 0.0 0.0 0.0-0.3 10^3/uL Basophils # (Auto) 0.0 0.0 0.0-0.1 10^3/uL Neutrophils % (Manual) 74 % Lymphocytes % (Manual) 6 % Monocytes % (Manual) 14 % Eosinophils % (Manual) 0 % Basophils % (Manual) 0 % Band Neutrophils 6 % Blood Morphology Comment NORMAL Prothrombin Time 13.6 12.2-14.7 SEC INR Comment 1.0 0.8-1.4 Activated Partial Thromboplast Time 28 24-35 SEC Sodium Level 140 141 135-145 MMOL/L Potassium Level 4.2 3.2 L 3.6-5.0 MMOL/L Chloride Level 103 105 98-107 MMOL/L Carbon Dioxide Level 23 26 21-32 MMOL/L Anion Gap 14 10 5-14 MMOL/L Blood Urea Nitrogen 22 H 16 7-18 MG/DL Creatinine 0.70 0.70 0.60-1.30 MG/DL Estimat Glomerular Filtration Rate > 60 > 60 BUN/Creatinine Ratio 31 23 Glucose Level 122 H 95 70-105 MG/DL Lactic Acid Level 1.17 0.50-2.00 MMOL/L Calcium Level 9.3 8.2 L 8.5-10.1 MG/DL Total Bilirubin 0.6 0.6 0.1-1.0 MG/DL Aspartate Amino Transf (AST/SGOT) 24 14 5-34 U/L Alanine Aminotransferase (ALT/SGPT) 22 14 0-55 U/L Alkaline Phosphatase 101 73 40-136 U/L Total Protein 7.2 5.6 L 6.4-8.2 GM/DL Albumin 3.7 3.0 L 3.2-4.5 GM/DL Micro Results Microbiology 07/26/17 Influenza Types A,B Antigen (DWAYNE) - Final, Complete My Orders Orders - YANIV SIERRA MD Cbc With Automated Diff (07/26/17 19:49) Comprehensive Metabolic Panel (07/26/17 19:49) Lactic Acid Analyzer (07/26/17 19:49) Blood Culture (07/26/17 19:49) Sputum Culture (07/26/17 19:49) Ua Culture If Indicated (07/26/17 19:49) Protime With Inr (07/26/17 19:49) Partial Thromboplastin Time (07/26/17 19:49) Chest 1 View, Ap/Pa Only (07/26/17 19:49) O2 (07/26/17 19:49) Saline Lock/Iv-Start (07/26/17 19:49) Vital Signs Adult Sepsis Patie Q1H (07/26/17 19:49) Remove Rings In Anticipation O (07/26/17 19:49) Ns Iv 1000 Ml (Sodium Chloride 0.9%) (07/26/17 19:49) Influenza A And B Antigens (07/26/17 19:59) Manual Differential (07/26/17 19:40) Piperacillin Sodium/Tazobactam (Zosyn Vi (07/26/17 21:30) D5w 50 Ml Ivpb Solution (Dextrose 5% Jesse (07/26/17 21:37) Medications Given in ED Current Medications Medications Dose Ordered Sig/Leticia Route Start Time Stop Time Status Last Admin Dose Admin Piperacillin Sod/ Tazobactam Sod 4.5 gm ONCE ONCE IV 07/26/17 21:30 07/26/17 21:31 DC 07/26/17 21:53 4.5 GM Sodium Chloride 1,000 ml @ 0 mls/hr Q0M ONCE IV 07/26/17 19:49 07/26/17 19:51 DC 07/26/17 19:55 0 MLS/HR Vital Signs/I&O Vital Sign - Last 12Hours 07/26/17 07/26/17 07/26/17 07/26/17 19:35 19:35 19:40 22:01 Temp 100.9 97.9 Pulse 108 112 Resp 22 26 B/P (MAP) 177/97 (123) Pulse Ox 99 99 92 O2 Delivery Nasal Cannula Nasal Cannula Nasal Cannula Nasal Cannula O2 Flow Rate 4.00 4.00 4.00 4.00 07/26/17 07/26/17 07/27/17 07/27/17 22:20 23:58 00:00 01:08 Temp 99.5 Pulse 100 107 Resp 20 B/P (MAP) 174/91 (118) Pulse Ox 96 97 96 O2 Delivery Nasal Cannula Nasal Cannula Nasal Cannula O2 Flow Rate 3.00 3.00 3.00 07/27/17 04:00 Temp 98.0 Pulse 106 Resp 20 B/P (MAP) 130/84 (99) Pulse Ox 93 O2 Delivery Nasal Cannula O2 Flow Rate 3.00 Intake and Output 07/27/17 00:00 Intake Total 1000 ml Balance 1000 ml Capillary Refill : Less Than 3 Seconds Blood Pressure Mean: 123 Progress Note : Progress Note Seen and evaluated. IV, labs, blood cultures, lactic acid, influenza screen, chest x-ray and UA ordered. Patient has received Tylenol. Normal saline 1 L bolus. Monitor patient. 2129: I have discussed the case with Dr. Suarez and she accepts patient for admission, inpatient status. Patient has bilateral upper lobe pneumonia after influenza and is requiring oxygen which she is not typically on. She will required increased respiratory therapy treatments and this should be done in the hospital and at the residential. Patient and family agree with plan. Admit, inpatient status. Zosyn 4.5 g IV initiated and we will initiate vancomycin as well. MRSA screen will be ordered for the floor. Diagnostic Imaging Diagonstic Imaging: Xray Plain Films/CT/US/NM/MRI: chest Comments VIA [facility], [facility]. [place], [place] NAME: JESSE WILLIAMSON [facility] REC#: [id number] PT STATUS: REG ER : 1930 PHYSICIAN: YANIV SIERRA MD ADMIT DATE: 07/26/17/ER Draft Date of Exam:07/26/17 CHEST 1 VIEW, AP/PA ONLY INDICATION: Cough. COMPARISON: 05/01/2017. TECHNIQUE: Single view of the chest was obtained. FINDINGS: Increased heterogeneous opacities in the bilateral upper lobes. No pleural effusion or pneumothorax. Heart is normal in size. Normal pulmonary vasculature. IMPRESSION: Increased heterogeneous opacities of the upper lobes could relate to infectious process superimposed on emphysema. Dictated on workstation # [id number] Dict: 07/26/172009 Trans: 07/26/172012 [id number] Interpreted by: NENITA TERRELL MD Electronically signed by: Departure Communication (Admissions) Time/Spoke to Admitting Phy: 21:30 Impression Impression: Primary Impression: Pneumonia of both upper lobes Qualified Codes: J18.9 - Pneumonia, unspecified organism Additional Impression: Hypoxia Disposition: 09 ADMITTED INPATIENT Condition: Stable Admissions Decision to Admit Reason: Admit from ER (General) Decision to Admit/Date: Jul 26, 2017 Time/Decision to Admit Time: 21:30 Departure-Patient Inst. Referrals: ZORA GUERRERO MD (PCP/Family) Primary Care Physician YANIV SIERRA MD Jul 26, 2017 19:58
[2017-07-26 20:03] LABS: PROTHROMBIN TIME PATIENT 13.6 SEC (12.2-14.7)
--- OUTSIDE RECORDS SUMMARY | 2017-07-26 20:04 | XMS REPORT | Continuity of Care Document ---
Author Author [facility] Organization [facility] Address Unknown Phone Unavailable Allergies Active Description Code Type Severity Reaction Onset Reported/Identified Relationship to Patient Clinical Status Yes No Known Drug Allergies [id number] Drug Allergy Unknown N/A 10/13/2011 Medications There is no data. 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 11/01/2011 Ot 294.20 DEMENTIA, UNSPECIFIED, WITHOUT BEHAVIORA 11/01/2011 Ot 455.3 EXT HEMORRHOID W/O COMPL 11/01/2011 Ot 553.3 DIAPHRAGMATIC HERNIA 11/01/2011 Ot 562.10 DIVERTICULOSIS COLON (W/O MENT OF HEMORR 11/01/2011 Ot 564.00 UNSPEC CONSTIPATION 11/01/2011 Ot 786.09 RESPIRATORY ABNORM NEC 11/01/2011 Ot V15.82 HISTORY OF TOBACCO USE 11/01/2011 Ot V43.64 HIP JOINT REPLACEMENT STATUS 11/01/2011 Ot V54.13 AFTERCARE HEALING TRAUMATIC FX HIP 11/01/2011 Ot V54.81 AFTERCARE FOLLOWING JOINT REPLACEMENT 11/01/2011 Ot V57.1 PHYSICAL THERAPY NEC 11/01/2011 Ot V57.21 ENCOUNTER FOR OCCUPATIONAL THERAPY 12/20/2011 Ot 924.01 CONTUSION OF HIP 12/20/2011 Ot 959.6 HIP THIGH INJURY NOS 12/20/2011 Ot E000.8 OTHER EXTERNAL CAUSE STATUS 12/20/2011 Ot E849.0 ACCIDENT IN HOME 12/20/2011 Ot E885.9 FALL FROM SLIPPING, TRIPPING, OR STUMBLI 09/22/2014 Ot 038.9 SEPTICEMIA NOS 09/22/2014 Ot 244.9 HYPOTHYROIDISM NOS 09/22/2014 Ot 276.50 VOLUME DEPLETION, UNSPECIFIED 09/22/2014 Ot 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 09/22/2014 Ot 331.0 ALZHEIMER'S DISEASE 09/22/2014 Ot 564.00 UNSPEC CONSTIPATION 09/22/2014 Ot 599.0 URIN TRACT INFECTION NOS 09/22/2014 Ot 787.91 DIARRHEA 09/22/2014 Ot 995.91 SEPSIS 09/22/2014 Ot V15.82 HISTORY OF TOBACCO USE 10/02/2014 Ot 285.9 10/05/2014 EILEEN TOMPKINS, CLINTON S Ot 038.9 10/05/2014 EILEEN TOMPKINS, CLINTON S Ot 244.9 10/05/2014 EILEEN TOMPKINS, CLINTON S Ot 250.00 10/05/2014 EILEEN TOMPKINS, CLINTON S Ot 401.9 10/05/2014 EILEEN TOMPKINS, CLINTON S Ot 532.50 10/05/2014 EILEEN TOMPKINS, CLINTON S Ot 599.0 10/05/2014 EILEEN TOMPKINS, CLINTON S Ot 799.4 10/05/2014 EILEEN TOMPKINS, CLINTON S Ot 995.91 10/05/2014 EILEEN TOMPKINS, CLINTON S Ot V15.82 10/05/2014 EILEEN TOMPKINS, CLINTON S Ot V58.67 10/05/2014 EILEEN TOMPKINS, CLINTON S Ot 038.9 10/05/2014 EILEEN TOMPKINS, CLINTON S Ot 244.9 10/05/2014 EILEEN TOMPKINS, CLINTON S Ot 250.00 10/05/2014 EILEEN TOMPKINS, CLINTON S Ot 401.9 10/05/2014 EILEEN TOMPKINS, CLINTON S Ot 532.50 10/05/2014 EILEEN TOMPKINS, CLINTON S Ot 599.0 10/05/2014 EILEEN TOMPKINS, CLINTON S Ot 799.4 10/05/2014 EILEEN TOMPKINS, CLINTON S Ot 995.91 10/05/2014 EILEEN TOMPKINS, CLINTON S Ot V15.82 10/05/2014 EILEEN TOMPKINS, CLINTON S Ot V58.67 10/05/2014 EILEEN TOMPKINS, CLINTON S Ot 038.9 10/05/2014 EILEEN TOMPKINS, CLINTON S Ot 244.9 10/05/2014 EILEEN TOMPKINS, CLINTON S Ot 250.00 10/05/2014 EILEEN TOMPKINS, CLINTON S Ot 401.9 10/05/2014 EILEEN TOMPKINS, CLINTON S Ot 532.50 10/05/2014 EILEEN TOMPKINS, CLINTON S Ot 599.0 10/05/2014 EILEEN TOMPKINS, CLINTON S Ot 799.4 10/05/2014 EILEEN TOMPKINS, CLINTON S Ot 995.91 10/05/2014 EILEEN TOMPKINS, CLINTON S Ot V15.82 10/05/2014 EILEEN TOMPKINS, CLINTON S Ot V58.67 10/06/2014 EILEEN TOMPKINS, CLINTON S Ot 038.9 10/06/2014 EILEEN TOMPKINS, CLINTON S Ot 244.9 10/06/2014 EILEEN TOMPKINS, CLINTON S Ot 250.00 10/06/2014 EILEEN TOMPKINS, CLINTON S Ot 401.9 10/06/2014 EILEEN TOMPKINS, CLINTON S Ot 532.50 10/06/2014 EILEEN TOMPKINS, CLINTON S Ot 599.0 10/06/2014 EILEEN TOMPKINS, CLINTON S Ot 799.4 10/06/2014 EILEEN TOMPKINS, CLINTON S Ot 995.91 10/06/2014 EILEEN TOMPKINS, CLINTON S Ot V15.82 10/06/2014 EILEEN TOMPKINS, CLINTON S Ot V58.67 10/07/2014 EILEEN TOMPKINS, CLINTON S Ot 038.9 10/07/2014 EILEEN TOMPKINS, CLINTON S Ot 244.9 10/07/2014 EILEEN TOMPKINS, CLINTON S Ot 250.00 10/07/2014 EILEEN TOMPKINS, CLINTON S Ot 401.9 10/07/2014 EILEEN TOMPKINS, CLINTON S Ot 532.50 10/07/2014 EILEEN TOMPKINS, CLINTON S Ot 599.0 10/07/2014 EILEEN TOMPKINS, CLINTON S Ot 799.4 10/07/2014 EILEEN TOMPKINS, CLINTON S Ot 995.91 10/07/2014 EILEEN TOMPKINS, CLINTON S Ot V15.82 10/07/2014 EILEEN TOMPKINS, CLINTON S Ot V58.67 10/07/2014 EILEEN TOMPKINS, CLINTON S Ot 038.9 10/07/2014 EILEEN TOMPKINS, CLINTON S Ot 244.9 10/07/2014 EILEEN TOMPKINS, CLINTON S Ot 250.00 10/07/2014 EILEEN TOMPKINS, CLINTON S Ot 401.9 10/07/2014 EILEEN TOMPKINS, CLINTON S Ot 532.50 10/07/2014 EILEEN TOMPKINS, CLINTON S Ot 599.0 10/07/2014 EILEEN TOMPKINS, CLINTON S Ot 799.4 10/07/2014 EILEEN TOMPKINS, CLINTON S Ot 995.91 10/07/2014 EILEEN TOMPKINS, CLINTON S Ot V15.82 10/07/2014 EILEEN TOMPKINS, CLINTON S Ot V58.67 10/08/2014 EILEEN TOMPKINS, CLINTON S Ot 038.9 10/08/2014 EILEEN TOMPKINS, CLINTON S Ot 244.9 10/08/2014 EILEEN TOMPKINS, CLINTON S Ot 250.00 10/08/2014 EILEEN TOMPKINS, CLINTON S Ot 401.9 10/08/2014 EILEEN TOMPKINS, CLINTON S Ot 532.50 10/08/2014 EILEEN TOMPKINS, CLINTON S Ot 599.0 10/08/2014 EILEEN TOMPKINS, CLINTON S Ot 799.4 10/08/2014 EILEEN TOMPKINS, CLINTON S Ot 995.91 10/08/2014 EILEEN TOMPKINS, CLINTON S Ot V15.82 10/08/2014 EILEEN TOMPKINS, CLINTON S Ot V58.67 10/09/2014 EILEEN TOMPKINS, CLINTON S Ot 038.9 10/09/2014 EILEEN TOMPKINS, CLINTON S Ot 244.9 10/09/2014 EILEEN TOMPKINS, CLINTON S Ot 250.00 10/09/2014 EILEEN TOMPKINS, CLINTON S Ot 401.9 10/09/2014 EILEEN TOMPKINS, CLINTON S Ot 532.50 10/09/2014 EILEEN TOMPKINS, CLINTON S Ot 599.0 10/09/2014 EILEEN TOMPKINS, CLINTON S Ot 799.4 10/09/2014 EILEEN TOMPKINS, CLINTON S Ot 995.91 10/09/2014 EILEEN TOMPKINS, CLINTON S Ot V15.82 10/09/2014 EILEEN TOMPKINS, CLINTON S Ot V58.67 10/10/2014 EILEEN TOMPKINS, CLINTON S Ot 038.9 10/10/2014 EILEEN TOMPKINS, CLINTON S Ot 244.9 10/10/2014 EILEEN TOMPKINS, CLINTON S Ot 250.00 10/10/2014 EILEEN TOMPKINS, CLNITON S Ot 401.9 10/10/2014 EILEEN TOMPKINS, CLINTON S Ot 532.50 10/10/2014 EILEEN TOMPKINS, CLINTON S Ot 599.0 10/10/2014 EILEEN TOMPKINS, CLINTON S Ot 799.4 10/10/2014 EILEEN TOMPKINS, CLINTON S Ot 995.91 10/10/2014 EILEEN TOMPKINS, CLINTON S Ot V15.82 10/10/2014 EILEEN TOMPKINS, CLINTON S Ot V58.67 10/11/2014 EILEEN TOMPKINS, CLINTON S Ot 038.9 10/11/2014 EILEEN TOMPKINS, CLINTON S Ot 244.9 10/11/2014 EILEEN TOMPKINS, CLINTON S Ot 250.00 10/11/2014 EILEEN TOMPKINS, CLINTON S Ot 401.9 10/11/2014 EILEEN TOMPKINS, CLINTON S Ot 532.50 10/11/2014 EILEEN TOMPKINS, CLINTON S Ot 599.0 10/11/2014 EILEEN TOMPKINS, CLINTON S Ot 799.4 10/11/2014 EILEEN TOMPKINS, CLINTON S Ot 995.91 10/11/2014 EILEEN TOMPKINS, CLINTON S Ot V15.82 10/11/2014 EILEEN TOMPKINS, CLINTON S Ot V58.67 10/12/2014 EILEEN TOMPKINS, CLINTON S Ot 038.9 10/12/2014 EILEEN TOMPKINS, CLINTON S Ot 244.9 10/12/2014 EILEEN TOMPKINS, CLINTON S Ot 250.00 10/12/2014 EILEEN TOMPKINS, CLINTON S Ot 401.9 10/12/2014 EILEEN TOMPKINS, CLINTON S Ot 532.50 10/12/2014 EILEEN TOMPKINS, CLINTON S Ot 599.0 10/12/2014 EILEEN TOMPKINS, CLINTON S Ot 799.4 10/12/2014 EILEEN TOMPKINS, CLINTON S Ot 995.91 10/12/2014 EILEEN TOMPKINS, CLINTON S Ot V15.82 10/12/2014 EILEEN TOMPKINS, CLINTON S Ot V58.67 10/13/2014 EILEEN TOMPKINS, CLINTON S Ot 038.9 10/13/2014 EILEEN TOMPKINS, CLINTON S Ot 244.9 10/13/2014 EILEEN TOMPKINS, CLINTON S Ot 250.00 10/13/2014 EILEEN TOMPKINS, CLINTON S Ot 401.9 10/13/2014 EILEEN TOMPKINS, CLINTON S Ot 532.50 10/13/2014 EILEEN TOMPKINS, CLINTON S Ot 599.0 10/13/2014 EILEEN TOMPKINS, CLINTON S Ot 799.4 10/13/2014 EILEEN TOMPKINS, CLINTON S Ot 995.91 10/13/2014 EILEEN TOMPKINS, CLINTON S Ot V15.82 10/13/2014 EILEEN TOMPKINS, CLINTON S Ot V58.67 10/14/2014 EILEEN TOMPKINS, CLINTON S Ot 038.9 10/14/2014 EILEEN TOMPKINS, CLINTON S Ot 244.9 10/14/2014 EILEEN TOMPKINS, CLINTON S Ot 250.00 10/14/2014 EILEEN TOMPKINS, CLINTON S Ot 401.9 10/14/2014 EILEEN TOMPKINS, CLINTON S Ot 532.50 10/14/2014 EILEEN TOMPKINS, CLINTON S Ot 599.0 10/14/2014 EILEEN TOMPKINS, CLINTON S Ot 799.4 10/14/2014 EILEEN TOMPKINS, CLINTON S Ot 995.91 10/14/2014 EILEEN TOMPKINS, CLINTON S Ot V15.82 10/14/2014 EILEEN TOMPKINS, CLINTON S Ot V58.67 10/14/2014 EILEEN TOMPKINS, CLINTON S Ot 038.9 10/14/2014 EILEEN TOMPKINS, CLINTON S Ot 244.9 10/14/2014 EILEEN TOMPKINS, CLINTON S Ot 250.00 10/14/2014 EILEEN TOMPKINS, CLINTON S Ot 401.9 10/14/2014 EILEEN TOMPKINS, CLINTON S Ot 532.50 10/14/2014 EILEEN TOMPKINS, CLINTON S Ot 599.0 10/14/2014 EILEEN TOMPKINS, CLINTON S Ot 799.4 10/14/2014 EILEEN TOMPKINS, CLINTON S Ot 995.91 10/14/2014 EILEEN TOMPKINS, CLINTON S Ot V15.82 10/14/2014 EILEEN TOMPKINS, CLINTON S Ot V58.67 10/15/2014 EILEEN TOMPKINS, CLINTON S Ot 038.9 10/15/2014 EILEEN TOMPKINS, CLINTON S Ot 244.9 10/15/2014 EIELEN TOMPKINS, CLINTON S Ot 250.00 10/15/2014 EILEEN TOMPKINS, CLINTON S Ot 401.9 10/15/2014 EILEEN TOMPKINS, CLINTON S Ot 532.50 10/15/2014 EILEEN TOMPKINS, CLINTON S Ot 599.0 10/15/2014 EILEEN TOMPKINS, CLINTON S Ot 799.4 10/15/2014 EILEEN TOMPKINS, CLINTON S Ot 995.91 10/15/2014 EILEEN TOMPKINS, CLINTON S Ot V15.82 10/15/2014 EILEEN TOMPKINS, CLINTON S Ot V58.67 10/16/2014 EILEEN TOMPKINS, CLINTON S Ot 038.9 10/16/2014 EILEEN TOMPKINS, CLINTON S Ot 244.9 10/16/2014 EILEEN TOMPKINS, CLINTON S Ot 250.00 10/16/2014 EILEEN TOMPKINS, CLINTON S Ot 401.9 10/16/2014 EILEEN TOMPKINS, CLINTON S Ot 532.50 10/16/2014 EILEEN TOMPKINS, CLINTON S Ot 599.0 10/16/2014 EILEEN TOMPKINS, CLINTON S Ot 799.4 10/16/2014 EILEEN TOMPKINS, CLINTON S Ot 995.91 10/16/2014 EILEEN TOMPKINS, CLINTON S Ot V15.82 10/16/2014 EILEEN TOMPKINS, CLINTON S Ot V58.67 10/17/2014 EILEEN TOMPKINS, CLINTON S Ot 038.9 10/17/2014 EILEEN TOMPKINS, CLINTON S Ot 244.9 10/17/2014 EILEEN TOMPKINS, CLINTON S Ot 250.00 10/17/2014 EILEEN TOMPKINS, CLINTON S Ot 401.9 10/17/2014 EILEEN TOMPKINS, CLINTON S Ot 532.50 10/17/2014 EILEEN TOMPKINS, CLINTON S Ot 599.0 10/17/2014 EILEEN TOMPKINS, CLINTON S Ot 799.4 10/17/2014 EILEEN TOMPKINS, CLINTON S Ot 995.91 10/17/2014 EILEEN TOMPKINS, CLINTON S Ot V15.82 10/17/2014 EILEEN TOMPKINS, CLINTON S Ot V58.67 10/18/2014 EILEEN TOMPKINS, CLINTON Jennings Ot 038.9 10/18/2014 EILEEN TOMPKINS, CLINTON Jennings Ot 244.9 10/18/2014 EILEEN TOMPKINS, CLINTON S Ot 250.00 10/18/2014 EILEEN TOMPKINS, CLINTON S Ot 401.9 10/18/2014 EILEEN TOMPKINS, CLINTON Jennings Ot 532.50 10/18/2014 EILEEN TOMPKINS, CLINTON Jennings Ot 599.0 10/18/2014 EILEEN TOMPKINS, CLINTON Jennings Ot 799.4 10/18/2014 EILEEN TOMPKINS, CLINTON Jennings Ot 995.91 10/18/2014 EILEEN TOMPKINS, CLINTON Jennings Ot V15.82 10/18/2014 EILEEN TOMPKINS, CLINTON Jennings Ot V58.67 10/18/2014 EILEEN TOMPKINS, CILNTON Jennings Ot 038.9 SEPTICEMIA NOS 10/18/2014 EILEEN TOMPKINS, CLINTON Jennings Ot 244.9 HYPOTHYROIDISM NOS 10/18/2014 EILEEN TOMPKINS, CLINTON Jennings Ot 250.00 DIAB REUBEN WO COMPL, TYPE II OR UNSPEC TY 10/18/2014 EILEEN TOMPKINS, CLINTON S Ot 276.51 DEHYDRATION 10/18/2014 EILEEN TOMPKINS, CLINTON Jennings Ot 276.8 HYPOPOTASSEMIA 10/18/2014 EILEEN TOMPKINS, CLINTON Jennings Ot 288.60 10/18/2014 EILEEN TOMPKINS, CLINTON Jennings Ot 294.20 DEMENTIA, UNSPECIFIED, WITHOUT BEHAVIORA 10/18/2014 EILEEN TOMPKINS, CLINTON Jennings Ot 401.9 HYPERTENSION NOS 10/18/2014 EILEEN TOMPKINS, CLINTON Jennings Ot 532.50 CHR DUODEN ULCER W PERF 10/18/2014 CLINTON ARELLANO MD Ot 567.9 PERITONITIS NOS 10/18/2014 EILEEN TOMPKINS, CLINTON Jennings Ot 599.0 URIN TRACT INFECTION NOS 10/18/2014 CLINTON ARELLANO MD Ot 782.3 EDEMA 10/18/2014 EILEEN TOMPKINS, CLINTON Jennings Ot 788.99 OTHER SYMPTOMS INVOLVING URINARY SYSTEM 10/18/2014 EILEEN TOMPKINS, CLINTON Jennings Ot 799.4 CACHEXIA 10/18/2014 EILEEN TOMPKINS, CLINTON Jennings Ot 995.91 SEPSIS 10/18/2014 EILEEN TOMPKINS, CLINTON Jennings Ot V15.82 HISTORY OF TOBACCO USE 10/18/2014 EILEEN TOMPKINS, CLINTON Jennings Ot V58.67 LONG-TERM (CURRENT) USE OF INSULIN 10/29/2014 ANGIE PRADO Ot 294.20 DEMENTIA, UNSPECIFIED, WITHOUT BEHAVIORA 10/29/2014 ANGIE PRADO Ot 810.03 FX CLAVICL, ACROM END-CL 10/29/2014 ANGIE PRADO Ot 920 CONTUSION FACE/SCALP/NCK 10/29/2014 ANGIE PRADO Ot 923.09 CONTUSION SHOULDER ARM 10/29/2014 ANGIE PRADO Ot E849.7 ACCID IN RESIDENT INSTIT 10/29/2014 ANGIE PRADO Ot E888.9 FALL NOS 11/05/2014 ANGIE PRADO Ot 294.20 11/05/2014 ANGIE PRADO Ot 810.03 11/05/2014 ANGIE PRADO Ot 920 11/05/2014 ANGIE PRADO Ot 923.09 11/05/2014 ANGIE PRADO Ot E849.7 11/05/2014 ANGIE PRADO Ot E888.9 11/05/2014 ANGIE PRADO Ot 294.20 11/05/2014 ANGIE PRADO Ot 810.03 11/05/2014 ANGIE PRADO Ot 920 11/05/2014 ANGIE PRADO Ot 923.09 11/05/2014 ANGIE PRADO Ot E849.7 11/05/2014 ANGIE PRADO Ot E888.9 11/05/2014 ANGIE PRADO Ot 294.20 11/05/2014 ANGIE PRADO Ot 810.03 11/05/2014 ANGIE PRADO Ot 920 11/05/2014 ANGIE PRADO Ot 923.09 11/05/2014 ANGIE PRADO Ot E849.7 11/05/2014 ANGIE PRADO Ot E888.9 11/26/2014 Ot 285.9 12/01/2014 JARRELL DAY MD Ot 244.9 HYPOTHYROIDISM NOS 12/01/2014 JARRELL DAY MD Ot 276.8 HYPOPOTASSEMIA 12/01/2014 JARRELL DAY MD Ot 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 12/01/2014 JARRELL DAY MD Ot 300.00 ANXIETY STATE NOS 12/01/2014 JARRELL DAY MD Ot 331.0 ALZHEIMER'S DISEASE 12/01/2014 JARRELL DAY MD Ot 493.90 ASTHMA, UNSPECIFIED 12/01/2014 JARRELL DAY MD Ot 564.00 UNSPEC CONSTIPATION 12/01/2014 JARRELL DAY MD Ot 799.4 CACHEXIA 12/01/2014 JARRELL DAY MD Ot 810.00 FX CLAVICLE NOS-CLOSED 12/01/2014 JARRELL DAY MD Ot 820.09 FX FEMUR INTRCAPS NEC-CL 12/01/2014 JARRELL DAY MD Ot 820.8 12/01/2014 JARRELL DAY MD Ot 834.01 DISLOC METACARPOPHALN-CL 12/01/2014 JARRELL DAY MD Ot 920 CONTUSION FACE/SCALP/NCK 12/01/2014 JARRELL DAY MD Ot 923.00 CONTUSION SHOULDER REG 12/01/2014 JARRELL DAY MD Ot 923.20 CONTUSION OF HAND(S) 12/01/2014 JARRELL DAY MD Ot E849.7 ACCID IN RESIDENT INSTIT 12/01/2014 JARRELL DAY MD Ot E888.9 FALL NOS 12/01/2014 JARRELL DAY MD Ot V12.71 PERSONAL HISTORY OF PEPTIC ULCER DISEASE 12/06/2014 ISIDRO TOMPKINS, SHUN Jarquin Ot 244.9 12/06/2014 SHUN FELIX MD Ot 294.20 12/06/2014 ISIDRO TOMPKINS, SHUN Jarquin Ot 493.90 12/06/2014 ISIDRO TOMPKINS, SHUN Jarquin Ot 530.81 12/06/2014 ISIDRO TOMPKINS, SHUN Jarquin Ot 564.00 12/06/2014 ISIDRO TOMPKINS, SHUN E Ot V13.02 12/06/2014 SHUN FELIX MD Ot V43.64 12/06/2014 SHUN FELIX MD Ot V46.2 12/06/2014 ISIDRO TOMPKINS, SHUN E Ot V54.19 12/06/2014 FELIX MD, SHUN E Ot V54.81 12/06/2014 ISIDRO TOMPKINS, SHUN E Ot V54.89 12/06/2014 ISIDRO TOMPKINS, SHUN E Ot V57.89 12/13/2014 ISIDRO TOMPKINS, SHUN E Ot 244.9 12/13/2014 ISIDRO TOMPKINS, SHUN E Ot 294.20 12/13/2014 ISIDRO TOMPKINS, SHUN E Ot 493.90 12/13/2014 ISIDRO TOMPKINS, SHUN E Ot 530.81 12/13/2014 ISIDRO TOMPKINS, SHUN E Ot 564.00 12/13/2014 SIIDRO TOMPKINS SHUN E Ot V13.02 12/13/2014 ISIDRO TOMPKINS SHUN E Ot V43.64 12/13/2014 ISIDRO TOMPKINS SHUN E Ot V46.2 12/13/2014 ISIDRO TOMPKINS SHUN E Ot V54.19 12/13/2014 ISIDRO TOMPKINS SHUN E Ot V54.81 12/13/2014 ISIDRO TOMPKINS SHUN E Ot V54.89 12/13/2014 ISIDRO TOMPKINS SHUN E Ot V57.89 12/13/2014 ISIDRO TOMPKINS, SHUN E Ot 244.9 HYPOTHYROIDISM NOS 12/13/2014 ISIDRO TOMPKINS, SHUN E Ot 273.8 DIS PLAS PROTEIN MET NEC 12/13/2014 ISIDRO TOPMKINS SHUN E Ot 285.9 ANEMIA NOS 12/13/2014 ISIDRO TOMPKINS, SHUN E Ot 294.20 DEMENTIA, UNSPECIFIED, WITHOUT BEHAVIORA 12/13/2014 ISIDRO TOMPKINS, SHUN E Ot 493.90 ASTHMA, UNSPECIFIED 12/13/2014 ISIDRO TOMPKINS, SHUN E Ot 530.81 ESOPHAGEAL REFLUX 12/13/2014 ISIDRO TOMPKINS, SHUN E Ot 564.00 UNSPEC CONSTIPATION 12/13/2014 ISIDRO TOMPKINS, SHUN E Ot 707.09 PRESSURE ULCER, OTHER SITE 12/13/2014 ISIDRO TOMPKINS, SHUN E Ot 707.20 PRESSURE ULCER, UNSPECIFIED STAGE 12/13/2014 ISIDRO TOMPKINS, SHUN E Ot V13.02 PERSONAL HISTORY, URINARY (TRACT) INFECT 12/13/2014 ISIDRO TOMPKINS SHUN E Ot V43.64 HIP JOINT REPLACEMENT STATUS 12/13/2014 ISIDRO TOMPKINS SHUN E Ot V46.2 SUPPLEMENTAL OXYGEN 12/13/2014 ISIDRO TOMPKINS SHUN E Ot V54.19 AFTERCARE HEALING TRAUMATIC FX OTHER BON 12/13/2014 ISIDRO TOMPKINS SHUN E Ot V54.81 AFTERCARE FOLLOWING JOINT REPLACEMENT 12/13/2014 ISIDRO TOMPKINS, SHUN Jarquin Ot V54.89 OTHER ORTHOPEDIC AFTERCARE 12/13/2014 ISIDRO TOMPKINS, SHUN Jarquin Ot V57.89 REHABILITATION PROC NEC 12/13/2014 ISIDRO TOMPKINS, SHUN Jarquin Ot V58.61 ANTICOAGULANTS,LT,CURRENT USE 08/27/2016 JESUS ELLIOTT HINA Ot A41.9 SEPSIS, UNSPECIFIED ORGANISM 08/27/2016 JESUS ELLIOTT HINA Ot E03.9 HYPOTHYROIDISM, UNSPECIFIED 08/27/2016 JESUS ELLIOTT HINA Ot E87.6 HYPOKALEMIA 08/27/2016 JESUS ELLIOTT HINA Ot E87.70 FLUID OVERLOAD, UNSPECIFIED 08/27/2016 JESUS ELLIOTT HINA Ot F03.90 UNSPECIFIED DEMENTIA WITHOUT BEHAVIORAL 08/27/2016 JESUS ELLIOTT HINA Ot I73.9 PERIPHERAL VASCULAR DISEASE, UNSPECIFIED 08/27/2016 JESUS ELLIOTT HINA Ot J43.9 EMPHYSEMA, UNSPECIFIED 08/27/2016 JESUS ELLIOTT HINA Ot K21.9 GASTRO-ESOPHAGEAL REFLUX DISEASE WITHOUT 08/27/2016 JESUS ELLIOTT HINA Ot N39.0 URINARY TRACT INFECTION, SITE NOT SPECIF 08/27/2016 JESUS ELLIOTT HINA Ot 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, UNSP 08/27/2016 JESUS ELLIOTT HINA Ot R09.02 HYPOXEMIA 08/27/2016 JESUS ELLIOTT HINA Ot S00.83XA CONTUSION OF OTHER PART OF HEAD, INITIAL 08/27/2016 JESUS ELLIOTT HINA Ot W19.XXXA UNSPECIFIED FALL, INITIAL ENCOUNTER 08/27/2016 JESUS ELLIOTT HINA Ot Y92.[address] [facility] PLACE IN SENIOR CARE PLACE 08/27/2016 JESUS ELLIOTT HINA Ot Z66 DO NOT RESUSCITATE 08/27/2016 JESUS ELLIOTT HINA Ot Z87.11 PERSONAL HISTORY OF PEPTIC ULCER DISEASE 08/27/2016 Ot 285.9 ANEMIA NOS 08/27/2016 JESUS ELLIOTT HINA Ot A41.9 SEPSIS, UNSPECIFIED ORGANISM 08/27/2016 JESUS ELLIOTT HINA Ot E03.9 HYPOTHYROIDISM, UNSPECIFIED 08/27/2016 JESUS ELLIOTT HINA Ot E87.6 HYPOKALEMIA 08/27/2016 JESUS ELLIOTT HINA Ot E87.70 FLUID OVERLOAD, UNSPECIFIED 08/27/2016 LEE DO HINA Ot F03.90 UNSPECIFIED DEMENTIA WITHOUT BEHAVIORAL 08/27/2016 JESUS ELLIOTT HINA Ot I73.9 PERIPHERAL VASCULAR DISEASE, UNSPECIFIED 08/27/2016 JESUS ELLIOTT HINA Ot J43.9 EMPHYSEMA, UNSPECIFIED 08/27/2016 JESUS ELLIOTT HINA Ot K21.9 GASTRO-ESOPHAGEAL REFLUX DISEASE WITHOUT 08/27/2016 JESUS DO HINA Ot N39.0 URINARY TRACT INFECTION, SITE NOT SPECIF 08/27/2016 JESUS ELLIOTT HINA Ot 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, UNSP 08/27/2016 JESUS ELLIOTT HINA Ot R09.02 HYPOXEMIA 08/27/2016 JESUS ELLIOTT HINA Ot S00.83XA CONTUSION OF OTHER PART OF HEAD, INITIAL 08/27/2016 JESUS ELLIOTT HINA Ot W19.XXXA UNSPECIFIED FALL, INITIAL ENCOUNTER 08/27/2016 ILEANA LEE DOI Ot Y92.[address] IN SENIOR CARE PLACE 08/27/2016 JESUS ELLIOTT HINA Ot Z66 DO NOT RESUSCITATE 08/27/2016 JESUS ELLIOTT HINA Ot Z87.11 PERSONAL HISTORY OF PEPTIC ULCER DISEASE 08/28/2016 JESUS ELLIOTT HINA Ot A41.89 OTHER SPECIFIED SEPSIS 08/28/2016 JESUS ELLIOTT HINA Ot B96.1 KLEBSIELLA PNEUMONIAE THE CAUSE OF DI 08/28/2016 ILEANA LEE DOI Ot E03.9 HYPOTHYROIDISM, UNSPECIFIED 08/28/2016 JESUS ELLIOTT HINA Ot E87.6 HYPOKALEMIA 08/28/2016 ILEANA LEE DOI Ot E87.70 FLUID OVERLOAD, UNSPECIFIED 08/28/2016 JESUS ELLIOTT HINA Ot F03.90 UNSPECIFIED DEMENTIA WITHOUT BEHAVIORAL 08/28/2016 JESUS ELLIOTT HINA Ot I73.9 PERIPHERAL VASCULAR DISEASE, UNSPECIFIED 08/28/2016 JESUS ELLIOTT HINA Ot J43.9 EMPHYSEMA, UNSPECIFIED 08/28/2016 JESUS ELLIOTT HINA Ot K21.9 GASTRO-ESOPHAGEAL REFLUX DISEASE WITHOUT 08/28/2016 JESUS DO HINA Ot N39.0 URINARY TRACT INFECTION, SITE NOT SPECIF 08/28/2016 JESUS ELLIOTT HINA Ot N73.3 FEMALE ACUTE PELVIC PERITONITIS 08/28/2016 HINA LEE DO Ot 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, UNSP 08/28/2016 HINA LEE DO Ot R09.02 HYPOXEMIA 08/28/2016 HINA LEE DO Ot R79.1 ABNORMAL COAGULATION PROFILE 08/28/2016 HINA LEE DO Ot S00.83XA CONTUSION OF OTHER PART OF HEAD, INITIAL 08/28/2016 HINA LEE DO Ot W19.XXXA UNSPECIFIED FALL, INITIAL ENCOUNTER 08/28/2016 ILEANA LEE DOI Ot Y92.[address] IN SENIOR CARE PLACE 08/28/2016 ILEANA LEE DOI Ot Z66 DO NOT RESUSCITATE 08/28/2016 ILEANA LEE DOI Ot Z87.11 PERSONAL HISTORY OF PEPTIC ULCER DISEASE 08/31/2016 HINA LEE DO Ot A41.9 SEPSIS, UNSPECIFIED ORGANISM 08/31/2016 ILEANA LEE DOI Ot B96.1 KLEBSIELLA PNEUMONIAE THE CAUSE OF DI 08/31/2016 HINA LEE DO Ot E03.9 HYPOTHYROIDISM, UNSPECIFIED 08/31/2016 ILEANA LEE DOI Ot F03.90 UNSPECIFIED DEMENTIA WITHOUT BEHAVIORAL 08/31/2016 ILEANA LEE DOI Ot I73.9 PERIPHERAL VASCULAR DISEASE, UNSPECIFIED 08/31/2016 ILEANA LEE DOI Ot J43.9 EMPHYSEMA, UNSPECIFIED 08/31/2016 ILEANA LEE DOI Ot K21.9 GASTRO-ESOPHAGEAL REFLUX DISEASE WITHOUT 08/31/2016 ILEANA LEE DOI Ot K65.1 PERITONEAL ABSCESS 08/31/2016 HINA LEE DO Ot N39.0 URINARY TRACT INFECTION, SITE NOT SPECIF 08/31/2016 HINA LEE DO Ot N73.3 FEMALE ACUTE PELVIC PERITONITIS 08/31/2016 HINA LEE DO Ot S00.83XD CONTUSION OF OTHER PART OF HEAD, SUBSEQU 08/31/2016 HINA LEE DO Ot W19.XXXD UNSPECIFIED FALL, SUBSEQUENT ENCOUNTER 08/31/2016 ILEANA LEE DOI Ot Y92.[address] IN SENIOR CARE PLACE 08/31/2016 JESUS ELLIOTT HINA Ot Z66 DO NOT RESUSCITATE 08/31/2016 ILEANA LEE DOI Ot Z87.11 PERSONAL HISTORY OF PEPTIC ULCER DISEASE 04/22/2017 CESAR TOMPKINS, ZORA R Ot R32 UNSPECIFIED URINARY INCONTINENCE 04/22/2017 MALENA GUERRERO MDYD R Ot R82.99 OTHER ABNORMAL FINDINGS IN URINE 04/26/2017 MALENA GUERRERO MDYD R Ot R32 UNSPECIFIED URINARY INCONTINENCE 04/26/2017 MALENA GUERRERO MDYD R Ot R82.99 OTHER ABNORMAL FINDINGS IN URINE 04/30/2017 MARY KAY SMITH APRN Ot E03.9 HYPOTHYROIDISM, UNSPECIFIED 04/30/2017 MARY KAY SMITH APRN Ot F03.90 UNSPECIFIED DEMENTIA WITHOUT BEHAVIORAL 04/30/2017 MARY KAY SMITH APRN Ot K21.9 GASTRO-ESOPHAGEAL REFLUX DISEASE WITHOUT 04/30/2017 MARY KAY SMITH APRN Ot S09.90XA UNSPECIFIED INJURY OF HEAD, INITIAL ENCO 04/30/2017 MARY KAY SMITH APRN Ot W01.10XA FALL SAME LEV FROM SLIP/TRIP W STRIKE AG 04/30/2017 MARY KAY SMITH APRN Ot Y92.002 BATHRM OF [facility] NON-INSTITUT RESDNCE SNGL 04/30/2017 MARY KAY SMITH APRN Ot Z82.49 FAMILY HX OF ISCHEM HEART DIS AND OTH DI 04/30/2017 MARY KAY SMITH APRN Ot Z87.19 PERSONAL HISTORY OF OTHER DISEASES OF 04/30/2017 MARY KAY SMITH APRN Ot Z90.710 ACQUIRED ABSENCE OF BOTH CERVIX AND UTER 05/01/2017 EUGENE BARDALES MD Ot E03.9 HYPOTHYROIDISM, UNSPECIFIED 05/01/2017 EUGENE BARDALES MD Ot F03.90 UNSPECIFIED DEMENTIA WITHOUT BEHAVIORAL 05/01/2017 EUGENE BARDALES MD, Ot J42 UNSPECIFIED CHRONIC BRONCHITIS 05/01/2017 EUGENE BARDALES MD Ot K21.9 GASTRO-ESOPHAGEAL REFLUX DISEASE WITHOUT 05/01/2017 EUGENE BARDALES MD Ot N39.0 URINARY TRACT INFECTION, SITE NOT SPECIF 05/01/2017 EUGENE BARDALES MD Ot R06.2 WHEEZING 05/01/2017 EUGENE BARDALES MD Ot Z82.49 FAMILY HX OF ISCHEM HEART DIS AND OTH DI 05/01/2017 EUGENE BARDALES MD Ot Z87.19 PERSONAL HISTORY OF OTHER DISEASES OF 05/01/2017 EUGENE BARDALES MD Ot Z90.710 ACQUIRED ABSENCE OF BOTH CERVIX AND UTER 05/08/2017 HELEN SOARES MD, Ot E03.9 HYPOTHYROIDISM, UNSPECIFIED 05/08/2017 HELEN SOARES MD, Ot F03.90 UNSPECIFIED DEMENTIA WITHOUT BEHAVIORAL 05/08/2017 HELEN SOARES MD, Ot K21.9 GASTRO-ESOPHAGEAL REFLUX DISEASE WITHOUT 05/08/2017 HELEN SOARES MD, Ot M25.552 PAIN IN LEFT HIP 05/08/2017 HELEN SOARES MD, Ot W19.XXXA UNSPECIFIED FALL, INITIAL ENCOUNTER 05/08/2017 HELEN SOARES MD, Ot Z82.49 FAMILY HX OF ISCHEM HEART DIS AND OTH DI 05/08/2017 HELEN SOARES MD, Ot Z87.19 PERSONAL HISTORY OF OTHER DISEASES OF TH 05/08/2017 HELEN SOARES MD, Ot Z90.710 ACQUIRED ABSENCE OF BOTH CERVIX AND UTER 05/15/2017 ZORA GUERRERO MD Ot R32 UNSPECIFIED URINARY INCONTINENCE 05/15/2017 ZORA GUERRERO MD Ot R82.99 OTHER ABNORMAL FINDINGS IN URINE 05/22/2017 ZORA GUERRERO MD Ot R32 UNSPECIFIED URINARY INCONTINENCE 05/22/2017 ZORA GUERRERO MD Ot R82.99 OTHER ABNORMAL FINDINGS IN URINE Procedures Code Description Performed By Performed On 81.52 PARTIAL HIP REPLACEMENT 10/15/2011 45.13 OTHER ENDOSCOPY OF SM INTEST 10/26/2011 45.23 COLONOSCOPY 10/26/2011 44.42 SUTURE DUODEN ULCER SITE 10/01/2014 79.74 CL REDUC DISLOC-HAND/FNG 11/26/2014 81.52 PARTIAL HIP REPLACEMENT 11/26/2014 [id number] DRAINAGE OF PELVIC CAVITY WITH DRAIN DEV 08/27/2016 Results Test Result Range Complete blood count (CBC) with automated white blood cell (WBC) differential - 08/23/16 10:55 Blood leukocytes automated count (number/volume) 26.3 10*3/uL 4.3-11.0 Blood erythrocytes automated count (number/volume) 4.22 10*6/uL 4.35-5.85 Venous blood hemoglobin measurement (mass/volume) 13.7 g/dL 11.5-16.0 Blood hematocrit (volume fraction) 41 % 35-52 Automated erythrocyte mean corpuscular volume 96 [fo_us] 80-99 Automated erythrocyte mean corpuscular hemoglobin (mass per erythrocyte) 33 pg 25-34 Automated erythrocyte mean corpuscular hemoglobin concentration measurement ( mass/volume) 34 g/dL 32-36 Automated erythrocyte distribution width ratio 14.4 % 10.0-14.5 Automated blood platelet count (count/volume) 405 10*3/uL 130-400 Automated blood platelet mean volume measurement 9.0 [foz_us] 7.4-10.4 Automated blood neutrophils/100 leukocytes 91 % 42-75 Automated blood lymphocytes/100 leukocytes 3 % 12-44 Blood monocytes/100 leukocytes 5 % 0-12 Automated blood eosinophils/100 leukocytes 0 % 0-10 Automated blood basophils/100 leukocytes 0 % 0-10 Blood neutrophils automated count (number/volume) 24.0 10*3 1.8-7.8 Blood lymphocytes automated count (number/volume) 0.9 10*3 1.0-4.0 Blood monocytes automated count (number/volume) 1.3 10*3 0.0-1.0 Automated eosinophil count 0.0 10*3/uL 0.0-0.3 Automated blood basophil count (count/volume) 0.0 10*3/uL 0.0-0.1 Influenza virus A and B antigen detection - 08/23/16 10:55 FLU RESULT NEGATIVE FOR INFLUENZA A AND B ANTIGENS BY [place] [facility] [place] Blood manual differential performed detection - 08/23/16 10:55 Blood monocytes/100 leukocytes 3 % NR Manual blood segmented neutrophils/100 leukocytes 83 % NRG Blood band neutrophils/100 leukocytes 8 % NRG Manual blood lymphocytes/100 leukocytes 5 % NRG Manual eosinophils/100 leukocytes in nose 0 % NRG Manual blood basophils/100 leukocytes 0 % NR Blood erythrocyte morphology finding identification NORMAL NR Manual blood myelocytes/100 leukocytes 1 % NRG PT panel in platelet poor plasma by coagulation assay - 08/23/16 10:55 Prothrombin time (PT) in platelet poor plasma by coagulation assay 14.5 s 12.2-14.7 INR in platelet poor plasma or blood by coagulation assay 1.2 0.8-1.4 Activated partial thromboplastin time (aPTT) in platelet poor plasma bycoagulation assay - 08/23/16 10:55 Activated partial thromboplastin time (aPTT) in platelet poor plasma bycoagulation assay 29 s 24-35 Comprehensive metabolic panel - 08/23/16 10:55 Serum or plasma sodium measurement (moles/volume) 142 mmol/L 135-145 Serum or plasma potassium measurement (moles/volume) 3.2 mmol/L 3.6-5.0 Serum or plasma chloride measurement (moles/volume) 102 mmol/L 98-107 Carbon dioxide 27 mmol/L 21-32 Serum or plasma anion gap determination (moles/volume) 13 mmol/L 5-14 Serum or plasma urea nitrogen measurement (mass/volume) 23 mg/dL 7-18 Serum or plasma creatinine measurement (mass/volume) 0.83 mg/dL 0.60-1.30 Serum or plasma urea nitrogen/creatinine mass ratio 28 NRG Serum or plasma creatinine measurement with calculation of estimated glomerular filtration rate > NRG Serum or plasma glucose measurement (mass/volume) 194 mg/dL 70-105 Serum or plasma calcium measurement (mass/volume) 9.1 mg/dL 8.5-10.1 Serum or plasma total bilirubin measurement (mass/volume) 0.4 mg/dL 0.1-1.0 Serum or plasma alkaline phosphatase measurement (enzymatic activity/volume) 115 U/L 40-136 Serum or plasma aspartate aminotransferase measurement (enzymatic activity/ volume) 16 U/L 5-34 Serum or plasma alanine aminotransferase measurement (enzymatic activity/volume ) 16 U/L 0-55 Serum or plasma protein measurement (mass/volume) 6.4 g/dL 6.4-8.2 Serum or plasma albumin measurement (mass/volume) 3.3 g/dL 3.2-4.5 Fibrin D-dimer FEU measurement in platelet poor plasma (mass/volume) - 10:55 Fibrin D-dimer FEU measurement in platelet poor plasma (mass/volume) 3.69 ug/mL 0.00-0.49 Bacterial blood culture - 08/23/16 10:55 Bacterial blood culture NG NRG Bacterial blood culture - 08/23/16 11:14 Bacterial blood culture NG NRG Blood lactic acid measurement (moles/volume) - 08/23/16 12:30 Blood lactic acid measurement (moles/volume) 1.8 mmol/L 0.5-2.0 Complete urinalysis with reflex to culture - 08/23/16 13:45 Urine color determination YELLOW NRG Urine clarity determination CLEAR NRG Urine pH measurement by test strip 5 5-9 Specific gravity of urine by test strip 1.020 1.016- 1.022 Urine protein assay by test strip, semi-quantitative 2+ NEGATIVE Urine glucose detection by automated test strip NEGATIVE NEGATIVE Erythrocytes detection in urine sediment by light microscopy 1+ NEGATIVE Urine ketones detection by automated test strip 1+ NEGATIVE Urine nitrite detection by test strip NEGATIVE NEGATIVE Urine total bilirubin detection by test strip NEGATIVE NEGATIVE Urine urobilinogen measurement by automated test strip (mass/volume) 1 mg/dL NORMAL Urine leukocyte esterase detection by dipstick 2+ NEGATIVE Automated urine sediment erythrocyte count by microscopy (number/high power field) RARE NRG Automated urine sediment leukocyte count by microscopy (number/high power field ) [HPF] NRG Bacteria detection in urine sediment by light microscopy TRACE NRG Squamous epithelial cells detection in urine sediment by light microscopy RARE NRG Crystals detection in urine sediment by light microscopy NONE NRG Casts detection in urine sediment by light microscopy NONE NRG Mucus detection in urine sediment by light microscopy SMALL NRG Complete urinalysis with reflex to culture YES NRG Yeast detection in urine sediment by light microscopy MODERATE NRG Bacterial urine culture - 08/23/16 13:45 Bacterial urine culture [id number] NRG COLONY COUNT 10,000/ML - 100,000/ML NRG FTX;REPORTABLE NO FURTHER STUDIES UNLESS REQUESTED NRG Complete blood count (CBC) with automated white blood cell (WBC) differential - 08/24/16 05:24 Blood leukocytes automated count (number/volume) 31.2 10*3/uL 4.3-11.0 Blood erythrocytes automated count (number/volume) 3.57 10*6/uL 4.35-5.85 Venous blood hemoglobin measurement (mass/volume) 11.6 g/dL 11.5-16.0 Blood hematocrit (volume fraction) 35 % 35-52 Automated erythrocyte mean corpuscular volume 97 [foz_us] 80-99 Automated erythrocyte mean corpuscular hemoglobin (mass per erythrocyte) 33 pg 25-34 Automated erythrocyte mean corpuscular hemoglobin concentration measurement ( mass/volume) 34 g/dL 32-36 Automated erythrocyte distribution width ratio 14.6 % 10.0-14.5 Automated blood platelet count (count/volume) 362 10*3/uL 130-400 Automated blood platelet mean volume measurement 9.4 [foz_us] 7.4-10.4 Automated blood neutrophils/100 leukocytes 88 % 42-75 Automated blood lymphocytes/100 leukocytes 5 % 12-44 Blood monocytes/100 leukocytes 7 % 0-12 Automated blood eosinophils/100 leukocytes 0 % 0-10 Automated blood basophils/100 leukocytes 0 % 0-10 Blood neutrophils automated count (number/volume) 27.5 10*3 1.8-7.8 Blood lymphocytes automated count (number/volume) 1.4 10*3 1.0-4.0 Blood monocytes automated count (number/volume) 2.3 10*3 0.0-1.0 Automated eosinophil count 0.0 10*3/uL 0.0-0.3 Automated blood basophil count (count/volume) 0.0 10*3/uL 0.0-0.1 Blood manual differential performed detection - 08/24/16 05:24 Blood monocytes/100 leukocytes 6 % NRG Manual blood segmented neutrophils/100 leukocytes 73 % NRG Blood band neutrophils/100 leukocytes 12 % NRG Manual blood lymphocytes/100 leukocytes 9 % NRG Manual eosinophils/100 leukocytes in nose 0 % NRG Manual blood basophils/100 leukocytes 0 % NRG Blood erythrocyte morphology finding identification NORMAL [facility] [place] Comprehensive metabolic panel - 08/24/16 05:24 Serum or plasma sodium measurement (moles/volume) 142 mmol/L 135-145 Serum or plasma potassium measurement (moles/volume) 3.4 mmol/L 3.6-5.0 Serum or plasma chloride measurement (moles/volume) 110 mmol/L 98-107 Carbon dioxide 21 mmol/L 21-32 Serum or plasma anion gap determination (moles/volume) 11 mmol/L 5-14 Serum or plasma urea nitrogen measurement (mass/volume) 13 mg/dL 7-18 Serum or plasma creatinine measurement (mass/volume) 0.57 mg/dL 0.60-1.30 Serum or plasma urea nitrogen/creatinine mass ratio 23 NRG Serum or plasma creatinine measurement with calculation of estimated glomerular filtration rate > NRG Serum or plasma glucose measurement (mass/volume) 88 mg/dL 70-105 Serum or plasma calcium measurement (mass/volume) 7.7 mg/dL 8.5-10.1 Serum or plasma total bilirubin measurement (mass/volume) 0.4 mg/dL 0.1-1.0 Serum or plasma alkaline phosphatase measurement (enzymatic activity/volume) 111 U/L 40-136 Serum or plasma aspartate aminotransferase measurement (enzymatic activity/ volume) 14 U/L 5-34 Serum or plasma alanine aminotransferase measurement (enzymatic activity/volume ) 14 U/L 0-55 Serum or plasma protein measurement (mass/volume) 4.9 g/dL 6.4-8.2 Serum or plasma albumin measurement (mass/volume) 2.5 g/dL 3.2-4.5 THYROID STIMULATING HORMONE - 08/24/16 05:24 THYROID STIMULATING HORMONE 1.59 u[iU]/mL 0.35-4.94 C DIFFICILE AG + TOXIN A/B. - 08/24/16 11:20 RESULTS NEGATIVE FOR ANTIGEN AND TOXIN A/B NRG Complete blood count (CBC) with automated white blood cell (WBC) differential - 08/25/16 04:25 Blood leukocytes automated count (number/volume) 26.1 10*3/uL 4.3-11.0 Blood erythrocytes automated count (number/volume) 3.69 10*6/uL 4.35-5.85 Venous blood hemoglobin measurement (mass/volume) 11.8 g/dL 11.5-16.0 Blood hematocrit (volume fraction) 36 % 35-52 Automated erythrocyte mean corpuscular volume 98 [foz_us] 80-99 Automated erythrocyte mean corpuscular hemoglobin (mass per erythrocyte) 32 pg 25-34 Automated erythrocyte mean corpuscular hemoglobin concentration measurement ( mass/volume) 33 g/dL 32-36 Automated erythrocyte distribution width ratio 14.7 % 10.0-14.5 Automated blood platelet count (count/volume) 389 10*3/uL 130-400 Automated blood platelet mean volume measurement 8.7 [foz_us] 7.4-10.4 Automated blood neutrophils/100 leukocytes 88 % 42-75 Automated blood lymphocytes/100 leukocytes 6 % 12-44 Blood monocytes/100 leukocytes 6 % 0-12 Automated blood eosinophils/100 leukocytes 0 % 0-10 Automated blood basophils/100 leukocytes 0 % 0-10 Blood neutrophils automated count (number/volume) 23.0 10*3 1.8-7.8 Blood lymphocytes automated count (number/volume) 1.5 10*3 1.0-4.0 Blood monocytes automated count (number/volume) 1.6 10*3 0.0-1.0 Automated eosinophil count 0.0 10*3/uL 0.0-0.3 Automated blood basophil count (count/volume) 0.1 10*3/uL 0.0-0.1 Comprehensive metabolic panel - 08/25/16 04:25 Serum or plasma sodium measurement (moles/volume) 143 mmol/L 135-145 Serum or plasma potassium measurement (moles/volume) 3.9 mmol/L 3.6-5.0 Serum or plasma chloride measurement (moles/volume) 114 mmol/L 98-107 Carbon dioxide 17 mmol/L 21-32 Serum or plasma anion gap determination (moles/volume) 12 mmol/L 5-14 Serum or plasma urea nitrogen measurement (mass/volume) 13 mg/dL 7-18 Serum or plasma creatinine measurement (mass/volume) 0.58 mg/dL 0.60-1.30 Serum or plasma urea nitrogen/creatinine mass ratio 22 NRG Serum or plasma creatinine measurement with calculation of estimated glomerular filtration rate > NRG Serum or plasma glucose measurement (mass/volume) 79 mg/dL 70-105 Serum or plasma calcium measurement (mass/volume) 7.9 mg/dL 8.5-10.1 Serum or plasma total bilirubin measurement (mass/volume) 0.4 mg/dL 0.1-1.0 Serum or plasma alkaline phosphatase measurement (enzymatic activity/volume) 90 U/L 40-136 Serum or plasma aspartate aminotransferase measurement (enzymatic activity/ volume) 10 U/L 5-34 Serum or plasma alanine aminotransferase measurement (enzymatic activity/volume ) 13 U/L 0-55 Serum or plasma protein measurement (mass/volume) 4.9 g/dL 6.4-8.2 Serum or plasma albumin measurement (mass/volume) 2.7 g/dL 3.2-4.5 PT panel in platelet poor plasma by coagulation assay - 08/26/16 04:30 Prothrombin time (PT) in platelet poor plasma by coagulation assay 16.9 s 12.2-14.7 INR in platelet poor plasma or blood by coagulation assay 1.4 0.8-1.4 Complete blood count (CBC) with automated white blood cell (WBC) differential - 08/26/16 04:30 Blood leukocytes automated count (number/volume) 21.7 10*3/uL 4.3-11.0 Blood erythrocytes automated count (number/volume) 3.59 10*6/uL 4.35-5.85 Venous blood hemoglobin measurement (mass/volume) 11.7 g/dL 11.5-16.0 Blood hematocrit (volume fraction) 35 % 35-52 Automated erythrocyte mean corpuscular volume 97 [foz_us] 80-99 Automated erythrocyte mean corpuscular hemoglobin (mass per erythrocyte) 33 pg 25-34 Automated erythrocyte mean corpuscular hemoglobin concentration measurement ( mass/volume) 34 g/dL 32-36 Automated erythrocyte distribution width ratio 14.7 % 10.0-14.5 Automated blood platelet count (count/volume) 407 10*3/uL 130-400 Automated blood platelet mean volume measurement 9.2 [foz_us] 7.4-10.4 Automated blood neutrophils/100 leukocytes 88 % 42-75 Automated blood lymphocytes/100 leukocytes 4 % 12-44 Blood monocytes/100 leukocytes 7 % 0-12 Automated blood eosinophils/100 leukocytes 0 % 0-10 Automated blood basophils/100 leukocytes 0 % 0-10 Blood neutrophils automated count (number/volume) 19.1 10*3 1.8-7.8 Blood lymphocytes automated count (number/volume) 0.8 10*3 1.0-4.0 Blood monocytes automated count (number/volume) 1.6 10*3 0.0-1.0 Automated eosinophil count 0.1 10*3/uL 0.0-0.3 Automated blood basophil count (count/volume) 0.1 10*3/uL 0.0-0.1 Comprehensive metabolic panel - 08/26/16 04:30 Serum or plasma sodium measurement (moles/volume) 140 mmol/L 135-145 Serum or plasma potassium measurement (moles/volume) 3.6 mmol/L 3.6-5.0 Serum or plasma chloride measurement (moles/volume) 110 mmol/L 98-107 Carbon dioxide 18 mmol/L 21-32 Serum or plasma anion gap determination (moles/volume) 12 mmol/L 5-14 Serum or plasma urea nitrogen measurement (mass/volume) 10 mg/dL 7-18 Serum or plasma creatinine measurement (mass/volume) 0.55 mg/dL 0.60-1.30 Serum or plasma urea nitrogen/creatinine mass ratio 18 NRG Serum or plasma creatinine measurement with calculation of estimated glomerular filtration rate > NRG Serum or plasma glucose measurement (mass/volume) 85 mg/dL 70-105 Serum or plasma calcium measurement (mass/volume) 8.0 mg/dL 8.5-10.1 Serum or plasma total bilirubin measurement (mass/volume) 0.4 mg/dL 0.1-1.0 Serum or plasma alkaline phosphatase measurement (enzymatic activity/volume) 94 U/L 40-136 Serum or plasma aspartate aminotransferase measurement (enzymatic activity/ volume) 16 U/L 5-34 Serum or plasma alanine aminotransferase measurement (enzymatic activity/volume ) 13 U/L 0-55 Serum or plasma protein measurement (mass/volume) 5.1 g/dL 6.4-8.2 Serum or plasma albumin measurement (mass/volume) 2.5 g/dL 3.2-4.5 Bacteria identification in isolate by anaerobe culture - 08/27/16 10:15 QUANTITY OF GROWTH Abundant Growth NRG Bacteria identification in isolate by anaerobe culture [id number] NR Gram stain microscopy - 08/27/16 10:15 GRAM STAIN RESULT MODERATE # GRAM NEGATIVE RODS NRG Bacteria identification in wound by culture - 08/27/16 10:15 Bacteria identification in wound by culture [id number] NR FREE TEXT EXTERNAL SENSITIVITY REPORTED 08/28/16 18:30 NRG QUANTITY OF GROWTH Scant Growth NR Bacterial susceptibility panel - 08/27/16 10:15 Gentamicin susceptibility test by minimum inhibitory concentration < = NRG Trimethoprim/sulfamethoxazole susceptibility test by minimum inhibitoryconcentration <= NRG Ampicillin susceptibility test by minimum inhibitory concentration > = NRG Tobramycin susceptibility test by minimum inhibitory concentration < = NRG Cefazolin susceptibility test by minimum inhibitory concentration < = NRG Ceftriaxone susceptibility test by minimum inhibitory concentration <= NRG Ampicillin/sulbactam susceptibility test by minimum inhibitory concentration 16 NRG Piperacillin/tazobactam susceptibility test by minimum inhibitory concentration 8 NRG Ciprofloxacin susceptibility test by minimum inhibitory concentration <= NRG Meropenem susceptibility test by minimum inhibitory concentration < = NRG Aztreonam susceptibility test by minimum inhibitory concentration < = NRG Extended spectrum beta lactamase (ESBL) producing bacteria susceptibility test by minimum inhibitory concentration - [facility] [place] Fungus culture - 08/27/16 10:15 FUNGUS REPORT NO FUNGUS GROWTH OBSERVED NRG Bacterial urine culture - 04/21/17 18:40 Bacterial urine culture [id number] NRG COLONY COUNT <10,000 NRG MRSA AGAR MRSA isolated (Screening test for MRSA is positive) NRG FTX;REPORTABLE SENSITIVITY REPORTED 04/23/17 15:35 NRG FREE TEXT ENTRY 3 MIXED GRAM POSITIVE LILLI <10,000/ML NRG Complete urinalysis with reflex to culture - 04/21/17 18:40 Urine color determination YELLOW NRG Urine clarity determination SLIGHTLY CLOUDY NRG Urine pH measurement by test strip 5 5-9 Specific gravity of urine by test strip 1.025 1.016- 1.022 Urine protein assay by test strip, semi-quantitative 2+ NEGATIVE Urine glucose detection by automated test strip NEGATIVE NEGATIVE Erythrocytes detection in urine sediment by light microscopy 1+ NEGATIVE Urine ketones detection by automated test strip NEGATIVE NEGATIVE Urine nitrite detection by test strip NEGATIVE NEGATIVE Urine total bilirubin detection by test strip NEGATIVE NEGATIVE Urine urobilinogen measurement by automated test strip (mass/volume) NORMAL NORMAL Urine leukocyte esterase detection by dipstick 3+ NEGATIVE Automated urine sediment erythrocyte count by microscopy (number/high power field) RARE NRG Automated urine sediment leukocyte count by microscopy (number/high power field ) [HPF] NRG Bacteria detection in urine sediment by light microscopy FEW NRG Squamous epithelial cells detection in urine sediment by light microscopy 2-5 NRG Crystals detection in urine sediment by light microscopy PRESENT NRG Casts detection in urine sediment by light microscopy NONE NRG Mucus detection in urine sediment by light microscopy SMALL NRG Complete urinalysis with reflex to culture NO NRG Calcium oxalate crystals detection in urine sediment by light microscopy MODERATE NRG Bacterial susceptibility panel - 04/21/17 18:40 Oxacillin susceptibility test by minimum inhibitory concentration > = NRG Gentamicin susceptibility test by minimum inhibitory concentration < = NRG Trimethoprim/sulfamethoxazole susceptibility test by minimum inhibitoryconcentration <= NRG Vancomycin susceptibility test by minimum inhibitory concentration 1 NRG Levofloxacin susceptibility test by minimum inhibitory concentration >= NRG Rifampin susceptibility test by minimum inhibitory concentration <= NRG Tetracycline susceptibility test by minimum inhibitory concentration <= NRG Ciprofloxacin susceptibility test by minimum inhibitory concentration R NR Bacterial susceptibility panel - 04/21/17 18:40 Gentamicin susceptibility test by minimum inhibitory concentration > = NRG Trimethoprim/sulfamethoxazole susceptibility test by minimum inhibitoryconcentration >= NRG Ampicillin susceptibility test by minimum inhibitory concentration > = NRG Tobramycin susceptibility test by minimum inhibitory concentration 8 NRG Cefazolin susceptibility test by minimum inhibitory concentration S NRG Ceftriaxone susceptibility test by minimum inhibitory concentration S NRG Ampicillin/sulbactam susceptibility test by minimum inhibitory concentration 16 NRG Piperacillin/tazobactam susceptibility test by minimum inhibitory concentration <= NRG Ciprofloxacin susceptibility test by minimum inhibitory concentration >= NRG Meropenem susceptibility test by minimum inhibitory concentration < = NRG Nitrofurantoin susceptibility test by minimum inhibitory concentration 128 NRG Aztreonam susceptibility test by minimum inhibitory concentration S NRG Complete urinalysis with reflex to culture - 04/22/17 18:40 Urine color determination YELLOW NRG Urine clarity determination SLIGHTLY CLOUDY NRG Urine pH measurement by test strip 5 5-9 Specific gravity of urine by test strip 1.025 1.016- 1.022 Urine protein assay by test strip, semi-quantitative 2+ NEGATIVE Urine glucose detection by automated test strip NEGATIVE NEGATIVE Erythrocytes detection in urine sediment by light microscopy 1+ NEGATIVE Urine ketones detection by automated test strip NEGATIVE NEGATIVE Urine nitrite detection by test strip NEGATIVE NEGATIVE Urine total bilirubin detection by test strip NEGATIVE NEGATIVE Urine urobilinogen measurement by automated test strip (mass/volume) NORMAL NORMAL Urine leukocyte esterase detection by dipstick 3+ NEGATIVE Automated urine sediment erythrocyte count by microscopy (number/high power field) RARE NRG Automated urine sediment leukocyte count by microscopy (number/high power field ) [HPF] NRG Bacteria detection in urine sediment by light microscopy FEW NRG Squamous epithelial cells detection in urine sediment by light microscopy 2-5 NRG Crystals detection in urine sediment by light microscopy PRESENT NRG Casts detection in urine sediment by light microscopy NONE NRG Mucus detection in urine sediment by light microscopy SMALL NRG Complete urinalysis with reflex to culture NO NRG Calcium oxalate crystals detection in urine sediment by light microscopy MODERATE NRG Complete blood count (CBC) with automated white blood cell (WBC) differential - 05/01/17 10:30 Blood leukocytes automated count (number/volume) 9.0 10*3/uL 4.3-11.0 Blood erythrocytes automated count (number/volume) 4.11 10*6/uL 4.35-5.85 Venous blood hemoglobin measurement (mass/volume) 13.4 g/dL 11.5-16.0 Blood hematocrit (volume fraction) 40 % 35-52 Automated erythrocyte mean corpuscular volume 98 [foz_us] 80-99 Automated erythrocyte mean corpuscular hemoglobin (mass per erythrocyte) 33 pg 25-34 Automated erythrocyte mean corpuscular hemoglobin concentration measurement ( mass/volume) 33 g/dL 32-36 Automated erythrocyte distribution width ratio 14.4 % 10.0-14.5 Automated blood platelet count (count/volume) 249 10*3/uL 130-400 Automated blood platelet mean volume measurement 9.2 [foz_us] 7.4-10.4 Automated blood neutrophils/100 leukocytes 72 % 42-75 Automated blood lymphocytes/100 leukocytes 8 % 12-44 Blood monocytes/100 leukocytes 17 % 0-12 Automated blood eosinophils/100 leukocytes 2 % 0-10 Automated blood basophils/100 leukocytes 0 % 0-10 Blood neutrophils automated count (number/volume) 6.5 10*3 1.8-7.8 Blood lymphocytes automated count (number/volume) 0.7 10*3 1.0-4.0 Blood monocytes automated count (number/volume) 1.6 10*3 0.0-1.0 Automated eosinophil count 0.2 10*3/uL 0.0-0.3 Automated blood basophil count (count/volume) 0.0 10*3/uL 0.0-0.1 Blood lactic acid measurement (moles/volume) - 05/01/17 10:30 Blood lactic acid measurement (moles/volume) 0.92 mmol/L 0.50-2.00 Blood manual differential performed detection - 05/01/17 10:30 Blood monocytes/100 leukocytes 19 % NRG Manual blood segmented neutrophils/100 leukocytes 77 % NRG Manual blood lymphocytes/100 leukocytes 4 % NRG Blood erythrocyte morphology finding identification NORMAL NR PT panel in platelet poor plasma by coagulation assay - 05/01/17 10:30 Prothrombin time (PT) in platelet poor plasma by coagulation assay 13.8 s 12.2-14.7 INR in platelet poor plasma or blood by coagulation assay 1.1 0.8-1.4 Activated partial thromboplastin time (aPTT) in platelet poor plasma bycoagulation assay - 05/01/17 10:30 Activated partial thromboplastin time (aPTT) in platelet poor plasma bycoagulation assay 28 s 24-35 Comprehensive metabolic panel - 05/01/17 10:30 Serum or plasma sodium measurement (moles/volume) 138 mmol/L 135-145 Serum or plasma potassium measurement (moles/volume) 4.5 mmol/L 3.6-5.0 Serum or plasma chloride measurement (moles/volume) 103 mmol/L 98-107 Carbon dioxide 27 mmol/L 21-32 Serum or plasma anion gap determination (moles/volume) 8 mmol/L 5-14 Serum or plasma urea nitrogen measurement (mass/volume) 16 mg/dL 7-18 Serum or plasma creatinine measurement (mass/volume) 0.89 mg/dL 0.60-1.30 Serum or plasma urea nitrogen/creatinine mass ratio 18 NRG Serum or plasma creatinine measurement with calculation of estimated glomerular filtration rate 60 NRG Serum or plasma glucose measurement (mass/volume) 81 mg/dL 70-105 Serum or plasma calcium measurement (mass/volume) 9.1 mg/dL 8.5-10.1 Serum or plasma total bilirubin measurement (mass/volume) 0.4 mg/dL 0.1-1.0 Serum or plasma alkaline phosphatase measurement (enzymatic activity/volume) 91 U/L 40-136 Serum or plasma aspartate aminotransferase measurement (enzymatic activity/ volume) 24 U/L 5-34 Serum or plasma alanine aminotransferase measurement (enzymatic activity/volume ) 16 U/L 0-55 Serum or plasma protein measurement (mass/volume) 6.9 g/dL 6.4-8.2 Serum or plasma albumin measurement (mass/volume) 3.7 g/dL 3.2-4.5 Magnesium - 05/01/17 10:30 Magnesium 2.1 mg/dL 1.8-2.4 Serum or plasma C reactive protein measurement (mass/volume) - 05/01/17 10:30 Serum or plasma C reactive protein measurement (mass/volume) 4.72 mg /dL 0.00-0.50 Serum or plasma lithium measurement (moles/volume) - 05/01/17 10:30 BNP level 99.8 pg/mL <100.0 Bacterial blood culture - 05/01/17 10:30 Bacterial blood culture NG NRG Bacterial blood culture - 05/01/17 10:40 Bacterial blood culture NG NRG Complete urinalysis with reflex to culture - 05/01/17 12:15 Urine color determination YELLOW NRG Urine clarity determination CLEAR NRG Urine pH measurement by test strip 6 5-9 Specific gravity of urine by test strip 1.020 1.016- 1.022 Urine protein assay by test strip, semi-quantitative 1+ NEGATIVE Urine glucose detection by automated test strip NEGATIVE NEGATIVE Erythrocytes detection in urine sediment by light microscopy 1+ NEGATIVE Urine ketones detection by automated test strip 2+ NEGATIVE Urine nitrite detection by test strip NEGATIVE NEGATIVE Urine total bilirubin detection by test strip NEGATIVE NEGATIVE Urine urobilinogen measurement by automated test strip (mass/volume) NORMAL NORMAL Urine leukocyte esterase detection by dipstick 3+ NEGATIVE Automated urine sediment erythrocyte count by microscopy (number/high power field) [HPF] NRG Automated urine sediment leukocyte count by microscopy (number/high power field ) > [HPF] NRG Bacteria detection in urine sediment by light microscopy FEW NRG Squamous epithelial cells detection in urine sediment by light microscopy 0-2 NRG Crystals detection in urine sediment by light microscopy NONE NRG Casts detection in urine sediment by light microscopy NONE NRG Mucus detection in urine sediment by light microscopy SMALL NRG Complete urinalysis with reflex to culture YES NRG Bacterial urine culture - 05/01/17 12:15 URINE CULTURE RESULTS <10,000/ML NRG Complete blood count (CBC) with automated white blood cell (WBC) differential - 07/26/17 19:40 Blood leukocytes automated count (number/volume) 13.0 10*3/uL 4.3-11.0 Blood erythrocytes automated count (number/volume) 4.47 10*6/uL 4.35-5.85 Venous blood hemoglobin measurement (mass/volume) 14.4 g/dL 11.5-16.0 Blood hematocrit (volume fraction) 43 % 35-52 Automated erythrocyte mean corpuscular volume 95 [foz_us] 80-99 Automated erythrocyte mean corpuscular hemoglobin (mass per erythrocyte) 32 pg 25-34 Automated erythrocyte mean corpuscular hemoglobin concentration measurement ( mass/volume) 34 g/dL 32-36 Automated erythrocyte distribution width ratio 14.0 % 10.0-14.5 Automated blood platelet count (count/volume) 284 10*3/uL 130-400 Automated blood platelet mean volume measurement 9.2 [foz_us] 7.4-10.4 Automated blood neutrophils/100 leukocytes 83 % 42-75 Automated blood lymphocytes/100 leukocytes 4 % 12-44 Blood monocytes/100 leukocytes 12 % 0-12 Automated blood eosinophils/100 leukocytes 0 % 0-10 Automated blood basophils/100 leukocytes 0 % 0-10 Blood neutrophils automated count (number/volume) 10.8 10*3 1.8-7.8 Blood lymphocytes automated count (number/volume) 0.6 10*3 1.0-4.0 Blood monocytes automated count (number/volume) 1.6 10*3 0.0-1.0 Automated eosinophil count 0.0 10*3/uL 0.0-0.3 Automated blood basophil count (count/volume) 0.0 10*3/uL 0.0-0.1 Encounters ACCT No. Visit Date/Time Discharge Status Pt. Type Provider Facility Loc./Unit Complaint [id number] 05/08/2017 09:11:00 05/08/2017 13:42:00 DIS Emergency FANY TOMPKINS, HELEN Ochoa [facility] ER FALL [id number] 05/01/2017 09:50:00 05/01/2017 13:00:00 DIS Emergency EUGENE BARDALES MD [facility] ER WHEEZING [id number] 04/30/2017 20:46:00 04/30/2017 21:56:00 DIS Emergency MARY KAY SMITH APRN [facility] ER FELL/HIT HEAD [id number] 04/21/2017 18:40:00 04/21/2017 23:59:59 CLS Outpatient CSEAR TOMPKINS, ZORA R [facility] CVS [id number] 08/28/2016 10:45:00 08/31/2016 14:00:00 DIS Inpatient HINA LEE DO [facility] 4TH SWB [id number] 08/23/2016 15:25:00 08/28/2016 10:14:00 DIS Inpatient HINA LEE DO [facility] 4TH SEPSIS,UTI,RESP DISTRESS, HYPOKALEMIA [id number] 12/01/2014 09:48:00 12/13/2014 16:55:00 DIS Inpatient ISIDRO TOMPKINS, SHUN Jarquin [facility] IRF L HIP FX [id number] 11/26/2014 10:23:00 12/01/2014 09:47:00 DIS Inpatient SHAY TOMPKINS, JARRELL Kaplan [facility] SURGICAL L HIP FX L CLAVICLE FX L THUMB DISLOCATION FALL [id number] 10/29/2014 11:06:00 10/29/2014 13:20:00 DIS Emergency ANGIE PRADO [facility] ER FALL RIGHT ARM/CHEEK PAIN [id number] 10/01/2014 16:02:00 10/18/2014 17:25:00 DIS Inpatient EILEEN TOMPKINS, CLINTON Jennings [facility] SURGICAL LEUKOCYTOSIS [id number] 07/26/2017 19:33:00 ACT Emergency YANIV SIERRA MD [facility] ER RESPIRATORY DISTRESS [id number] 10/02/2014 00:26:00 Document Registration [id number] 10/02/2014 00:26:00 Document Registration [id number] 12/20/2011 18:21:00 Document Registration [id number] 10/18/2011 11:10:00 Document Registration [id number] 10/13/2011 09:15:00 Document Registration
[2017-07-26 20:10] LABS: ALANINE AMINOTRANSFERASE 22 U/L (0-55); ALBUMIN 3.7 GM/DL (3.2-4.5); ALKALINE PHOSPHATASE 101 U/L (40-136); BILIRUBIN,TOTAL 0.6 MG/DL (0.1-1.0); BUN/CREATININE RATIO 31; CALCIUM 9.3 MG/DL (8.5-10.1); CARBON DIOXIDE 23 MMOL/L (21-32); CHLORIDE 103 MMOL/L (98-107); GFR ESTIMATED > 60; GLUCOSE 122 MG/DL (70-105); POTASSIUM 4.2 MMOL/L (3.6-5.0); SODIUM 140 MMOL/L (135-145); TOTAL PROTEIN 7.2 GM/DL (6.4-8.2)
--- NOTE | 2017-07-26 20:13 | Diagnostic Imaging Report ---
INDICATION: Cough. COMPARISON: 05/01/2017. TECHNIQUE: Single view of the chest was obtained. FINDINGS: Increased heterogeneous opacities in the bilateral upper lobes. No pleural effusion or pneumothorax. Heart is normal in size. Normal pulmonary vasculature. IMPRESSION: Increased heterogeneous opacities of the upper lobes could relate to infectious process superimposed on emphysema. Dictated by: Dictated on workstation # [id number]
[2017-07-26 20:18] LABS: BAND NEUTROPHILS 6 %; BASOPHILS % (MANUAL) 0 %; EOSINOPHILS % (MANUAL) 0 %; LYMPHOCYTES % (MANUAL) 6 %; MONOCYTES % (MANUAL) 14 %; NEUTROPHILS % (MANUAL) 74 %; RBC MORPH NORMAL
[2017-07-26] MEDS ORDERED: PIPERACILLIN/TAZO 4.5 GM VIAL (ZOSYN) IV ONE (21:30)
[2017-07-26] MEDS ORDERED: D5W 50 ML IVPB SOLUTION 50 ML IV ONE (21:37)
--- OUTSIDE RECORDS SUMMARY | 2017-07-26 21:59 | XMS REPORT | Continuity of Care Document ---
Author Author [facility] Organization [facility] [address] Address Unknown Phone Unavailable Allergies Active Description Code Type Severity Reaction Onset Reported/Identified Relationship to Patient Clinical Status Yes No Known Drug Allergies [id number] Drug Allergy Unknown N/A 10/13/2011 Medications There [...] TOMPKINS, CLINTON S Ot 599.0 10/05/2014 EILEEN TMOPKINS, CLINTON S Ot 799.4 10/05/2014 EILEEN TOMPKINS, CLINTON S Ot 995.91 10/05/2014 EILEEN TOMPKINS, CLINTON S Ot V15.82 10/05/2014 EILEEN TOMPKINS, CLINTON S Ot V58.67 10/05/2014 EILEEN TOMPKINS, CLINTON S Ot 038.9 10/05/2014 ELIEEN TOMPKINS, CLINTON S Ot 244.9 10/05/2014 EILEEN [...] CLINTON S Ot 250.00 10/10/2014 EILEEN TOMPKINS, CLINTON S Ot 401.9 10/10/2014 EILEEN TOMPKINS, CLINTON [...] TOMPKINS, CLINTON S Ot 599.0 10/14/2014 EILEEN TOPMKINS, CLINTON S Ot 799.4 10/14/2014 EILEEN TOMPKINS, [...] EILEEN TOMPKINS, CLINTON S Ot 244.9 10/15/2014 EILEEN TOMPKINS, CLINTON S Ot 250.00 10/15/2014 EILEEN [...] CLINTON Jennings Ot V58.67 10/18/2014 EILEEN TOMPKINS, CLINTON Jennings Ot 038.9 SEPTICEMIA NOS 10/18/2014 EILEEN [...] ANGIE PRADO Ot E888.9 FALL NOS 11/05/2014 ANIGE PRADO Ot 294.20 11/05/2014 ANGIE PRADO Ot [...] MD Ot 300.00 ANXIETY STATE NOS 12/01/2014 JRARELL DAY MD Ot 331.0 ALZHEIMER'S DISEASE 12/01/2014 [...] SHUN E Ot V57.89 12/13/2014 ISIDRO TOMPKINS, SHNU E Ot 244.9 12/13/2014 ISIDRO TOMPKINS, SHUN E Ot 294.20 12/13/2014 ISIDRO TOMPKINS, SHUN E Ot 493.90 12/13/2014 ISIDRO TOMPKINS, SHUN E Ot 530.81 12/13/2014 ISIDRO TOMPKINS, SHUN E Ot 564.00 12/13/2014 ISIDRO TOMPKINS SHUN E Ot V13.02 12/13/2014 ISIDRO [...] DIS PLAS PROTEIN MET NEC 12/13/2014 ISIDRO TOMPKINS SHUN E Ot 285.9 ANEMIA NOS 12/13/2014 [...] ENCOUNTER 08/27/2016 JESUS ELLIOTT HINA Ot Y92.129 [facility] PLACE IN LONG TERM PLACE 08/27/2016 JESUS ELLIOTT HINA Ot Z66 [...] LEE DOI Ot Y92.[address] IN LONG TERM PLACE 08/27/2016 JESUS ELLIOTT HINA Ot Z66 [...] UNSPECIFIED DEMENTIA WITHOUT BEHAVIORAL 08/28/2016 JESUS ELLIOTT IHNA Ot I73.9 PERIPHERAL VASCULAR DISEASE, UNSPECIFIED 08/28/2016 [...] LEE DOI Ot Y92.[address] IN LONG TERM PLACE 08/28/2016 ILEANA LEE DOI Ot Z66 DO NOT RESUSCITATE 08/28/2016 ILEANA LEE DOI Ot Z87.11 PERSONAL HISTORY OF PEPTIC ULCER DISEASE 08/31/2016 HINA LEE DO Ot A41.9 SEPSIS, UNSPECIFIED ORGANISM 08/31/2016 ILEANA LEE DOI Ot B96.1 KLEBSIELLA PNEUMONIAE THE CAUSE OF DI 08/31/2016 HNIA LEE DO Ot E03.9 HYPOTHYROIDISM, UNSPECIFIED 08/31/2016 [...] LEE DOI Ot Y92.[address] IN LONG TERM PLACE 08/31/2016 JESUS ELLIOTT HINA Ot Z66 [...] KAY SMITH APRN Ot Y92.002 BATHRM OF [facility] NON-INSTITUT RESDNCE SNGL 04/30/2017 MARY KAY SMITH [...] DISLOC-HAND/FNG 11/26/2014 81.52 PARTIAL HIP REPLACEMENT 11/26/2014 [id number] DRAINAGE OF PELVIC CAVITY WITH DRAIN DEV [...] INFLUENZA A AND B ANTIGENS BY IA BANNER Blood manual differential performed detection - 08/23/16 [...] culture - 08/23/16 13:45 Bacterial urine culture [id number] NRG COLONY COUNT 10,000/ML - 100,000/ML NRG [...] NRG Blood erythrocyte morphology finding identification NORMAL BANNER Comprehensive metabolic panel - 08/24/16 05:24 Serum [...] Bacteria identification in isolate by anaerobe culture [id number] NR Gram stain microscopy - 08/27/16 10:15 GRAM STAIN RESULT MODERATE # GRAM NEGATIVE RODS NRG Bacteria identification in wound by culture - 08/27/16 10:15 Bacteria identification in wound by culture [id number] NR FREE TEXT EXTERNAL SENSITIVITY REPORTED 08/28/16 [...] susceptibility test by minimum inhibitory concentration - BANNER Fungus culture - 08/27/16 10:15 FUNGUS REPORT NO FUNGUS GROWTH OBSERVED NRG Bacterial urine culture - 04/21/17 18:40 Bacterial urine culture [id number] NRG COLONY COUNT <10,000 NRG MRSA AGAR [...] 0.0-0.1 Blood lactic acid measurement (moles/volume) - 07/26/17 19:40 Blood lactic acid measurement (moles/volume) 1.17 mmol/L 0.50-2.00 Comprehensive metabolic panel - 07/26/17 19:40 Serum or plasma sodium measurement (moles/volume) 140 mmol/L 135-145 Serum or plasma potassium measurement (moles/volume) 4.2 mmol/L 3.6-5.0 Serum or plasma chloride measurement (moles/volume) 103 mmol/L 98-107 Carbon dioxide 23 mmol/L 21-32 Serum or plasma anion gap determination (moles/volume) 14 mmol/L 5-14 Serum or plasma urea nitrogen measurement (mass/volume) 22 mg/dL 7-18 Serum or plasma creatinine measurement (mass/volume) 0.70 mg/dL 0.60-1.30 Serum or plasma urea nitrogen/creatinine mass ratio 31 NRG Serum or plasma creatinine measurement with calculation of estimated glomerular filtration rate > NRG Serum or plasma glucose measurement (mass/volume) 122 mg/dL 70-105 Serum or plasma calcium measurement (mass/volume) 9.3 mg/dL 8.5-10.1 Serum or plasma total bilirubin measurement (mass/volume) 0.6 mg/dL 0.1-1.0 Serum or plasma alkaline phosphatase measurement (enzymatic activity/volume) 101 U/L 40-136 Serum or plasma aspartate aminotransferase measurement (enzymatic activity/ volume) 24 U/L 5-34 Serum or plasma alanine aminotransferase measurement (enzymatic activity/volume ) 22 U/L 0-55 Serum or plasma protein measurement (mass/volume) 7.2 g/dL 6.4-8.2 Serum or plasma albumin measurement (mass/volume) 3.7 g/dL 3.2-4.5 PT panel in platelet poor plasma by coagulation assay - 07/26/17 19:40 Prothrombin time (PT) in platelet poor plasma by coagulation assay 13.6 s 12.2-14.7 INR in platelet poor plasma or blood by coagulation assay 1.0 0.8-1.4 Activated partial thromboplastin time (aPTT) in platelet poor plasma bycoagulation assay - 07/26/17 19:40 Activated partial thromboplastin time (aPTT) in platelet poor plasma bycoagulation assay 28 s 24-35 Blood manual differential performed detection - 07/26/17 19:40 Blood monocytes/100 leukocytes 14 % NRG Manual blood segmented neutrophils/100 leukocytes 74 % NRG Blood band neutrophils/100 leukocytes 6 % NRG Manual blood lymphocytes/100 leukocytes 6 % NRG Manual eosinophils/100 leukocytes in nose 0 % NRG Manual blood basophils/100 leukocytes 0 % NRG Blood erythrocyte morphology finding identification NORMAL NRG Influenza virus A and B antigen detection - 07/26/17 19:44 CALL POSITIVES (F1 HELP) SUKHDEV NRG FLU RESULT POSITIVE FOR INFLUENZA B ANTIGEN, NEG FOR A ANTIGEN, BY IA NRG Encounters ACCT No. Visit Date/Time Discharge Status Pt. Type Provider Facility Loc./Unit Complaint [id number] 05/08/2017 09:11:00 05/08/2017 13:42:00 DIS Emergency FANY TOMPKINS, HELEN Ochoa [facility] ER FALL [id number] 05/01/2017 09:50:00 05/01/2017 13:00:00 DIS Emergency EUGENE BARDALES MD [facility] ER WHEEZING [id number] 04/30/2017 20:46:00 04/30/2017 21:56:00 DIS Emergency MARY KAY SMITH APRN [facility] [address] ER FELL/HIT HEAD [id number] 04/21/2017 18:40:00 04/21/2017 23:59:59 CLS Outpatient CESAR TOMPKINS, ZORA Perkins [facility] CVS [id number] 08/28/2016 10:45:00 08/31/2016 14:00:00 DIS Inpatient HINA LEE DO [facility] [address] 4TH SWB [id number] 08/23/2016 15:25:00 08/28/2016 10:14:00 DIS Inpatient ILEANA LEE DOI [facility] 4TH SEPSIS,UTI,RESP DISTRESS, HYPOKALEMIA [id number] 12/01/2014 09:48:00 12/13/2014 16:55:00 DIS Inpatient ISIDRO TOMPKINS, SHUN Jarquin [facility] [address] IRF L HIP FX [id number] 11/26/2014 10:23:00 12/01/2014 09:47:00 DIS Inpatient SHAY TOMPKINS, JARRELL Kaplan [facility] SURGICAL L HIP FX L CLAVICLE FX L THUMB DISLOCATION FALL [id number] 10/29/2014 11:06:00 10/29/2014 13:20:00 DIS Emergency SUSAN FISCHER, ANGIE Aguero [facility] ER FALL RIGHT ARM/CHEEK PAIN [id number] 10/01/2014 16:02:00 10/18/2014 17:25:00 DIS Inpatient EILEEN TOMPKINS, CLINTON Jennings [facility] SURGICAL LEUKOCYTOSIS [id number] 07/26/2017 21:30:00 ACT Inpatient MADDY TOMPKINS, DEVON Liu [facility] 4TH BILAT UPPER LOBE PNA [id number] 10/02/2014 00:26:00 Document Registration [id number] 10/02/2014 00:26:00 Document Registration [id number] 12/20/2011 18:21:00 Document Registration [id number] 10/18/2011 11:10:00 Document Registration [id number] 10/13/2011 09:15:00 Document Registration
[2017-07-26] MEDS ORDERED: ACETAMINOPHEN 325 MG TABLET/CAPLET (TYLENOL) PO PRN (22:30)
[2017-07-26] MEDS ORDERED: CATHETER FLUSH 10 ML SYR IV PRN (22:30)
[2017-07-26] MEDS ORDERED: VANCOMYCIN 1 GM/NS 250 ML IVPB IV ONE ×2 (22:30)
[2017-07-26] MEDS: NS IV 1000 ML 1,000 ML IV SCH (22:55)
[2017-07-26 23:58] VITALS: BP 177/97
[2017-07-27] VITALS: BP_SYST 101; BP_SYST 174; BP_DIAS 63; BP_DIAS 91
[2017-07-27] MEDS ORDERED: RT-ALBUTEROL/IPRATROPIUM 3 ML (DUONEB) VIAL INH PRN (00:15)
[2017-07-27] MEDS: RT-ALBUTEROL/IPRATROPIUM 3 ML (DUONEB) VIAL INH SCH ×4 (01:08→20:24)
[2017-07-27] MEDS: CATHETER FLUSH 10 ML SYR IV SCH ×3 (03:32→22:08)
[2017-07-27] MEDS: PIPERACILLIN/TAZOBACTAM 4.5 GM/D5W 100 ML IVPB IV SCH ×6 (03:37→19:32)
[2017-07-27 04:00] VITALS: BP 130/84
[2017-07-27 06:20] LABS: BASOPHILS % (AUTO) 0 % (0-10); EOSINOPHILS % (AUTO) 0 % (0-10); HEMATOCRIT 38 % (35-52); HEMOGLOBIN 12.6 G/DL (11.5-16.0); LYMPHOCYTES # (AUTO) 1.1 X 10^3 (1.0-4.0); LYMPHOCYTES % (AUTO) 11 % (12-44); MEAN CORPUSCULAR HEMOGLOBIN 33 PG (25-34); MEAN CORPUSCULAR HGB CONC 34 G/DL (32-36); MEAN CORPUSCULAR VOLUME 97 FL (80-99); MEAN PLATELET VOLUME 9.4 FL (7.4-10.4); MONOCYTES # (AUTO) 1.4 X 10^3 (0.0-1.0); MONOCYTES % (AUTO) 13 % (0-12); NEUTROPHILS # (AUTO) 7.7 X 10^3 (1.8-7.8); NEUTROPHILS % (AUTO) 76 % (42-75); PLATELET COUNT 258 10^3/uL (130-400); RED BLOOD COUNT 3.88 10^6/uL (4.35-5.85); WHITE BLOOD COUNT 10.2 10^3/uL (4.3-11.0)
[2017-07-27 06:40] LABS: ALANINE AMINOTRANSFERASE 14 U/L (0-55); ALKALINE PHOSPHATASE 73 U/L (40-136); BILIRUBIN,TOTAL 0.6 MG/DL (0.1-1.0); BUN/CREATININE RATIO 23; CALCIUM 8.2 MG/DL (8.5-10.1); CARBON DIOXIDE 26 MMOL/L (21-32); CHLORIDE 105 MMOL/L (98-107); GFR ESTIMATED > 60; GLUCOSE 95 MG/DL (70-105); POTASSIUM 3.2 MMOL/L (3.6-5.0); SODIUM 141 MMOL/L (135-145); TOTAL PROTEIN 5.6 GM/DL (6.4-8.2)
[2017-07-27 08:00] VITALS: BP 129/74
[2017-07-27 12:00] VITALS: BP 149/82
--- NOTE | 2017-07-27 15:20 | History & Physical-Hospitalist ---
HPI History of Present Illness: HPI/Chief Complaint Pt is an 87yoCf with a PMH of dementia who presented to the ER with CC of fever , cough, and decreased O2 sats from the NH. She was recently treated for Flu B and completed Tamiflu but developed a fever of 102 following this course. She is unable to provide any details due to her dementia. She was able to tell me only her name on interview. She does denies most complaints though I am unsure if this is an accurate representation of her symptomatology. Source: RN/MD Exam Limitations: clinical condition Date Seen 07/27/17 Time Seen by Provider: 10:00 Attending Physician Devon Suarez MD PCP Rajan Cespedes MD Referring Physician Date of Admission Jul 26, 2017 at 21:30 Home Medications & Allergies Home Medications Reviewed patient Home Medication Reconciliation Form Allergies Allergies Coded Allergies No Known Drug Allergies (Unverified10/13/11) Past Nyvwqjw-Bqdjgg-Diozga Hx Patient Social History Alcohol Use: Denies Use Recreational Drug Use: No Smoking Status: Never a Smoker 2nd Hand Smoke Exposure: No Physical Abuse Screen: No Sexual Abuse: No Recent Foreign Travel: No Contact w/other who traveled: No Recent Hopitalizations: No Recent Infectious Disease Expo: No Immunizations Up To Date Tetanus Booster (TDap): Unknown Date of Pneumonia Vaccine: May 08, 2011 Date of Influenza Vaccine: May 22, 2017 Seasonal Allergies Seasonal Allergies: No Surgeries Yes (HIP) Abdominal, Hysterectomy, Joint Replacement, Orthopedic Respiratory No Emphysema Cardiovascular No Neurological Yes Dementia Reproductive System Hx Reproductive Disorders: No Genitourinary No Gastrointestinal Yes Gastroesophageal Reflux, Chronic Constipation, Ulcer Musculoskeletal Yes (November 2014 left clavicle fracture) Fractures Endocrine History of Endocrine Disorders: Yes Endocrine Disorders: Hypothyroidsim HEENT History of HEENT Disorders: No Cancer No Psychosocial History of Psychiatric Problem: No Integumentary History of Skin or Integumenta: No Blood Transfusions History of Blood Disorders: No Adverse Reaction to a Blood Tr: No Reviewed Nursing Assessment Reviewed/Agree w Nursing PMH: Yes Family Medical History Significant Family History: No Pertinent Family Hx, Hypertension Family Hx: Hypertension 19 FATHER Myocardial infarction 19 FATHER Review of Systems ROS-Unable to Obtain: dementia- very limited Constitutional: No chills, No fever Respiratory: cough, No short of breath Cardiovascular: No chest pain, No palpitations Gastrointestinal: No abdominal pain Physical Exam Physical Exam Vital Signs Vital Sign - Last 12Hours Capillary Refill : Less Than 3 Seconds General Appearance: No Apparent Distress, WD/WN HEENT: PERRL/EOMI, Moist Mucous Membranes Neck: Non Tender, Supple Respiratory: No Respiratory Distress, Rales (bases) Cardiovascular: Regular Rate, Rhythm, No Murmur Gastrointestinal: Normal Bowel Sounds, Non Tender, Soft Extremity: Normal Capillary Refill, No Calf Tenderness, No Pedal Edema Neurologic/Psychiatric: Alert, Other (oriented to self only) Skin: Normal Color, Warm/Dry Results Results/Procedures Lab Laboratory Tests 07/26/17 19:40 07/27/17 05:39 Radiology Date of Exam:07/26/17 CHEST 1 VIEW, AP/PA ONLY INDICATION: Cough. COMPARISON: 05/01/2017. TECHNIQUE: Single view of the chest was obtained. FINDINGS: Increased heterogeneous opacities in the bilateral upper lobes. No pleural effusion or pneumothorax. Heart is normal in size. Normal pulmonary vasculature. IMPRESSION: Increased heterogeneous opacities of the upper lobes could relate to infectious process superimposed on emphysema. Dictated on workstation # [id number] Assessment/Plan Admission Diagnosis bilateral upper pneumonia post influenza Diagnosis/Problems Diagnosis/Problems (1) Pneumonia of both upper lobes Status: Acute Assessment & Plan: Continue Vanc and Zosyn Post influenza MAT Protocol Titrate O2 MRSA screen in place- will DC Vanc if negative Qualifiers: Qualified Codes: J18.9 - Pneumonia, unspecified organism (2) Sepsis Status: Resolved Assessment & Plan: On arrival but now resolved Continue Abx as above No lactic acidosis, hypotension, end organ involvement (3) Dementia Assessment & Plan: Pleasantly confused Reorient as needed bed alarm on (4) Hypothyroidism Assessment & Plan: Resume synthroid Clinical Quality Measures DVT/VTE Risk/Contraindication: Risk Factor Score Per Nursin RFS Level Per Nursing on Admit: 4+=Very High DEVON SUAREZ MD Jul 27, 2017 15:20
[2017-07-27 16:42] VITALS: BP 158/73
[2017-07-27] MEDS: NS IV 1000 ML 1,000 ML IV SCH (19:08)
[2017-07-27 20:51] VITALS: BP 149/72
[2017-07-27] MEDS ORDERED: VANCOMYCIN 750 MG/NS 250 ML IVPB IV SCH ×2 (23:00)
[2017-07-28 00:32] VITALS: BP 150/69
[2017-07-28] MEDS: RT-ALBUTEROL/IPRATROPIUM 3 ML (DUONEB) VIAL INH SCH ×4 (02:42→18:23)
[2017-07-28] MEDS: CATHETER FLUSH 10 ML SYR IV SCH ×3 (03:05→20:12)
[2017-07-28] MEDS: PIPERACILLIN/TAZOBACTAM 4.5 GM/D5W 100 ML IVPB IV SCH ×6 (03:19→18:30)
[2017-07-28 03:58] VITALS: BP 147/79
[2017-07-28 08:53] VITALS: BP 143/76
[2017-07-28] MEDS: LEVOTHYROXINE 88 MCG (LEVOTHORID) TAB PO SCH (09:40)
[2017-07-28] MEDS ORDERED: DOCU100C37 PO (11:28)
[2017-07-28] MEDS ORDERED: MENT71OI TP (11:28)
[2017-07-28] MEDS ORDERED: ACET-93 PO (11:28)
[2017-07-28] MEDS ORDERED: ALB0.5V IH (11:28)
[2017-07-28 12:00] VITALS: BP 176/79
--- NOTE | 2017-07-28 12:50 | Progress Note-Hospitalist ---
Subjective HPI/CC On Admission Date Seen by Provider: Jul 28, 2017 Time Seen by Provider: 12:20 Pt is an 87yoCf with a PMH of dementia who presented to the ER with CC of fever , cough, and decreased O2 sats from the NH. She was recently treated for Flu B and completed Tamiflu but developed a fever of 102 following this course. She is unable to provide any details due to her dementia. She was able to tell me only her name on interview. She does denies most complaints though I am unsure if this is an accurate representation of her symptomatology. Subjective/Events-last exam Pt reports doing well. No complaints (though likely confounded by dementia). Objective Exam Vital Signs Vital Sign - Last 12Hours Capillary Refill : Less Than 3 Seconds General Appearance: No Apparent Distress, WD/WN, Thin Neck: Supple Respiratory: Lungs Clear, No Accessory Muscle Use, No Respiratory Distress Cardiovascular: Regular Rate, Rhythm, Systolic Murmur Gastrointestinal: Non Tender, Soft Extremity: No Pedal Edema Neurologic/Psychiatric: Alert, Other (oriented only to self) Assessment/Plan Assessment and Plan Assess & Plan/Chief Complaint HCAP Diagnosis/Problems Diagnosis/Problems (1) Pneumonia of both upper lobes Status: Acute Assessment & Plan: Continue Zosyn\ MRSA screen negative so DC-ed Vanc Post influenza MAT Protocol Titrate O2 Qualifiers: Qualified Codes: J18.9 - Pneumonia, unspecified organism (2) Sepsis Status: Resolved Assessment & Plan: On arrival but now resolved Continue Abx as above No lactic acidosis, hypotension, end organ involvement (3) Dementia Assessment & Plan: Pleasantly confused Reorient as needed bed alarm on (4) Hypothyroidism Assessment & Plan: Continue home Synthroid (5) Hypokalemia Status: Acute Assessment & Plan: Recheck pending from today DEVON CASTAÑEDA MD Jul 28, 2017 12:50
[2017-07-28 13:41] LABS: BUN/CREATININE RATIO 14; CALCIUM 8.3 MG/DL (8.5-10.1); CARBON DIOXIDE 27 MMOL/L (21-32); CHLORIDE 104 MMOL/L (98-107); CREATININE SERUM 0.66 MG/DL (0.60-1.30); GFR ESTIMATED > 60; GLUCOSE 96 MG/DL (70-105); POTASSIUM 3.1 MMOL/L (3.6-5.0); SODIUM 143 MMOL/L (135-145)
[2017-07-28] MEDS ORDERED: KCL 20 MEQ TAB (K-DUR) PO NR (15:15)
[2017-07-28 16:47] VITALS: BP 158/70
[2017-07-28 20:27] VITALS: BP 169/86
[2017-07-29] VITALS: BP 166/90
[2017-07-29] MEDS: RT-ALBUTEROL/IPRATROPIUM 3 ML (DUONEB) VIAL INH SCH ×2 (02:14→09:19)
[2017-07-29] MEDS: PIPERACILLIN/TAZOBACTAM 4.5 GM/D5W 100 ML IVPB IV SCH ×4 (03:56→11:28)
[2017-07-29 04:18] VITALS: BP 162/78
[2017-07-29] MEDS: CATHETER FLUSH 10 ML SYR IV SCH (05:56)
[2017-07-29 06:47] LABS: BASOPHILS % (AUTO) 0 % (0-10); EOSINOPHILS # (AUTO) 0.1 10^3/uL (0.0-0.3); EOSINOPHILS % (AUTO) 1 % (0-10); HEMATOCRIT 39 % (35-52); HEMOGLOBIN 13.5 G/DL (11.5-16.0); LYMPHOCYTES # (AUTO) 0.7 X 10^3 (1.0-4.0); LYMPHOCYTES % (AUTO) 12 % (12-44); MEAN CORPUSCULAR HEMOGLOBIN 32 PG (25-34); MEAN CORPUSCULAR HGB CONC 34 G/DL (32-36); MEAN CORPUSCULAR VOLUME 94 FL (80-99); MEAN PLATELET VOLUME 9.5 FL (7.4-10.4); MONOCYTES # (AUTO) 1.2 X 10^3 (0.0-1.0); MONOCYTES % (AUTO) 20 % (0-12); NEUTROPHILS # (AUTO) 3.9 X 10^3 (1.8-7.8); NEUTROPHILS % (AUTO) 66 % (42-75); PLATELET COUNT 260 10^3/uL (130-400); RED BLOOD COUNT 4.18 10^6/uL (4.35-5.85); RED CELL DISTRIBUTION WIDTH 13.8 % (10.0-14.5); WHITE BLOOD COUNT 5.9 10^3/uL (4.3-11.0)
[2017-07-29 07:22] LABS: BUN/CREATININE RATIO 8; CALCIUM 8.6 MG/DL (8.5-10.1); CARBON DIOXIDE 24 MMOL/L (21-32); CHLORIDE 102 MMOL/L (98-107); CREATININE SERUM 0.63 MG/DL (0.60-1.30); GFR ESTIMATED > 60; GLUCOSE 92 MG/DL (70-105); SODIUM 138 MMOL/L (135-145)
[2017-07-29 07:31] VITALS: BP 132/71
[2017-07-29 07:43] LABS: BAND NEUTROPHILS 2 %; EOSINOPHILS % (MANUAL) 1 %; LYMPHOCYTES % (MANUAL) 13 %; MONOCYTES % (MANUAL) 21 %; NEUTROPHILS % (MANUAL) 63 %
[2017-07-29 07:44] LABS: RBC MORPH NORMAL
[2017-07-29] MEDS ORDERED: KCL 20 MEQ TAB (K-DUR) PO NR (09:30)
[2017-07-29] MEDS: LEVOTHYROXINE 88 MCG (LEVOTHORID) TAB PO SCH (09:39)
[2017-07-29] MEDS ORDERED: L.AC1CAP6 PO (09:52)
[2017-07-29] MEDS ORDERED: AMOX-358 PO (09:52)
--- NOTE | 2017-07-29 11:03 | Discharge Inst-Skilled Nursing ---
Discharge Inst-Skilled NF Consult/Follow Up/Orders Skilled NF Admit to: [facility] Certification (SNF) I certify that SNF services are required to be given on an inpatient basis because of the above named patient's need for [place] [facility] care on a continuing basis for the conditions(s) for which he/she was receiving inpatient hospital services prior to his/her transfer to the SNF. 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
--- NOTE | 2017-07-29 16:08 | Discharge Summary-Hospitalist ---
Diagnosis/Chief Complaint Date of Admission Jul 26, 2017 at 21:30 Date of Discharge Jul 29, 2017 at 14:08 Admission Diagnosis bilateral upper pneumonia post influenza Discharge Diagnosis HCAP (1) Pneumonia of both upper lobes Status: Acute Assessment & Plan: Transitioned to Augmentin for discharge Post influenza (2) Sepsis Status: Resolved Assessment & Plan: On arrival but now resolved Continue Abx as above No lactic acidosis, hypotension, end organ involvement (3) Dementia Assessment & Plan: Pleasantly confused Reorient as needed bed alarm on (4) Hypothyroidism Assessment & Plan: Continue home Synthroid (5) Hypokalemia Status: Acute Assessment & Plan: Replaced Discharge Summary Discharge Physical Examination Allergies: Coded Allergies: No Known Drug Allergies (Unverified , 10/13/11) Vitals & I&Os Vital Signs Date Time Temp Pulse Resp B/P (MAP) Pulse Ox O2 Delivery O2 Flow Rate FiO2 07/29/17 09:19 88 Room Air 07/29/17 09:00 2.00 07/29/17 07:31 99.7 105 18 132/71 (91) Hospital Course Pt is an 87yoCF with recent influenza illness who presented to the Er with CC of AMS and cough. She was found to have bilateral upper pneumonia and met sepsis criteria on admission. Sepsis quickly resolved and she responded well to antibiotics. She was ready [facility] and daughter was updated on status. She was transitioned to oral antibiotics to complete at [facility]. She underwent home O2 evaluation and necessitated 2lpm at rest. Labs (last 24 hrs) Laboratory Tests 07/29/17 05:35: White Blood Count 5.9, Red Blood Count 4.18L, Hemoglobin 13.5, Hematocrit 39, Mean Corpuscular Volume 94, Mean Corpuscular Hemoglobin 32, Mean Corpuscular Hemoglobin Concent 34, Red Cell Distribution Width 13.8, Platelet Count 260, Mean Platelet Volume 9.5, Neutrophils (%) (Auto) 66, Lymphocytes (%) (Auto) 12, Monocytes (%) (Auto) 20H, Eosinophils (%) (Auto) 1, Basophils (%) (Auto) 0, Neutrophils # (Auto) 3.9, Lymphocytes # (Auto) 0.7L, Monocytes # (Auto) 1.2H, Eosinophils # (Auto) 0.1, Basophils # (Auto) 0.0, Neutrophils % (Manual) 63, Lymphocytes % (Manual) 13, Monocytes % (Manual) 21, Eosinophils % (Manual) 1, Band Neutrophils 2, Blood Morphology Comment NORMAL, Sodium Level 138, Potassium Level 3.0L, Chloride Level 102, Carbon Dioxide Level 24, Anion Gap 12 , Blood Urea Nitrogen 5L, Creatinine 0.63, Estimat Glomerular Filtration Rate > 60, BUN/Creatinine Ratio 8, Glucose Level 92, Calcium Level 8.6, Magnesium Level 1.7L Microbiology 07/26/17 Blood Culture - Preliminary, Resulted No growth 07/26/17 MRSA Screen - Final, Complete MRSA not isolated Discharge Home Medications: Active Scripts Active Probiotic (L.acidoph & Paracasei,B.lactis) 1 Each Capsule 1 Each PO TIDWM 7 Days Augmentin 875-125 Tablet (Amoxicillin/Potassium Clav) 1 Each Tablet 1 Each PO BID 3 Days Reported Calmoseptine Ointment (Menthol/Lanolin/Calamine/Znox) 71 Gm Oint TP PRN PRN Albuterol Sulfate 2.5 Mg/0.5 Ml Vial.neb 2.5 Mg IH Q4H PRN Acetaminophen 500 Mg Tablet 500 Mg PO TID NOT TO EXCEED 3GM/24 HOURS Docusate Sodium 100 Mg Capsule 100 Mg PO BID Famotidine 20 Mg Tablet 20 Mg PO HS Thera Tablet (Multivitamin with Folic Acid) 400 Mcg Tablet 400 Mcg PO DAILY Donepezil HCl 10 Mg Tablet 10 Mg PO DAILY Levothyroxine Sodium 88 Mcg Tablet 88 Mcg PO 0900 Instructions to patient/family Please see electronic discharge instructions given to patient. Clinical Quality Measures DVT/VTE Risk/Contraindication: Risk Factor Score Per Nursin RFS Level Per Nursing on Admit: 4+=Very High Copy Copies To 1: ZORA GUERRERO MD Problem Qualifiers (1) Pneumonia of both upper lobes: Pneumonia type: due to unspecified organism Qualified Codes: J18.9 - Pneumonia, unspecified organism DEVON CASTAÑEDA MD Jul 29, 2017 16:07
== END 2017-07-29 14:08 | DRG 871 ==
LOC: EDUNIT# 19:32 → ER 19:33 → 4TH 21:30
PROVIDERS: ADMIT Family Medicine; ATTEND Family Medicine
DX: A41.9 Sepsis, unspecified organism (principal); J18.9 Pneumonia, unspecified organism; J43.9 Emphysema, unspecified; R06.03 Acute respiratory distress; R09.02 Hypoxemia; Z66 Do not resuscitate; E03.9 Hypothyroidism, unspecified; F03.90 Unspecified dementia, unspecified severity, without behavioral disturbance, psychotic disturbance, mood disturbance, and anxiety; E87.6 Hypokalemia; K21.9 Gastro-esophageal reflux disease without esophagitis; K59.09 Other constipation; Z86.19 Personal history of other infectious and parasitic diseases; Z87.11 Personal history of peptic ulcer disease
CPT/HCPCS: 36415; 71045; 80048; 80053; 83605; 83735; 85007; 85025; 85027; 85610; 85730; 87040; 87081; 87804; 94640; 94664; 94760; 94761; 96361; 96374

== ENCOUNTER 2018-04-05 23:37 | Emergency (ER) | payer MEDICARE, MEDICAID ==
[~2018-04-05] VITALS: Ht 154.9 cm; Wt 51.3 kg
[~2018-04-05 23:37] MED LIST changes: +ACET-93 PO; +AMOX-358 PO; +DOCU100C37 PO; +FAMO20TA5 PO; +L.AC1CAP6 PO; +MENT71OI TP; +MULT-19 PO
--- OUTSIDE RECORDS SUMMARY | 2018-04-05 23:46 | XMS REPORT | Continuity of Care Document ---
Author Author [facility] Organization [facility] Address Unknown Phone Unavailable Allergies Active Description Code Type Severity Reaction Onset Reported/Identified Relationship to Patient Clinical Status Yes No Known Drug Allergies [id number] Drug Allergy Unknown N/A 10/13/2011 Medications There [...] TOMPKINS, CLINTON S Ot 244.9 10/05/2014 EILEEN TMOPKINS, CLINTON S Ot 250.00 10/05/2014 EILEEN TOMPKINS, [...] EILEEN TOMPKINS, CLINTON S Ot 250.00 10/06/2014 IELEEN TOMPKINS, CLINTON S Ot 401.9 10/06/2014 EILEEN TOMPKINS, CLINTON S Ot 532.50 10/06/2014 EILEEN TOMPKINS, CLINTON S Ot 599.0 10/06/2014 ELIEEN TOMPKINS, CLINTON S Ot 799.4 10/06/2014 EILEEN [...] CLINTON S Ot 250.00 10/13/2014 EILEEN TOMPKINS, CILNTON S Ot 401.9 10/13/2014 EILEEN TOMPKINS, CLINTON [...] DAY MD Ot 276.8 HYPOPOTASSEMIA 12/01/2014 JARRELL ADY MD Ot 294.10 DEMENTIA IN CONDITIONS W/O [...] 12/01/2014 JARRELL DAY MD Ot 820.8 12/01/2014 JARERLL DAY MD Ot 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 PLACE IN HALF-WAY PLACE 08/27/2016 JESUS ELLIOTT HINA Ot Z66 [...] LEE DOI Ot Y92.[address] IN HALF-WAY PLACE 08/27/2016 JESUS ELLIOTT HINA Ot Z66 [...] LEE DOI Ot Y92.[address] IN HALF-WAY PLACE 08/28/2016 ILEANA LEE DOI Ot Z66 [...] LEE DOI Ot Y92.[address] IN HALF-WAY PLACE 08/31/2016 JESUS ELLIOTT HINA Ot Z66 [...] KAY SMITH APRN Ot Y92.[address] [facility] NON-INSTITUT RESDNCE SNGL 04/30/2017 MARY KAY SMITH APRN Ot Z82.49 FAMILY HX OF ISCHEM HEART DIS AND OTH DI 04/30/2017 MAR YKAY SMITH APRN Ot Z87.19 PERSONAL HISTORY OF [...] ABSENCE OF BOTH CERVIX AND UTER 05/08/2017 FANY TOMPKINS, HELEN Ochoa Ot E03.9 HYPOTHYROIDISM, UNSPECIFIED 05/08/2017 HELEN SOARES MD, Ot F03.90 UNSPECIFIED DEMENTIA WITHOUT BEHAVIORAL 05/08/2017 HELEN SOARES MD Ot K21.9 GASTRO-ESOPHAGEAL REFLUX DISEASE WITHOUT 05/08/2017 HELEN SOARES MD Ot M25.552 PAIN IN LEFT HIP 05/08/2017 HELEN SOARES MD Ot W19.XXXA UNSPECIFIED FALL, INITIAL ENCOUNTER 05/08/2017 HELEN SOARES MD, Ot Z82.49 FAMILY HX OF ISCHEM HEART DIS AND OTH DI 05/08/2017 HELEN SOARES MD, Ot Z87.19 PERSONAL HISTORY OF OTHER DISEASES OF TH 05/08/2017 HELEN SOARES MD, Ot Z90.710 ACQUIRED ABSENCE OF BOTH CERVIX AND UTER 05/15/2017 ZORA GUERRERO MD R Ot R32 UNSPECIFIED URINARY INCONTINENCE 05/15/2017 ZORA GUERRERO MD R Ot R82.99 OTHER ABNORMAL FINDINGS IN URINE 05/22/2017 ZORA GUERRERO MD R Ot R32 UNSPECIFIED URINARY INCONTINENCE 05/22/2017 CESAR TOMPKINS ZORA R Ot R82.99 OTHER ABNORMAL FINDINGS IN URINE 07/29/2017 DEVON CASTAÑEDA MD Ot A41.9 SEPSIS, UNSPECIFIED ORGANISM 07/29/2017 DEVON CASTAÑEDA MD, Ot E03.9 HYPOTHYROIDISM, UNSPECIFIED 07/29/2017 DEVON CASTAÑEDA MD Ot E87.6 HYPOKALEMIA 07/29/2017 DEVON CASTAÑEDA MD Ot F03.90 UNSPECIFIED DEMENTIA WITHOUT BEHAVIORAL 07/29/2017 DEVON CASTAÑEDA MD, Ot J18.9 PNEUMONIA, UNSPECIFIED ORGANISM 07/29/2017 DEVON CASTAÑEDA MD, Ot J43.9 EMPHYSEMA, UNSPECIFIED 07/29/2017 DEVON CASTAÑEDA MD, Ot K21.9 GASTRO-ESOPHAGEAL REFLUX DISEASE WITHOUT 07/29/2017 DEVON CASTAÑEDA MD, Ot K59.09 OTHER CONSTIPATION 07/29/2017 DEVON CASTAÑEDA MD, Ot R06.03 ACUTE RESPIRATORY DISTRESS 07/29/2017 MADDY TOMPKINS, DEVON Liu Ot R09.02 HYPOXEMIA 07/29/2017 MADDY TOMPKINS, DEVON Liu Ot Z66 DO NOT RESUSCITATE 07/29/2017 MADDY TOMPKINS, DEVON Liu Ot Z86.19 PERSONAL HISTORY OF OTHER INFECTIOUS AND 07/29/2017 MADDY TOMPKINS, DEVON Liu Ot Z87.11 PERSONAL HISTORY OF PEPTIC ULCER DISEASE 09/16/2017 Ot 285.9 ANEMIA NOS 09/16/2017 CESAR TOMPKINS, ZORA R Ot R32 UNSPECIFIED URINARY INCONTINENCE 09/16/2017 CESAR TOMPKINS, ZORA R Ot R82.99 OTHER ABNORMAL FINDINGS IN URINE 09/17/2017 MARY KAY SMITH APRN Ot E03.9 HYPOTHYROIDISM, UNSPECIFIED 09/17/2017 MARY KAY SMITH APRN Ot F03.90 UNSPECIFIED DEMENTIA WITHOUT BEHAVIORAL 09/17/2017 MARY KAY SMITH APRN Ot K21.9 GASTRO-ESOPHAGEAL REFLUX DISEASE WITHOUT 09/17/2017 MARY KAY SMITH APRN Ot S09.90XA UNSPECIFIED INJURY OF HEAD, INITIAL ENCO 09/17/2017 MARY KAY SMITH APRN Ot W01.10XA FALL SAME LEV FROM SLIP/TRIP W STRIKE AG 09/17/2017 MARY KAY SMITH APRN Ot Y92.002 [facility] SNGL 09/17/2017 MARY KAY SMITH APRN Ot Z82.49 FAMILY HX OF ISCHEM HEART DIS AND OTH DI 09/17/2017 MARY KAY SMITH APRN Ot Z87.19 PERSONAL HISTORY OF OTHER DISEASES OF 09/17/2017 MARY KAY SMITH APRN Ot Z90.710 ACQUIRED ABSENCE OF BOTH CERVIX AND UTER 11/06/2017 MARY KAY SMITH APRN Ot E03.9 HYPOTHYROIDISM, UNSPECIFIED 11/06/2017 MARY KAY SMITH APRN Ot F03.90 UNSPECIFIED DEMENTIA WITHOUT BEHAVIORAL 11/06/2017 MARY KAY SMITH APRN Ot K21.9 GASTRO-ESOPHAGEAL REFLUX DISEASE WITHOUT 11/06/2017 MARY KAY SMITH APRN Ot S09.90XA UNSPECIFIED INJURY OF HEAD, INITIAL ENCO 11/06/2017 MARY KAY SMITH APRN Ot W01.10XA FALL SAME LEV FROM SLIP/TRIP W STRIKE AG 11/06/2017 MARY KAY SMITH APRN Ot Y92.[address] [facility] NON-INSTITUT RESDNCE SNGL 11/06/2017 MARY KAY SMITH APRN Ot Z82.49 FAMILY HX OF ISCHEM HEART DIS AND OTH DI 11/06/2017 MARY KAY SMITH APRN Ot Z87.19 PERSONAL HISTORY OF OTHER DISEASES OF 11/06/2017 MARY KAY SMITH APRN Ot Z90.710 ACQUIRED ABSENCE OF BOTH CERVIX AND UTER Procedures Code Description Performed By Performed On 81.52 PARTIAL HIP REPLACEMENT 10/15/2011 45.13 OTHER ENDOSCOPY OF INTEST 10/26/2011 45.23 COLONOSCOPY 10/26/2011 44.42 SUTURE DUODEN ULCER SITE 10/01/2014 79.74 CL REDUC DISLOC-HAND/FNG 11/26/2014 81.52 PARTIAL HIP REPLACEMENT 11/26/2014 [id number] DRAINAGE OF PELVIC CAVITY WITH DRAIN DEV 08/27/2016 Results Test Result Range Complete blood count (CBC) with automated white blood cell (WBC) differential - 08/23/16 10:55 Blood leukocytes automated count (number/volume) 26.3 10*3/uL 4.3-11.0 Blood erythrocytes automated count (number/volume) 4.22 10*6/uL 4.35-5.85 Venous blood hemoglobin measurement (mass/volume) 13.7 g/dL 11.5-16.0 Blood hematocrit (volume fraction) 41 % 35-52 Automated erythrocyte mean corpuscular volume 96 [foz_us] 80-99 Automated erythrocyte mean corpuscular hemoglobin [...] INFLUENZA A AND B ANTIGENS BY IA NRG Blood manual differential performed detection - 08/23/16 10:55 Blood monocytes/100 leukocytes 3 % NRG Manual blood segmented neutrophils/100 leukocytes 83 % NRG Blood band neutrophils/100 leukocytes 8 % NRG Manual blood lymphocytes/100 leukocytes 5 % NRG Manual eosinophils/100 leukocytes in nose 0 % NRG Manual blood basophils/100 leukocytes 0 % NRG Blood erythrocyte morphology finding identification NORMAL NRG Manual blood myelocytes/100 leukocytes 1 % NRG [...] culture - 08/23/16 13:45 Bacterial urine culture [id number] NRG COLONY COUNT 10,000/ML - 100,000/ML NRG [...] 08/24/16 05:24 Blood monocytes/100 leukocytes 6 % NR Manual blood segmented neutrophils/100 leukocytes 73 % NR Blood band neutrophils/100 leukocytes 12 % NR Manual blood lymphocytes/100 leukocytes 9 % NRG Manual eosinophils/100 leukocytes in nose 0 % NR Manual blood basophils/100 leukocytes 0 % NR Blood erythrocyte morphology finding identification NORMAL [facility] Comprehensive metabolic panel - 08/24/16 05:24 Serum [...] RESULTS NEGATIVE FOR ANTIGEN AND TOXIN A/B [facility] Complete blood count (CBC) with automated white [...] 08/27/16 10:15 QUANTITY OF GROWTH Abundant Growth [facility] Bacteria identification in isolate by anaerobe culture [id number] [facility] Gram stain microscopy - 08/27/16 10:15 GRAM STAIN RESULT MODERATE # GRAM NEGATIVE RODS NRG Bacteria identification in wound by culture - 08/27/16 10:15 Bacteria identification in wound by culture [id number] NR FREE TEXT EXTERNAL SENSITIVITY REPORTED 08/28/16 [...] susceptibility test by minimum inhibitory concentration - [facility] Fungus culture - 08/27/16 10:15 FUNGUS REPORT NO FUNGUS GROWTH OBSERVED NRG Bacterial urine culture - 04/21/17 18:40 Bacterial urine culture [id number] NRG COLONY COUNT <10,000 NR MRSA AGAR MRSA isolated (Screening test for MRSA is positive) [facility] FTX;REPORTABLE SENSITIVITY REPORTED 04/23/17 15:35 NR FREE TEXT ENTRY 3 MIXED GRAM POSITIVE LILLI <10,000/ML NRG Complete urinalysis with reflex to culture - 04/21/17 18:40 Urine color determination YELLOW NRG Urine clarity determination SLIGHTLY CLOUDY NR Urine pH measurement by test strip 5 [...] susceptibility test by minimum inhibitory concentration R NRG Bacterial susceptibility panel - 04/21/17 18:40 Gentamicin [...] Blood erythrocyte morphology finding identification NORMAL NRG PT panel in platelet poor plasma [...] 07/26/17 19:40 Blood monocytes/100 leukocytes 14 % NR Manual blood segmented neutrophils/100 leukocytes 74 % NRG Blood band neutrophils/100 leukocytes 6 % NR Manual blood lymphocytes/100 leukocytes 6 % NR Manual eosinophils/100 leukocytes in nose 0 % NR Manual blood basophils/100 leukocytes 0 % [facility] Blood erythrocyte morphology finding identification NORMAL [facility] Bacterial blood culture - 07/26/17 19:40 Bacterial blood culture NG [facility] Influenza virus A and B antigen detection - 07/26/17 19:44 CALL POSITIVES (F1 HELP) SUKHDEV [facility] FLU RESULT POSITIVE FOR INFLUENZA B ANTIGEN, NEG FOR A ANTIGEN, BY IA [facility] Bacterial blood culture - 07/26/17 20:09 Bacterial blood culture NG [facility] Methicillin resistant Staphylococcus aureus (MRSA) screening culture - 22:25 Methicillin resistant Staphylococcus aureus (MRSA) screening culture NEG [facility] Complete blood count (CBC) with automated white blood cell (WBC) differential - 07/27/17 05:39 Blood leukocytes automated count (number/volume) 10.2 10*3/uL 4.3-11.0 Blood erythrocytes automated count (number/volume) 3.88 10*6/uL 4.35-5.85 Venous blood hemoglobin measurement (mass/volume) 12.6 g/dL 11.5-16.0 Blood hematocrit (volume fraction) 38 % 35-52 Automated erythrocyte mean corpuscular volume 97 [foz_us] 80-99 Automated erythrocyte mean corpuscular hemoglobin (mass per erythrocyte) 33 pg 25-34 Automated erythrocyte mean corpuscular hemoglobin concentration measurement ( mass/volume) 34 g/dL 32-36 Automated erythrocyte distribution width ratio 14.0 % 10.0-14.5 Automated blood platelet count (count/volume) 258 10*3/uL 130-400 Automated blood platelet mean volume measurement 9.4 [foz_us] 7.4-10.4 Automated blood neutrophils/100 leukocytes 76 % 42-75 Automated blood lymphocytes/100 leukocytes 11 % 12-44 Blood monocytes/100 leukocytes 13 % 0-12 Automated blood eosinophils/100 leukocytes 0 % 0-10 Automated blood basophils/100 leukocytes 0 % 0-10 Blood neutrophils automated count (number/volume) 7.7 10*3 1.8-7.8 Blood lymphocytes automated count (number/volume) 1.1 10*3 1.0-4.0 Blood monocytes automated count (number/volume) 1.4 10*3 0.0-1.0 Automated eosinophil count 0.0 10*3/uL 0.0-0.3 Automated blood basophil count (count/volume) 0.0 10*3/uL 0.0-0.1 Comprehensive metabolic panel - 07/27/17 05:39 Serum or plasma sodium measurement (moles/volume) 141 mmol/L 135-145 Serum or plasma potassium measurement (moles/volume) 3.2 mmol/L 3.6-5.0 Serum or plasma chloride measurement (moles/volume) 105 mmol/L 98-107 Carbon dioxide 26 mmol/L 21-32 Serum or plasma anion gap determination (moles/volume) 10 mmol/L 5-14 Serum or plasma urea nitrogen measurement (mass/volume) 16 mg/dL 7-18 Serum or plasma creatinine measurement (mass/volume) 0.70 mg/dL 0.60-1.30 Serum or plasma urea nitrogen/creatinine mass ratio 23 NRG Serum or plasma creatinine measurement with calculation of estimated glomerular filtration rate > NRG Serum or plasma glucose measurement (mass/volume) 95 mg/dL 70-105 Serum or plasma calcium measurement (mass/volume) 8.2 mg/dL 8.5-10.1 Serum or plasma total bilirubin measurement (mass/volume) 0.6 mg/dL 0.1-1.0 Serum or plasma alkaline phosphatase measurement (enzymatic activity/volume) 73 U/L 40-136 Serum or plasma aspartate aminotransferase measurement (enzymatic activity/ volume) 14 U/L 5-34 Serum or plasma alanine aminotransferase measurement (enzymatic activity/volume ) 14 U/L 0-55 Serum or plasma protein measurement (mass/volume) 5.6 g/dL 6.4-8.2 Serum or plasma albumin measurement (mass/volume) 3.0 g/dL 3.2-4.5 Whole blood basic metabolic panel - 07/28/17 13:11 Serum or plasma sodium measurement (moles/volume) 143 mmol/L 135-145 Serum or plasma potassium measurement (moles/volume) 3.1 mmol/L 3.6-5.0 Serum or plasma chloride measurement (moles/volume) 104 mmol/L 98-107 Carbon dioxide 27 mmol/L -32 Serum or plasma anion gap determination (moles/volume) 12 mmol/L 5-14 Serum or plasma urea nitrogen measurement (mass/volume) 9 mg/dL 7-18 Serum or plasma creatinine measurement (mass/volume) 0.66 mg/dL 0.60-1.30 Serum or plasma urea nitrogen/creatinine mass ratio 14 NRG Serum or plasma creatinine measurement with calculation of estimated glomerular filtration rate > NRG Serum or plasma glucose measurement (mass/volume) 96 mg/dL 70-105 Serum or plasma calcium measurement (mass/volume) 8.3 mg/dL 8.5-10.1 Complete blood count (CBC) with automated white blood cell (WBC) differential - 07/29/17 05:35 Blood leukocytes automated count (number/volume) 5.9 10*3/uL 4.3-11.0 Blood erythrocytes automated count (number/volume) 4.18 10*6/uL 4.35-5.85 Venous blood hemoglobin measurement (mass/volume) 13.5 g/dL 11.5-16.0 Blood hematocrit (volume fraction) 39 % 35-52 Automated erythrocyte mean corpuscular volume 94 [foz_us] 80-99 Automated erythrocyte mean corpuscular hemoglobin (mass per erythrocyte) 32 pg 25-34 Automated erythrocyte mean corpuscular hemoglobin concentration measurement ( mass/volume) 34 g/dL 32-36 Automated erythrocyte distribution width ratio 13.8 % 10.0-14.5 Automated blood platelet count (count/volume) 260 10*3/uL 130-400 Automated blood platelet mean volume measurement 9.5 [foz_us] 7.4-10.4 Automated blood neutrophils/100 leukocytes 66 % 42-75 Automated blood lymphocytes/100 leukocytes 12 % 12-44 Blood monocytes/100 leukocytes 20 % 0-12 Automated blood eosinophils/100 leukocytes 1 % 0-10 Automated blood basophils/100 leukocytes 0 % 0-10 Blood neutrophils automated count (number/volume) 3.9 10*3 1.8-7.8 Blood lymphocytes automated count (number/volume) 0.7 10*3 1.0-4.0 Blood monocytes automated count (number/volume) 1.2 10*3 0.0-1.0 Automated eosinophil count 0.1 10*3/uL 0.0-0.3 Automated blood basophil count (count/volume) 0.0 10*3/uL 0.0-0.1 Whole blood basic metabolic panel - 07/29/17 05:35 Serum or plasma sodium measurement (moles/volume) 138 mmol/L 135-145 Serum or plasma potassium measurement (moles/volume) 3.0 mmol/L 3.6-5.0 Serum or plasma chloride measurement (moles/volume) 102 mmol/L 98-107 Carbon dioxide 24 mmol/L 21-32 Serum or plasma anion gap determination (moles/volume) 12 mmol/L 5-14 Serum or plasma urea nitrogen measurement (mass/volume) 5 mg/dL 7-18 Serum or plasma creatinine measurement (mass/volume) 0.63 mg/dL 0.60-1.30 Serum or plasma urea nitrogen/creatinine mass ratio 8 NRG Serum or plasma creatinine measurement with calculation of estimated glomerular filtration rate > NRG Serum or plasma glucose measurement (mass/volume) 92 mg/dL 70-105 Serum or plasma calcium measurement (mass/volume) 8.6 mg/dL 8.5-10.1 Blood manual differential performed detection - 07/29/17 05:35 Blood monocytes/100 leukocytes 21 % NRG Manual blood segmented neutrophils/100 leukocytes 63 % NRG Blood band neutrophils/100 leukocytes 2 % NRG Manual blood lymphocytes/100 leukocytes 13 % NRG Manual eosinophils/100 leukocytes in nose 1 % NRG Blood erythrocyte morphology finding identification NORMAL NRG Magnesium - 07/29/17 05:35 Magnesium 1.7 mg/dL 1.8-2.4 Encounters ACCT No. Visit Date/Time Discharge Status Pt. Type Provider Facility Loc./Unit Complaint [id number] 07/26/2017 21:30:00 07/29/2017 14:08:00 DIS Inpatient MADDY TOMPKINS, DEVON Liu [facility] [address] BILAT UPPER LOBE PNA [id number] 05/08/2017 09:11:00 05/08/2017 13:42:00 DIS Emergency FANY TOMPKINS, HELEN Ochoa [facility] ER FALL [id number] 05/01/2017 09:50:00 05/01/2017 13:00:00 DIS Emergency CATIA TOMPKINS, EUGENE Louis [facility] ER WHEEZING [id number] 04/30/2017 20:46:00 04/30/2017 21:56:00 DIS Outpatient MARY KAY SMITH APRN [facility] ER FELL/HIT HEAD [id number] 04/21/2017 18:40:00 04/21/2017 23:59:59 CLS Outpatient CESAR TOMPKINS, ZORA Perkins [facility] CVS [id number] 08/28/2016 10:45:00 08/31/2016 14:00:00 DIS Inpatient HINA LEE DO [facility] 4TH SWB [id number] 08/23/2016 15:25:00 08/28/2016 10:14:00 DIS Inpatient HINA LEE DO [facility] 4TH SEPSIS,UTI,RESP DISTRESS, HYPOKALEMIA [id number] 12/01/2014 09:48:00 12/13/2014 16:55:00 DIS Inpatient ISIDRO TOMPKINS, SHUN Jarquin [facility] IRF L HIP FX [id number] 11/26/2014 10:23:00 12/01/2014 09:47:00 DIS Inpatient JARRELL DAY MD [facility] SURGICAL L HIP FX L CLAVICLE FX L THUMB DISLOCATION FALL [id number] 10/29/2014 11:06:00 10/29/2014 13:20:00 DIS Emergency ANGIE PRADO [facility] ER FALL RIGHT ARM/CHEEK PAIN [id number] 10/01/2014 16:02:00 10/18/2014 17:25:00 DIS Inpatient EILEEN TOMPKINS, CLINTON Jennings [facility] SURGICAL LEUKOCYTOSIS [id number] 10/02/2014 00:26:00 Document Registration [id number] 10/02/2014 00:26:00 Document Registration [id number] 12/20/2011 18:21:00 Document Registration [id number] 10/18/2011 11:10:00 Document Registration [id number] 10/13/2011 09:15:00 Document Registration [id number] 12/23/2017 09:50:03 12/23/2017 23:59:59 CLS Outpatient [id number] 11/26/2014 06:19:28 ACT Document Registration
--- NOTE | 2018-04-06 00:50 | ED Fall/Injury ---
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 ) History of Present Illness Date Seen by Provider: Apr 05, 2018 Time Seen by Provider: 23:40 Initial Comments PT ARRIVES VIA EMS FROM [facility] PT HAD UNWITNESSED FALL AT [facility]--WAS FOUND AROUND 1900 TONIGHT HAS HAD LEFT KNEE SWELLING AND BRUISING SINCE THEN NO OTHER APPARENT INJURIES PT HAS HISTORY OF FREQUENT FALLS MENTATION IS BASELINE, PER EMS, PER [facility] STAFF. PT IS SMILING, AND DOES NOT APPEAR TO BE IN ANY DISCOMFORT. EMS REPORT THAT PT WAS ABLE TO PUT SOME WEIGHT ON IT TO TRANSFER NO OTHER INFORMATION IS OBTAINABLE PCP: DR. GUERRERO Allergies and Home Medications Allergies Coded Allergies: No Known Drug Allergies (Unverified , 10/13/11) Home Medications Acetaminophen 500 Mg Tablet, 500 MG PO TID, (Reported) NOT TO EXCEED 3GM/24 HOURS Albuterol Sulfate 2.5 Mg/0.5 Ml Vial.neb, 2.5 MG IH Q4H PRN for SHORTNESS OF BREATH, (Reported) Amoxicillin/Potassium Clav 1 Each Tablet, 1 EACH PO BID Prescribed by: DEVON CASTAÑEDA on 07/29/17951 Cefuroxime Axetil 250 Mg Tablet, 250 MG PO BID Prescribed by: MARY KAY SMITH on 04/06/181820 Docusate Sodium 100 Mg Capsule, 100 MG PO BID, (Reported) Donepezil HCl 10 Mg Tablet, 10 MG PO DAILY, (Reported) Famotidine 20 Mg Tablet, 20 MG PO HS, (Reported) L.acidoph & Paracasei,B.lactis 1 Each Capsule, 1 EACH PO TIDWM Prescribed by: DEVON CASTAÑEDA on 07/29/17951 Levothyroxine Sodium 88 Mcg Tablet, 88 MCG PO 0900, (Reported) Menthol/Lanolin/Calamine/Znox 71 Gm Oint, TP PRN PRN for REDNESS TO COCCYX, ( Reported) Multivitamin with Folic Acid 400 Mcg Tablet, 400 MCG PO DAILY, (Reported) Patient Home Medication List Home Medication List Reviewed: Yes Review of Systems Review of Systems Constitutional: other (UNOBTAINABLE FROM PT) Musculoskeletal: see HPI Skin: see HPI (BRUISING) Psychiatric/Neurological: See HPI Past Rtaurkq-Qibfvk-Xbixfm Hx Patient Social History Alcohol Use: Denies Use Recreational Drug Use: No Smoking Status: Former Smoker (1 PPD, QUIT 2011) 2nd Hand Smoke Exposure: No Recent Foreign Travel: No Contact w/Someone Who Travel: No Recent Hopitalizations: No Immunizations Up To Date Tetanus Booster (TDap): Unknown Date of Pneumonia Vaccine: May 08, 2011 Date of Influenza Vaccine: Aug 05, 2017 Seasonal Allergies Seasonal Allergies: No Past Medical History Surgeries: Yes (LEFT HIP FX/REPLACEMENT AND LEFT THUMB DISLOCATION/REDUCTION 2014; RIGHT HIP FX/REPLACEMENT 2011; EGD/COLONOSCOPY; D&C ) Abdominal, Hysterectomy, Joint Replacement, Orthopedic Respiratory: Yes (SEPSIS) Pneumonia, COPD Cardiac: Yes Atrial Fibrillation Neurological: Yes (? 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) Dementia Reproductive Disorders: No Genitourinary: No Gastrointestinal: Yes (HIATAL HERNIA AND DIVERTICULAR DISEASE NOTED ON EGD/ COLONOSCOPY) Gastroesophageal Reflux, Chronic Constipation, Diverticulosis, Hiatal Hernia, Ulcer Musculoskeletal: Yes (November 2014 left clavicle fracture; BILATERAL HIP FRACTURES/ REPLACEMENTS; LEFT THUMB DISLOCATION/REDUCTION; FREQUENT FALLS) Arthritis, Fractures Endocrine: Yes Hypothyroidsim HEENT: No Cancer: No Psychosocial: No Integumentary: No Blood Disorders: No Adverse Reaction/Blood Tranf: No Family Medical History Hypertension 19 FATHER Myocardial infarction 19 FATHER No Pertinent Family Hx, Hypertension Physical Exam Vital Signs Vital Signs - First Documented 04/05/18 04/06/18 23:38 02:35 Temp 97.9 Pulse 107 Resp 17 B/P (MAP) 140/86 (104) Pulse Ox 98 Capillary Refill : Height, Weight, BMI Height: 5'1.00" Weight: 113lbs. 0.8oz. 51.655546nm; 21.4 BMI Method:Estimated General Appearance: no apparent distress, thin, other (SMILING, RESTING QUIETLY , VERY COOPERATIVE. DOES NOT APPEAR TO BE IN ANY DISCOMFORT OR DISTRESS. ) HEENT: PERRL/EOMI Neck: non-tender, full range of motion, supple, normal inspection Cardiovascular: no murmur, irregularly irregular Respiratory: chest non-tender, normal breath sounds, no respiratory distress, no accessory muscle use Peripheral Pulses: 1+ Dorsalis Pedis (R), 1+ Left Dors-Pedis (L), 1+ Radial Pulses (R), 1+ Radial Pulses (L) Gastrointestinal: non tender, soft Back: normal inspection, no CVA tenderness, no vertebral tenderness Extremities: normal capillary refill, pelvis stable, other (MASSIVE SWELLING AND ECCHYMOSIS TO LEFT KNEE. NO SIGNIFICANT TENDERNESS TO KNEE. NO TENDERNESS OR EXTERNAL EVIDENCE OF TRAUMA NOTED ANYWHERE ELSE. MOTOR/SENSORY/VASCULAR INTACT. ) Neurologic/Psychiatric: manager foreign II-XII nml as tested, no motor/sensory deficits, alert, other (CAN ANSWER YES/NO QUESTIONS, BUT UNABLE TO MAKE ANY SIGNIFICANT FORMED SENTENCES. SMILING AND APPEARS TO BE PLEASANTLY CONFUSED. ABLE TO FOLLOW A FEW VERY SIMPLE COMMANDS. ) Skin: normal color, warm/dry, ecchymosis, other (NO OTHER EXTERNAL EVIDENCE OF TRAUMA NOTED ANYWHERE ELSE ON BODY, EXCEPT FOR KNEE. ) Procedures/Interventions Splinting and Joint Reduction : Alexy wrap: Yes Immobilizers: 19 inch Knee Progress/Results/Core Measures Results/Orders My Orders Orders - NORMA LARSON DO Femur, Left, 2 Views (04/06/18 00:01) Knee, Left, 3 Views (04/06/18 00:01) Pelvis (04/06/18 00:01) Alexy Bandage (04/06/18 00:43) Knee Immobilizer (04/06/18 00:43) Acetaminophen Tablet (Tylenol Tablet) (04/06/18 01:27) Acetaminophen Tablet (Tylenol Tablet) (04/06/18 01:45) Vital Signs/I&O 04/05/18 04/06/18 23:38 02:35 Temp 97.9 97.9 Pulse 107 107 Resp 17 17 B/P (MAP) 140/86 (104) 140/86 (104) Pulse Ox 98 Progress Progress Note : Progress Note NO DETERIORATION IN PT'S CONDITION DURING ER STAY Diagnostic Imaging Comments XRAYS : PELVIS--NO ACUTE PROCESS RIGHT FEMUR--NO ACUTE PROCESS RIGHT KNEE--SOFT TISSUE SWELLING, NO ACUTE BONY ABNORMALITY ALL PENDING RADIOLOGIST REVIEW Reviewed: Reviewed by Me Departure Impression Primary Impression: Contusion of left knee, initial encounter Additional Impressions: Status post fall Dementia Disposition: 03 XFER SNF Condition: Stable Departure-Patient Inst. Referrals: OZRA GUERRERO MD (PCP/Family) Primary Care Physician Patient Instructions: Contusion (DC), How to Use an Elastic Bandage, Knee Immobilizer (DC), Knee Sprain (DC) Add. Discharge Instructions: ALEXY WRAP AND KNEE IMMOBILIZER AT ALL TIMES NO WALKING UNTIL CLEARED BY DR. ICE TO AREA AT 20 MINUTE INTERVALS ELEVATE LEG MUCH POSSIBLE TYLENOL NEEDED FOR PAIN FOLLOW UP WITH YOUR DR IN 2-3 DAYS FOR FURTHER CARE All discharge instructions reviewed with patient and/or family. Voiced understanding. Scripts Wheelchair (Wheelchair) 1 Each Each EACH for Pain, #1 Prov: NORMA LARSON DO 04/06/18 NORMA LARSON DO Apr 06, 2018 00:50
[2018-04-06] MEDS ORDERED: WHEE1EAC3 MC (00:55)
[2018-04-06] MEDS ORDERED: ACETAMINOPHEN 500 MG TAB (TYLENOL) ONE (01:27)
[2018-04-06] MEDS ORDERED: ACETAMINOPHEN 500 MG TAB (TYLENOL) PO ONE (01:45)
[2018-04-06 02:35] VITALS: BP 140/86
--- NOTE | 2018-04-06 07:10 | Diagnostic Imaging Report ---
INDICATION: Pain and swelling. 4 views were obtained. FINDINGS: There are postsurgical changes of left hip arthroplasty. Alignment is normal. Hardware is intact. There is no fracture or dislocation. There appears to be a chronic fracture deformity of left obturator ring. IMPRESSION: Stable left hip arthroplasty. Dictated by: Dictated on workstation # [id number]
--- NOTE | 2018-04-06 07:11 | Diagnostic Imaging Report ---
INDICATION: Pain and swelling to the left knee. Three views were obtained. FINDINGS: The alignment is normal. Bones are osteopenic. There is no fracture or dislocation. There is soft tissue swelling. IMPRESSION: Soft tissue swelling, however, no acute fracture or dislocation Dictated by: Dictated on workstation # [id number]
--- NOTE | 2018-04-06 07:13 | Diagnostic Imaging Report ---
EXAMINATION: Pelvis, single view. COMPARISON: November 26, 2014. HISTORY: 88-year-old female, fall. Pelvic and hip pain. FINDINGS: There are bilateral hip prostheses. The pubic symphysis and sacroiliac joints are normally aligned. There is limited evaluation of the sacrum relating to overlying bowel gas. There is chondrocalcinosis at the pubic symphysis. There is no identified acute fracture. There are degenerative changes of visualized lower lumbar spine. The bones appear somewhat demineralized. IMPRESSION: 1. The bones appear mineralized. No radiographically apparent fracture. 2. Intact bilateral hip prostheses. 3. Degenerative changes of the lower lumbar spine. Dictated by: Dictated on workstation # [id number]
[2018-04-06] MEDS ORDERED: CEFU250T80 PO (18:21)
== END 2018-04-06 02:38 ==
LOC: EDUNIT# 23:37 → ER 23:38
DX: S80.02XA Contusion of left knee, initial encounter (principal); F03.90 Unspecified dementia, unspecified severity, without behavioral disturbance, psychotic disturbance, mood disturbance, and anxiety; J44.9 Chronic obstructive pulmonary disease, unspecified; I48.91 Unspecified atrial fibrillation; K21.9 Gastro-esophageal reflux disease without esophagitis; E03.9 Hypothyroidism, unspecified; Z87.19 Personal history of other diseases of the digestive system; Z79.51 Long term (current) use of inhaled steroids; Z82.49 Family history of ischemic heart disease and other diseases of the circulatory system; Z87.891 Personal history of nicotine dependence; Z87.01 Personal history of pneumonia (recurrent); Z96.643 Presence of artificial hip joint, bilateral; Z90.710 Acquired absence of both cervix and uterus; Z91.81 History of falling; W19.XXXA Unspecified fall, initial encounter; Y92.129 Unspecified place in nursing home as the place of occurrence of the external cause
CPT/HCPCS: 72170; 73552; 73562

== ENCOUNTER 2018-04-06 16:38 | Emergency (ER) | payer MEDICARE, MEDICAID ==
[~2018-04-06] VITALS: Ht 160 cm; Wt 54.0 kg
[~2018-04-06 16:38] MED LIST changes: +WHEE1EAC3 MC
--- OUTSIDE RECORDS SUMMARY | 2018-04-06 16:47 | XMS REPORT | Continuity of Care Document ---
Author Author [facility] Organization [facility] Address Unknown Phone Unavailable Allergies Active Description Code Type Severity Reaction Onset Reported/Identified Relationship to Patient Clinical Status Yes No Known Drug Allergies [id number] Drug Allergy Unknown N/A 10/13/2011 Medications There [...] EILEEN TOMPKINS, CLINTON S Ot 799.4 10/09/2014 IELEEN TOMPKINS, CLINTON S Ot 995.91 10/09/2014 EILEEN [...] TOMPKINS, CLINTON S Ot 244.9 10/12/2014 EILEEN TOMPKNIS, CLINTON S Ot 250.00 10/12/2014 EILEEN TOMPKINS, [...] TOMPKINS, CLINTON S Ot 401.9 10/16/2014 EILEEN TOMPIKNS, CLINTON S Ot 532.50 10/16/2014 EILEEN TOMPKINS, [...] Ot 707.20 PRESSURE ULCER, UNSPECIFIED STAGE 12/13/2014 SIIDRO TOMPKINS, SHUN E Ot V13.02 PERSONAL HISTORY, [...] ENCOUNTER 08/27/2016 JESUS ELLIOTT HINA Ot Y92.129 [facility] [address] IN [facility] 08/27/2016 JESUS ELLIOTT HINA Ot Z66 [...] LEE DOI Ot Y92.[address] IN [facility] 08/27/2016 JESUS ELLIOTT HINA Ot Z66 [...] LEE DOI Ot Y92.[address] [facility] 08/28/2016 ILEANA LEE DOI Ot Z66 [...] LEE DOI Ot Y92.[address] [facility] 08/31/2016 JESUS ELLIOTT HINA Ot Z66 [...] KAY SMITH APRN Ot Y92.002 BATHRM OF [facility] NON-INSTITUT RESDNCE SNGL 04/30/2017 [...] KAY SMITH APRN Ot Y92.002 BATHRM OF [facility] SNGL 09/17/2017 MARY KAY SMITH APRN Ot Z82.49 FAMILY HX OF ISCHEM HEART DIS AND OTH DI 09/17/2017 MARYK AY SMITH APRN Ot Z87.19 PERSONAL HISTORY OF [...] KAY SMITH APRN Ot Y92.002 BATHRM OF [facility] NON-INSTITUT RESDNCE SNGL 11/06/2017 MARY [...] DISLOC-HAND/FNG 11/26/2014 81.52 PARTIAL HIP REPLACEMENT 11/26/2014 [id number] DRAINAGE OF PELVIC CAVITY WITH DRAIN DEV [...] culture - 08/23/16 13:45 Bacterial urine culture [id number] NRG COLONY COUNT 10,000/ML - 100,000/ML NRG [...] NR Blood erythrocyte morphology finding identification NORMAL [facility] Comprehensive metabolic panel - 08/24/16 05:24 Serum [...] RESULTS NEGATIVE FOR ANTIGEN AND TOXIN A/B [facility] Complete blood count (CBC) with automated white [...] 08/27/16 10:15 QUANTITY OF GROWTH Abundant Growth [facility] Bacteria identification in isolate by anaerobe culture [id number] [facility] Gram stain microscopy - 08/27/16 10:15 GRAM STAIN RESULT MODERATE # GRAM NEGATIVE RODS NRG Bacteria identification in wound by culture - 08/27/16 10:15 Bacteria identification in wound by culture [id number] NR FREE TEXT EXTERNAL SENSITIVITY REPORTED 08/28/16 [...] susceptibility test by minimum inhibitory concentration - [facility] Fungus culture - 08/27/16 10:15 FUNGUS REPORT NO FUNGUS GROWTH OBSERVED NRG Bacterial urine culture - 04/21/17 18:40 Bacterial urine culture [id number] NRG COLONY COUNT <10,000 NR MRSA AGAR MRSA isolated (Screening test for MRSA is positive) [facility] FTX;REPORTABLE SENSITIVITY REPORTED 04/23/17 15:35 NR FREE [...] NR Manual blood basophils/100 leukocytes 0 % [facility] Blood erythrocyte morphology finding identification NORMAL [facility] Bacterial blood culture - 07/26/17 19:40 Bacterial blood culture NG [facility] Influenza virus A and B antigen detection - 07/26/17 19:44 CALL POSITIVES (F1 HELP) SUKHDEV [facility] FLU RESULT POSITIVE FOR INFLUENZA B ANTIGEN, NEG FOR A ANTIGEN, BY IA [facility] Bacterial blood culture - 07/26/17 20:09 Bacterial blood culture NG [facility] Methicillin resistant Staphylococcus aureus (MRSA) screening culture - 22:25 Methicillin resistant Staphylococcus aureus (MRSA) screening culture NEG [facility] Complete blood count (CBC) with automated white [...] Status Pt. Type Provider Facility Loc./Unit Complaint [id number] 07/26/2017 21:30:00 07/29/2017 14:08:00 DIS Inpatient MADDY TOMPKINS, DEVON Liu [facility] [address] BILAT UPPER LOBE PNA [id number] 05/08/2017 09:11:00 05/08/2017 13:42:00 DIS Emergency FANY TOMPKINS, HELEN Ochoa [facility] ER FALL [id number] 05/01/2017 09:50:00 05/01/2017 13:00:00 DIS Emergency ACTIA TOMPKINS, EUGENE Louis [facility] ER WHEEZING [id number] 04/30/2017 20:46:00 04/30/2017 21:56:00 DIS Outpatient MARY KAY SMITH APRN [facility] ER FELL/HIT HEAD [id number] 04/21/2017 18:40:00 04/21/2017 23:59:59 CLS Outpatient CESAR TOMPKINS, ZORA Perkins [facility] CVS [id number] 08/28/2016 10:45:00 08/31/2016 14:00:00 DIS Inpatient HINA LEE DO [facility] 4TH SWB [id number] 08/23/2016 15:25:00 08/28/2016 10:14:00 DIS Inpatient HINA LEE DO [facility] 4TH SEPSIS,UTI,RESP DISTRESS, HYPOKALEMIA [id number] 12/01/2014 09:48:00 12/13/2014 16:55:00 DIS Inpatient ISIDRO TOMPKINS, SHUN Jarquin [facility] IRF L HIP FX [id number] 11/26/2014 10:23:00 12/01/2014 09:47:00 DIS Inpatient JARRELL DAY MD [facility] SURGICAL L HIP FX L CLAVICLE FX L THUMB DISLOCATION FALL [id number] 10/29/2014 11:06:00 10/29/2014 13:20:00 DIS Emergency ANGIE PRADO [facility] ER FALL RIGHT ARM/CHEEK PAIN [id number] 10/01/2014 16:02:00 10/18/2014 17:25:00 DIS Inpatient EILEEN TOMPKINS, CLINTON Jennings [facility] SURGICAL LEUKOCYTOSIS [id number] 10/02/2014 00:26:00 Document Registration [id number] 10/02/2014 00:26:00 Document Registration [id number] 12/20/2011 18:21:00 Document Registration [id number] 10/18/2011 11:10:00 Document Registration [id number] 10/13/2011 09:15:00 Document Registration [id number] 12/23/2017 09:50:03 12/23/2017 23:59:59 CLS Outpatient [id number] 11/26/2014 06:19:28 ACT Document Registration
[2018-04-06] MEDS ORDERED: KETOROLAC 30 MG/ML VIAL ONE (16:55)
[2018-04-06] MEDS ORDERED: NS IV 1000 ML 1,000 ML ONE (16:55)
[2018-04-06] MEDS ORDERED: NS IV 1000 ML 1,000 ML IV SCH (16:57)
[2018-04-06] MEDS ORDERED: KETOROLAC 30 MG/ML VIAL IVP ONE (17:00)
[2018-04-06 17:04] LABS: BASOPHILS % (AUTO) 0 % (0-10); EOSINOPHILS # (AUTO) 0.3 10^3/uL (0.0-0.3); EOSINOPHILS % (AUTO) 3 % (0-10); HEMATOCRIT 37 % (35-52); HEMOGLOBIN 12.5 G/DL (11.5-16.0); LYMPHOCYTES # (AUTO) 1.6 X 10^3 (1.0-4.0); LYMPHOCYTES % (AUTO) 16 % (12-44); MEAN CORPUSCULAR HEMOGLOBIN 33 PG (25-34); MEAN CORPUSCULAR HGB CONC 34 G/DL (32-36); MEAN CORPUSCULAR VOLUME 99 FL (80-99); MEAN PLATELET VOLUME 9.3 FL (7.4-10.4); MONOCYTES # (AUTO) 1.2 X 10^3 (0.0-1.0); MONOCYTES % (AUTO) 12 % (0-12); NEUTROPHILS % (AUTO) 69 % (42-75); PLATELET COUNT 282 10^3/uL (130-400); RED BLOOD COUNT 3.78 10^6/uL (4.35-5.85); RED CELL DISTRIBUTION WIDTH 14.1 % (10.0-14.5); WHITE BLOOD COUNT 10.2 10^3/uL (4.3-11.0)
--- NOTE | 2018-04-06 17:05 | ED Fall/Injury ---
General Chief Complaint: Trauma-Non Activation Stated Complaint: FALL Source: patient, family, EMS, assisted records Exam Limitations: clinical condition (dementia and mildly confused per assisted staff) (EUGENE BARDALES) History of Present Illness Date Seen by Provider: Apr 06, 2018 Time Seen by Provider: 16:53 Initial Comments The patient presents to the ER by EMS from via [facility] with chief complaint that at 1600 staff went in to help the patient get up because her call light was on and the patient had gotten up on her own and fallen. She had skinned open a 4-6 cm skin tear on her left forearm and EMS reports she put her top teeth through her top left lip. She also large bruise around the left eye and some tenderness there. Staff reports that she fell yesterday and was sent to the ER and evaluated and found to have negative x-rays and was put in a straight leg brace for her left knee because she was having some tenderness there. Patient is denying any shortness of breath fevers chills. She does have a history of emphysema but does not smoke cigarettes now. She is coughing but does not know how long this is been going on. Staff 90 fevers. EMS reports mild tachycardia of 100-110. (EUGENE BARDALES) Allergies and Home Medications Allergies Coded Allergies: No Known Drug Allergies (Unverified , 10/13/11) Home Medications Acetaminophen 500 Mg Tablet, 500 MG PO TID, (Reported) NOT TO EXCEED 3GM/24 HOURS Albuterol Sulfate 2.5 Mg/0.5 Ml Vial.neb, 2.5 MG IH Q4H PRN for SHORTNESS OF BREATH, (Reported) Amoxicillin/Potassium Clav 1 Each Tablet, 1 EACH PO BID Prescribed by: DEVON CASTAÑEDA on 07/29/17951 Cefuroxime Axetil 250 Mg Tablet, 250 MG PO BID Prescribed by: MARY KAY MONTERO on 04/06/181820 Docusate Sodium 100 Mg Capsule, 100 MG PO BID, (Reported) Donepezil HCl 10 Mg Tablet, 10 MG PO DAILY, (Reported) Famotidine 20 Mg Tablet, 20 MG PO HS, (Reported) L.acidoph & Paracasei,B.lactis 1 Each Capsule, 1 EACH PO TIDWM Prescribed by: DEVON CASTAÑEDA on 07/29/17951 Levothyroxine Sodium 88 Mcg Tablet, 88 MCG PO 0900, (Reported) Menthol/Lanolin/Calamine/Znox 71 Gm Oint, TP PRN PRN for REDNESS TO COCCYX, ( Reported) Multivitamin with Folic Acid 400 Mcg Tablet, 400 MCG PO DAILY, (Reported) Patient Home Medication List Home Medication List Reviewed: Yes (EUGENE BARDALES) Review of Systems Review of Systems Constitutional: No chills, No diaphoresis, No fever Eyes: Denies Blindness, Denies Blurred Vision Ears, Nose, Mouth, Throat: denies ear pain, denies ear discharge Respiratory: cough; No phlegm, No short of breath, No wheezing Cardiovascular: No chest pain, No palpitations Gastrointestinal: No abdominal pain, No constipation, No diarrhea, No nausea Genitourinary: No decreased output, No discharge, No dysuria Musculoskeletal: No back pain; joint pain (left knee) Skin: other (skin tear left forearm and pain around left eye and left upper lip ) (EUGENE BARDALES) Past Kxskmam-Qsvukx-Ktuhbg Hx Patient Social History Alcohol Use: Denies Use Recreational Drug Use: No Smoking Status: Never a Smoker 2nd Hand Smoke Exposure: No Recent Foreign Travel: No Contact w/Someone Who Travel: No Recent Hopitalizations: No (EUGENE BARDALES) Immunizations Up To Date Tetanus Booster (TDap): Unknown Date of Pneumonia Vaccine: May 08, 2011 Date of Influenza Vaccine: Aug 05, 2017 (EUGENE BARDALES) Seasonal Allergies Seasonal Allergies: No (EUGENE BARDALES) Past Medical History Surgeries: Yes (HIP) Abdominal, Hysterectomy, Joint Replacement, Orthopedic Respiratory: No Cardiac: No Neurological: Yes Dementia Reproductive Disorders: No Genitourinary: No Gastrointestinal: Yes Gastroesophageal Reflux, Chronic Constipation, Ulcer Musculoskeletal: Yes (November 2014 left clavicle fracture) Fractures Endocrine: Yes Hypothyroidsim HEENT: No Cancer: No Psychosocial: No Integumentary: No Blood Disorders: No Adverse Reaction/Blood Tranf: No (EUGENE BARDALES) Family Medical History Hypertension 19 FATHER Myocardial infarction 19 FATHER No Pertinent Family Hx, Hypertension (EUGENE BARDALES) Physical Exam Vital Signs Vital Signs - First Documented (MARY KAY MONTERO APRN) Vital Signs Capillary Refill : (EUGENE BARDALES) Height, Weight, BMI Height: 5'1.00" Weight: 113lbs. 0.8oz. 51.501716sc; 21.4 BMI Method:Estimated General Appearance: WD/WN, no apparent distress HEENT: PERRL/EOMI, normal ENT inspection, TMs normal, pharynx normal, other ( negative for Dupont sign or hemotympanum. Ecchymoses and tenderness around the left eye socket in the soft tissues and a through and through 8 mm linear laceration consistent with tooth through her left upper lip. Hemostatic. Vision is grossly normal and sclera/conjunctiva is without hemorrhage, ecchymoses or obvious trauma.) Neck: non-tender, normal inspection, other (c-collar in place per EMS) Cardiovascular: normal peripheral pulses, regular rate, rhythm, no edema, no murmur Respiratory: chest non-tender, lungs clear, normal breath sounds, no respiratory distress, no accessory muscle use, other (rare, dry cough) Gastrointestinal: normal bowel sounds, non tender, soft, no organomegaly, other (hips are nontender to palpation and rocking) Back: normal inspection, no vertebral tenderness Extremities: normal capillary refill, other (left knee has a knee immobilizer in place and is mildly tender to palpation.) Neurologic/Psychiatric: 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 It's hemostatic and mildly tender. Bruising around left eye.) (EUGENE BARDALES) Paloma Coma Score Best Eye Response: (4) Open Spontaneously Best Verbal Response: (5) Oriented Best Motor Response: (6) Obeys Commands Paloma Total: 15 (EUGENE BARDALES) Procedures/Interventions Wound Location: Face Wound Length (cm): 0.7 Wound's Depth, Shape: linear, sub Q Wound Explored: clean Irrigated w/ Saline (ccs): 10 Anesthesia: 1% Lidocaine Volume Anesthetic (ccs): 1 Suture: Prolene Suture Size: 5-0 Number of Sutures: 2 Layer Closure?: 1 Number Deep Layer Sutures: 0 Progress Anesthetized with 1 mL of 1% lidocaine without epinephrine. Wound then scrubbed with flexing/saline solution then irrigated with 10 ml the same. Externally the wound was closed with 2 simple interrupted sutures size 5-0 Prolene. (MARY KAY MONTERO APRN) Progress/Results/Core Measures Results/Orders Lab Results Laboratory Tests Test 04/06/18 16:52 04/06/18 18:02 Range/Units White Blood Count 10.2 4.3-11.0 10^3/uL Red Blood Count 3.78 L 4.35-5.85 10^6/uL Hemoglobin 12.5 11.5-16.0 G/DL Hematocrit 37 35-52 % Mean Corpuscular Volume 99 80-99 FL Mean Corpuscular Hemoglobin 33 25-34 PG Mean Corpuscular Hemoglobin Concent 34 32-36 G/DL Red Cell Distribution Width 14.1 10.0-14.5 % Platelet Count 282 130-400 10^3/uL Mean Platelet Volume 9.3 7.4-10.4 FL Neutrophils (%) (Auto) 69 42-75 % Lymphocytes (%) (Auto) 16 12-44 % Monocytes (%) (Auto) 12 0-12 % Eosinophils (%) (Auto) 3 0-10 % Basophils (%) (Auto) 0 0-10 % Neutrophils # (Auto) 7.0 1.8-7.8 X 10^3 Lymphocytes # (Auto) 1.6 1.0-4.0 X 10^3 Monocytes # (Auto) 1.2 H 0.0-1.0 X 10^3 Eosinophils # (Auto) 0.3 0.0-0.3 10^3/uL Basophils # (Auto) 0.0 0.0-0.1 10^3/uL Sodium Level 142 135-145 MMOL/L Potassium Level 4.1 3.6-5.0 MMOL/L Chloride Level 109 H 98-107 MMOL/L Carbon Dioxide Level 22 21-32 MMOL/L Anion Gap 11 5-14 MMOL/L Blood Urea Nitrogen 28 H 7-18 MG/DL Creatinine 0.76 0.60-1.30 MG/DL Estimat Glomerular Filtration Rate > 60 BUN/Creatinine Ratio 37 Glucose Level 117 H 70-105 MG/DL Calcium Level 9.0 8.5-10.1 MG/DL Corrected Calcium 9.0 8.5-10.1 MG/DL Total Bilirubin 0.4 0.1-1.0 MG/DL Aspartate Amino Transf (AST/SGOT) 21 5-34 U/L Alanine Aminotransferase (ALT/SGPT) 16 0-55 U/L Alkaline Phosphatase 97 40-136 U/L Total Protein 6.9 6.4-8.2 GM/DL Albumin 4.0 3.2-4.5 GM/DL Urine Color YELLOW Urine Clarity SLIGHTLY CLOUDY Urine pH 6.5 5-9 Urine Specific [place] 1.015 L 1.016-1.022 Urine Protein 1+ H NEGATIVE Urine Glucose (UA) NEGATIVE NEGATIVE Urine Ketones 2+ H NEGATIVE Urine Nitrite NEGATIVE NEGATIVE Urine Bilirubin NEGATIVE NEGATIVE Urine Urobilinogen NORMAL NORMAL MG/DL Urine Leukocyte Esterase 3+ H NEGATIVE Urine RBC (Auto) NEGATIVE NEGATIVE Urine RBC NONE /HPF Urine WBC 10-25 H /HPF Urine Squamous Epithelial Cells 5-10 /HPF Urine Crystals NONE /LPF Urine Bacteria NEGATIVE /HPF Urine Casts NONE /LPF Urine Mucus NEGATIVE /LPF Urine Culture Indicated YES (MARY KAY MONTERO APRN) My Orders Orders - MARY KAY MONTERO APRN Ekg Tracing (04/06/18 17:59) Ceftriaxone For Im Use (Rocephin For Im (04/06/18 18:30) (MARY KAY MONTERO APRN) Medications Given in ED Current Medications Medications Dose Ordered Sig/Leticia Route Start Time Stop Time Status Last Admin Dose Admin Ketorolac Tromethamine 10 mg ONCE ONCE IVP 04/06/18 17:00 04/06/18 17:01 DC 04/06/18 17:03 10 MG Lidocaine HCl 20 ml ONCE ONCE INJ 04/06/18 17:45 04/06/18 17:46 DC 04/06/18 18:10 20 ML (MARY KAY MONTERO APRN) Vital Signs/I&O 04/06/18 04/06/18 16:40 16:40 Temp 97.3 97.3 Pulse 110 110 Resp 18 18 B/P (MAP) 160/94 (116) 160/94 (116) Pulse Ox 97 97 O2 Delivery Nasal Cannula Nasal Cannula O2 Flow Rate 2.00 (MARY KAY MONTERO APRN) Progress Progress Note #1: Time: 17:[address] of the head maxillofacial and neck without contrast. We will redress the wound on the left forearm. We'll obtain a urine specimen by straight catheter and chest x-ray. Her knee seems to be stable and in the immobilizer. Her pelvis is nontender abdomen unremarkable. Chest wall nontender and she has normal brown breath sounds. We will get a chest x-ray however since she had a cough to rule out a pneumonia or bronchitis picture. Panel of labs. She is not anemic. Toradol 10 mg IV for pain and then we'll use lidocaine to numb up her lip and put a stitch on the outside to help close. Progress Note #2: Time: 18:04 Progress Note C-collar cleared by CT scan and clinical examination. Patient's having no tenderness in her neck in full range of motion. At no time during her stated the patient have any tenderness in her neck. The patient has been turned over to Mary Kay Montero's nurse practitioner. He is going to stitch up the lip and get the results to the CT scans and chest x-ray and elbow x-ray and treat her appropriately based on her urine and labs. (EUGENE BARDALES) Diagnostic Imaging Diagonstic Imaging: Xray Plain Films/CT/US/NM/MRI: chest (1v) Comments No acute cardiopulmonary processes noted. Reviewed: Reviewed by Me Diagonstic Imaging: CT (without contrast) Plain Films/CT/US/NM/MRI: c-spine, head (maxillofacial) Comments No intracranial hemorrhage, Midline shift, tumor, fractures of the head face or C-spine. No malposition or malalignment of the C-spine. There is some soft tissue swelling around the left orbit. Eyes another soft tissue unremarkable. Chronic degenerative joint disease noted. Reviewed: Reviewed by Me Diagonstic Imaging: Xray Plain Films/CT/US/NM/MRI: elbow (left 1 view) Comments No acute osseous abnormalities. Reviewed: Reviewed by Me (EUGENE BARDALES) Comments NAME: JESSE WILLIAMSON [facility] REC#: [id number] PT STATUS: REG ER : 1930 PHYSICIAN: EUGENE BARDALES MD ADMIT DATE: 04/06/18/ER Draft Date of Exam:04/06/18 ELBOW, LEFT, 3 VIEWS INDICATION: Has had multiple falls with elbow pain. FINDINGS: There is a pathological displacement and elevation of the anterior fat pad with abnormal lucency involving the lateral margin of the radial neck. Constellation of findings suspicious for fracture to that structure. No appreciable articular offset. IMPRESSION: Displaced fat pad suspect for joint effusion and intracapsular fracture. Suspected fractures I believe visualized at the level of the radial neck. No other potential site of bony injury revealed at this exam. Dictated on workstation # [id number] Dict: 04/06/18 1752 Trans: 04/06/18 1827 [id number] Interpreted by: RAFFI OTERO Electronically signed by: (MARY KAY MONTERO APRN) Transfer of Care Time: 18:07 Care transferred to: Kylah (EUGENE BARDALES) Departure Communication (Admissions) Family Conversation Radiology mentions a posteriorly displaced posterior fat pad. Concerning for radial head fracture. However upon exam she is completely nontender to palpation of the elbow, she is able to fully flex and extend the elbow and states that she has no pain, she is able to supinate and pronate the arm and states that she has no pain at the elbow. We'll provide her with a sling that she does not need a splint as I have a very low index of suspicion for radial head fracture based on clinical exam I've taken over care of the patient at 1800. The 0.75 cm laceration to the left side of the upper lip that does cross the vermilion border was sutured. Awaiting official CT results. She does have a urinary tract infection. This laceration to the upper lip might possibly be a through and through laceration as she does have a laceration to the buccal mucosa just superior to the external wound. Have given injection of Rocephin for the urinary tract infection and prophylaxis against intraoral wound infection. I'll prescribe Ceftin in the outpatient setting to begin tomorrow. (MARY KAY MONTERO GLOBAL CONSUMER SECTOR VICE PRESIDENT) Impression Primary Impression: Fall Qualified Codes: W19.XXXA - Unspecified fall, initial encounter Additional Impressions: Laceration of lip Qualified Codes: S01.511A - Laceration without foreign body of lip, initial encounter Skin tear of left upper extremity Traumatic ecchymosis of face Qualified Codes: S00.83XA - Contusion of other part of head, initial encounter Urinary tract infection Disposition: 03 XFER SNF Condition: Stable Departure-Patient Inst. Decision time for Depature: 18:20 (MARY KAY MONTERO APRN) Referrals: ZORA GUERRERO MD (PCP/Family) Primary Care Physician Patient Instructions: Preventing Falls in the Older Adult, Urinary Tract Infection, Adult (DC) Add. Discharge Instructions: 1. If she does not already, she should have a bed alarm placed on her bed to help prevent additional falls. She does have a urinary tract infection. She will need Ceftin 250 mg tablets to be filled tomorrow and she will take one tablet twice daily for 5 days. The stitches to the left side of the left need to be removed in 5-6 days. All discharge instructions reviewed with patient and/ or family. Voiced understanding. Scripts Cefuroxime Axetil (Cefuroxime) 250 Mg Tablet 250 MG PO BID, #10 TAB Prov: MARY KAY MONTERO APRN 04/06/18 Images Head/Face 1 - Laceration (MARY KAY MONTERO APRN) EUGENE BARDALES Apr 06, 2018 17:04 MARY KAY MONTERO APRN Apr 06, 2018 18:23
[2018-04-06 17:19] LABS: ALANINE AMINOTRANSFERASE 16 U/L (0-55); ALKALINE PHOSPHATASE 97 U/L (40-136); BILIRUBIN,TOTAL 0.4 MG/DL (0.1-1.0); BUN/CREATININE RATIO 37; CARBON DIOXIDE 22 MMOL/L (21-32); CHLORIDE 109 MMOL/L (98-107); CREATININE SERUM 0.76 MG/DL (0.60-1.30); GFR ESTIMATED > 60; GLUCOSE 117 MG/DL (70-105); POTASSIUM 4.1 MMOL/L (3.6-5.0); SODIUM 142 MMOL/L (135-145); TOTAL PROTEIN 6.9 GM/DL (6.4-8.2)
[2018-04-06] MEDS ORDERED: LIDOCAINE 1% INJ 20 ML 20 ML VIAL INJ ONE (17:45)
[2018-04-06 18:08] LABS: BILIRUBIN,URINE NEGATIVE (NEGATIVE); CLARITY,URINE SLIGHTLY CLOUDY; COLOR,URINE YELLOW; GLUCOSE, URINE (UA) NEGATIVE (NEGATIVE); KETONES,URINE 2+ (NEGATIVE); LEUKOCYTE ESTERASE ,URINE 3+ (NEGATIVE); NITRITE,URINE NEGATIVE (NEGATIVE); PH,URINE 6.5 (5-9); PROTEIN,URINE 1+ (NEGATIVE); UROBILINOGEN,URINE NORMAL (NORMAL)
--- NOTE | 2018-04-06 18:14 | Diagnostic Imaging Report ---
INDICATION: Multiple falls, bruising. COMPARISON: 07/26/2017. FINDINGS: Some biapical parenchymal scarring chronic. 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 No chest wall fracture deformity, pneumothorax or hemothorax and there is no free air beneath the diaphragms. IMPRESSION: Stable chronic findings. Dictated by: Dictated on workstation # [id number]
[2018-04-06 18:15] LABS: BACTERIA,URINE NEGATIVE /HPF
[2018-04-06] MEDS ORDERED: CEFU250T80 PO (18:21)
--- NOTE | 2018-04-06 18:27 | Diagnostic Imaging Report ---
INDICATION: Has had multiple falls with elbow pain. FINDINGS: There is a pathological displacement and elevation of the anterior fat pad with abnormal lucency involving the lateral margin of the radial neck. Constellation of findings suspicious for fracture to that structure. No appreciable articular offset. IMPRESSION: Displaced fat pad suspect for joint effusion and intracapsular fracture. Suspected fractures I believe visualized at the level of the radial neck. No other potential site of bony injury revealed at this exam. Dictated by: Dictated on workstation # [id number]
[2018-04-06] MEDS ORDERED: cefTRIAXone 1,000 MG/2.86 ml vial (IM ONLY) IM SCH (18:30)
--- NOTE | 2018-04-06 18:35 | Diagnostic Imaging Report ---
PROCEDURE: CT head, face, and cervical spine without contrast. TECHNIQUE: Multiple contiguous axial images were obtained through the head, neck, and facial bones without the use of intravenous contrast. Sagittal and coronal reformations through the cervical spine and facial bones were also performed. INDICATION: Trauma, fall. COMPARISON: Comparison is made with the prior study from April 30, 2017. FINDINGS: Advanced age-appropriate global volume loss is demonstrated. There are chronic microvascular changes present within the white matter which are not significantly changed from the prior examination. There is no territorial infarct demonstrated. There are no findings of acute intracranial hemorrhage. There is no abnormal extra-axial collection. There is no intracranial mass effect or shift. There is no hydrocephalus. The basilar cisterns appear patent. Mastoid air cells appear clear. No calvarial fracture is evident. CT of the face demonstrates some soft tissue swelling about the left orbit but no evidence of an orbital fracture. The intraorbital contents appear unremarkable. There appears to be chronic deviation of the nose to the left, unchanged from the prior exam. There is no acute nasal bone fracture. There is no fracture of the nasal process of the maxilla. No maxillary fracture evident. The zygomatic arches appear intact. There is no fracture of the pterygoids. There is spurring and degenerative features present at the right temporomandibular joint. There is no TMJ dislocation or findings of an acute mandibular fracture. There is no air-fluid level present within the paranasal sinuses. Cervical spine demonstrates a mild cervicothoracic levoscoliosis. Craniocervical junction alignment appears appropriate. There is a normal relationship of the lateral masses of C1 and C2. The facets are normally aligned. There is no abnormal facet joint or disc space widening. The vertebral body heights appear maintained. There is no acute cervical spine fracture evident. There is advanced degenerative endplate changes present at C4-C5, C5-C6, and C6-C7. Lung apices demonstrate no acute process. There appear to be features of centrilobular emphysema. The soft tissues of the neck demonstrate carotid calcifications but no acute process. IMPRESSION: 1. No CT evidence of an acute intracranial abnormality. Advanced age-appropriate global volume loss present with unchanged background microvascular changes within the white matter. 2. Left periorbital soft tissue swelling without evidence of an acute facial fracture or fluid level within the sinuses. 3. Cervical degenerative disc disease and facet arthropathy without acute cervical spine fracture or traumatic malalignment. No high-grade cervical central canal stenosis evident. 4. Atherosclerosis. Dictated by: Dictated on workstation # [id number]
[2018-04-06] MEDS ORDERED: cefTRIAXone 1 GM/10 ML for IV (ROCEPHIN) ONE (19:22)
[2018-04-06] MEDS ORDERED: NS (IVPB) 50 ML ONE (19:24)
[2018-04-06 20:30] VITALS: BP 163/89
== END 2018-04-06 20:30 ==
LOC: EDUNIT# 16:38 → ER 16:39
DX: S51.812A Laceration without foreign body of left forearm, initial encounter (principal); S01.511A Laceration without foreign body of lip, initial encounter; S00.83XA Contusion of other part of head, initial encounter; N39.0 Urinary tract infection, site not specified; F03.90 Unspecified dementia, unspecified severity, without behavioral disturbance, psychotic disturbance, mood disturbance, and anxiety; E03.9 Hypothyroidism, unspecified; R40.2142 Coma scale, eyes open, spontaneous, at arrival to emergency department; R40.2252 Coma scale, best verbal response, oriented, at arrival to emergency department; R40.2362 Coma scale, best motor response, obeys commands, at arrival to emergency department; K21.9 Gastro-esophageal reflux disease without esophagitis; Z79.51 Long term (current) use of inhaled steroids; Z82.49 Family history of ischemic heart disease and other diseases of the circulatory system; Z87.19 Personal history of other diseases of the digestive system; Z91.81 History of falling; Z90.710 Acquired absence of both cervix and uterus; W19.XXXA Unspecified fall, initial encounter
CPT/HCPCS: 12011; 36415; 51701; 51702; 64450; 70450; 70486; 71045; 72125; 73080; 80053; 81000; 85025; 87088; 93005

== ENCOUNTER 2018-07-21 13:39 | Emergency (ER) | payer MEDICARE, MEDICAID ==
[~2018-07-21] VITALS: Ht 162.6 cm; Wt 54.4 kg
[~2018-07-21 13:39] MED LIST changes: +CEFU250T80 PO
--- NOTE | 2018-07-21 13:54 | ED Lower Extremity ---
General Chief Complaint: Trauma-Non Activation Stated Complaint: R HIP FX Source: patient Exam Limitations: no limitations History of Present Illness Date Seen by Provider: Jul 21, 2018 Time Seen by Provider: 13:53 Initial Comments To ER with reports of suspected right hip fracture. She arrives per EMS from via [facility] with reports of a fall and subsequent right hip pain. She denies hitting her head. Onset: just prior to arrival Severity: moderate Pain/Injury Location: right hip Method of Injury: fell Modifying Factors: Worse With Movement Allergies and Home Medications Allergies Coded Allergies: No Known Drug Allergies (Unverified , 10/13/11) Home Medications Acetaminophen 500 Mg Tablet, 500 MG PO TID, (Reported) NOT TO EXCEED 3GM/24 HOURS Albuterol Sulfate 2.5 Mg/0.5 Ml Vial.neb, 2.5 MG IH Q4H PRN for SHORTNESS OF BREATH, (Reported) Amoxicillin/Potassium Clav 1 Each Tablet, 1 EACH PO BID Prescribed by: DEVON CASTAÑEDA on 07/29/1752 Cefuroxime Axetil 250 Mg Tablet, 250 MG PO BID Prescribed by: MARY KAY SMITH on 04/06/18 1821 Docusate Sodium 100 Mg Capsule, 100 MG PO BID, (Reported) Donepezil HCl 10 Mg Tablet, 10 MG PO DAILY, (Reported) Famotidine 20 Mg Tablet, 20 MG PO HS, (Reported) Hydrocodone/Acetaminophen 1 Each Tablet, 1 EACH PO Q6H PRN for PAIN-MODERATE Prescribed by: MARY KAY SMITH on 07/21/18 1535 L.acidoph & Paracasei,B.lactis 1 Each Capsule, 1 EACH PO TIDWM Prescribed by: DEVON CASTAÑEDA on 07/29/1752 Levothyroxine Sodium 88 Mcg Tablet, 88 MCG PO 0900, (Reported) Menthol/Lanolin/Calamine/Znox 71 Gm Oint, TP PRN PRN for REDNESS TO COCCYX, ( Reported) Multivitamin with Folic Acid 400 Mcg Tablet, 400 MCG PO DAILY, (Reported) Patient Home Medication List Home Medication List Reviewed: Yes Review of Systems Constitutional: see HPI EENTM: see HPI Respiratory: no symptoms reported Cardiovascular: no symptoms reported Genitourinary: no symptoms reported Musculoskeletal: see HPI Skin: no symptoms reported Psychiatric/Neurological: No Symptoms Reported Past Qeneqku-Dqbyxh-Iwtdsm Hx Patient Social History 2nd Hand Smoke Exposure: No Recent Hopitalizations: No Immunizations Up To Date Tetanus Booster (TDap): Unknown Date of Pneumonia Vaccine: May 08, 2011 Date of Influenza Vaccine: Aug 05, 2017 Seasonal Allergies Seasonal Allergies: No Past Medical History Surgeries: Yes (HIP) Abdominal, Hysterectomy, Joint Replacement, Orthopedic Respiratory: No Cardiac: No Neurological: Yes Dementia Reproductive Disorders: No Genitourinary: No Gastrointestinal: Yes Gastroesophageal Reflux, Chronic Constipation, Ulcer Musculoskeletal: Yes (November 2014 left clavicle fracture) Fractures Endocrine: Yes Hypothyroidsim HEENT: No Cancer: No Psychosocial: Yes Anxiety Integumentary: No Blood Disorders: No Adverse Reaction/Blood Tranf: No Family Medical History Hypertension 19 FATHER Myocardial infarction 19 FATHER No Pertinent Family Hx, Hypertension Physical Exam Vital Signs Vital Signs - First Documented 07/21/18 13:58 Temp 97.9 Pulse 86 Resp 20 B/P (MAP) 142/84 (103) Pulse Ox 96 O2 Delivery Room Air Capillary Refill : Height, Weight, BMI Height: 5'3.00" Weight: 119lbs. 0.8oz. [id number]; 21.4 BMI Method:Actual General Appearance: WD/WN, no apparent distress HEENT: PERRL/EOMI, normal ENT inspection Neck: non-tender, full range of motion Respiratory: no respiratory distress, no accessory muscle use, decreased breath sounds (diminished throughout) Hips: right hip pain, right hip soft tissue tenderness Legs: bilateral leg non-tender, bilateral leg normal inspection, bilateral leg normal range of motion Knees: bilateral knee non-tender, bilateral knee normal inspection, bilateral knee normal range of motion Ankles: bilateral ankle non-tender, bilateral ankle normal inspection, bilateral ankle normal range of motion Feet: bilateral foot non-tender, bilateral foot normal inspection, bilateral foot normal range of motion Neurologic/Psychiatric: alert, normal mood/affect, oriented x 3 Skin: normal color, warm/dry Procedures/Interventions Suture Size: 5-0 Progress/Results/Core Measures Results/Orders Lab Results Laboratory Tests Test 07/21/18 13:42 07/21/18 15:30 Range/Units White Blood Count 6.7 4.3-11.0 10^3/uL Red Blood Count 4.12 L 4.35-5.85 10^6/uL Hemoglobin 13.2 11.5-16.0 G/DL Hematocrit 40 35-52 % Mean Corpuscular Volume 98 80-99 FL Mean Corpuscular Hemoglobin 32 25-34 PG Mean Corpuscular Hemoglobin Concent 33 32-36 G/DL Red Cell Distribution Width 15.3 H 10.0-14.5 % Platelet Count 310 130-400 10^3/uL Mean Platelet Volume 9.1 7.4-10.4 FL Neutrophils (%) (Auto) 61 42-75 % Lymphocytes (%) (Auto) 22 12-44 % Monocytes (%) (Auto) 14 H 0-12 % Eosinophils (%) (Auto) 2 0-10 % Basophils (%) (Auto) 1 0-10 % Neutrophils # (Auto) 4.1 1.8-7.8 X 10^3 Lymphocytes # (Auto) 1.5 1.0-4.0 X 10^3 Monocytes # (Auto) 0.9 0.0-1.0 X 10^3 Eosinophils # (Auto) 0.1 0.0-0.3 10^3/uL Basophils # (Auto) 0.0 0.0-0.1 10^3/uL Prothrombin Time 13.5 12.2-14.7 SEC INR Comment 1.0 0.8-1.4 Activated Partial Thromboplast Time 24 24-35 SEC Sodium Level 143 135-145 MMOL/L Potassium Level 4.4 3.6-5.0 MMOL/L Chloride Level 105 98-107 MMOL/L Carbon Dioxide Level 27 21-32 MMOL/L Anion Gap 11 5-14 MMOL/L Blood Urea Nitrogen 21 H 7-18 MG/DL Creatinine 0.77 0.60-1.30 MG/DL Estimat Glomerular Filtration Rate > 60 BUN/Creatinine Ratio 27 Glucose Level 141 H 70-105 MG/DL Calcium Level 9.2 8.5-10.1 MG/DL Corrected Calcium 9.4 8.5-10.1 MG/DL Total Bilirubin 0.2 0.1-1.0 MG/DL Aspartate Amino Transf (AST/SGOT) 19 5-34 U/L Alanine Aminotransferase (ALT/SGPT) 14 0-55 U/L Alkaline Phosphatase 141 H 40-136 U/L Total Protein 6.9 6.4-8.2 GM/DL Albumin 3.8 3.2-4.5 GM/DL Urine Color YELLOW Urine Clarity CLEAR Urine pH 7 5-9 Urine Specific [place] 1.010 L 1.016-1.022 Urine Protein 1+ H NEGATIVE Urine Glucose (UA) NEGATIVE NEGATIVE Urine Ketones NEGATIVE NEGATIVE Urine Nitrite NEGATIVE NEGATIVE Urine Bilirubin NEGATIVE NEGATIVE Urine Urobilinogen NORMAL NORMAL MG/DL Urine Leukocyte Esterase NEGATIVE NEGATIVE Urine RBC (Auto) NEGATIVE NEGATIVE Urine RBC NONE /HPF Urine WBC NONE /HPF Urine Crystals NONE /LPF Urine Bacteria NEGATIVE /HPF Urine Casts NONE /LPF Urine Mucus NEGATIVE /LPF Urine Culture Indicated NO My Orders Orders - MARY KAY SMITH APRN Pelvis With Right Hip 2-3views (07/21/18 13:46) Chest 1 View, Ap/Pa Only (07/21/18 13:46) Ekg Tracing (07/21/18 13:46) Cbc With Automated Diff (07/21/18 13:46) Comprehensive Metabolic Panel (07/21/18 13:46) Protime With Inr (07/21/18 13:46) Partial Thromboplastin Time (07/21/18 13:46) Ua Culture If Indicated (07/21/18 13:46) Harper Cath (07/21/18 13:46) Femur, Left, 2 Views (07/21/18 13:52) Hydrocodone/Apap 5/325 Tablet (Lortab 5 (07/21/18 15:45) Medications Given in ED Current Medications Medications Dose Ordered Sig/Leticia Route Start Time Stop Time Status Last Admin Dose Admin Acetaminophen/ Hydrocodone Bitart 1 tab ONCE ONCE PO 07/21/18 15:45 07/21/18 15:46 07/21/18 15:44 1 TAB Vital Signs/I&O 07/21/18 13:58 Temp 97.9 Pulse 86 Resp 20 B/P (MAP) 142/84 (103) Pulse Ox 96 O2 Delivery Room Air Diagnostic Imaging Diagonstic Imaging: Xray Comments NAME: CLAYJESSE Gunter [facility] REC#: [id number] PT STATUS: REG ER : 1930 PHYSICIAN: MARY KAY SMITH APRN ADMIT DATE: 07/21/18/ER Draft Date of Exam:07/21/18 PELVIS WITH RIGHT HIP 2-3VIEWS INDICATION: Fall and pain. TIME OF EXAM: 2:34 p.m. FINDINGS: An AP view of pelvis and two views of the right hip were obtained. 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 Generalized demineralization of the pelvis is noted. The rami appear to be intact. There is a focal region of some slight cortical interruption involving the proximal femur just distal to the greater trochanter consistent with a fracture line. Age of this is indeterminate. There is no displacement or angulation. Femoroacetabular alignment is maintained without dislocation. IMPRESSION: There is an area of cortical interruption involving the proximal right femur, as described. This most likely represents a fracture, age indeterminate. There is no displacement or angulation. Dictated on workstation # [id number] Dict: 07/21/18 1434 Trans: 07/21/18 1447 [id number] Interpreted by: JANET STANLEY MD Electronically signed by: Departure Communication (Admissions) [id number] discussed the questionable periprosthetic right hip fracture with Dr. Mo computer systems consultant for orthopedics. Recommends walker and weightbearing as tolerated. I will prescribe her hydrocodone for pain control. I discussed the diagnosis and treatment plan with the patient's power of learning and development director/daughter BRYANT via telephone. She is appreciative of the phone call and understanding of the plan. Impression Primary Impression: Closed right hip fracture Qualified Codes: S72.001A - Fracture of unspecified part of neck of right femur, initial encounter for closed fracture Disposition: 01 HOME, SELF-CARE Condition: Stable Departure-Patient Inst. Decision time for Depature: 15:34 Referrals: ZORA GUERRERO MD (PCP/Family) Primary Care Physician Patient Instructions: Hip Fracture Add. Discharge Instructions: 1. Use a walker at all times, weightbearing as tolerated. Return to ER for any concerns, pain medication as directed. Scripts Hydrocodone/Acetaminophen ([place] 5-325 Tablet) 1 Each Tablet 1 EACH PO Q6H PRN for PAIN-MODERATE MDD 10, #20 TAB Prov: MARY KAY SMITH APRN 07/21/18 MARY KAY SMITH APRN Jul 21, 2018 13:54
[2018-07-21 13:59] LABS: BASOPHILS % (AUTO) 1 % (0-10); EOSINOPHILS # (AUTO) 0.1 10^3/uL (0.0-0.3); EOSINOPHILS % (AUTO) 2 % (0-10); HEMATOCRIT 40 % (35-52); HEMOGLOBIN 13.2 G/DL (11.5-16.0); LYMPHOCYTES # (AUTO) 1.5 X 10^3 (1.0-4.0); LYMPHOCYTES % (AUTO) 22 % (12-44); MEAN CORPUSCULAR HEMOGLOBIN 32 PG (25-34); MEAN CORPUSCULAR HGB CONC 33 G/DL (32-36); MEAN CORPUSCULAR VOLUME 98 FL (80-99); MEAN PLATELET VOLUME 9.1 FL (7.4-10.4); MONOCYTES # (AUTO) 0.9 X 10^3 (0.0-1.0); MONOCYTES % (AUTO) 14 % (0-12); NEUTROPHILS # (AUTO) 4.1 X 10^3 (1.8-7.8); NEUTROPHILS % (AUTO) 61 % (42-75); PLATELET COUNT 310 10^3/uL (130-400); RED BLOOD COUNT 4.12 10^6/uL (4.35-5.85); RED CELL DISTRIBUTION WIDTH 15.3 % (10.0-14.5); WHITE BLOOD COUNT 6.7 10^3/uL (4.3-11.0)
[2018-07-21 14:10] LABS: PROTHROMBIN TIME PATIENT 13.5 SEC (12.2-14.7)
[2018-07-21 14:16] LABS: ALANINE AMINOTRANSFERASE 14 U/L (0-55); ALBUMIN 3.8 GM/DL (3.2-4.5); ALKALINE PHOSPHATASE 141 U/L (40-136); BILIRUBIN,TOTAL 0.2 MG/DL (0.1-1.0); BUN/CREATININE RATIO 27; CALCIUM 9.2 MG/DL (8.5-10.1); CARBON DIOXIDE 27 MMOL/L (21-32); CHLORIDE 105 MMOL/L (98-107); CREATININE SERUM 0.77 MG/DL (0.60-1.30); GFR ESTIMATED > 60; GLUCOSE 141 MG/DL (70-105); POTASSIUM 4.4 MMOL/L (3.6-5.0); SODIUM 143 MMOL/L (135-145); TOTAL PROTEIN 6.9 GM/DL (6.4-8.2)
--- NOTE | 2018-07-21 14:34 | Diagnostic Imaging Report ---
INDICATION: Fall from chair. TECHNIQUE: A frontal chest was obtained at 2:32 PM. FINDINGS: The heart and mediastinal silhouette are normal. There is hyperinflation, compatible with COPD, with chronic appearing increased interstitial markings. There is a questionable nodular density in the right perihilar region which was not seen on the previous study of 04/06/2018. IMPRESSION: COPD changes. Questionable nodular density versus infiltrate in the right perihilar region for which followup is recommended. No pneumothorax or pleural fluid. Dictated by: Dictated on workstation # [id number]
--- NOTE | 2018-07-21 14:47 | Diagnostic Imaging Report ---
INDICATION: Fall and pain. TIME OF EXAM: 2:34 p.m. FINDINGS: An AP view of pelvis and two views of the right hip were obtained. 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 Generalized demineralization of the pelvis is noted. The rami appear to be intact. There is a focal region of some slight cortical interruption involving the proximal femur just distal to the greater trochanter consistent with a fracture line. Age of this is indeterminate. There is no displacement or angulation. Femoroacetabular alignment is maintained without dislocation. IMPRESSION: There is an area of cortical interruption involving the proximal right femur, as described. This most likely represents a fracture, age indeterminate. There is no displacement or angulation. Dictated by: Dictated on workstation # [id number]
--- NOTE | 2018-07-21 14:49 | Diagnostic Imaging Report ---
INDICATION: Bruising in left thigh. TIME OF EXAMINATION: 02:39 p.m. FINDINGS: Multiple views of left femur demonstrate postoperative changes of left hip arthroplasty. Prosthetic elements appear to be in good position. No fracture loosening is seen. Remainder of the left femur is intact. There is normal alignment of the hip and knee. IMPRESSION: Postop changes. No acute abnormality is detected. Dictated by: Dictated on workstation # [id number]
[2018-07-21 15:35] LABS: BILIRUBIN,URINE NEGATIVE (NEGATIVE); CLARITY,URINE CLEAR; COLOR,URINE YELLOW; GLUCOSE, URINE (UA) NEGATIVE (NEGATIVE); KETONES,URINE NEGATIVE (NEGATIVE); LEUKOCYTE ESTERASE ,URINE NEGATIVE (NEGATIVE); NITRITE,URINE NEGATIVE (NEGATIVE); PH,URINE 7 (5-9); PROTEIN,URINE 1+ (NEGATIVE); UROBILINOGEN,URINE NORMAL (NORMAL)
[2018-07-21] MEDS ORDERED: HYDR-4226 PO (15:35)
[2018-07-21 15:42] LABS: BACTERIA,URINE NEGATIVE /HPF
[2018-07-21] MEDS ORDERED: HYDROcodone/APAP 5 MG/325 MG (LORTAB) TAB PO ONE (15:45)
[2018-07-21 16:37] VITALS: BP 140/60
== END 2018-07-21 16:37 | disposition home or self-care (01) ==
LOC: EDUNIT# 13:39 → ER 13:40
DX: S72.001A Fracture of unspecified part of neck of right femur, initial encounter for closed fracture (principal); F03.90 Unspecified dementia, unspecified severity, without behavioral disturbance, psychotic disturbance, mood disturbance, and anxiety; K21.9 Gastro-esophageal reflux disease without esophagitis; E03.9 Hypothyroidism, unspecified; F41.9 Anxiety disorder, unspecified; Z82.49 Family history of ischemic heart disease and other diseases of the circulatory system; Z87.19 Personal history of other diseases of the digestive system; Z79.51 Long term (current) use of inhaled steroids; Z90.710 Acquired absence of both cervix and uterus; W19.XXXA Unspecified fall, initial encounter
CPT/HCPCS: 36415; 51702; 71045; 73552; 80053; 81000; 85025; 85610; 85730; 93005

== ENCOUNTER 2018-08-24 06:44 | Emergency (ER) | payer MEDICARE, MEDICAID ==
[~2018-08-24] VITALS: Ht 162.6 cm; Wt 54.5 kg
[~2018-08-24 06:44] MED LIST changes: +HYDR-4226 PO
--- OUTSIDE RECORDS SUMMARY | 2018-08-24 06:53 | XMS REPORT | Continuity of Care Document ---
Author Author [facility] Organization [facility] Address Unknown Phone Unavailable Allergies Active Description Code Type Severity Reaction Onset Reported/Identified Relationship to Patient Clinical Status Yes No Known Drug Allergies [id number] Drug Allergy Unknown N/A 10/13/2011 Medications There [...] EILEEN TOMPKINS, CLINTON S Ot 038.9 10/05/2014 EIELEN TOMPKINS, CLINTON S Ot 244.9 10/05/2014 EILEEN [...] TOMPKINS, CLINTON S Ot 244.9 10/15/2014 EILEEN TOPMKINS, CLINTON S Ot 250.00 10/15/2014 EILEEN TOMPKINS, [...] TOMPKINS, CLINTON S Ot 250.00 10/17/2014 EILEEN OTMPKINS, CLINTON S Ot 401.9 10/17/2014 EILEEN TOMPKINS, CLINTON S Ot 532.50 10/17/2014 EILEEN TOMPKINS, CLINTON S Ot 599.0 10/17/2014 EILEEN TOMPKINS, CLINTON S Ot 799.4 10/17/2014 EILEEN TOMPKINS, CLINTON S Ot 995.91 10/17/2014 EILEEN TOMPKINS, CLINTON S Ot V15.82 10/17/2014 EILEEN TOMPKINS, CLINTON S Ot V58.67 10/18/2014 EILEEN TOMPKINS, CLINTON Jennings Ot 038.9 10/18/2014 ELIEEN TOMPKINS, CLINTON Jennings Ot 244.9 10/18/2014 EILEEN [...] INVOLVING URINARY SYSTEM 10/18/2014 EILEEN TOMPKINS, CLINTON Jeninngs Ot 799.4 CACHEXIA 10/18/2014 EILEEN TOMPKINS, CLINTON [...] 12/13/2014 ISIDRO TOMPKINS, SHNU E Ot 244.9 HYPOTHYROIDISM NOS 12/13/2014 ISIDRO TOMPKINS, SHUN E Ot 273.8 DIS PLAS PROTEIN MET NEC 12/13/2014 ISIDRO TOMPKINS SHUN E Ot 285.9 ANEMIA NOS 12/13/2014 ISIDRO TOMPKINS, SHUN E Ot 294.20 DEMENTIA, UNSPECIFIED, WITHOUT BEHAVIORA 12/13/2014 ISIDRO TOMPKINS, SHUN E Ot 493.90 ASTHMA, UNSPECIFIED 12/13/2014 ISIDRO TOMPKINS, SHUN E Ot 530.81 ESOPHAGEAL REFLUX 12/13/2014 ISIDRO TOMPKINS, SUHN E Ot 564.00 UNSPEC CONSTIPATION 12/13/2014 ISIDRO TOMPKINS, SHUN E Ot 707.09 PRESSURE ULCER, OTHER SITE 12/13/2014 ISIDRO TMOPKINS, SHUN E Ot 707.20 PRESSURE ULCER, UNSPECIFIED [...] ENCOUNTER 08/27/2016 JESUS ELLIOTT HINA Ot Y92.[address] [facility] [address] IN CUSTODIAL PLACE 08/27/2016 JESUS ELLIOTT HINA Ot Z66 [...] LEE DOI Ot Y92.[address] IN CUSTODIAL PLACE 08/27/2016 JESUS ELLIOTT HINA Ot Z66 [...] LEE DOI Ot Y92.[address] IN CUSTODIAL PLACE 08/28/2016 ILEANA LEE DOI Ot Z66 [...] LEE DOI Ot J43.9 EMPHYSEMA, UNSPECIFIED 08/31/2016 ILENAA LEE DOI Ot K21.9 GASTRO-ESOPHAGEAL REFLUX DISEASE [...] LEE DOI Ot Y92.[address] IN CUSTODIAL PLACE 08/31/2016 JESUS ELLIOTT HINA Ot Z66 [...] KAY SMITH APRN Ot Y92.002 BATHRM OF [facility] NON-INSTITUT RESDNCE SNGL 04/30/2017 MARY KAY [...] KAY SMITH APRN Ot Y92.002 BATHRM OF [facility] SNGL 09/17/2017 MARY KAY SMITH APRN Ot [...] KAY SMITH APRN Ot Y92.002 BATHRM OF [facility] NON-INSTITUT RESDNCE SNGL 11/06/2017 MARY KAY SMITH APRN Ot Z82.49 FAMILY HX OF ISCHEM HEART DIS AND OTH DI 11/06/2017 MARY KAY SMITH APRN Ot Z87.19 PERSONAL HISTORY OF OTHER DISEASES OF TH 11/06/2017 MARY KAY SMITH APRN Ot Z90.710 ACQUIRED ABSENCE OF BOTH CERVIX AND UTER 04/06/2018 NORMA LARSON DO Ot E03.9 HYPOTHYROIDISM, UNSPECIFIED 04/06/2018 NORMA LARSON DO Ot F03.90 UNSPECIFIED DEMENTIA WITHOUT BEHAVIORAL 04/06/2018 NORMA LARSON DO Ot I48.91 UNSPECIFIED ATRIAL FIBRILLATION 04/06/2018 NORMA LARSON DO Ot J44.9 CHRONIC OBSTRUCTIVE PULMONARY DISEASE, U 04/06/2018 NORMA LARSON DO Ot K21.9 GASTRO-ESOPHAGEAL REFLUX DISEASE WITHOUT 04/06/2018 NORMA LARSON DO Ot N39.0 URINARY TRACT INFECTION, SITE NOT SPECIF 04/06/2018 NORMA LARSON DO Ot R40.2142 COMA SCALE, EYES OPEN, SPONTANEOUS, EMR 04/06/2018 NORMA LARSON DO Ot R40.2252 COMA SCALE, BEST VERBAL RESPONSE, ORIENT 04/06/2018 NORMA LARSON DO Ot R40.2362 COMA SCALE, BEST MOTOR RESPONSE, OBEYS C 04/06/2018 NORMA LARSON DO Ot S00.83XA CONTUSION OF OTHER PART OF HEAD, INITIAL 04/06/2018 NORMA LARSON DO Ot S01.511A LACERATION WITHOUT FOREIGN BODY OF LIP, 04/06/2018 NORMA LARSON DO Ot S51.812A LACERATION WITHOUT FOREIGN BODY OF LEFT 04/06/2018 NORMA LARSON DO Ot S80.02XA CONTUSION OF LEFT KNEE, INITIAL ENCOUNTE 04/06/2018 NORMA LARSON DO Ot W19.XXXA UNSPECIFIED FALL, INITIAL ENCOUNTER 04/06/2018 NORMA LARSON DO Ot Y92.[address] [facility] [address] IN CUSTODIAL PLACE 04/06/2018 NORMA LARSON DO Ot Z79.51 SENIOR CARE (CURRENT) USE OF INHALED STERO 04/06/2018 NORMA LARSON DO Ot Z82.49 FAMILY HX OF ISCHEM HEART DIS AND OTH DI 04/06/2018 NROMA LARSON DO Ot Z87.01 PERSONAL HISTORY OF PNEUMONIA (RECURRENT 04/06/2018 NORMA LARSON DO Ot Z87.19 PERSONAL HISTORY OF OTHER DISEASES OF TH 04/06/2018 NORMA LARSON DO Ot Z87.891 PERSONAL HISTORY OF NICOTINE DEPENDENCE 04/06/2018 NORMA LARSON DO Ot Z90.710 ACQUIRED ABSENCE OF BOTH CERVIX AND UTER 04/06/2018 NORMA LARSON DO Ot Z91.81 HISTORY OF FALLING 04/06/2018 NORMA LARSON DO Ot Z96.643 PRESENCE OF ARTIFICIAL HIP JOINT, BILATE 04/06/2018 MARY KAY SMITH APRN Ot E03.9 HYPOTHYROIDISM, UNSPECIFIED 04/06/2018 MARY KAY SMITH APRN Ot F03.90 UNSPECIFIED DEMENTIA WITHOUT BEHAVIORAL 04/06/2018 MARY KAY SMITH APRN Ot K21.9 GASTRO-ESOPHAGEAL REFLUX DISEASE WITHOUT 04/06/2018 MARYK AY SMITH APRN Ot N39.0 URINARY TRACT INFECTION, SITE NOT SPECIF 04/06/2018 MARY KAY SMITH APRN Ot R40.2142 COMA SCALE, EYES OPEN, SPONTANEOUS, EMR 04/06/2018 MARY KAY SMITH APRN Ot R40.2252 COMA SCALE, BEST VERBAL RESPONSE, ORIENT 04/06/2018 MARY KAY SMITH APRN Ot R40.2362 COMA SCALE, BEST MOTOR RESPONSE, OBEYS C 04/06/2018 MARY KAY SMITH APRN Ot S00.83XA CONTUSION OF OTHER PART OF HEAD, INITIAL 04/06/2018 MARY KAY SMITH APRN Ot S01.511A LACERATION WITHOUT FOREIGN BODY OF LIP, 04/06/2018 MARY KAY SMITH APRN Ot S51.812A LACERATION WITHOUT FOREIGN BODY OF LEFT 04/06/2018 MARY KAY SMITH APRN Ot W19.XXXA UNSPECIFIED FALL, INITIAL ENCOUNTER 04/06/2018 MARY KAY SMITH APRN Ot Z79.51 MOSAIC FLOOR LAYER (CURRENT) USE OF INHALED STERO 04/06/2018 MARY KAY SMITH APRN Ot Z82.49 FAMILY HX OF ISCHEM HEART DIS AND OTH DI 04/06/2018 MARY KAY SMITH APRN Ot Z87.19 PERSONAL HISTORY OF OTHER DISEASES OF TH 04/06/2018 MARY KAY SMITH APRN Ot Z90.710 ACQUIRED ABSENCE OF BOTH CERVIX AND UTER 04/06/2018 MARY KAY SMITH APRN Ot Z91.81 HISTORY OF FALLING 04/07/2018 NEO ELLIOTT NORMA Jani Ot E03.9 HYPOTHYROIDISM, UNSPECIFIED 04/07/2018 NORMA LARSON DO Ot F03.90 UNSPECIFIED DEMENTIA WITHOUT BEHAVIORAL 04/07/2018 NORMA LARSON DO Ot I48.91 UNSPECIFIED ATRIAL FIBRILLATION 04/07/2018 NORMA LARSON DO Ot J44.9 CHRONIC OBSTRUCTIVE PULMONARY DISEASE, U 04/07/2018 NORMA LARSON DO Ot K21.9 GASTRO-ESOPHAGEAL REFLUX DISEASE WITHOUT 04/07/2018 NEO JOSEA Jani Ot S80.02XA CONTUSION OF LEFT KNEE, INITIAL ENCOUNTE 04/07/2018 NEO NORMA Ot W19.XXXA UNSPECIFIED FALL, INITIAL ENCOUNTER 04/07/2018 NEO ELLIOTT NORMA Jani Ot Y92.[address] IN CUSTODIAL PLACE 04/07/2018 NORMA LARSON DO Ot Z79.51 SENIOR CARE (CURRENT) USE OF INHALED STERO 04/07/2018 NORMA LARSON DO Ot Z82.49 FAMILY HX OF ISCHEM HEART DIS AND OTH DI 04/07/2018 NEO DO NORMA Jani Ot Z87.01 PERSONAL HISTORY OF PNEUMONIA (RECURRENT 04/07/2018 NORMA LARSON DO Ot Z87.19 PERSONAL HISTORY OF OTHER DISEASES OF TH 04/07/2018 NEO ELLIOTT NORMA Jani Ot Z87.891 PERSONAL HISTORY OF NICOTINE DEPENDENCE 04/07/2018 NORMA LARSON DO Ot Z90.710 ACQUIRED ABSENCE OF BOTH CERVIX AND UTER 04/07/2018 NORMA LARSON DO Ot Z91.81 HISTORY OF FALLING 04/07/2018 NORMA LARSON DO Ot Z96.643 PRESENCE OF ARTIFICIAL HIP JOINT, BILATE 04/09/2018 MARY KAY SMITH APRN Ot E03.9 HYPOTHYROIDISM, UNSPECIFIED 04/09/2018 MARY KAY SMITH APRN Ot F03.90 UNSPECIFIED DEMENTIA WITHOUT BEHAVIORAL 04/09/2018 MARY KAY SMITH APRN Ot K21.9 GASTRO-ESOPHAGEAL REFLUX DISEASE WITHOUT 04/09/2018 MARY KAY SMITH APRN Ot N39.0 URINARY TRACT INFECTION, SITE NOT SPECIF 04/09/2018 MARY KAY SMITH APRN Ot R40.2142 COMA SCALE, EYES OPEN, SPONTANEOUS, EMR 04/09/2018 MARY KAY SMITH APRN Ot R40.2252 COMA SCALE, BEST VERBAL RESPONSE, ORIENT 04/09/2018 MARY KAY SMITH APRN Ot R40.2362 COMA SCALE, BEST MOTOR RESPONSE, OBEYS C 04/09/2018 MARY KAY SMITH APRN Ot S00.83XA CONTUSION OF OTHER PART OF HEAD, INITIAL 04/09/2018 MARY KAY SMITH APRN Ot S01.511A LACERATION WITHOUT FOREIGN BODY OF LIP, 04/09/2018 MARY KAY SMITH APRN Ot S51.812A LACERATION WITHOUT FOREIGN BODY OF LEFT 04/09/2018 MARY KAY SMITH APRN Ot W19.XXXA UNSPECIFIED FALL, INITIAL ENCOUNTER 04/09/2018 MARY KAY SMITH APRN Ot Z79.51 SENIOR CARE (CURRENT) USE OF INHALED STERO 04/09/2018 MARY KAY SMITH APRN Ot Z82.49 FAMILY HX OF ISCHEM HEART DIS AND OTH DI 04/09/2018 MARY KAY SMITH APRN Ot Z87.19 PERSONAL HISTORY OF OTHER DISEASES OF TH 04/09/2018 MARY KAY SMITH APRN Ot Z90.710 ACQUIRED ABSENCE OF BOTH CERVIX AND UTER 04/09/2018 MARY KAY SMITH APRN Ot Z91.81 HISTORY OF FALLING 04/25/2018 NEO DO, NORMA K Ot E03.9 HYPOTHYROIDISM, UNSPECIFIED 04/25/2018 NEO DO, NORMA K Ot F03.90 UNSPECIFIED DEMENTIA WITHOUT BEHAVIORAL 04/25/2018 NEO DO, NORMA K Ot I48.91 UNSPECIFIED ATRIAL FIBRILLATION 04/25/2018 NEO DO NORMA K Ot J44.9 CHRONIC OBSTRUCTIVE PULMONARY DISEASE, U 04/25/2018 NEO DO NORMA K Ot K21.9 GASTRO-ESOPHAGEAL REFLUX DISEASE WITHOUT 04/25/2018 NEO DO, NORMA K Ot N39.0 URINARY TRACT INFECTION, SITE NOT SPECIF 04/25/2018 NEO DO NORMA K Ot R40.2142 COMA SCALE, EYES OPEN, SPONTANEOUS, EMR 04/25/2018 NEO ELLIOTTNORMA Ot R40.2252 COMA SCALE, BEST VERBAL RESPONSE, ORIENT 04/25/2018 NEO ELLIOTTNORMA Ot R40.2362 COMA SCALE, BEST MOTOR RESPONSE, OBEYS C 04/25/2018 NORMA LARSON DO Ot S00.83XA CONTUSION OF OTHER PART OF HEAD, INITIAL 04/25/2018 NORMA LARSON DO Ot S01.511A LACERATION WITHOUT FOREIGN BODY OF LIP, 04/25/2018 NORMA LARSON DO Ot S51.812A LACERATION WITHOUT FOREIGN BODY OF LEFT 04/25/2018 NORMA LARSON DO Ot S80.02XA CONTUSION OF LEFT KNEE, INITIAL ENCOUNTE 04/25/2018 NORMA LARSON DO Ot W19.XXXA UNSPECIFIED FALL, INITIAL ENCOUNTER 04/25/2018 NORMA LARSON DO Ot Y92.[address] IN CUSTODIAL PLACE 04/25/2018 NORMA LARSON DO Ot Z79.51 MOSAIC FLOOR LAYER (CURRENT) USE OF INHALED STERO 04/25/2018 NORMA LARSON DO Ot Z82.49 FAMILY HX OF ISCHEM HEART DIS AND OTH DI 04/25/2018 NORMA LARSON DO Ot Z87.01 PERSONAL HISTORY OF PNEUMONIA (RECURRENT 04/25/2018 NORMA LARSON DO Ot Z87.19 PERSONAL HISTORY OF OTHER DISEASES OF TH 04/25/2018 NORMA LARSON DO Ot Z87.891 PERSONAL HISTORY OF NICOTINE DEPENDENCE 04/25/2018 NORMA LARSON DO Ot Z90.710 ACQUIRED ABSENCE OF BOTH CERVIX AND UTER 04/25/2018 NORMA LARSON DO Ot Z91.81 HISTORY OF FALLING 04/25/2018 NORMA LARSON DO Ot Z96.643 PRESENCE OF ARTIFICIAL HIP JOINT, BILATE 05/19/2018 NORMA LARSON DO Ot E03.9 HYPOTHYROIDISM, UNSPECIFIED 05/19/2018 NORMA LARSON DO Ot F03.90 UNSPECIFIED DEMENTIA WITHOUT BEHAVIORAL 05/19/2018 NORMA LARSON DO Ot I48.91 UNSPECIFIED ATRIAL FIBRILLATION 05/19/2018 NORMA LARSON DO Ot J44.9 CHRONIC OBSTRUCTIVE PULMONARY DISEASE, U 05/19/2018 NORMA LARSON DO Ot K21.9 GASTRO-ESOPHAGEAL REFLUX DISEASE WITHOUT 05/19/2018 NORMA LARSON DO Ot N39.0 URINARY TRACT INFECTION, SITE NOT SPECIF 05/19/2018 NORMA LARSON DO Ot R40.2142 COMA SCALE, EYES OPEN, SPONTANEOUS, EMR 05/19/2018 NEO NORMA Ot R40.2252 COMA SCALE, BEST VERBAL RESPONSE, ORIENT 05/19/2018 NORMA LARSON DO Ot R40.2362 COMA SCALE, BEST MOTOR RESPONSE, OBEYS C 05/19/2018 NORMA LARSON DO Ot S00.83XA CONTUSION OF OTHER PART OF HEAD, INITIAL 05/19/2018 NORMA LARSON DO Ot S01.511A LACERATION WITHOUT FOREIGN BODY OF LIP, 05/19/2018 NORMA LARSON DO Ot S51.812A LACERATION WITHOUT FOREIGN BODY OF LEFT 05/19/2018 NORMA LARSON DO Ot S80.02XA CONTUSION OF LEFT KNEE, INITIAL ENCOUNTE 05/19/2018 NORMA LARSON DO Ot W19.XXXA UNSPECIFIED FALL, INITIAL ENCOUNTER 05/19/2018 NORMA LARSON DO Ot Y92.[address] IN CUSTODIAL PLACE 05/19/2018 ONRMA LARSON DO Ot Z79.51 MOSAIC FLOOR LAYER (CURRENT) USE OF INHALED STERO 05/19/2018 NORMA LARSON DO Ot Z82.49 FAMILY HX OF ISCHEM HEART DIS AND OTH DI 05/19/2018 NORMA LARSON DO, Ot Z87.01 PERSONAL HISTORY OF PNEUMONIA (RECURRENT 05/19/2018 NORMA LARSON DO Ot Z87.19 PERSONAL HISTORY OF OTHER DISEASES OF TH 05/19/2018 NORMA LARSON DO, Ot Z87.891 PERSONAL HISTORY OF NICOTINE DEPENDENCE 05/19/2018 NORMA LARSON DO Ot Z90.710 ACQUIRED ABSENCE OF BOTH CERVIX AND UTER 05/19/2018 NORMA LARSON DO Ot Z91.81 HISTORY OF FALLING 05/19/2018 NORMA LARSON DO Ot Z96.643 PRESENCE OF ARTIFICIAL HIP JOINT, BILATE 07/21/2018 CESAR TOMPKINS, ZORA R Ot R32 UNSPECIFIED URINARY INCONTINENCE 07/21/2018 CESAR TOMPKINS, ZORA R Ot R82.99 OTHER ABNORMAL FINDINGS IN URINE 07/21/2018 MARY KAY SMITH APRN Ot E03.9 HYPOTHYROIDISM, UNSPECIFIED 07/21/2018 MARY KAY SMITH APRN Ot F03.90 UNSPECIFIED DEMENTIA WITHOUT BEHAVIORAL 07/21/2018 MARY KAY SMITH APRN Ot F41.9 ANXIETY DISORDER, UNSPECIFIED 07/21/2018 MARY KAY SMITH APRN Ot K21.9 GASTRO-ESOPHAGEAL REFLUX DISEASE WITHOUT 07/21/2018 MARY KAY SMITH APRN Ot M25.551 PAIN IN RIGHT HIP 07/21/2018 MARY KAY SMITH APRN Ot S72.001A FRACTURE OF UNSP PART OF NECK OF RIGHT F 07/21/2018 MARY KAY SMITH APRN Ot W19.XXXA UNSPECIFIED FALL, INITIAL ENCOUNTER 07/21/2018 MARY KAY SMITH APRN Ot Z79.51 SENIOR CARE (CURRENT) USE OF INHALED STERO 07/21/2018 MARY KAY SMITH APRN Ot Z82.49 FAMILY HX OF ISCHEM HEART DIS AND OTH DI 07/21/2018 MARY KAY SMITH APRN Ot Z87.19 PERSONAL HISTORY OF OTHER DISEASES OF TH 07/21/2018 MARY KAY SMITH APRN Ot Z90.710 ACQUIRED ABSENCE OF BOTH CERVIX AND UTER 07/23/2018 MARY KAY SMITH APRN Ot E03.9 HYPOTHYROIDISM, UNSPECIFIED 07/23/2018 MARY KAY SMITH APRN Ot F03.90 UNSPECIFIED DEMENTIA WITHOUT BEHAVIORAL 07/23/2018 MARY KAY SMITH APRN Ot F41.9 ANXIETY DISORDER, UNSPECIFIED 07/23/2018 MARY KAY SMITH APRN Ot K21.9 GASTRO-ESOPHAGEAL REFLUX DISEASE WITHOUT 07/23/2018 MARY KAY SMITH APRN Ot M25.551 PAIN IN RIGHT HIP 07/23/2018 MARY KAY SMITH APRN Ot S72.001A FRACTURE OF UNSP PART OF NECK OF RIGHT F 07/23/2018 MARY KAY SMITH APRN Ot W19.XXXA UNSPECIFIED FALL, INITIAL ENCOUNTER 07/23/2018 MARY KAY SMITH APRN Ot Z79.51 MOSAIC FLOOR LAYER (CURRENT) USE OF INHALED STERO 07/23/2018 MARY KAY SMITH APRN Ot Z82.49 FAMILY HX OF ISCHEM HEART DIS AND OTH DI 07/23/2018 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 Ot Z87.19 PERSONAL HISTORY OF OTHER DISEASES OF 07/23/2018 MARY KAY SMITH APRN Ot Z90.710 ACQUIRED ABSENCE OF BOTH CERVIX AND UTER Procedures Code Description Performed By Performed On 81.52 PARTIAL HIP REPLACEMENT 10/15/2011 45.13 OTHER ENDOSCOPY OF SM INTEST 10/26/2011 45.23 COLONOSCOPY 10/26/2011 44.42 SUTURE DUODEN ULCER SITE 10/01/2014 79.74 CL REDUC DISLOC-HAND/FNG 11/26/2014 81.52 PARTIAL HIP REPLACEMENT 11/26/2014 [id number] DRAINAGE OF PELVIC CAVITY WITH DRAIN DEV [...] INFLUENZA A AND B ANTIGENS BY IA [facility] Blood manual differential performed detection - 08/23/16 [...] culture - 08/23/16 13:45 Bacterial urine culture [id number] NRG COLONY COUNT 10,000/ML - 100,000/ML NRG [...] NRG Blood erythrocyte morphology finding identification NORMAL [facility] Comprehensive metabolic panel - 08/24/16 05:24 Serum [...] or plasma urea nitrogen/creatinine mass ratio 23 [facility] Serum or plasma creatinine measurement with calculation of estimated glomerular filtration rate > [facility] Serum or plasma glucose measurement (mass/volume) 88 [...] RESULTS NEGATIVE FOR ANTIGEN AND TOXIN A/B [facility] Complete blood count (CBC) with automated white [...] Bacteria identification in isolate by anaerobe culture [id number] NR Gram stain microscopy - 08/27/16 10:15 GRAM STAIN RESULT MODERATE # GRAM NEGATIVE RODS NRG Bacteria identification in wound by culture - 08/27/16 10:15 Bacteria identification in wound by culture [id number] NR FREE TEXT EXTERNAL SENSITIVITY REPORTED 08/28/16 18:30 NRG QUANTITY OF GROWTH Scant Growth NRG Bacterial susceptibility panel - 08/27/16 10:15 Gentamicin [...] susceptibility test by minimum inhibitory concentration - NR Fungus culture - 08/27/16 10:15 FUNGUS REPORT NO FUNGUS GROWTH OBSERVED NRG Bacterial urine culture - 04/21/17 18:40 Bacterial urine culture [id number] NRG COLONY COUNT <10,000 NRG MRSA AGAR [...] in urine sediment by light microscopy MODERATE NR Bacterial susceptibility panel - 04/21/17 18:40 Oxacillin [...] 05/01/17 10:30 Blood monocytes/100 leukocytes 19 % [facility] Manual blood segmented neutrophils/100 leukocytes 77 % [facility] Manual blood lymphocytes/100 leukocytes 4 % [facility] Blood erythrocyte morphology finding identification NORMAL [facility] PT panel in platelet poor plasma by [...] NR Blood erythrocyte morphology finding identification NORMAL [facility] Bacterial blood culture - 07/26/17 19:40 Bacterial blood culture NG [facility] Influenza virus A and B antigen detection - 07/26/17 19:44 CALL POSITIVES (F1 HELP) SUKHDEV [facility] FLU RESULT POSITIVE FOR INFLUENZA B ANTIGEN, NEG FOR A ANTIGEN, BY IA [facility] Bacterial blood culture - 07/26/17 20:09 Bacterial blood culture NG [facility] Methicillin resistant Staphylococcus aureus (MRSA) screening culture - 22:25 Methicillin resistant Staphylococcus aureus (MRSA) screening culture NEG [facility] Complete blood count (CBC) with automated white [...] 104 mmol/L 98-107 Carbon dioxide 27 mmol/L 21-32 [...] - 07/29/17 05:35 Magnesium 1.7 mg/dL 1.8-2.4 Complete blood count (CBC) with automated white blood cell (WBC) differential - 04/06/18 16:52 Blood leukocytes automated count (number/volume) 10.2 10*3/uL 4.3-11.0 Blood erythrocytes automated count (number/volume) 3.78 10*6/uL 4.35-5.85 Venous blood hemoglobin measurement (mass/volume) 12.5 g/dL 11.5-16.0 Blood hematocrit (volume fraction) 37 % 35-52 Automated erythrocyte mean corpuscular volume 99 [foz_us] 80-99 Automated erythrocyte mean corpuscular hemoglobin (mass per erythrocyte) 33 pg 25-34 Automated erythrocyte mean corpuscular hemoglobin concentration measurement ( mass/volume) 34 g/dL 32-36 Automated erythrocyte distribution width ratio 14.1 % 10.0-14.5 Automated blood platelet count (count/volume) 282 10*3/uL 130-400 Automated blood platelet mean volume measurement 9.3 [foz_us] 7.4-10.4 Automated blood neutrophils/100 leukocytes 69 % 42-75 Automated blood lymphocytes/100 leukocytes 16 % 12-44 Blood monocytes/100 leukocytes 12 % 0-12 Automated blood eosinophils/100 leukocytes 3 % 0-10 Automated blood basophils/100 leukocytes 0 % 0-10 Blood neutrophils automated count (number/volume) 7.0 10*3 1.8-7.8 Blood lymphocytes automated count (number/volume) 1.6 10*3 1.0-4.0 Blood monocytes automated count (number/volume) 1.2 10*3 0.0-1.0 Automated eosinophil count 0.3 10*3/uL 0.0-0.3 Automated blood basophil count (count/volume) 0.0 10*3/uL 0.0-0.1 Comprehensive metabolic panel - 04/06/18 16:52 Serum or plasma sodium measurement (moles/volume) 142 mmol/L 135-145 Serum or plasma potassium measurement (moles/volume) 4.1 mmol/L 3.6-5.0 Serum or plasma chloride measurement (moles/volume) 109 mmol/L 98-107 Carbon dioxide 22 mmol/L 21-32 Serum or plasma anion gap determination (moles/volume) 11 mmol/L 5-14 Serum or plasma urea nitrogen measurement (mass/volume) 28 mg/dL 7-18 Serum or plasma creatinine measurement (mass/volume) 0.76 mg/dL 0.60-1.30 Serum or plasma urea nitrogen/creatinine mass ratio 37 NRG Serum or plasma creatinine measurement with calculation of estimated glomerular filtration rate > NRG Serum or plasma glucose measurement (mass/volume) 117 mg/dL 70-105 Serum or plasma calcium measurement (mass/volume) 9.0 mg/dL 8.5-10.1 Serum or plasma total bilirubin measurement (mass/volume) 0.4 mg/dL 0.1-1.0 Serum or plasma alkaline phosphatase measurement (enzymatic activity/volume) 97 U/L 40-136 Serum or plasma aspartate aminotransferase measurement (enzymatic activity/ volume) 21 U/L 5-34 Serum or plasma alanine aminotransferase measurement (enzymatic activity/volume ) 16 U/L 0-55 Serum or plasma protein measurement (mass/volume) 6.9 g/dL 6.4-8.2 Serum or plasma albumin measurement (mass/volume) 4.0 g/dL 3.2-4.5 CALCIUM CORRECTED 9.0 mg/dL 8.5-10.1 Complete urinalysis with reflex to culture - 04/06/18 18:02 Urine color determination YELLOW NRG Urine clarity determination SLIGHTLY CLOUDY NRG Urine pH measurement by test strip 6.5 5-9 Specific gravity of urine by test strip 1.015 1.016- 1.022 Urine protein assay by test strip, semi-quantitative 1+ NEGATIVE Urine glucose detection by automated test strip NEGATIVE NEGATIVE Erythrocytes detection in urine sediment by light microscopy NEGATIVE NEGATIVE Urine ketones detection by automated test strip 2+ NEGATIVE Urine nitrite detection by test strip NEGATIVE NEGATIVE Urine total bilirubin detection by test strip NEGATIVE NEGATIVE Urine urobilinogen measurement by automated test strip (mass/volume) NORMAL NORMAL Urine leukocyte esterase detection by dipstick 3+ NEGATIVE Automated urine sediment erythrocyte count by microscopy (number/high power field) NONE NRG Automated urine sediment leukocyte count by microscopy (number/high power field ) [HPF] NRG Bacteria detection in urine sediment by light microscopy NEGATIVE NRG Squamous epithelial cells detection in urine sediment by light microscopy 5-10 NRG Crystals detection in urine sediment by light microscopy NONE NRG Casts detection in urine sediment by light microscopy NONE NRG Mucus detection in urine sediment by light microscopy NEGATIVE NRG Complete urinalysis with reflex to culture YES NRG Bacterial urine culture - 04/06/18 18:02 Bacterial urine culture NG NRG Complete blood count (CBC) with automated white blood cell (WBC) differential - 07/21/18 13:42 Blood leukocytes automated count (number/volume) 6.7 10*3/uL 4.3-11.0 Blood erythrocytes automated count (number/volume) 4.12 10*6/uL 4.35-5.85 Venous blood hemoglobin measurement (mass/volume) 13.2 g/dL 11.5-16.0 Blood hematocrit (volume fraction) 40 % 35-52 Automated erythrocyte mean corpuscular volume 98 [foz_us] 80-99 Automated erythrocyte mean corpuscular hemoglobin (mass per erythrocyte) 32 pg 25-34 Automated erythrocyte mean corpuscular hemoglobin concentration measurement ( mass/volume) 33 g/dL 32-36 Automated erythrocyte distribution width ratio 15.3 % 10.0-14.5 Automated blood platelet count (count/volume) 310 10*3/uL 130-400 Automated blood platelet mean volume measurement 9.1 [foz_us] 7.4-10.4 Automated blood neutrophils/100 leukocytes 61 % 42-75 Automated blood lymphocytes/100 leukocytes 22 % 12-44 Blood monocytes/100 leukocytes 14 % 0-12 Automated blood eosinophils/100 leukocytes 2 % 0-10 Automated blood basophils/100 leukocytes 1 % 0-10 Blood neutrophils automated count (number/volume) 4.1 10*3 1.8-7.8 Blood lymphocytes automated count (number/volume) 1.5 10*3 1.0-4.0 Blood monocytes automated count (number/volume) 0.9 10*3 0.0-1.0 Automated eosinophil count 0.1 10*3/uL 0.0-0.3 Automated blood basophil count (count/volume) 0.0 10*3/uL 0.0-0.1 PT panel in platelet poor plasma by coagulation assay - 07/21/18 13:42 Prothrombin time (PT) in platelet poor plasma by coagulation assay 13.5 s 12.2-14.7 INR in platelet poor plasma or blood by coagulation assay 1.0 0.8-1.4 Activated partial thromboplastin time (aPTT) in platelet poor plasma bycoagulation assay - 07/21/18 13:42 Activated partial thromboplastin time (aPTT) in platelet poor plasma bycoagulation assay 24 s 24-35 Comprehensive metabolic panel - 07/21/18 13:42 Serum or plasma sodium measurement (moles/volume) 143 mmol/L 135-145 Serum or plasma potassium measurement (moles/volume) 4.4 mmol/L 3.6-5.0 Serum or plasma chloride measurement (moles/volume) 105 mmol/L 98-107 Carbon dioxide 27 mmol/L 21-32 Serum or plasma anion gap determination (moles/volume) 11 mmol/L 5-14 Serum or plasma urea nitrogen measurement (mass/volume) 21 mg/dL 7-18 Serum or plasma creatinine measurement (mass/volume) 0.77 mg/dL 0.60-1.30 Serum or plasma urea nitrogen/creatinine mass ratio 27 NRG Serum or plasma creatinine measurement with calculation of estimated glomerular filtration rate > NRG Serum or plasma glucose measurement (mass/volume) 141 mg/dL 70-105 Serum or plasma calcium measurement (mass/volume) 9.2 mg/dL 8.5-10.1 Serum or plasma total bilirubin measurement (mass/volume) 0.2 mg/dL 0.1-1.0 Serum or plasma alkaline phosphatase measurement (enzymatic activity/volume) 141 U/L 40-136 Serum or plasma aspartate aminotransferase measurement (enzymatic activity/ volume) 19 U/L 5-34 Serum or plasma alanine aminotransferase measurement (enzymatic activity/volume ) 14 U/L 0-55 Serum or plasma protein measurement (mass/volume) 6.9 g/dL 6.4-8.2 Serum or plasma albumin measurement (mass/volume) 3.8 g/dL 3.2-4.5 CALCIUM CORRECTED 9.4 mg/dL 8.5-10.1 Complete urinalysis with reflex to culture - 07/21/18 15:30 Urine color determination YELLOW NRG Urine clarity determination CLEAR NRG Urine pH measurement by test strip 7 5-9 Specific gravity of urine by test strip 1.010 1.016- 1.022 Urine protein assay by test strip, semi-quantitative 1+ NEGATIVE Urine glucose detection by automated test strip NEGATIVE NEGATIVE Erythrocytes detection in urine sediment by light microscopy NEGATIVE NEGATIVE Urine ketones detection by automated test strip NEGATIVE NEGATIVE Urine nitrite detection by test strip NEGATIVE NEGATIVE Urine total bilirubin detection by test strip NEGATIVE NEGATIVE Urine urobilinogen measurement by automated test strip (mass/volume) NORMAL NORMAL Urine leukocyte esterase detection by dipstick NEGATIVE NEGATIVE Automated urine sediment erythrocyte count by microscopy (number/high power field) NONE NRG Automated urine sediment leukocyte count by microscopy (number/high power field ) NONE NRG Bacteria detection in urine sediment by light microscopy NEGATIVE NRG Crystals detection in urine sediment by light microscopy NONE NRG Casts detection in urine sediment by light microscopy NONE NRG Mucus detection in urine sediment by light microscopy NEGATIVE NRG Complete urinalysis with reflex to culture NO NRG Encounters ACCT No. Visit Date/Time Discharge Status Pt. Type Provider Facility Loc./Unit Complaint [id number] 07/21/2018 13:40:00 07/21/2018 16:37:00 DIS Emergency MARY KAY SMITH APRN [facility] ER R HIP FX [id number] 04/06/2018 16:39:00 04/06/2018 20:30:00 DIS Emergency MARY KAY SMITH APRN [facility] ER FALL [id number] 04/05/2018 23:38:00 04/06/2018 02:38:00 DIS Emergency NEO ELLIOTT NORMA K [facility] ER FALL [id number] 07/26/2017 21:30:00 07/29/2017 14:08:00 DIS Inpatient MADDY TOMPKINS, DEVON Liu [facility] 4TH BILAT UPPER LOBE PNA [id number] 05/08/2017 09:11:00 05/08/2017 13:42:00 DIS Emergency HELEN SOARES MD [facility] ER FALL [id number] 05/01/2017 09:50:00 05/01/2017 13:00:00 DIS Emergency EUGENE BARDALES MD [facility] ER WHEEZING [id number] 04/30/2017 20:46:00 04/30/2017 21:56:00 DIS Emergency MARY KAY MSITH APRN [facility] ER FELL/HIT HEAD [id number] 04/21/2017 18:40:00 04/21/2017 23:59:59 CLS Outpatient CESAR TOMPKINS, ZORA Perkins [facility] CVS [id number] 08/28/2016 10:45:00 08/31/2016 14:00:00 DIS Inpatient LEE DO, HINA [facility] 4TH SWB [id number] 08/23/2016 15:25:00 08/28/2016 10:14:00 DIS Inpatient LEE DO, HINA [facility] 4TH SEPSIS,UTI,RESP DISTRESS, HYPOKALEMIA [id number] 12/01/2014 09:48:00 12/13/2014 16:55:00 DIS Inpatient ISIDRO TOMPKINS, SHUN Jarquin [facility] IRF L HIP FX [id number] 11/26/2014 10:23:00 12/01/2014 09:47:00 DIS Inpatient SHAY TOMPKINS, JARRELL Kaplan [facility] SURGICAL L HIP FX L CLAVICLE FX L THUMB DISLOCATION FALL [id number] 10/29/2014 11:06:00 10/29/2014 13:20:00 DIS Emergency ANGIE PRADO [facility] ER FALL RIGHT ARM/CHEEK PAIN [id number] 10/01/2014 16:02:00 10/18/2014 17:25:00 DIS Inpatient EILEEN TOMPKINS, CLINTON Jennings [facility] SURGICAL LEUKOCYTOSIS [id number] 10/02/2014 00:26:00 Document Registration [id number] 10/02/2014 00:26:00 Document Registration [id number] 12/20/2011 18:21:00 Document Registration [id number] 10/18/2011 11:10:00 Document Registration [id number] 10/13/2011 09:15:00 Document Registration [id number] 12/23/2017 09:50:03 12/23/2017 23:59:59 CLS Outpatient [id number] 11/26/2014 06:19:28 ACT Document Registration
[2018-08-24] MEDS ORDERED: RT-ALBUTEROL/IPRATROPIUM 3 ML (DUONEB) VIAL INH ONE (07:00)
[2018-08-24] MEDS ORDERED: TETANUS,DIPTH,PERTUSS P/F (BOOSTRIX) 0.5 ML VIAL IM ONE (07:00)
[2018-08-24 07:07] LABS: BASOPHILS % (AUTO) 0 % (0-10); EOSINOPHILS # (AUTO) 0.3 10^3/uL (0.0-0.3); EOSINOPHILS % (AUTO) 4 % (0-10); HEMATOCRIT 39 % (35-52); HEMOGLOBIN 12.8 G/DL (11.5-16.0); LYMPHOCYTES # (AUTO) 1.1 X 10^3 (1.0-4.0); LYMPHOCYTES % (AUTO) 14 % (12-44); MEAN CORPUSCULAR HEMOGLOBIN 33 PG (25-34); MEAN CORPUSCULAR HGB CONC 33 G/DL (32-36); MEAN CORPUSCULAR VOLUME 99 FL (80-99); MONOCYTES # (AUTO) 0.9 X 10^3 (0.0-1.0); MONOCYTES % (AUTO) 11 % (0-12); NEUTROPHILS # (AUTO) 5.8 X 10^3 (1.8-7.8); NEUTROPHILS % (AUTO) 72 % (42-75); PLATELET COUNT 278 10^3/uL (130-400); RED CELL DISTRIBUTION WIDTH 15.6 % (10.0-14.5); WHITE BLOOD COUNT 8.1 10^3/uL (4.3-11.0)
--- NOTE | 2018-08-24 07:22 | ED Fall/Injury ---
General Chief Complaint: Trauma-Non Activation Stated Complaint: FALL Nursing Triage Note: TO ED PER EMS FROM [facility] PER EMS AID HER THUD AND WENT TO TO ROOM TO FIND PATIENT ON FLOOR C/O R HIP PAIN HAS HAD PREVIOUS INJURY TO R HIP. ABRASION NOTED TO BACK OF HEAD. C COLLAR IN PLACE Source: patient, EMS, old records Exam Limitations: no limitations History of Present Illness Date Seen by Provider: Aug 24, 2018 Time Seen by Provider: 06:44 Initial Comments This 88-year-old woman presents to the emergency room after having a fall at [facility]. She complains of right hip pain. She also has an apparent laceration with bleeding on the posterior scalp. Bleeding stopped prior to arrival. Patient cannot give any history about the fall. She is alert and responsive to voice but talks minimally. Patient has a known right periprosthetic hip fracture from one month ago. She was seen in this ER and treated conservatively with weightbearing on a walker only. Patient has been primarily using a wheelchair [facility] but attempted to walk on her own this morning. Patient denies any pain until the right hip is palpated or rotated. She has bilateral prosthetic hips. Patient has notable dementia but can be conversational at baseline according to EMS report. Allergies and Home Medications Allergies Coded Allergies: No Known Drug Allergies (Unverified , 10/13/11) Home Medications Acetaminophen 500 Mg Tablet, 500 MG PO TID, (Reported) NOT TO EXCEED 3GM/24 HOURS Albuterol Sulfate 2.5 Mg/0.5 Ml Vial.neb, 2.5 MG IH Q4H PRN for SHORTNESS OF BREATH, (Reported) Amoxicillin/Potassium Clav 1 Each Tablet, 1 EACH PO BID Prescribed by: DEVON CASTAÑEDA on 07/29/17 0952 Cefuroxime Axetil 250 Mg Tablet, 250 MG PO BID Prescribed by: MARY KAY SIMTH on 04/06/18 1821 Docusate Sodium 100 Mg Capsule, 100 MG PO BID, (Reported) Donepezil HCl 10 Mg Tablet, 10 MG PO DAILY, (Reported) Famotidine 20 Mg Tablet, 20 MG PO HS, (Reported) Hydrocodone/Acetaminophen 1 Each Tablet, 1 EACH PO Q6H PRN for PAIN-MODERATE Prescribed by: MARY KAY SMITH on 07/21/18 1535 L.acidoph & Paracasei,B.lactis 1 Each Capsule, 1 EACH PO TIDWM Prescribed by: DEVON CASTAÑEDA on 07/29/17 0952 Levothyroxine Sodium 88 Mcg Tablet, 88 MCG PO 0900, (Reported) Menthol/Lanolin/Calamine/Znox 71 Gm Oint, TP PRN PRN for REDNESS TO COCCYX, ( Reported) Multivitamin with Folic Acid 400 Mcg Tablet, 400 MCG PO DAILY, (Reported) Patient Home Medication List Home Medication List Reviewed: Yes Review of Systems Review of Systems Constitutional: no symptoms reported Eyes: No Symptoms Reported Ears, Nose, Mouth, Throat: no symptoms reported Respiratory: no symptoms reported Cardiovascular: no symptoms reported Gastrointestinal: no symptoms reported Genitourinary: no symptoms reported Musculoskeletal: see HPI Skin: no symptoms reported Psychiatric/Neurological: See HPI Past Ixzkmza-Liulwr-Nyqdxd Hx Patient Social History Alcohol Use: Denies Use Recreational Drug Use: No 2nd Hand Smoke Exposure: No Recent Foreign Travel: No Contact w/Someone Who Travel: No Recent Infectious Disease Expo: No Recent Hopitalizations: No Immunizations Up To Date Tetanus Booster (TDap): Unknown Date of Pneumonia Vaccine: May 08, 2011 Date of Influenza Vaccine: Aug 05, 2017 Seasonal Allergies Seasonal Allergies: No Past Medical History Surgeries: Yes Abdominal, Hysterectomy, Joint Replacement, Orthopedic Respiratory: Yes (SEPSIS) Pneumonia, COPD, Emphysema Cardiac: Yes Atrial Fibrillation Neurological: Yes (? 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) Dementia Reproductive Disorders: No Genitourinary: No Gastrointestinal: Yes (HIATAL HERNIA AND DIVERTICULAR DISEASE NOTED ON EGD/ COLONOSCOPY) Gastroesophageal Reflux, Chronic Constipation, Diverticulosis, Hiatal Hernia, Ulcer Musculoskeletal: Yes Arthritis, Fractures Endocrine: Yes Hypothyroidsim HEENT: No Cancer: No Psychosocial: Yes Anxiety Integumentary: No Blood Disorders: No Adverse Reaction/Blood Tranf: No Family Medical History Hypertension 19 FATHER Myocardial infarction 19 FATHER No Pertinent Family Hx, Hypertension Physical Exam Vital Signs Vital Signs - First Documented 08/24/18 06:48 Temp 97.9 Pulse 95 Resp 18 B/P (MAP) 167/87 (113) Pulse Ox 96 O2 Delivery Nasal Cannula O2 Flow Rate 2.00 Capillary Refill : Less Than 3 Seconds Height, Weight, BMI Height: 5'4.00" Weight: 120lbs. 0.8oz. 54.312388kd; 21.4 BMI Method:Estimated Procedures/Interventions Suture Size: 5-0 Progress/Results/Core Measures Results/Orders Lab Results Laboratory Tests Test 08/24/18 06:53 08/24/18 09:30 Range/Units White Blood Count 8.1 4.3-11.0 10^3/uL Red Blood Count 3.93 L 4.35-5.85 10^6/uL Hemoglobin 12.8 11.5-16.0 G/DL Hematocrit 39 35-52 % Mean Corpuscular Volume 99 80-99 FL Mean Corpuscular Hemoglobin 33 25-34 PG Mean Corpuscular Hemoglobin Concent 33 32-36 G/DL Red Cell Distribution Width 15.6 H 10.0-14.5 % Platelet Count 278 130-400 10^3/uL Mean Platelet Volume 9.0 7.4-10.4 FL Neutrophils (%) (Auto) 72 42-75 % Lymphocytes (%) (Auto) 14 12-44 % Monocytes (%) (Auto) 11 0-12 % Eosinophils (%) (Auto) 4 0-10 % Basophils (%) (Auto) 0 0-10 % Neutrophils # (Auto) 5.8 1.8-7.8 X 10^3 Lymphocytes # (Auto) 1.1 1.0-4.0 X 10^3 Monocytes # (Auto) 0.9 0.0-1.0 X 10^3 Eosinophils # (Auto) 0.3 0.0-0.3 10^3/uL Basophils # (Auto) 0.0 0.0-0.1 10^3/uL Sodium Level 142 135-145 MMOL/L Potassium Level 4.1 3.6-5.0 MMOL/L Chloride Level 105 98-107 MMOL/L Carbon Dioxide Level 28 21-32 MMOL/L Anion Gap 9 5-14 MMOL/L Blood Urea Nitrogen 22 H 7-18 MG/DL Creatinine 0.75 0.60-1.30 MG/DL Estimat Glomerular Filtration Rate > 60 BUN/Creatinine Ratio 29 Glucose Level 100 70-105 MG/DL Calcium Level 9.5 8.5-10.1 MG/DL Corrected Calcium 9.7 8.5-10.1 MG/DL Total Bilirubin 0.5 0.1-1.0 MG/DL Aspartate Amino Transf (AST/SGOT) 20 5-34 U/L Alanine Aminotransferase (ALT/SGPT) 12 0-55 U/L Alkaline Phosphatase 184 H 40-136 U/L B-Type Natriuretic Peptide 77.8 <100.0 PG/ML Total Protein 7.0 6.4-8.2 GM/DL Albumin 3.8 3.2-4.5 GM/DL Thyroid Stimulating Hormone (TSH) 1.46 0.35-4.94 UIU/ML Free Thyroxine 1.14 0.70-1.48 NG/DL Urine Color YELLOW Urine Clarity SLIGHTLY CLOUDY Urine pH 7 5-9 Urine Specific [place] 1.010 L 1.016-1.022 Urine Protein 1+ H NEGATIVE Urine Glucose (UA) NEGATIVE NEGATIVE Urine Ketones NEGATIVE NEGATIVE Urine Nitrite POSITIVE H NEGATIVE Urine Bilirubin NEGATIVE NEGATIVE Urine Urobilinogen NORMAL NORMAL MG/DL Urine Leukocyte Esterase 1+ H NEGATIVE Urine RBC (Auto) NEGATIVE NEGATIVE Urine RBC NONE /HPF Urine WBC NONE /HPF Urine Crystals NONE /LPF Urine Bacteria TRACE /HPF Urine Casts NONE /LPF Urine Mucus NEGATIVE /LPF Urine Culture Indicated NO My Orders Orders - HELEN SOARES MD BNP (08/24/18 06:56) Cbc With Automated Diff (08/24/18 06:56) Comprehensive Metabolic Panel (08/24/18 06:56) Ua Culture If Indicated (08/24/18 06:56) Chest 1 View, Ap/Pa Only (08/24/18 06:56) Pelvis With Right Hip 2-3views (08/24/18 06:56) Ct Head/Cervical Spine Wo (08/24/18 06:56) Saline Lock/Iv-Start (08/24/18 06:56) O2 (08/24/18 06:56) Albuterol/Ipra Inhalation Soln (Duoneb I (08/24/18 07:00) Svn Small Volume Nebulizer (08/24/18 06:56) Dipht,Pertuss(Acell),Tet Adult (Boostrix (08/24/18 07:00) Thyroid Stimulating Hormone (08/24/18 07:06) Free T4 (Free Thyroxine) (08/24/18 07:06) Ekg Tracing (08/24/18 07:22) Monitor-Rhythm Ecg Trace Only (08/24/18 07:22) Medications Given in ED Current Medications Medications Dose Ordered Sig/Leticia Route Start Time Stop Time Status Last Admin Dose Admin Albuterol/ Ipratropium 3 ml ONCE ONCE INH 08/24/18 07:00 08/24/18 07:01 DC 08/24/18 07:04 3 ML Diphtheria/ Tetanus/Acell Pertussis 0.5 ml ONCE ONCE IM 08/24/18 07:00 08/24/18 07:01 DC 08/24/18 08:01 0.5 ML Vital Signs/I&O 08/24/18 08/24/18 08/24/18 06:48 06:48 07:04 Temp 97.9 Pulse 95 Resp 18 B/P (MAP) 167/87 (113) Pulse Ox 96 96 O2 Delivery Nasal Cannula Nasal Cannula Nasal Cannula O2 Flow Rate 2.00 2.00 Blood Pressure Mean: 113 Initial ECG Impression Date: Aug 24, 2018 Initial ECG Impression Time: 07:53 Initial ECG Rate: 95 Initial ECG Rhythm: Normal Sinus Comment Sinus rhythm with no ST elevation or depression. No abnormal intervals or axis deviation. Borderline heart rate at 95 bpm. Diagnostic Imaging Diagonstic Imaging: CT Plain Films/CT/US/NM/MRI: c-spine, head Comments CT head and C-spine viewed by me and report reviewed. See report below: NAME: [facility] REC#: [id number] PT STATUS: REG ER : 1930 PHYSICIAN: HELEN SOARES MD ADMIT DATE: 08/24/18/ER Draft Date of Exam:08/24/18 CT HEAD/CERVICAL SPINE WO PROCEDURE: CT head and CT cervical spine without contrast. TECHNIQUE: Multiple contiguous axial images were obtained through the brain and cervical spine without the use of intravenous contrast. Sagittal and coronal reformations through the cervical spine were then performed. INDICATION: Traumatic head/neck injury sustained during unwitnessed fall. COMPARISON: CT head and cervical spine performed on 04/06/2018. FINDINGS - CT BRAIN: BRAIN: No parenchymal hemorrhage, midline shift or mass effect. Kemp-white matter differentiation is intact. No acute infarct. 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 Moderate periventricular and subcortical low-density white matter changes. Moderate prominence of the ventricles and Sulci consistent with cortical and cerebellar parenchymal volume loss. EXTRA-AXIAL SPACES: No subdural or epidural collections. ORBITS AND PARANASAL SINUSES: Visualized orbits and globes are intact. Visualized paranasal sinuses and mastoid air cells are clear. CALVARIUM AND SOFT TISSUES: The calvarium is intact. No fractures or suspicious bony lesions. The extracranial soft tissues are unremarkable. FINDINGS - CT CERVICAL SPINE: SPINE: Multiple images are degraded by patient motion which diminishes detail, and interpretation was made in light of this technical confine. No fracture. No acute osseous abnormalities. There is normal cervical lordosis. No subluxation. There is moderate multilevel degenerative loss of disc height with endplate osteophytes. No locked or perched facet. SOFT TISSUES AND LUNG APICES: Soft tissues unremarkable. Clear lung apices. IMPRESSION: - CT BRAIN: No acute intracranial pathology. No significant change from prior. Chronic changes consisting of age-related volume loss and nonspecific white matter disease, most commonly attributed to small vessel ischemic change. IMPRESSION: - CT CERVICAL SPINE: Multilevel degenerative change of the cervical spine, without evidence of acute fracture or subluxation. Dictated on workstation # [id number] Dict: 08/24/18750 Trans: 08/24/18 0810 MAURY [id number] Interpreted by: ALEAH ROBERSON DO Diagonstic Imaging: Xray Plain Films/CT/US/NM/MRI: chest Comments Chest x-ray viewed by me and report reviewed. See report below: NAME: [facility] REC#: [id number] PT STATUS: REG ER : 1930 PHYSICIAN: HELEN SOARES MD ADMIT DATE: 08/24/18/ER Draft Date of Exam:08/24/18 CHEST 1 VIEW, AP/PA ONLY INDICATION: Fall, hip pain. FINDINGS: Upright chest shows normal heart size and vascularity. The lungs are clear. There is no effusion or pneumothorax. IMPRESSION: No acute abnormality is seen. The density in the right upper lobe seen on 07/21/2018 study is not evident on today's examination with no other change. Dictated on workstation # [id number] Dict: 08/24/18749 Trans: 08/24/18 075 [id number] Interpreted by: AMISHA SERVIN MD Diagonstic Imaging: Xray Plain Films/CT/US/NM/MRI: pelvis, hip Comments X-ray right hip and pelvis viewed by me and report reviewed. See report below: NAME: [facility] REC#: [id number] PT STATUS: REG ER : 1930 PHYSICIAN: HELEN SOARES MD ADMIT DATE: 08/24/18/ER Draft Date of Exam:08/24/18 PELVIS WITH RIGHT HIP 2-3VIEWS INDICATION: Fall, hip pain. FINDINGS: 3 views of the pelvis and right hip shows no fracture, dislocation or other acute bony abnormality. There are changes of prior bilateral total joint arthroplasties. There is satisfactory alignment with no loosening seen. The findings are stable compared to 07/21/2018 study. IMPRESSION: No acute abnormality is seen. Dictated on workstation # [id number] Dict: 08/24/18 0748 Trans: 08/24/18 0754 [id number] Interpreted by: AMISHA SERVIN MD Departure Impression Primary Impression: Fall on same level Qualified Codes: W18.30XA - Fall on same level, unspecified, initial encounter Additional Impressions: Scalp laceration Qualified Codes: S01.01XA - Laceration without foreign body of scalp, initial encounter Right hip pain Disposition: 01 HOME, SELF-CARE Condition: Improved Departure-Patient Inst. Decision time for Depature: 09:45 Referrals: ZORA GUERRERO MD (PCP/Family) Primary Care Physician Patient Instructions: Laceration Repair With Ghassan (DC) Add. Discharge Instructions: Monitor wound for signs of infection including increasing redness, increasing pain, increasing swelling, puslike drainage, or fever. Return to care promptly if you notice these symptoms. Have ghassan removed in about 7 days. Wash hair gently while ghassan are in place. Ambulate only with a walker and supervision. Follow-up with your primary care provider soon as possible. All discharge instructions reviewed with patient and/or family. Voiced understanding. HELEN SOARES MD Aug 24, 2018 07:22
[2018-08-24 07:34] LABS: ALANINE AMINOTRANSFERASE 12 U/L (0-55); ALBUMIN 3.8 GM/DL (3.2-4.5); ALKALINE PHOSPHATASE 184 U/L (40-136); BILIRUBIN,TOTAL 0.5 MG/DL (0.1-1.0); BUN/CREATININE RATIO 29; CALCIUM 9.5 MG/DL (8.5-10.1); CARBON DIOXIDE 28 MMOL/L (21-32); CHLORIDE 105 MMOL/L (98-107); CREATININE SERUM 0.75 MG/DL (0.60-1.30); GFR ESTIMATED > 60; GLUCOSE 100 MG/DL (70-105); POTASSIUM 4.1 MMOL/L (3.6-5.0); SODIUM 142 MMOL/L (135-145)
[2018-08-24 07:55] LABS: FREE T4 (FREE THYROXINE) 1.14 NG/DL (0.70-1.48)
--- NOTE | 2018-08-24 07:55 | Diagnostic Imaging Report ---
INDICATION: Fall, hip pain. FINDINGS: Upright chest shows normal heart size and vascularity. The lungs are clear. There is no effusion or pneumothorax. IMPRESSION: No acute abnormality is seen. The density in the right upper lobe seen on 07/21/2018 study is not evident on today's examination with no other change. Dictated by: Dictated on workstation # [id number]
--- NOTE | 2018-08-24 07:55 | Diagnostic Imaging Report ---
INDICATION: Fall, hip pain. FINDINGS: 3 views of the pelvis and right hip shows no fracture, dislocation or other acute bony abnormality. There are changes of prior bilateral total joint arthroplasties. There is satisfactory alignment with no loosening seen. The findings are stable compared to 07/21/2018 study. IMPRESSION: No acute abnormality is seen. Dictated by: Dictated on workstation # [id number]
--- NOTE | 2018-08-24 08:10 | Diagnostic Imaging Report ---
PROCEDURE: CT head and CT cervical spine without contrast. TECHNIQUE: Multiple contiguous axial images were obtained through the brain and cervical spine without the use of intravenous contrast. Sagittal and coronal reformations through the cervical spine were then performed. INDICATION: Traumatic head/neck injury sustained during unwitnessed fall. COMPARISON: CT head and cervical spine performed on 04/06/2018. FINDINGS - CT BRAIN: BRAIN: No parenchymal hemorrhage, midline shift or mass effect. Kemp-white matter differentiation is intact. No acute infarct. 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 Moderate periventricular and subcortical low-density white matter changes. Moderate prominence of the ventricles and Sulci consistent with cortical and cerebellar parenchymal volume loss. EXTRA-AXIAL SPACES: No subdural or epidural collections. ORBITS AND PARANASAL SINUSES: Visualized orbits and globes are intact. Visualized paranasal sinuses and mastoid air cells are clear. CALVARIUM AND SOFT TISSUES: The calvarium is intact. No fractures or suspicious bony lesions. The extracranial soft tissues are unremarkable. FINDINGS - CT CERVICAL SPINE: SPINE: Multiple images are degraded by patient motion which diminishes detail, and interpretation was made in light of this technical confine. No fracture. No acute osseous abnormalities. There is normal cervical lordosis. No subluxation. There is moderate multilevel degenerative loss of disc height with endplate osteophytes. No locked or perched facet. SOFT TISSUES AND LUNG APICES: Soft tissues unremarkable. Clear lung apices. IMPRESSION: - CT BRAIN: No acute intracranial pathology. No significant change from prior. Chronic changes consisting of age-related volume loss and nonspecific white matter disease, most commonly attributed to small vessel ischemic change. IMPRESSION: - CT CERVICAL SPINE: Multilevel degenerative change of the cervical spine, without evidence of acute fracture or subluxation. Dictated by: Dictated on workstation # [id number]
[2018-08-24 09:42] LABS: BILIRUBIN,URINE NEGATIVE (NEGATIVE); CLARITY,URINE SLIGHTLY CLOUDY; COLOR,URINE YELLOW; GLUCOSE, URINE (UA) NEGATIVE (NEGATIVE); KETONES,URINE NEGATIVE (NEGATIVE); LEUKOCYTE ESTERASE ,URINE 1+ (NEGATIVE); NITRITE,URINE POSITIVE (NEGATIVE); PH,URINE 7 (5-9); PROTEIN,URINE 1+ (NEGATIVE); UROBILINOGEN,URINE NORMAL (NORMAL)
[2018-08-24 09:55] LABS: BACTERIA,URINE TRACE /HPF
--- NOTE | 2018-08-24 10:28 | NUR ---
[facility] CALLED TO COME BACK AND PICK PATIENT UP.,
[2018-08-24 11:24] VITALS: BP 129/74
== END 2018-08-24 11:20 | disposition home or self-care (01) ==
LOC: EDUNIT# 06:44 → ER 06:45
DX: S01.01XA Laceration without foreign body of scalp, initial encounter (principal); M25.551 Pain in right hip; J43.9 Emphysema, unspecified; I48.91 Unspecified atrial fibrillation; F03.90 Unspecified dementia, unspecified severity, without behavioral disturbance, psychotic disturbance, mood disturbance, and anxiety; K21.9 Gastro-esophageal reflux disease without esophagitis; E03.9 Hypothyroidism, unspecified; F41.9 Anxiety disorder, unspecified; Z90.710 Acquired absence of both cervix and uterus; Z79.51 Long term (current) use of inhaled steroids; Z87.01 Personal history of pneumonia (recurrent); W18.30XA Fall on same level, unspecified, initial encounter
CPT/HCPCS: 12002; 36415; 51701; 70450; 71045; 72125; 80053; 81000; 83880; 84439; 84443; 85025; 87088; 90715; 93005; 93041; 94640

== ENCOUNTER 2018-10-13 17:10 | Emergency (ER) | payer MEDICARE, MEDICAID ==
[~2018-10-13] VITALS: Ht 157.5 cm; Wt 63.5 kg
--- OUTSIDE RECORDS SUMMARY | 2018-10-13 17:19 | XMS REPORT | Continuity of Care Document ---
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 Inpatient HINA LEE DO [facility] 4TH SWB [id number] 08/23/2016 15:25:00 08/28/2016 10:14:00 DIS Inpatient HINA LEE DO [facility] 4TH SEPSIS,UTI,RESP DISTRESS, HYPOKALEMIA [id number] 12/01/2014 09:48:00 12/13/2014 16:55:00 DIS Inpatient ISIDRO TOMPKINS, SHUN Jarquin [facility] IRF L HIP FX [id number] 11/26/2014 10:23:00 12/01/2014 09:47:00 DIS Inpatient JARRELL DAY MD [facility] SURGICAL L HIP FX L CLAVICLE FX L THUMB DISLOCATION FALL [id number] 10/29/2014 11:06:00 10/29/2014 13:20:00 DIS Emergency ANGIE PRADO [facility] ER FALL RIGHT ARM/CHEEK PAIN [id number] 10/01/2014 16:02:00 10/18/2014 17:25:00 DIS Inpatient EILEEN TOMPKINS, CLINTON Jennings [facility] SURGICAL LEUKOCYTOSIS [id number] 10/13/2018 17:11:00 ACT Emergency EUGENE BARDALES MD [facility] ER CHEST CONGESTION [id number] 10/02/2014 00:26:00 Document Registration [id number] 10/02/2014 00:26:00 Document Registration [id number] 12/20/2011 18:21:00 Document Registration [id number] 10/18/2011 11:10:00 Document Registration [id number] 10/13/2011 09:15:00 Document Registration [id number] 12/23/2017 09:50:03 12/23/2017 23:59:59 [facility] 11/26/2014 06:19:28 ACT Document Registration
--- NOTE | 2018-10-13 17:42 | Diagnostic Imaging Report ---
INDICATION: Shortness of air with chest congestion. COMPARISON: 08/24/2018. FINDINGS: There is no acute infiltrate. The heart size is within normal limits. No vascular congestion. IMPRESSION: No acute appearing abnormality. Dictated by: Dictated on workstation # [id number]
--- NOTE | 2018-10-13 17:47 | ED General ---
General Chief Complaint: General Problems/Pain Stated Complaint: CHEST CONGESTION Source of Information: Patient Exam Limitations: No Limitations History of Present Illness Date Seen by Provider: Oct 13, 2018 Time Seen by Provider: 17:28 Initial Comments 88 year old who was brought to the emergency room for the need for a chest x- ray. [facility] RN reports that they tried to get her an outpatient chest x- ray for a cough for the past week but the provider sent her to the emergency room. She denies any complaints. Wears 3 leaders of 02 continuously. Timing/Duration: 1 Week Associated Systoms: Cough Allergies and Home Medications Allergies Coded Allergies: No Known Drug Allergies (Unverified , 10/13/11) Home Medications Acetaminophen 500 Mg Tablet, 500 MG PO TID, (Reported) NOT TO EXCEED 3GM/24 HOURS Albuterol Sulfate 2.5 Mg/0.5 Ml Vial.neb, 2.5 MG IH Q4H PRN for SHORTNESS OF BREATH, (Reported) Amoxicillin/Potassium Clav 1 Each Tablet, 1 EACH PO BID Prescribed by: DEVON CASTAÑEDA on 07/29/17951 Cefuroxime Axetil 250 Mg Tablet, 250 MG PO BID Prescribed by: MARY KAY SMITH on 04/06/18 1821 Docusate Sodium 100 Mg Capsule, 100 MG PO BID, (Reported) Donepezil HCl 10 Mg Tablet, 10 MG PO DAILY, (Reported) Famotidine 20 Mg Tablet, 20 MG PO HS, (Reported) Hydrocodone/Acetaminophen 1 Each Tablet, 1 EACH PO Q6H PRN for PAIN-MODERATE Prescribed by: MARY KAY SMITH on 07/21/18 1535 L.acidoph & Paracasei,B.lactis 1 Each Capsule, 1 EACH PO TIDWM Prescribed by: DEVON CASTAÑEDA on 07/29/1752 Levothyroxine Sodium 88 Mcg Tablet, 88 MCG PO 0900, (Reported) Menthol/Lanolin/Calamine/Znox 71 Gm Oint, TP PRN PRN for REDNESS TO COCCYX, ( Reported) Multivitamin with Folic Acid 400 Mcg Tablet, 400 MCG PO DAILY, (Reported) Patient Home Medication List Home Medication List Reviewed: Yes Review of Systems Review of Systems Constitutional: see HPI; No chills, No fever Respiratory: see HPI, cough; No short of breath, No wheezing All Other Systems Reviewed Negative Unless Noted: Yes Past Qedvvzz-Bojixa-Bxvdce Hx Past Med/Social Hx: Reviewed Nursing Past Med/Soc Hx Patient Social History 2nd Hand Smoke Exposure: No Recent Foreign Travel: No Contact w/Someone Who Travel: No Recent Hopitalizations: No Immunizations Up To Date Tetanus Booster (TDap): Unknown Date of Pneumonia Vaccine: May 08, 2011 Date of Influenza Vaccine: Aug 05, 2017 Seasonal Allergies Seasonal Allergies: No Past Medical History Surgeries: Yes Abdominal, Hysterectomy, Joint Replacement, Orthopedic Respiratory: Yes (SEPSIS) Pneumonia, COPD, Emphysema Cardiac: Yes Atrial Fibrillation Neurological: Yes (? 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) Dementia Reproductive Disorders: No Genitourinary: No Gastrointestinal: Yes (HIATAL HERNIA AND DIVERTICULAR DISEASE NOTED ON EGD/ COLONOSCOPY) Gastroesophageal Reflux, Chronic Constipation, Diverticulosis, Hiatal Hernia, Ulcer Musculoskeletal: Yes Arthritis, Fractures Endocrine: Yes Hypothyroidsim HEENT: No Cancer: No Psychosocial: Yes Anxiety Integumentary: No Blood Disorders: No Adverse Reaction/Blood Tranf: No Family Medical History Reviewed Nursing Family Hx Hypertension 19 FATHER Myocardial infarction 19 FATHER No Pertinent Family Hx, Hypertension Physical Exam Vital Signs Vital Signs - First Documented 10/13/18 17:15 Temp 98.3 Pulse 92 Resp 18 B/P (MAP) 151/84 (106) Pulse Ox 94 Capillary Refill : Height, Weight, BMI Height: 5'4.00" Weight: 120lbs. 0.8oz. 54.697114eo; 21.4 BMI Method:Estimated General Appearance: No Apparent Distress, WD/WN HEENT: PERRL/EOMI, TMs Normal, Normal ENT Inspection, Pharynx Normal Respiratory: Chest Non Tender, Lungs Clear, Normal Breath Sounds, No Accessory Muscle Use, No Respiratory Distress Cardiovascular: Regular Rate, Rhythm, No Edema, No Gallop, No JVD, No Murmur, Normal Peripheral Pulses Gastrointestinal: Normal Bowel Sounds, No Organomegaly, No Pulsatile Mass, Non Tender, Soft Extremity: Normal Capillary Refill, No Pedal Edema Neurologic/Psychiatric: Alert, Oriented x3, Normal Mood/Affect Skin: Normal Color, Warm/Dry Procedures/Interventions Suture Size: 5-0 Progress/Results/Core Measures Suspected Sepsis SIRS Temperature: Pulse: Respiratory Rate: Blood Pressure / Mean: Results/Orders My Orders Vital Signs/I&O Capillary Refill : Departure Impression Primary Impression: Cough Disposition: 01 HOME, SELF-CARE Condition: Stable/Unchanged Departure-Patient Inst. Decision time for Depature: 17:46 Referrals: ZORA CESPEDES MD (PCP/Family) Primary Care Physician Patient Instructions: Cough, Adult (DC) Add. Discharge Instructions: Continue to use your Robitussin cough syrup as directed. Follow-up with Dr. Cespedes within 1 week for recheck. Return back to the emergency room for worsening symptoms or concerns as needed. All discharge instructions reviewed with patient and/or family. Voiced understanding. JHOANA RAMOS Oct 13, 2018 17:47
[2018-10-13 17:50] VITALS: BP 151/84
== END 2018-10-13 18:10 | disposition home or self-care (01) ==
LOC: EDUNIT# 17:10 → ER 17:11
DX: R05 Cough (principal); J43.9 Emphysema, unspecified; I48.91 Unspecified atrial fibrillation; F03.90 Unspecified dementia, unspecified severity, without behavioral disturbance, psychotic disturbance, mood disturbance, and anxiety; K21.9 Gastro-esophageal reflux disease without esophagitis; E03.9 Hypothyroidism, unspecified; F41.9 Anxiety disorder, unspecified; Z87.19 Personal history of other diseases of the digestive system; Z86.19 Personal history of other infectious and parasitic diseases; Z82.49 Family history of ischemic heart disease and other diseases of the circulatory system; Z90.710 Acquired absence of both cervix and uterus; Z87.01 Personal history of pneumonia (recurrent)
CPT/HCPCS: 71045

== ENCOUNTER 2020-04-13 21:00 | Emergency (ER) | payer MEDICARE, MEDICAID ==
[~2020-04-13 21:00] MED LIST changes: -MULT-19 PO; +MULT-20 PO; +MULT-567 PO; -MULT1TAB69 PO; -OMEP20CA12 PO; +OMEP20CA18 PO
--- NOTE | 2020-04-13 21:19 | ED Trauma-Multisystem ---
General Chief Complaint: Trauma-Non Activation Stated Complaint: FALL INJURY Source of Information: EMS, EMS Notes Reviewed, Residential Records, RN Notes Reviewed Exam Limitations: No Limitations History of Present Illness Date Seen by Provider: Apr 13, 2020 Time Seen by Provider: 21:05 Initial Comments 89-year-old female was brought to the emergency room by [facility] after [facility] face [facility]. assisted staff denies loss of consciousness. The patient is confused at baseline. She has a small 0.5 cm laceration to her forehead. And bruising to her Occurred: Just Prior to Arrival Loss of Consciousness: No Loss of Consciousness Associated Symptoms (Fall): Denies Symptoms Allergies and Home Medications Allergies Coded Allergies: No Known Drug Allergies (Unverified , 10/13/11) Home Medications Acetaminophen 500 Mg Tablet, 500 MG PO TID, (Reported) NOT TO EXCEED 3GM/24 HOURS Albuterol Sulfate 2.5 Mg/0.5 Ml Vial.neb, 2.5 MG IH Q4H PRN for SHORTNESS OF BREATH, (Reported) Amoxicillin/Potassium Clav 1 Each Tablet, 1 EACH PO BID Prescribed by: DEVON CASTAÑEDA on 07/29/17951 Cefuroxime Axetil 250 Mg Tablet, 250 MG PO BID Prescribed by: MARY KAY SMITH on 04/06/18 182 Docusate Sodium 100 Mg Capsule, 100 MG PO BID, (Reported) Donepezil HCl 10 Mg Tablet, 10 MG PO DAILY, (Reported) Famotidine 20 Mg Tablet, 20 MG PO HS, (Reported) Hydrocodone/Acetaminophen 1 Each Tablet, 1 EACH PO Q6H PRN for PAIN-MODERATE Prescribed by: MARY KAY SMITH on 07/21/18 1535 L.acidoph & Paracasei,B.lactis 1 Each Capsule, 1 EACH PO TIDWM Prescribed by: DEVON CASTAÑEDA on 07/29/17951 Levothyroxine Sodium 88 Mcg Tablet, 88 MCG PO 0900, (Reported) Menthol/Lanolin/Calamine/Znox 71 Gm Oint, TP PRN PRN for REDNESS TO COCCYX, (Reported) Multivitamin with Folic Acid 400 Mcg Tablet, 400 MCG PO DAILY, (Reported) Patient Home Medication List Home Medication List Reviewed: Yes Review of Systems Review of Systems Constitutional: see HPI; No chills, No fever Skin: see HPI, other (for head laceration) All Other Systems Reviewed Negative Unless Noted: Yes Past Sdjtpcu-Onytam-Hulbxd Hx Past Med/Social Hx: Reviewed Nursing Past Med/Soc Hx Patient Social History 2nd Hand Smoke Exposure: No Recent Hopitalizations: No Immunizations Up To Date Tetanus Booster (TDap): Unknown Date of Pneumonia Vaccine: May 08, 2011 Date of Influenza Vaccine: Aug 05, 2017 Seasonal Allergies Seasonal Allergies: No Past Medical History Surgeries: Yes Abdominal, Hysterectomy, Joint Replacement, Orthopedic Respiratory: Yes (SEPSIS) Pneumonia, COPD, Emphysema Cardiac: Yes Atrial Fibrillation Neurological: Yes (? 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) Dementia Reproductive Disorders: No Genitourinary: No Gastrointestinal: Yes (HIATAL HERNIA AND DIVERTICULAR DISEASE NOTED ON EGD/COLONOSCOPY) Gastroesophageal Reflux, Chronic Constipation, Diverticulosis, Hiatal Hernia, Ulcer Musculoskeletal: Yes Arthritis, Fractures Endocrine: Yes Hypothyroidsim HEENT: No Cancer: No Psychosocial: Yes Anxiety Integumentary: No Blood Disorders: No Adverse Reaction/Blood Tranf: No Family Medical History Reviewed Nursing Family Hx Hypertension 19 FATHER Myocardial infarction 19 FATHER No Pertinent Family Hx, Hypertension Physical Exam Height, Weight, BMI Height: 5'2.00" Weight: 140lbs. 0oz. 63.938234ms; 21.4 BMI Method:Estimated General Appearance: No Apparent Distress, WD/WN Head: Other (scalp laceration.) Eyes: Bilateral Eye Normal Inspection, Bilateral Eye PERRL, Bilateral Eye EOMI Ears, Nose, Throat: No Evidence of ENT Injury, No Dental Injury Neck: Full Range of Motion, Normal Inspection, Non Tender Cardiovascular: Regular Rate, Rhythm, No Edema, No Gallop, No JVD, No Murmur, Normal Peripheral Pulses Respiratory: Chest Non Tender, Lungs Clear, Normal Breath Sounds, No Accessory Muscle Use, No Respiratory Distress Gastrointestinal: Normal Bowel Sounds, No Organomegaly, No Pulsatile Mass, Non Tender, Soft Neurologic/Psychiatric: Alert Skin: Normal Color, Warm/Dry, Other (0.5 cm laceration to right forehead. Ecchymosis to her left third finger.) Paloma Coma Score Best Eye Response (Paloma): (4) Open Spontaneously Best Verbal Response (Paloma): (5) Oriented Best Motor Response (Paloma): (6) Obeys Commands [place] Total: 15 Procedures/Interventions Suture Size: 5-0 Progress/Results/Core Measures Results/Orders My Orders Orders - JHOANA RAMOS Ct Head/Cervical Spine Wo (04/13/20 21:05) Departure Impression Primary Impression: Fall Additional Impression: Minor head injury without loss of consciousness Disposition: HOME, SELF-CARE Condition: Stable/Unchanged Departure-Patient Inst. Decision time for Depature: 21:39 Referrals: ZORA GUERRERO MD (PCP/Family) Primary Care Physician Patient Instructions: Head Injury Observation (DC), Laceration Repair, Preventing Falls in the Older Adult Add. Discharge Instructions: Watch for signs of infection such as increased redness, swelling, drainage, pain. Let the glue fall off on its own. Follow-up with primary care provider as needed. Return back to the emergency room for worsening symptoms, change in level of consciousness, or any other concerns as needed. All discharge instructions reviewed with patient and/or family. Voiced understanding. JHOANA RAMOS Apr 13, 2020 21:19
--- NOTE | 2020-04-13 21:34 | Diagnostic Imaging Report ---
PROCEDURE: CT head and CT cervical spine without contrast. TECHNIQUE: Multiple contiguous axial images were obtained through the brain and cervical spine without the use of intravenous contrast. Sagittal and coronal reformations through the cervical spine were then performed. Auto Exposure Controls were utilized during the CT exam to meet ALARA standards for radiation dose reduction. INDICATION: Fall. Scalp contusion. Neck pain. COMPARISON: 08/24/2018. FINDINGS: CT head: No large acute territorial ischemia, mass, or hemorrhage. 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 No midline shift or mass effect. Decreased attenuation is seen in the periventricular and subcortical white matter. The ventricles and cortical sulci are prominent. The basilar cisterns are patent and unremarkable. The calvarium is intact. The visualized paranasal sinuses are clear. CT cervical spine: No acute fracture or dislocation is seen in the cervical spine. There is straightening of the cervical spine. There is osteopenia is noted. No focal osseous lesions. Vertebral body heights are well-maintained. The craniocervical junction is well-maintained. Mild degenerative changes are seen in the cervical spine with disc osteophyte complexes and uncovertebral arthropathy. Soft tissues of the neck are unremarkable. Centrilobular emphysema is noted in the lung apices. IMPRESSION: 1. No hemorrhage or focal intra-axial mass. No CT evidence of large acute territorial ischemia. 2. No acute fracture or dislocation in the cervical spine. 3. Generalized parenchymal volume loss with chronic microvascular disease. Dictated by: Dictated on workstation # [id number]
--- NOTE | 2020-04-13 21:55 | NUR ---
REPORT GIVEN TO MINE AT [facility]. [facility] STAFF TO TRANSFER BACK TO FACILITY.
[2020-04-13 22:29] VITALS: BP 145/62
== END 2020-04-13 22:29 | disposition home or self-care (01) ==
LOC: EDUNIT# 21:03 → ER 21:04
DX: S01.81XA Laceration without foreign body of other part of head, initial encounter (principal); S60.032A Contusion of left middle finger without damage to nail, initial encounter; S09.8XXA Other specified injuries of head, initial encounter; J44.9 Chronic obstructive pulmonary disease, unspecified; R40.2410 Glasgow coma scale score 13-15, unspecified time; E03.9 Hypothyroidism, unspecified; K21.9 Gastro-esophageal reflux disease without esophagitis; Z82.49 Family history of ischemic heart disease and other diseases of the circulatory system; W05.0XXA Fall from non-moving wheelchair, initial encounter
CPT/HCPCS: 12011; 70450; 72125

== ENCOUNTER 2020-08-19 13:17 | Outpatient (CLI) | payer MEDICARE, MEDICAID ==
[~2020-08-19] VITALS: Ht 152 cm; Wt 45.4 kg
[2020-08-19] MEDS ORDERED: EPINEPHrine INJECTION 1 MG/ML AMP IM PRN (13:30)
[2020-08-19] MEDS ORDERED: diphenhydrAMINE 50 MG/ML INJ (BENADRYL) IV PRN (13:30)
[2020-08-19] MEDS ORDERED: BAMLANIVIMAB (NON FORM) 700 MG in NS (IVPB) 100 ML IV ONE (13:30)
[2020-08-19 13:35] VITALS: BP 172/91
[2020-08-19 14:17] VITALS: BP 143/84
== END 2020-08-19 15:15 | disposition home or self-care (01) ==
LOC: INFUSION 13:17
PROVIDERS: ATTEND Nurse Practitioner Community Health
DX: U07.1 COVID-19 (principal)